=== PATIENT | male | born 1995 | race Caucasian/White ===

== ENCOUNTER 2016-09-12 13:52 | Emergency (ER) | payer OTHER ==
[2016-09-12 13:59] VITALS: RESP 18
--- NOTE | 2016-09-12 15:46 | ED ---
Chest Pain HPI - General Chief Complaint: Chest Pain Stated Complaint: chest and neck pain Time Seen by Provider: 09/12/16 15:15 Source: patient, RN notes reviewed Mode of arrival: ambulatory Limitations: no limitations - History of Present Illness Initial Comments: This patient is a 21-year-old man who presents to be evaluated for an episode of right chest pain that occurred earlier today. The patient states that he was riding the bus to school and experienced pain just to the right of his sternum that was sharp, constant, and moderate intensity. The patient states the pain is worse if he presses on it. He did not note any relieving factors. There were no associated factors. He states that the pain lasted number of minutes and has now completely resolved. MD Complaint: chest pain -: hour(s) Onset: during rest Pain Location: right chest Pain Radiation: none Severity: moderate Quality: sharp Consistency: now resolved Improves With: nothing Worsens With: palpation Treatments Prior to Arrival: none - Related Data Home Medications Medication Instructions Recorded Confirmed Albuterol Inhaler [Ventolin Hfa 2 puff INHALATION RT-Q6H PRN 11/01/15 09/12/16 Inhaler] Doxycycline [Vibramycin] 100 mg PO Q12HR 11/01/15 09/12/16 Fluticasone Nasal [place] [Flonase 1 spray NASAL DAILY 11/01/15 09/12/16 Nasal [place]] Levothyroxine Sodium [Synthroid] 25 mcg PO DAILY 11/01/15 09/12/16 Methylphenidate HCl [Ritalin] 20 mg PO BID 11/01/15 09/12/16 Mometasone Furoate [Asmanex] 1 puff INHALATION RT-DAILY 11/01/15 09/12/16 Sertraline [Zoloft] 100 mg PO DAILY 11/01/15 09/12/16 Cetirizine HCl [Zyrtec] 10 mg PO DAILY 09/12/16 09/12/16 OLANZapine [ZyPREXA] 2.5 mg PO HS 09/12/16 09/12/16 Allergies Allergy/AdvReac Type Severity Reaction Status Date / Time amoxicillin trihydrate Allergy Rash/Hives Verified 09/12/16 15:19 [From Augmentin] potassium clavulanate Allergy Rash/Hives Verified 09/12/16 15:19 [From Augmentin] risperidone [From Risperdal] Allergy Rash/Hives Verified 09/12/16 15:19 Review of Systems ROS Statement: Those systems with pertinent positive or pertinent negative responses have been documented in the HPI. ROS Other: All systems not noted in ROS Statement are negative. Constitutional: Denies: fever, chills Respiratory: Denies: cough, dyspnea Cardiovascular: Reports: as per HPI, chest pain. Denies: palpitations, orthopnea, edema, syncope Gastrointestinal: Denies: abdominal pain, nausea, vomiting Genitourinary: Denies: dysuria, hematuria Musculoskeletal: Denies: back pain Skin: Denies: rash Neurological: Denies: headache, weakness, numbness EKG Findings - EKG Results: EKG: interpreted by KOJO JOSEPHL, sinus rhythm, normal axis, normal QRS, normal ST/ T, no acute changes Past Medical History Past Medical History: Asthma, Thyroid Disorder Additional Past Medical History / Comment(s): shunt from hydrocephalus History of Any Multi-Drug Resistant Organisms: None Reported Additional Past Surgical History / Comment(s): shunt from hydrocephalus Past Anesthesia/Blood Transfusion Reactions: No Reported Reaction Past Psychological History: ADD/ADHD Additional Psychological History / Comment(s): asbsonny Smoking Status: Never smoker Past Alcohol Use History: None Reported Past Drug Use History: None Reported General Exam Limitations: no limitations General appearance: alert, in no apparent distress Head exam: Present: atraumatic, normocephalic Eye exam: Present: normal appearance ENT exam: Present: normal oropharynx Neck exam: Present: normal inspection, full ROM, thyromegaly (Patient's thyroid is at the upper limit of normal size.). Absent: tenderness, meningismus, lymphadenopathy Respiratory exam: Present: normal lung sounds bilaterally, chest wall tenderness (There is mild chest wall tenderness to the right of the patient's sternum. No palpable deformity). Absent: respiratory distress, wheezes, rales , rhonchi, stridor, accessory muscle use, decreased breath sounds, prolonged expiratory Cardiovascular Exam: Present: regular rate, normal rhythm, normal heart sounds. Absent: systolic murmur, diastolic murmur, rubs, gallop GI/Abdominal exam: Present: soft. Absent: distended, tenderness, guarding, rebound Extremities exam: Present: normal inspection, normal capillary refill. Absent: pedal edema, calf tenderness Back exam: Present: normal inspection. Absent: CVA tenderness (R), CVA tenderness (L) Neurological exam: Present: alert Skin exam: Present: warm, dry, intact, normal color. Absent: rash Course Vital Signs 09/12/16 09/12/16 13:53 18:15 Temperature 97.9 F 98.4 F Pulse Rate 88 95 Respiratory 18 18 Rate Blood Pressure 133/79 140/73 O2 Sat by Pulse 98 96 Oximetry Disposition Clinical Impression: Chest pain Disposition: HOME SELF-CARE Condition: Good Instructions: Chest Pain (ED) Referrals: Juan F Staley DO [Primary Care Provider] - 1-2 days
--- NOTE | 2016-09-12 16:22 | XR ---
EXAMINATION TYPE: XR chest 2V DATE OF EXAM: 09/12/2016 4:16 PM COMPARISON: 06/13/2004 HISTORY: Chest pain TECHNIQUE: Frontal and lateral views of the chest are obtained. FINDINGS: There is no focal air space opacity, pleural effusion, or pneumothorax seen. There is usha bronchial cuffing which may reflect bronchitis or asthma. The cardiac silhouette size is within norm al limits. The osseous structures are intact. IMPRESSION: There is peribronchial cuffing which may reflect bronchitis or asthma.
[2016-09-12 16:28] LABS: Basophils % (A) 1 %; CH 29.2; CHCM 34.5; Eosinophils # (A) 0.2 k/uL (0-0.7); Eosinophils % (A) 4 %; HDW 2.63; HGB 16.8 gm/dL (13.0-17.5); Luc % (Auto) 2; Lymphocytes # (A) 1.6 k/uL (1.0-4.8); Lymphocytes % (A) 26 %; MCH 28.5 pg (25.0-35.0); MCHC 33.5 g/dL (31.0-37.0); Mean Platelet Volume 7.8; Monocytes # (A) 0.3 k/uL (0-1.0); Monocytes % (A) 5 %; Neutrophils # (A) 3.9 k/uL (1.3-7.7); Neutrophils % (A) 64 %; RBC 5.89 m/uL (4.30-5.90); WBC 6.1 k/uL (4.0-11.0); WBC (Perox) 6.34
[2016-09-12 16:35] LABS: ALT 40 U/L (21-72); AST 20 U/L (17-59); Alkaline Phosphatase 118 U/L (38-126); Anion Gap 10 mmol/L; Blood Urea Nitrogen 14 mg/dL (9-20); Calcium 9.6 mg/dL (8.4-10.2); Carbon Dioxide 28 mmol/L (22-30); Chloride 104 mmol/L (98-107); Glucose 96 mg/dL (74-99); Non-African American GFR(MDRD) >60 (>60 ml/min/1.73 sqM); Sodium 142 mmol/L (137-145); Total Bilirubin 0.7 mg/dL (0.2-1.3)
[2016-09-12 18:16] VITALS: BP 140/73; PULSE 95; TEMP 98.4
== END 2016-09-12 18:16 | disposition home or self-care (01) ==
LOC: EC 13:52
DX: R07.9 Chest pain, unspecified (principal); J45.909 Unspecified asthma, uncomplicated; E07.9 Disorder of thyroid, unspecified; F90.9 Attention-deficit hyperactivity disorder, unspecified type; Z98.2 Presence of cerebrospinal fluid drainage device; Z88.8 Allergy status to other drugs, medicaments and biological substances; Z79.899 Other long term (current) drug therapy; Z79.51 Long term (current) use of inhaled steroids; Z88.0 Allergy status to penicillin
CPT/HCPCS: 36415; 71020; 80053; 84443; 85025; 85379; 93005; 99285

== ENCOUNTER 2017-03-10 15:09 | Inpatient (IN) | payer MEDICAID, OTHER ==
--- NOTE | 2017-03-10 15:57 | ED ---
General Adult HPI - General Chief complaint: Psychiatric Symptoms Stated complaint: Mental Health Time Seen by Provider: 03/10/17 15:47 Source: patient, RN notes reviewed Mode of arrival: ambulatory Limitations: no limitations - History of Present Illness Initial comments: 21-year-old male with history of depression presents with suicidal ideation. Patient was sent in from [facility] for evaluation and likely inpatient psychiatric care. Patient does report thoughts of suicide including overdose and cutting himself. He denies taking any medication above his normal doses today. Patient has remote history of hydrocephalus status post shunt and hypoglycemia. He has no physical complaints at this time. No homicidal ideation. No visual or auditory hallucinations. - Related Data Home Medications Medication Instructions Recorded Confirmed Albuterol Inhaler [Ventolin Hfa 2 puff INHALATION RT-Q6H PRN 11/01/15 03/10/17 Inhaler] Fluticasone Nasal [place] [Flonase 1 spray EA NOSTRIL DAILY PRN 11/01/15 03/10/17 Nasal [place]] Levothyroxine Sodium [Synthroid] 25 mcg PO DAILY 11/01/15 03/10/17 Methylphenidate HCl [Ritalin] 20 mg PO BID 11/01/15 03/10/17 Mometasone Furoate [Asmanex] 1 puff INHALATION RT-DAILY 11/01/15 03/10/17 Sertraline [Zoloft] 100 mg PO DAILY 11/01/15 03/10/17 Cetirizine HCl [Zyrtec] 10 mg PO DAILY PRN 09/12/16 03/10/17 Doxycycline Monohydrate [Monodox] 100 mg PO BID 03/10/17 03/10/17 Omeprazole [PriLOSEC] 20 mg PO DAILY PRN 03/10/17 03/10/17 Ziprasidone [Geodon] 20 mg PO BID-W/MEALS 03/10/17 03/10/17 buPROPion HCL [Wellbutrin XL] 150 mg PO DAILY 03/10/17 03/10/17 traZODone HCL 200 mg PO HS 03/10/17 03/10/17 Allergies Allergy/AdvReac Type Severity Reaction Status Date / Time amoxicillin trihydrate Allergy Rash/Hives Verified 03/10/17 15:38 [From Augmentin] potassium clavulanate Allergy Rash/Hives Verified 03/10/17 15:38 [From Augmentin] risperidone [From Risperdal] Allergy Rash/Hives Verified 03/10/17 15:38 Review of Systems ROS Statement: Those systems with pertinent positive or pertinent negative responses have been documented in the HPI. ROS Other: All systems not noted in ROS Statement are negative. Past Medical History Past Medical History: Asthma, Thyroid Disorder Additional Past Medical History / Comment(s): hydrocephalus, autism, social anxiety disorder History of Any Multi-Drug Resistant Organisms: None Reported Past Surgical History: Orthopedic Surgery Additional Past Surgical History / Comment(s): shunt for hydrocephalus Past Anesthesia/Blood Transfusion Reactions: No Reported Reaction Past Psychological History: ADD/ADHD Smoking Status: Never smoker Past Alcohol Use History: None Reported Past Drug Use History: None Reported General Exam Limitations: no limitations General appearance: alert, in no apparent distress Head exam: Present: atraumatic, normocephalic Eye exam: Present: normal appearance, PERRL. Absent: scleral icterus ENT exam: Present: normal exam, mucous membranes moist Neck exam: Present: normal inspection. Absent: meningismus, full ROM Respiratory exam: Present: normal lung sounds bilaterally. Absent: respiratory distress, wheezes Cardiovascular Exam: Present: regular rate, normal rhythm GI/Abdominal exam: Present: soft. Absent: distended, tenderness Extremities exam: Present: normal inspection, normal capillary refill. Absent: pedal edema Back exam: Present: normal inspection Neurological exam: Present: alert, oriented X3 Psychiatric exam: Present: normal affect, depressed. Absent: anxious Skin exam: Present: warm, dry Course Vital Signs 03/10/17 03/10/17 15:34 17:16 Temperature 98.4 F Pulse Rate 799 H Respiratory 18 18 Rate Blood Pressure 123/73 O2 Sat by Pulse 95 Oximetry Medical Decision Making - Medical Decision Making Patient was evaluated by psychiatry for possible inpatient psychiatric treatment. He doesn't meet for and need inpatient psychiatric treatment. Diagnosis: Depression, suicidal ideation - Lab Data Lab Results 03/10/17 Range/Units 17:20 Urine Opiates Screen Not Detected (NotDetected) Ur Oxycodone Screen Not Detected (NotDetected) Urine Methadone Screen Not Detected (NotDetected) Ur Propoxyphene Screen Not Detected (NotDetected) Ur Barbiturates Screen Not Detected (NotDetected) U Tricyclic Antidepress Not Detected (NotDetected) Ur Phencyclidine Scrn Not Detected (NotDetected) Ur Amphetamines Screen Not Detected (NotDetected) U Methamphetamines Scrn Not Detected (NotDetected) U Benzodiazepines Scrn Not Detected (NotDetected) Urine Cocaine Screen Not Detected (NotDetected) U Marijuana (THC) Screen Not Detected (NotDetected) Disposition Clinical Impression: Depression, Suicidal ideation Disposition: ADMITTED IP TO THIS [facility] Condition: Stable Decision to Admit Reason: Admit from EC Decision Date: 03/10/17 Decision Time: 18:00
[2017-03-10] MEDS ORDERED: ZIPRASIDONE 20 MG VIAL IM PRN (18:33)
[2017-03-10] MEDS ORDERED: ACETAMINOPHEN TAB 325 MG TAB PO PRN (18:33)
[2017-03-10] MEDS ORDERED: MAGNESIUM HYDROXIDE 2,400 MG/10 ML CUP PO PRN (18:33)
[2017-03-10] MEDS ORDERED: LORazepam 1 MG TAB PO PRN (18:33)
[2017-03-10] MEDS ORDERED: LORazepam 2 MG/ML SYRINGE IM PRN (18:42)
[2017-03-10] MEDS ORDERED: traZODone HCL 50 MG TAB PO PRN (18:45)
[2017-03-10] MEDS: LORATADINE 10 MG TAB PO SCH (20:05)
[2017-03-10] MEDS: OLANZapine ODT 5 MG TAB PO PRN (23:14)
[2017-03-10] MEDS ORDERED: diphenhydrAMINE 25 MG CAP PO STA (23:37)
[2017-03-11] MEDS: LEVOTHYROXINE 25 MCG TAB PO SCH (06:32)
[2017-03-11 09:03] LABS: Basophils # (A) 0.1 k/uL (0-0.2); Basophils % (A) 1 %; CH 28.8; CHCM 33.2; Eosinophils # (A) 0.3 k/uL (0-0.7); Eosinophils % (A) 6 %; HCT 50.5 % (39.0-53.0); HDW 2.48; HGB 16.8 gm/dL (13.0-17.5); Luc % (Auto) 4; Lymphocytes # (A) 2.1 k/uL (1.0-4.8); Lymphocytes % (A) 38 %; MCHC 33.2 g/dL (31.0-37.0); MCV 87.3 fL (80.0-100.0); Mean Platelet Volume 7.4; Monocytes # (A) 0.3 k/uL (0-1.0); Monocytes % (A) 6 %; Neutrophils # (A) 2.5 k/uL (1.3-7.7); Neutrophils % (A) 46 %; RBC 5.78 m/uL (4.30-5.90); RDW 12.7 % (11.5-15.5); WBC 5.5 k/uL (4.0-11.0); WBC (Perox) 5.69
[2017-03-11 09:09] LABS: ALT 40 U/L (21-72); AST 27 U/L (17-59); Alkaline Phosphatase 125 U/L (38-126); Anion Gap 12 mmol/L; Blood Urea Nitrogen 15 mg/dL (9-20); Calcium 9.5 mg/dL (8.4-10.2); Carbon Dioxide 27 mmol/L (22-30); Chloride 103 mmol/L (98-107); Glucose 84 mg/dL (74-99); Non-African American GFR(MDRD) >60 (>60 ml/min/1.73 sqM); Potassium 4.6 mmol/L (3.5-5.1); Sodium 142 mmol/L (137-145); Total Bilirubin 0.7 mg/dL (0.2-1.3); Total Protein 6.9 g/dL (6.3-8.2)
[2017-03-11] MEDS: BUDESONIDE 1 MG/2 ML NEBU INHALATION SCH (09:09)
[2017-03-11] MEDS: FLUTICASONE 50MCG/SPRAY NASAL 16GM EA NOSTRIL SCH (09:19)
--- NOTE | 2017-03-11 14:51 | P.HP ---
Psychiatric H&P - . History & Physical: Allergies Allergy/AdvReac Type Severity Reaction Status Date / Time amoxicillin trihydrate Allergy Rash/Hives Verified 03/10/17 15:38 [From Augmentin] potassium clavulanate Allergy Rash/Hives Verified 03/10/17 15:38 [From Augmentin] risperidone [From Risperdal] Allergy Rash/Hives Verified 03/10/17 15:38 Vital Signs Temp 97.5 F L 03/11/17 06:41 Pulse 64 03/11/17 06:41 Resp 16 03/11/17 06:41 BP 100/56 03/11/17 06:41 Pulse Ox 96 03/10/17 18:25 Intake & Output 03/10/17 03/11/17 03/11/17 18:59 06:59 18:59 Weight 99.79 kg Laboratory Last Values WBC 5.5 k/uL (4.0-11.0) 03/11/17 07:55 RBC 5.78 m/uL (4.30-5.90) 03/11/17 07:55 Hgb 16.8 gm/dL (13.0-17.5) 03/11/17 07:55 Hct 50.5 % (39.0-53.0) 03/11/17 07:55 MCV 87.3 fL (80.0-100.0) 03/11/17 07:55 MCH 29.0 pg (25.0-35.0) 03/11/17 07:55 MCHC 33.2 g/dL (31.0-37.0) 03/11/17 07:55 RDW 12.7 % (11.5-15.5) 03/11/17 07:55 Plt Count 192 k/uL (150-450) 03/11/17 07:55 Neutrophils % 46 % 03/11/17 07:55 Lymphocytes % 38 % 03/11/17 07:55 Monocytes % 6 % 03/11/17 07:55 Eosinophils % 6 % 03/11/17 07:55 Basophils % 1 % 03/11/17 07:55 Neutrophils # 2.5 k/uL (1.3-7.7) 03/11/17 07:55 Lymphocytes # 2.1 k/uL (1.0-4.8) 03/11/17 07:55 Monocytes # 0.3 k/uL (0-1.0) 03/11/17 07:55 Eosinophils # 0.3 k/uL (0-0.7) 03/11/17 07:55 Basophils # 0.1 k/uL (0-0.2) 03/11/17 07:55 Sodium 142 mmol/L (137-145) 03/11/17 07:55 Potassium 4.6 mmol/L (3.5-5.1) 03/11/17 07:55 Chloride 103 mmol/L (98-107) 03/11/17 07:55 Carbon Dioxide 27 mmol/L (22-30) 03/11/17 07:55 Anion Gap 12 mmol/L 03/11/17 07:55 BUN 15 mg/dL (9-20) 03/11/17 07:55 Creatinine 0.86 mg/dL (0.66-1.25) 03/11/17 07:55 Est GFR (MDRD) Af Amer >60 (>60 ml/min/1.73 sqM) 03/11/17 07:55 Est GFR (MDRD) Non-Af >60 (>60 ml/min/1.73 sqM) 03/11/17 07:55 Glucose 84 mg/dL (74-99) 03/11/17 07:55 Calcium 9.5 mg/dL (8.4-10.2) 03/11/17 07:55 Total Bilirubin 0.7 mg/dL (0.2-1.3) 03/11/17 07:55 AST 27 U/L (17-59) 03/11/17 07:55 ALT 40 U/L (21-72) 03/11/17 07:55 Alkaline Phosphatase 125 U/L (38-126) 03/11/17 07:55 Total Protein 6.9 g/dL (6.3-8.2) 03/11/17 07:55 Albumin 4.5 g/dL (3.5-5.0) 03/11/17 07:55 TSH 4.370 mIU/L (0.465-4.680) 03/11/17 07:55 Urine Opiates Screen Not Detected (NotDetected) 03/10/17 17:20 Ur Oxycodone Screen Not Detected (NotDetected) 03/10/17 17:20 Urine Methadone Screen Not Detected (NotDetected) 03/10/17 17:20 Ur Propoxyphene Screen Not Detected (NotDetected) 03/10/17 17:20 Ur Barbiturates Screen Not Detected (NotDetected) 03/10/17 17:20 U Tricyclic Antidepress Not Detected (NotDetected) 03/10/17 17:20 Ur Phencyclidine Scrn Not Detected (NotDetected) 03/10/17 17:20 Ur Amphetamines Screen Not Detected (NotDetected) 03/10/17 17:20 U Methamphetamines Scrn Not Detected (NotDetected) 03/10/17 17:20 U Benzodiazepines Scrn Not Detected (NotDetected) 03/10/17 17:20 Urine Cocaine Screen Not Detected (NotDetected) 03/10/17 17:20 U Marijuana (THC) Screen Not Detected (NotDetected) 03/10/17 17:20 Identifying Information: Mr. Delmar Casanova is 21-year-old unemployed never male, who lives with his mother, with past psychiatric history of autistic disorder, ADD, anxiety, and mood disorder. CC: "I need some help " History of Present Illness: The patient has been brought in to the emergency department by the community mental health worker who evaluated the patient before brought him and to the hospital. According to the [facility] evaluation patient admitted for suicidal ideation, homicidal ideation, and hallucinations. The patient reported to the ED team that he is been feeling depressed and has suicidal thoughts. The patient has been scratching himself and he admitted for self injurious behavior , reported he has been scrubbing his arms and legs with a fork 2 days ago. The patient presented today with depressed mood and admitted for suicidal ideation. He denies any current plan or intention to hurt self or others and he denies any current homicidal ideation. The patient reports continued to feel pressed mood, feeling hopeless, worthless, and helpless. Patient reports difficulty to go to sleep and admitted to have self-injurious thoughts. She reported that he is able to control his suicidal thoughts and to some extent able to control his self-injurious thoughts but he still has strong urge to heavily scratch his body. Patient reports feeling irritable, and has racing thoughts. He admitted for intermittent Panic attacks, Social anxiety, and avoidance social interactions. The patient reports severe mood swings with bouts of severe agitation and very irritable mood. He denies any current or prior episodes of manic symptoms, including episodes of: erratic uninhibited behavior, feeling grandiose or inflated self-esteem, elated mood, or absence need to sleep due to increased goal directed activities. Patient denies any current auditory/ visual / olfactory hallucinations. Patient admitted for feeling paranoid that people talking negatively about him. No bizarre disorganized thoughts or behavior noticed, and no delusions could be elicited. Past Psychiatric History: Hospitalizations: Reports prior psychiatric hospitalization at the same unit last year Medications Trials: He is currently followed by [facility]. Last time seen by psychiatrist was few days ago and he has some adjustment of his medications by tapering off Zyprexa and maintain patient on Geodon 20mg BID. Also patient is currently on Zoloft, Wellbutrin and Trazodone. Prior Psychotherapy: He has been followed by therapist and counseling at [facility] Prior Suicidal attempts/ Thoughts: Denies any prior attempts but admitted for prior thoughts Prior Self injurious behavior: Reports prior SIB by scrubbing his arms and legs by forks. Substance use history: He denies any history of substance use and denies any nicotine use. 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 Currently on SSI. Legal history: Denies Past history of trauma (physical/psychological/sexual): Patient reports prior psychological traumas but he refused to share any information or talking about his prior traumas. Past medical history: History of hydrocephalus. Acid reflux, Asthma, Hypothyroidism, allergic rhinitis, Acne Allergies: Risperidone (He would become very aggressive). Augmentin (allergic reaction with SOB). Mental status examination: Appearance: Appeared a bit age, adequately groomed, no specific features. Gait/posture: Normal gait, normal arm swinging, no abnormal movements Attitude and behavior: Engaged, behavior was cooperative, fair eye contact Motor activity: Normal psychomotor activity. Speech: Normal rate, rest, and articulation. Mood: Depressed and anxious. Affect: Constricted Thought form: goal-directed, linear, coherent. Thought content: Non-delusional, reports suicidal thoughts, denies homicidal thoughts, denies intentions or plans. Perception: Denies any auditory or visual hallucinations Attention: No impairment. Patient was able to repeat serial 7. Orientation: Patient patient was fully oriented to time place person and situation. Insight: Patient has limited insight about his psychiatric disorder. Judgment: Patient has limited judgment about his psychiatric treatment. History of Violence to self/others: Patient denies any history of violence or aggression toward self or others in the past 6 months. Patient strengths: Optimism to change Education Likable by others Insight about his mental illness Patient weaknesses: Anxiety symptoms. Poor coping skills especially with prior traumas. [id number] formulation: The patient probably have familiar and possibly genetic predisposition to his current presentation. Patient has a strong family history of mental illness and he has brain injury with hydrocephalus at a very young age. Predisposing psychological factors includes: Passive or dependent traits, trauma. Social predisposing factors include: Social anxiety and a prior history of being bullied. Current biological precipitating factors include disruption of brain neurotransmitters and lack of mood stabilizing effect probably due to recent change in his mood stabilizer switching from Zyprexa to Geodon. Precipitating psychological factors are depressive/ anxiety symptoms. Protective biological factors from future decompensation: To continue psychiatric medications (mood stabilizer/ antidepressant). Psychological protective factors: psychotherapy to address pathological traits And a prior trauma. Assessment: Autism spectrum disorder ADD Unspecified mood disorder Unspecified anxiety disorder Treatment/ plan: Patient has been admitted to inpatient psychiatric level of care Check: as per unit routine Diet: Regular Lab ordered on admission: CMP, CBC, TSH - ordered UDS on admission- ordered PSYCHIATRIC MEDICATIONS Continue with prior psychotropic medication as following Wellbutrin XL 150 mg by mouth daily for depression symptoms Zoloft 100 mg by mouth daily for depression and anxiety symptoms Geodon 20 mg by mouth twice a day with meals for mood symptoms and paranoid thoughts. Discontinue Zyprexa patient was in a taper off doses with the plan to switch from Zyprexa to Geodon. Continue trazodone at 100 mg by mouth at bedtime for depression and to help with insomnia Benadryl 25 mg by mouth at bedtime when necessary insomnia PRN medications as per orders Non-psychiatric medications: As per orders Pulmicort Flonase Levothyroxin Claritin Psycho-education about: Nature of psychiatric illnesses Adherence to treatment Participation in groups/ individual therapy, and other activities []Pt has been educated and counseled about tobacco use and will continue MET to encourage patient quitting Consent obtained to start new medication
[2017-03-11] MEDS: SERTRALINE 100 MG TAB PO SCH (15:30)
[2017-03-11] MEDS: buPROPion XL 150 MG TAB.ER.24H PO SCH (15:30)
[2017-03-11] MEDS: MAG HYDROX/AL HYDROX/SIMETH 30 ML CUP PO PRN (19:17)
[2017-03-11] MEDS: ZIPRASIDONE 20 MG CAP PO SCH (20:11)
[2017-03-11] MEDS: LORATADINE 10 MG TAB PO SCH (20:11)
[2017-03-11] MEDS: traZODone HCL 100 MG TAB PO SCH (20:11)
--- NOTE | 2017-03-11 20:44 | CONS ---
DATE OF CONSULTATION: 03/11/17 REASON FOR CONSULTATION: Medical management requested by Dr. Gil ). CONSULTATION: This is a 21 -year-old patient of Dr. Staley. The patients chronic stable medical conditions include: asthma, hypothyroid. The patient also had a hydrocephalus shunt placed as a child which is now non-functioning. The patient also has a diagnosis of autism spectrum disorder. The patient is followed by psychiatrist Dr. Gray at the outpatient setting. The patient for two or three days has been feeling more depressed. Has been scratching himself with a fork with a view to injure himself. He has been admitted for the same. The patient is otherwise tolerating a diet. Having bowel movements. No fever. No chills. Now admitted to the psychiatric unit for further workup. No hallucinations. REVIEW OF SYSTEMS: Constitutional: None. HEENT: None. Respiratory: None. Cardiovascular: None. Gastrointestinal: none. : None. Musculoskeletal: None. Dermatological: As above. Lymphatics: None. Psychiatry: As above. Neurological: None. Past history of hydrocephalus with a nonfunctioning shunt, autism spectrum disorder, asthma, hypothyroidism. Past surgical history: Shunt for hydrocephalus, orthopedic surgery. Social history: Does not smoke or drink alcohol. Lives with his mother. He is sophomore at [employer]. FAMILY HISTORY: Reviewed. Noncontributory to presentation. Home medications: 1. Geodon 20 mg po b.i.d. 2. Trazodone 200 mg q.h.s. 3. Wellbutrin XL 150 mg po daily. 4. Zoloft 100 mg po daily. 5. Prilosec 20 mg daily prn. 6. Asmanex one puff daily prn. 7. Ritalin 20 mg po b.i.d. 8. Synthroid 25 mcg a day. 9. Flonase one spray each nostril daily prn. 10. Doxycycline 100 mg b.i.d. 11. Cetirizine 10 mg daily prn. 12. Ventolin HFA two puffs q6h prn. ALLERGIES: AUGMENTIN, RISPERDAL. On examination, temperature 97.5, pulse 64, respiratory rate 16, blood pressure 100/56. Pulse ox 96% on room air. General appearance: Well built. BMI 30.7. Sitting up comfortable. EYES: Pupils equal. Conjunctivae normal. HEENT: Oral cavity normal. Neck: JVD not raised. Mass not palpable. Respiratory effort: Lungs fair entry. Cardiovascular: First and second sounds normal. No edema. Abdomen soft, nontender. Liver and spleen not palpable. Lymphatics: No lymph nodes palpable in the neck and axillae. Psychiatry: Alert and oriented times three. Mood and affect slightly anxious appearing. Neurological: Pupils equal. Cranial nerves grossly intact. Power and sensation grossly intact. Dermatological: Some superficial scratch beckett on the limbs. INVESTIGATIONS: White count 5.5, hemoglobin 16.8, potassium 4.6, BUN and creatinine normal. TSH is normal. ASSESSMENT: 1. Hydrocephalus with a nonfunctioning hydrocephalus shunt. 2. Mild intermittent asthma. 3. Hypothyroidism, chronic. 4. Autism spectrum disorder. 5. Obesity, BMI 30.7. 6. Unspecified mood and anxiety disorder, as per psychiatry. PLAN: The patients home medications is to continue. The patient is advised about his junk diet to see if he can get a better diet. He should lose weight. The patient does exercise. The patient should follow-up with his family doctor upon discharge. Anti-psychotic medication is being adjusted per the psychiatrist. Thank you for the consultation. Please call me for any further questions. STEPHEN
[2017-03-11] MEDS: diphenhydrAMINE 25 MG CAP PO PRN (23:40)
[2017-03-12] MEDS: OLANZapine ODT 5 MG TAB PO PRN (00:32)
[2017-03-12] MEDS: LEVOTHYROXINE 25 MCG TAB PO SCH (06:09)
[2017-03-12] MEDS: BUDESONIDE 1 MG/2 ML NEBU INHALATION SCH (08:53)
[2017-03-12] MEDS ORDERED: SERTRALINE 100 MG TAB PO SCH (09:00)
[2017-03-12] MEDS: SERTRALINE 100 MG TAB PO SCH (10:12)
[2017-03-12] MEDS: FLUTICASONE 50MCG/SPRAY NASAL 16GM EA NOSTRIL SCH (10:12)
[2017-03-12] MEDS: buPROPion XL 150 MG TAB.ER.24H PO SCH (10:12)
[2017-03-12] MEDS: ZIPRASIDONE 20 MG CAP PO SCH ×2 (10:12→21:41)
[2017-03-12] MEDS ORDERED: OLANZapine ODT 5 MG TAB PO PRN (11:32)
[2017-03-12] MEDS ORDERED: DOCUSATE 100 MG CAP PO PRN (11:39)
--- NOTE | 2017-03-12 11:42 | P.PN ---
Progress Note - Text Date of service: 03/12/2017 Chief complaint: "I feel so tired" Subjective: The patient has been seen today as follow-up, chart reviewed, case discussed with the treatment team. Patient slept about 8 hours last night. Patient has been not going to groups and other unit activities because he feels so tired and fatigued. Patient reports no appetite problems. Patient minimized depression and reports no suicidal thoughts. He reports his anxiety is much less and he feels less urge to scratch himself or hurt himself. The patient denies any manic symptoms including sustained period of time with elevated or irritable mood, impulsive or irrational behavior, inflated self-esteem, or absence need to sleep due to increases goal-directed activities. The patient denies any auditory or visual hallucinations. Also the patient denies any paranoid ideation. Patient reports constipation but milk of mag caused him diarrhea Review of other systems: Patient denies any physical symptoms besides what has been mentioned above. No breathing problems, no chest pain reported today. Objective: Vitals has been reviewed. Mental status examination: Appearance: Appeared a bit age, adequately groomed, no specific features. Gait/posture: Normal gait, normal arm swinging, no abnormal movements Attitude and behavior: Engaged, behavior was cooperative, fair eye contact Motor activity: Normal psychomotor activity. Speech: Normal rate, rest, and articulation. Mood: anxious. Affect: Constricted Thought form: goal-directed, linear, coherent. Thought content: Non-delusional, denies suicidal thoughts, denies homicidal thoughts, denies intentions or plans. Perception: Denies any auditory or visual hallucinations Attention: No impairment. Patient was able to repeat serial 7. Orientation: Patient patient was fully oriented to time place person and situation. Insight: Patient has limited insight about his psychiatric disorder. Judgment: Patient has limited judgment about his psychiatric treatment. Assessment: Autism spectrum disorder ADD Unspecified mood disorder Unspecified anxiety disorder Plan: Continue with inpatient psychiatric hospitalization for monitoring and continue treatment. Continue group therapy and other unit activities. Continue psychiatric medications: Wellbutrin, Zoloft, Geodon and Trazodone. Continue PRN medicaitons inlcuding Benadryl for insomnia, and Zydis only for severe psychotic behavior or self harming thoughts. Colace PRN for constipation. Continue follow up and monitoring
[2017-03-12] MEDS: LORATADINE 10 MG TAB PO SCH (21:41)
[2017-03-12] MEDS: traZODone HCL 100 MG TAB PO SCH (21:41)
[2017-03-12] MEDS: diphenhydrAMINE 25 MG CAP PO PRN (23:06)
[2017-03-13] MEDS: LEVOTHYROXINE 25 MCG TAB PO SCH (06:32)
[2017-03-13] MEDS: BUDESONIDE 1 MG/2 ML NEBU INHALATION SCH (09:04)
[2017-03-13] MEDS: FLUTICASONE 50MCG/SPRAY NASAL 16GM EA NOSTRIL SCH (09:07)
[2017-03-13] MEDS: buPROPion XL 150 MG TAB.ER.24H PO SCH (09:08)
[2017-03-13] MEDS: ZIPRASIDONE 20 MG CAP PO SCH ×2 (09:08→20:03)
[2017-03-13] MEDS: SERTRALINE 100 MG TAB PO SCH (09:08)
[2017-03-13 11:49] LABS: Appearance,Urine Clear (Clear); Bilirubin,Urine Negative (Negative); Glucose,Urine (UA) Negative (Negative); Ketones,Urine Negative (Negative); Leukocyte Esterase,Urine Negative (Negative); Nitrite,Urine Negative (Negative); Protein,Urine Negative (Negative); Specific Gravity,Urine 1.019 (1.001-1.035); UA Billing (MACRO vs. MICRO) CHEM; Urobilinogen,Urine <2.0 mg/dL (<2.0)
--- NOTE | 2017-03-13 12:10 | P.PN ---
Progress Note - Text Interval History: Patient is a 21-year-old male who is admitted with auditory hallucinations, suicidal ideation and homicidal ideation after recent change in his medications, titrating off of Zyprexa and beginning Geodon. Patient was seen today and he reported that he is feeling much better. He states that he slept about 5 hours last night and is no longer feeling depressed and is no longer having any auditory hallucinations. He states he is no longer thinking about suicide or hurting anyone else. Patient states that he was having trouble at home dealing with things which he described as trying to be more independent. He stated that he is trying to take care of chores, cleaning at home to show that he can be more independent. He also reported that an aunt was yelling and swearing at him prior to his admission. Patient states that he is tolerating the medication well and reported no complaints of side effects. Mental Status: Appearance/Attitude: Patient was neatly dressed, neatly groomed, he is cooperative during the interview making good eye contact. Behavior: Patient did not exhibit any psychomotor agitation or retardation. Speech/Language: Patient's speech was spontaneous, of normal volume and rhythm. Thought Process: Patient was goal-directed, he was not circumstantial or tangential and no evidence of loose associations or flight of ideas. Thought Content: Patient denied any auditory or visual hallucinations and denied any delusional or paranoid ideation. Patient states that he was trying to become more independent and do more things around the house prior to his admission. He states that his medications had been changed and that they were not working well for several days. He states that he is feeling calm, slept for about 5 hours last night, stating he was sleeping 9-10 hours a day at home and his appetite is good. Suicidal/Homicidal Ideation: Patient denied any current suicidal or homicidal ideation. Sensorium/Cognition: Patient was alert and oriented to person, place, date and his memory was grossly intact. Mood/Affect: Patient's mood was euthymic, he was upbeat and positive and his affect was appropriate. Insight/Judgement: Patient's insight and judgment are fair. Assessment: Patient states that he is feeling much better and feels the medications are working currently as he is no longer having any psychotic symptoms and is no longer reporting any suicidal or homicidal ideation or thoughts of self harm. Patient states that he was trying to be more independent at home and lives with his mother. He reported no complaints of side effects from the medication. Patient's laboratory tests revealed no significant abnormalities. Plan: Patient will continue on his current medication, Geodon 20mg twice a day to target his psychotic symptoms, mood; Wellbutrin 150 mg extended release in the morning, Zoloft 100 mg daily and trazodone 100 mg at bedtime. Patient states he is feeling more stable on the medications, no longer having any thoughts of self-harm and feels his mood is more stable and he is sleeping better. Patient and I discussed a discharge tomorrow and he was agreeable with this should he continue to do well today. Patient was taken off of finger food and return to a regular diet. Patient will return to live with his mother and continue his follow-up at [facility] upon discharge.
[2017-03-13] MEDS: LORATADINE 10 MG TAB PO SCH (20:03)
[2017-03-13] MEDS: traZODone HCL 100 MG TAB PO SCH (20:03)
[2017-03-13] MEDS: ALBUTEROL INHALER 60 PUFF/8 GM INHALER INHALATION PRN (20:20)
[2017-03-14] MEDS: MAG HYDROX/AL HYDROX/SIMETH 30 ML CUP PO PRN (05:24)
[2017-03-14 05:39] VITALS: BP 106/54; PULSE 71; RESP 16; TEMP 97.7
[2017-03-14] MEDS: ALBUTEROL INHALER 60 PUFF/8 GM INHALER INHALATION PRN (05:45)
[2017-03-14] MEDS: LEVOTHYROXINE 25 MCG TAB PO SCH (07:09)
[2017-03-14] MEDS: SERTRALINE 100 MG TAB PO SCH (09:15)
[2017-03-14] MEDS: ZIPRASIDONE 20 MG CAP PO SCH (09:15)
[2017-03-14] MEDS: buPROPion XL 150 MG TAB.ER.24H PO SCH (09:16)
[2017-03-14] MEDS: FLUTICASONE 50MCG/SPRAY NASAL 16GM EA NOSTRIL SCH (09:16)
--- NOTE | 2017-03-14 11:39 | P.DS ---
Providers Date of admission: 03/10/17 18:25 Expected date of discharge: 03/14/17 Attending physician: Tamara Dillon MD Consults: 03/10/17 18:33 Consult Physician Routine Consulting Provider: Chapito Govea Consult Reason/Comments: H & P and medical management Do you want consulting provider notified?: Yes Primary care physician: Juan F Staley [facility] Course: Discharge Diagnoses: Unspecified depressive disorder, unspecified anxiety disorder, autism spectrum disorder by history, attention deficit disorder by history Reason for Admission: Patient is a 21-year-old male was brought to the emergency room by [facility] due to his expressing suicidal ideation, homicidal ideation and reporting hallucinations. Patient had also been scratching himself with a fork on his arms and legs 2 days ago and continued to having self-injurious thoughts. Patient was reporting feeling depressed, hopeless, worthless and helpless as well as having difficulty sleeping and suicidal thoughts with no plan. Patient reported having thoughts to self-harm by scratching, is also reporting feeling irritable with racing thoughts. Patient had recently been titrated off of Zyprexa and begun on Geodon , he was also begun on trazodone and had continued on his prior medications of Wellbutrin, Zoloft, Ritalin. Patient had been followed at [facility] and had a prior psychiatric hospitalization here last year. Hospital Course: Patient was admitted on a voluntary basis, placed on routine precautions, laboratory studies were ordered as well as group and activity therapy. Patient was continued on his Wellbutrin 150 mg XL, Zoloft 100 mg daily , Geodon 20 mg twice a day, trazodone 100 mg at bedtime. Patient was attending groups and activities, reported his sleep had improved and was no longer having self-injurious thoughts. Patient continued to improve and was no longer having any suicidal ideation, no longer feeling depressed and had no irritability. Patient was able to report that he had not been tapering his medication as [facility] had instructed him, nor was he taking the trazodone as instructed. Patient responded well to the medications and had no reports of side effects or problems with the medications. He reported he was sleeping well at night and was somewhat anxious about leaving the hospital. Patient continued to do well on the unit showing no signs of irritability, he was not depressed, and no self- injurious behavior. Patient was ready for discharge and planned to return home to live with his mother and continue his follow-up at [facility]. Discharge Mental Status:Appearance/Attitude: Patient was dressed in a hospital gown this morning, he was slightly anxious about his discharge and he was cooperative during the interview making good eye contact. Behavior: Patient did not exhibit any psychomotor agitation or retardation, stating he had no thoughts of self-harm. Speech/Language: Patient's speech was spontaneous, of normal volume and rhythm and he was coherent. Thought Process: He was goal-directed, no evidence of circumstantial or tangential thought and no loose associations or racing thoughts were elicited. Thought Content: Patient denied any current auditory or visual hallucinations and no delusions or paranoid ideation were elicited. Patient stated that he was no longer thinking of harming himself, felt much less irritable, reported he was sleeping well at night and reported some anxiety about returning home. Suicidal/Homicidal Ideation: Denied any current suicidal ideation, thoughts of self-harm or homicidal ideation. Sensorium/Cognition: Patient was alert and oriented to person, place, and time and his memory was grossly intact. Mood/Affect: Patient's mood was slightly anxious, euthymic and his affect was appropriate. Insight/Judgement: Patient's insight and judgment are fair. Risk Assessment: Patient is at low risk due to his having no alcohol or drug use , compliance with medication and therapy, no prior suicide attempts. Laboratory Last Values WBC 5.5 k/uL (4.0-11.0) 03/11/17 07:55 RBC 5.78 m/uL (4.30-5.90) 03/11/17 07:55 Hgb 16.8 gm/dL (13.0-17.5) 03/11/17 07:55 Hct 50.5 % (39.0-53.0) 03/11/17 07:55 MCV 87.3 fL (80.0-100.0) 03/11/17 07:55 MCH 29.0 pg (25.0-35.0) 03/11/17 07:55 MCHC 33.2 g/dL (31.0-37.0) 03/11/17 07:55 RDW 12.7 % (11.5-15.5) 03/11/17 07:55 Plt Count 192 k/uL (150-450) 03/11/17 07:55 Neutrophils % 46 % 03/11/17 07:55 Lymphocytes % 38 % 03/11/17 07:55 Monocytes % 6 % 03/11/17 07:55 Eosinophils % 6 % 03/11/17 07:55 Basophils % 1 % 03/11/17 07:55 Neutrophils # 2.5 k/uL (1.3-7.7) 03/11/17 07:55 Lymphocytes # 2.1 k/uL (1.0-4.8) 03/11/17 07:55 Monocytes # 0.3 k/uL (0-1.0) 03/11/17 07:55 Eosinophils # 0.3 k/uL (0-0.7) 03/11/17 07:55 Basophils # 0.1 k/uL (0-0.2) 03/11/17 07:55 Sodium 142 mmol/L (137-145) 03/11/17 07:55 Potassium 4.6 mmol/L (3.5-5.1) 03/11/17 07:55 Chloride 103 mmol/L (98-107) 03/11/17 07:55 Carbon Dioxide 27 mmol/L (22-30) 03/11/17 07:55 Anion Gap 12 mmol/L 03/11/17 07:55 BUN 15 mg/dL (9-20) 03/11/17 07:55 Creatinine 0.86 mg/dL (0.66-1.25) 03/11/17 07:55 Est GFR (MDRD) Af Amer >60 (>60 ml/min/1.73 sqM) 03/11/17 07:55 Est GFR (MDRD) Non-Af >60 (>60 ml/min/1.73 sqM) 03/11/17 07:55 Glucose 84 mg/dL (74-99) 03/11/17 07:55 Calcium 9.5 mg/dL (8.4-10.2) 03/11/17 07:55 Total Bilirubin 0.7 mg/dL (0.2-1.3) 03/11/17 07:55 AST 27 U/L (17-59) 03/11/17 07:55 ALT 40 U/L (21-72) 03/11/17 07:55 Alkaline Phosphatase 125 U/L (38-126) 03/11/17 07:55 Total Protein 6.9 g/dL (6.3-8.2) 03/11/17 07:55 Albumin 4.5 g/dL (3.5-5.0) 03/11/17 07:55 TSH 4.370 mIU/L (0.465-4.680) 03/11/17 07:55 Urine Color Yellow 03/13/17 11:01 Urine Appearance Clear (Clear) 03/13/17 11:01 Urine pH 7.0 (5.0-8.0) 03/13/17 11:01 Ur Specific [place] 1.019 (1.001-1.035) 03/13/17 11:01 Urine Protein Negative (Negative) 03/13/17 11:01 Urine Glucose (UA) Negative (Negative) 03/13/17 11:01 Urine Ketones Negative (Negative) 03/13/17 11:01 Urine Blood Negative (Negative) 03/13/17 11:01 Urine Nitrite Negative (Negative) 03/13/17 11:01 Urine Bilirubin Negative (Negative) 03/13/17 11:01 Urine Urobilinogen <2.0 mg/dL (<2.0) 03/13/17 11:01 Ur Leukocyte Esterase Negative (Negative) 03/13/17 11:01 Urine Opiates Screen Not Detected (NotDetected) 03/10/17 17:20 Ur Oxycodone Screen Not Detected (NotDetected) 03/10/17 17:20 Urine Methadone Screen Not Detected (NotDetected) 03/10/17 17:20 Ur Propoxyphene Screen Not Detected (NotDetected) 03/10/17 17:20 Ur Barbiturates Screen Not Detected (NotDetected) 03/10/17 17:20 U Tricyclic Antidepress Not Detected (NotDetected) 03/10/17 17:20 Ur Phencyclidine Scrn Not Detected (NotDetected) 03/10/17 17:20 Ur Amphetamines Screen Not Detected (NotDetected) 03/10/17 17:20 U Methamphetamines Scrn Not Detected (NotDetected) 03/10/17 17:20 U Benzodiazepines Scrn Not Detected (NotDetected) 03/10/17 17:20 Urine Cocaine Screen Not Detected (NotDetected) 03/10/17 17:20 U Marijuana (THC) Screen Not Detected (NotDetected) 03/10/17 17:20 Discharge Plan: He will return home to live with his mother and will return for follow-up at [facility], his next appointment is March 16. Discharge medications: Wellbutrin 150 mg XL every morning, Zoloft 100 mg daily, Desyrel 100 mg at bedtime, Geodon 20 mg twice a day with food and patient will restart his Ritalin 20 mg twice a day. Patient will also continue on his prior nonpsychiatric medications of Prilosec, Asmanex, doxycycline, Ventolin, Synthroid, Flonase and Zyrtec. Patient was given prescriptions for Zoloft 100 mg daily, Prilosec, Asmanex and doxycycline; patient states he has sufficient other medication at home. Patient will be taking 100mg at bedtime of Desyrel not 200mg as was prescribed, he has sufficient medication and no script was given. Patient was encouraged to be compliant with medication and to take them as directed as well as continuing to follow up with [facility]. Allergies amoxicillin trihydrate [From Augmentin] Allergy (Verified 03/10/17 15:38) Rash/Hives potassium clavulanate [From Augmentin] Allergy (Verified 03/10/17 15:38) Rash/Hives risperidone [From Risperdal] Allergy (Verified 03/10/17 15:38) Rash/Hives Patient Condition at Discharge: Stable Plan - Discharge Summary New Discharge Prescriptions: New traZODone HCL [Desyrel] 100 mg PO HS tab Continue Albuterol Inhaler [Ventolin Hfa Inhaler] 2 puff INHALATION RT-Q6H PRN PRN Reason: Dyspnea Levothyroxine Sodium [Synthroid] 25 mcg PO DAILY Methylphenidate HCl [Ritalin] 20 mg PO BID Fluticasone Nasal Wallace [Flonase Nasal Wallace] 1 spray EA NOSTRIL DAILY PRN PRN Reason: Allergy Symptoms Cetirizine HCl [Zyrtec] 10 mg PO DAILY PRN PRN Reason: Allergy Symptoms buPROPion HCL [Wellbutrin XL] 150 mg PO DAILY Ziprasidone [Geodon] 20 mg PO BID-W/MEALS Doxycycline Monohydrate [Monodox] 100 mg PO BID #14 Mometasone Furoate [Asmanex] 1 puff INHALATION RT-DAILY 30 Days Omeprazole [PriLOSEC] 20 mg PO DAILY PRN #14 PRN Reason: Indigestion Sertraline [Zoloft] 100 mg PO DAILY #14 Discontinued traZODone HCL 200 mg PO HS Discharge Medication List Albuterol Inhaler [Ventolin Hfa Inhaler] 2 puff INHALATION RT-Q6H PRN 11/01/15 [ History] Fluticasone Nasal Wallace [Flonase Nasal Wallace] 1 spray EA NOSTRIL DAILY PRN 10/31 [History] Levothyroxine Sodium [Synthroid] 25 mcg PO DAILY 11/01/15 [History] Methylphenidate HCl [Ritalin] 20 mg PO BID 11/01/15 [History] Cetirizine HCl [Zyrtec] 10 mg PO DAILY PRN 09/12/16 [History] Ziprasidone [Geodon] 20 mg PO BID-W/MEALS 03/10/17 [History] buPROPion HCL [Wellbutrin XL] 150 mg PO DAILY 03/10/17 [History] Doxycycline Monohydrate [Monodox] 100 mg PO BID #14 03/14/17 [Rx] Mometasone Furoate [Asmanex] 1 puff INHALATION RT-DAILY 30 Days 03/14/17 [Rx] Omeprazole [PriLOSEC] 20 mg PO DAILY PRN #14 03/14/17 [Rx] Sertraline [Zoloft] 100 mg PO DAILY #14 03/14/17 [Rx] traZODone HCL [Desyrel] 100 mg PO HS tab 03/14/17 [Rx] Follow up Appointment(s)/Referral(s): [facility] [Outside] - 03/28/17 10:45 am (Dr. Gray 03-17-17 @ 11:50 Brit Burks 03-28-17 @ 10:45) Juan F Staley DO [Primary Care Provider] - 1-2 days
[2017-03-14] MEDS: BUDESONIDE 1 MG/2 ML NEBU INHALATION SCH (12:22)
== END 2017-03-14 14:45 | disposition home or self-care (01) | DRG 881 ==
LOC: EC 15:09 → 3MHU 18:25
PROVIDERS: ADMIT Psychiatry & Neurology Psychiatry; ATTEND Psychiatry & Neurology Psychiatry
DX: F32.9 Major depressive disorder, single episode, unspecified (principal); G91.9 Hydrocephalus, unspecified; R45.851 Suicidal ideations; R45.850 Homicidal ideations; F84.0 Autistic disorder; E03.9 Hypothyroidism, unspecified; E66.9 Obesity, unspecified; F40.10 Social phobia, unspecified; F41.0 Panic disorder [episodic paroxysmal anxiety]; Z88.0 Allergy status to penicillin; G47.00 Insomnia, unspecified; J45.20 Mild intermittent asthma, uncomplicated; K21.9 Gastro-esophageal reflux disease without esophagitis; Z79.899 Other long term (current) drug therapy; Z81.8 Family history of other mental and behavioral disorders; Z91.5 Personal history of self-harm; Z98.2 Presence of cerebrospinal fluid drainage device; F90.9 Attention-deficit hyperactivity disorder, unspecified type
CPT/HCPCS: 80053; 80306; 81003; 82075; 84443; 85025; 94640; 99285

== ENCOUNTER 2017-09-27 18:08 | Emergency (ER) | payer OTHER ==
[2017-09-27 18:15] VITALS: RESP 18
--- NOTE | 2017-09-27 18:59 | ED ---
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 He subsequently underwent a BP patient procedure. Patient reports his PET CAREGIVER shunt was revised 3 or 4 times during his life. He reports that his last revision was before his freshman year of high school. He reports that he has not followed with his neurosurgeon since that time. Patient was advised that his last neurosurgery follow-up that his PET CAREGIVER shunt was no longer functional but that he no longer needed it. Patient reports that he has been having intermittent headaches which she describes as a sudden feeling of pressure in his head that lasts seconds and resolves spontaneously. He reports that these episodes occur unprovoked. He has seen his primary care physician regarding these headaches and has been referred to an outpatient computed tomography scan which is scheduled to be completed on Monday. Patient reports that over the course the weekend he felt that he was having episodes of amnesia or that he could not focus. Patient is currently in college and feels it is very important to him that he be able to focus. Patient also reports that he was feeling as though he was having spasms in his abdomen that would travel to his legs. Patient reports that these occur intermittently without provocation and resolve spontaneously. Patient reports he feels nauseated but he has been able to eat. Upon initial evaluation the patient was eating chadian fries. Patient does report feeling as though some of the symptoms may be related to his anxiety. That he wanted to come to the ER to make sure. - Related Data Home Medications Medication Instructions Recorded Confirmed Albuterol Inhaler [Ventolin Hfa 2 puff INHALATION RT-Q6H PRN 11/01/15 09/27/17 Inhaler] Fluticasone Nasal [place] [Flonase 1 spray EA NOSTRIL DAILY 11/01/15 09/27/17 Nasal [place]] Levothyroxine Sodium [Synthroid] 25 mcg PO DAILY 11/01/15 09/27/17 Methylphenidate HCl [Ritalin] 20 mg PO BID 11/01/15 09/27/17 Cetirizine HCl [Zyrtec] 10 mg PO DAILY 09/12/16 09/27/17 Ziprasidone [Geodon] 20 mg PO BID 03/10/17 09/27/17 buPROPion HCL [Wellbutrin XL] 150 mg PO DAILY 03/10/17 09/27/17 Albuterol Nebulized [Ventolin 2.5 mg INHALATION RT-QID PRN 09/27/17 09/27/17 Nebulized] Dicyclomine [Bentyl] 10 mg PO TID PRN 09/27/17 09/27/17 Previous Rx's Medication Instructions Recorded Doxycycline Monohydrate [Monodox] 100 mg PO BID #14 03/14/17 Omeprazole [PriLOSEC] 20 mg PO DAILY PRN #14 03/14/17 Sertraline [Zoloft] 100 mg PO DAILY #14 03/14/17 Allergies Allergy/AdvReac Type Severity Reaction Status Date / Time amoxicillin trihydrate Allergy Anaphylaxis Verified 09/27/17 18:27 [From Augmentin] potassium clavulanate Allergy Anaphylaxis Verified 09/27/17 18:27 [From Augmentin] risperidone [From Risperdal] AdvReac AGGRESSIVE Verified 09/27/17 18:27 Review of Systems ROS Statement: Those systems with pertinent positive or pertinent negative responses have been documented in the HPI. ROS Other: All systems not noted in ROS Statement are negative. Constitutional: Denies: fever, chills, weakness Eyes: Denies: eye pain, vision change ENT: Denies: throat pain Respiratory: Denies: cough, dyspnea Cardiovascular: Denies: chest pain, palpitations Endocrine: Denies: fatigue Gastrointestinal: Reports: abdominal pain (spasms), nausea. Denies: vomiting Genitourinary: Denies: dysuria Musculoskeletal: Denies: back pain Skin: Denies: rash, lesions Neurological: Reports: headache. Denies: weakness, numbness Psychiatric: Reports: anxiety Hematological/Lymphatic: Denies: easy bleeding, easy bruising Past Medical History Past Medical History: Asthma, Thyroid Disorder Additional Past Medical History / Comment(s): hydrocephalus, autism, social anxiety disorder History of Any Multi-Drug Resistant Organisms: None Reported Past Surgical History: Orthopedic Surgery Additional Past Surgical History / Comment(s): shunt for hydrocephalus, ex-lap for NEC at age 3 days Past Anesthesia/Blood Transfusion Reactions: No Reported Reaction Past Psychological History: ADD/ADHD Smoking Status: Never smoker Past Alcohol Use History: None Reported Past Drug Use History: None Reported General Exam Limitations: no limitations General appearance: alert, in no apparent distress Head exam: Present: atraumatic, normocephalic Eye exam: Present: normal appearance, PERRL ENT exam: Present: normal exam, mucous membranes moist Neck exam: Present: normal inspection Respiratory exam: Present: normal lung sounds bilaterally. Absent: respiratory distress Cardiovascular Exam: Present: regular rate, normal rhythm GI/Abdominal exam: Present: soft, other (Well healed abdominal scars). Absent: distended Course Vital Signs 09/27/17 09/27/17 18:10 20:37 Temperature 97.4 F L 97.9 F Pulse Rate 81 91 Respiratory 18 18 Rate Blood Pressure 152/90 146/76 O2 Sat by Pulse 97 94 L Oximetry Medical Decision Making - Medical Decision Making The patient was seen and evaluated, history was obtained from the patient. Vital signs were reviewed. Patient sitting comfortably in his ER gurney eating chadian fries. Patient is in no acute distress, he reports a vague symptoms intermittently for 2 weeks duration but seems that his confusion and lack of concentration has been worse in the past weekend. 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 He states it college is causing him a lot of stress. Patient scheduled for an outpatient CT of the head to reevaluate hydrocephalus that was diagnosed as a child. Last head CT in our facility was in 1999 At this time I will order basic labs as well as a head CT In addition with the patient complaining of muscle pain I will order an influenza swab Upon reevaluation the patient is still sitting comfortably, he is finished his chadian fries. He has put away his books and is resting comfortably. Patient states that he feels much better and believes that most of his symptoms may be related to stress and anxiety. I advised the patient of his negative workup. Advised him that his head CT seems unchanged from previous. Advised him that he needs to discuss this with his regular doctor and inquire whether or not he needs the scheduled CT this Monday. All questions pertaining to care were answered best of my ability and the patient was discharged home with a plan to follow up with his primary care physician. Patient has not followed up with neurosurgery in a number of years, he states that because he is been stable his appointments are only once every 3 years but he has not been since he was a freshman in high school. I advised the patient that he needs to contact his neurosurgeon for follow-up visit. - Lab Data Result diagrams: 09/27/17 19:13 09/27/17 19:13 Lab Results 09/27/17 09/27/17 09/27/17 Range/Units 19:13 19:13 19:13 WBC 6.7 (3.8-10.6) k/uL RBC 5.80 (4.30-5.90) m/uL Hgb 16.9 (13.0-17.5) gm/dL Hct 49.7 (39.0-53.0) % MCV 85.6 (80.0-100.0) fL MCH 29.1 (25.0-35.0) pg MCHC 33.9 (31.0-37.0) g/dL RDW 12.4 (11.5-15.5) % Plt Count 206 (150-450) k/uL Neutrophils % 61 % Lymphocytes % 26 % Monocytes % 5 % Eosinophils % 6 % Basophils % 1 % Neutrophils # 4.1 (1.3-7.7) k/uL Lymphocytes # 1.8 (1.0-4.8) k/uL Monocytes # 0.3 (0-1.0) k/uL Eosinophils # 0.4 (0-0.7) k/uL Basophils # 0.0 (0-0.2) k/uL Sodium 142 (137-145) mmol/L Potassium 4.0 (3.5-5.1) mmol/L Chloride 102 (98-107) mmol/L Carbon Dioxide 29 (22-30) mmol/L Anion Gap 11 mmol/L BUN 16 (9-20) mg/dL Creatinine 0.80 (0.66-1.25) mg/dL Est GFR (MDRD) Af Amer >60 (>60 ml/min/1.73 sqM) Est GFR (MDRD) Non-Af >60 (>60 ml/min/1.73 sqM) Glucose 87 (74-99) mg/dL Calcium 9.8 (8.4-10.2) mg/dL Magnesium 1.9 (1.6-2.3) mg/dL Total Bilirubin 0.4 (0.2-1.3) mg/dL AST 22 (17-59) U/L ALT 31 (21-72) U/L Alkaline Phosphatase 133 H (38-126) U/L Creatine Kinase 65 (55-170) U/L Total Protein 6.8 (6.3-8.2) g/dL Albumin 4.4 (3.5-5.0) g/dL Lipase 128 (23-300) U/L Urine Color Urine Appearance (Clear) Urine pH (5.0-8.0) Ur Specific [place] (1.001-1.035) Urine Protein (Negative) Urine Glucose (UA) (Negative) Urine Ketones (Negative) Urine Blood (Negative) Urine Nitrite (Negative) Urine Bilirubin (Negative) Urine Urobilinogen (<2.0) mg/dL Ur Leukocyte Esterase (Negative) Influenza Type A RNA Not Detected (Not Detectd) Influenza Type B (PCR) Not Detected (Not Detectd) 09/27/17 Range/Units 19:45 WBC (3.8-10.6) k/uL RBC (4.30-5.90) m/uL Hgb (13.0-17.5) gm/dL Hct (39.0-53.0) % MCV (80.0-100.0) fL MCH (25.0-35.0) pg MCHC (31.0-37.0) g/dL RDW (11.5-15.5) % Plt Count (150-450) k/uL Neutrophils % % Lymphocytes % % Monocytes % % Eosinophils % % Basophils % % Neutrophils # (1.3-7.7) k/uL Lymphocytes # (1.0-4.8) k/uL Monocytes # (0-1.0) k/uL Eosinophils # (0-0.7) k/uL Basophils # (0-0.2) k/uL Sodium (137-145) mmol/L Potassium (3.5-5.1) mmol/L Chloride (98-107) mmol/L Carbon Dioxide (22-30) mmol/L Anion Gap mmol/L BUN (9-20) mg/dL Creatinine (0.66-1.25) mg/dL Est GFR (MDRD) Af Amer (>60 ml/min/1.73 sqM) Est GFR (MDRD) Non-Af (>60 ml/min/1.73 sqM) Glucose (74-99) mg/dL Calcium (8.4-10.2) mg/dL Magnesium (1.6-2.3) mg/dL Total Bilirubin (0.2-1.3) mg/dL AST (17-59) U/L ALT (21-72) U/L Alkaline Phosphatase (38-126) U/L Creatine Kinase (55-170) U/L Total Protein (6.3-8.2) g/dL Albumin (3.5-5.0) g/dL Lipase (23-300) U/L Urine Color Yellow Urine Appearance Clear (Clear) Urine pH 7.0 (5.0-8.0) Ur Specific [place] 1.018 (1.001-1.035) Urine Protein Negative (Negative) Urine Glucose (UA) Negative (Negative) Urine Ketones Negative (Negative) Urine Blood Negative (Negative) Urine Nitrite Negative (Negative) Urine Bilirubin Negative (Negative) Urine Urobilinogen <2.0 (<2.0) mg/dL Ur Leukocyte Esterase Negative (Negative) Influenza Type A RNA (Not Detectd) Influenza Type B (PCR) (Not Detectd) Disposition Clinical Impression: Confusion, Chronic headache Disposition: HOME SELF-CARE Condition: Good Instructions: Acute Headache (ED) Referrals: Juan F Staley DO [Primary Care Provider] - 1-2 days Time of Disposition: 20:19
[2017-09-27 19:36] LABS: Basophils % (A) 1 %; Eosinophils # (A) 0.4 k/uL (0-0.7); Eosinophils % (A) 6 %; HCT 49.7 % (39.0-53.0); HGB 16.9 gm/dL (13.0-17.5); Lymphocytes # (A) 1.8 k/uL (1.0-4.8); Lymphocytes % (A) 26 %; MCH 29.1 pg (25.0-35.0); MCHC 33.9 g/dL (31.0-37.0); MCV 85.6 fL (80.0-100.0); Mean Platelet Volume 7.1; Monocytes # (A) 0.3 k/uL (0-1.0); Monocytes % (A) 5 %; Neutrophils # (A) 4.1 k/uL (1.3-7.7); Neutrophils % (A) 61 %; Platelet Count 206 k/uL (150-450); RDW 12.4 % (11.5-15.5); WBC 6.7 k/uL (3.8-10.6)
--- NOTE | 2017-09-27 19:44 | CT ---
EXAMINATION TYPE: CT brain wo con DATE OF EXAM: 09/27/2017 COMPARISON: NONE HISTORY: Headache and mental status changes. CT DLP: 1225 mGycm. Automated Exposure Control for Dose Reduction was Utilized. TECHNIQUE: CT scan of the head is performed without contrast. FINDINGS: There is a shunt catheter with the tip in the frontal horn right lateral ventricle. Shunt enters the right posterior temporal bone. There is no mass effect nor midline shift. There is no sign of intracranial hemorrhage. There is mild prominence of the ventricles. The calvarium is intact. CONCLUSION: Mild hydrocephalus. No evidence of cerebral edema to suggest obstruction. Hydrocephalus is unchanged compared to old exam of 1:15 1999. No acute intracranial abnormality.
[2017-09-27 19:51] LABS: Appearance,Urine Clear (Clear); Bilirubin,Urine Negative (Negative); Blood,Urine Negative (Negative); Color,Urine Yellow; Glucose,Urine (UA) Negative (Negative); Ketones,Urine Negative (Negative); Leukocyte Esterase,Urine Negative (Negative); Nitrite,Urine Negative (Negative); Protein,Urine Negative (Negative); Specific Gravity,Urine 1.018 (1.001-1.035); Urobilinogen,Urine <2.0 mg/dL (<2.0)
[2017-09-27 20:00] LABS: ALT 31 U/L (21-72); AST 22 U/L (17-59); Albumin 4.4 g/dL (3.5-5.0); Alkaline Phosphatase 133 U/L (38-126); Anion Gap 11 mmol/L; Blood Urea Nitrogen 16 mg/dL (9-20); Calcium 9.8 mg/dL (8.4-10.2); Carbon Dioxide 29 mmol/L (22-30); Chloride 102 mmol/L (98-107); Creatine Kinase 65 U/L (55-170); Glucose 87 mg/dL (74-99); Lipase 128 U/L (23-300); Magnesium 1.9 mg/dL (1.6-2.3); Sodium 142 mmol/L (137-145); Total Bilirubin 0.4 mg/dL (0.2-1.3); Total Protein 6.8 g/dL (6.3-8.2)
[2017-09-27 20:38] VITALS: BP 146/76; PULSE 91; TEMP 97.9
== END 2017-09-27 20:38 | disposition home or self-care (01) ==
LOC: EC 18:08
DX: R41.0 Disorientation, unspecified (principal); R51 Headache; R53.1 Weakness; R11.0 Nausea; J45.909 Unspecified asthma, uncomplicated; E07.9 Disorder of thyroid, unspecified; F90.9 Attention-deficit hyperactivity disorder, unspecified type; F41.9 Anxiety disorder, unspecified; F84.0 Autistic disorder; Z86.69 Personal history of other diseases of the nervous system and sense organs; Z79.51 Long term (current) use of inhaled steroids; Z79.899 Other long term (current) drug therapy; Z88.8 Allergy status to other drugs, medicaments and biological substances; Z88.0 Allergy status to penicillin; Z98.2 Presence of cerebrospinal fluid drainage device
CPT/HCPCS: 36415; 70450; 80053; 81003; 82550; 83690; 83735; 85025; 87502; 99285

== ENCOUNTER → 2017-10-20 | Outpatient (CLI) | payer OTHER ==
--- NOTE | 2017-10-20 16:07 | XR ---
EXAMINATION TYPE: XR abdomen complete w decub DATE OF EXAM: 10/20/2017 COMPARISON: NONE HISTORY: Right upper quadrant pain, R 10.11 TECHNIQUE: Supine, upright, and left side down lateral decubitus views of the abdomen are obtained. FINDINGS: There is likely a ventriculoperitoneal shunt tubing present which is coiled within the abd omen and courses from the chest level There is no evidence for pneumoperitoneum. Air-fluid levels are present without bowel distention. No mass effects are seen. No unusual calcifications. IMPRESSION: Findings could represent ileus or enteritis, follow-up as indicated if bowel obstruction is suspected clinically
== END | disposition home or self-care (01) ==
LOC: RADXRMAIN 15:19
PROVIDERS: ATTEND Family Medicine
DX: R10.11 Right upper quadrant pain (principal)
CPT/HCPCS: 74021

== ENCOUNTER 2017-10-24 15:40 | Inpatient (IN) | payer MEDICAID, OTHER ==
--- NOTE | 2017-10-24 16:44 | ED ---
General Adult HPI - General Chief complaint: Psychiatric Symptoms Stated complaint: Mental Health Time Seen by Provider: 10/24/17 16:05 Source: patient, RN notes reviewed Mode of arrival: ambulatory Limitations: no limitations - History of Present Illness Initial comments: Chief complaint history of present illness a 22-year-old male here with complaint of being depressed and suicidal. He states his plan would be to overdose. In talking about it and thinking about it between 3 and 6 weeks. Patient denies any specific reason for his depression. He also states that he stopped taking his psychiatric medications about one week ago because didn't feel they were working. He does see a counselor at [facility]. - Related Data Home Medications Medication Instructions Recorded Confirmed Albuterol Inhaler [Ventolin Hfa 2 puff INHALATION RT-Q6H PRN 11/01/15 10/24/17 Inhaler] Fluticasone Nasal [place] [Flonase 1 spray EA NOSTRIL DAILY 11/01/15 10/24/17 Nasal [place]] Levothyroxine Sodium [Synthroid] 25 mcg PO DAILY 11/01/15 10/24/17 Methylphenidate HCl [Ritalin] 20 mg PO BID 11/01/15 10/24/17 Cetirizine HCl [Zyrtec] 10 mg PO DAILY 09/12/16 10/24/17 Ziprasidone [Geodon] 20 mg PO BID 03/10/17 10/24/17 buPROPion HCL [Wellbutrin XL] 150 mg PO DAILY 03/10/17 10/24/17 Albuterol Nebulized [Ventolin 2.5 mg INHALATION RT-QID PRN 09/27/17 10/24/17 Nebulized] Dicyclomine [Bentyl] 10 mg PO TID PRN 09/27/17 10/24/17 Previous Rx's Medication Instructions Recorded Doxycycline Monohydrate [Monodox] 100 mg PO BID #14 03/14/17 Omeprazole [PriLOSEC] 20 mg PO DAILY PRN #03/14/17 Sertraline [Zoloft] 100 mg PO DAILY #14 03/14/17 Allergies Allergy/AdvReac Type Severity Reaction Status Date / Time amoxicillin trihydrate Allergy Anaphylaxis Verified 10/24/17 16:06 [From Augmentin] potassium clavulanate Allergy Anaphylaxis Verified 10/24/17 16:06 [From Augmentin] risperidone [From Risperdal] AdvReac AGGRESSIVE Verified 10/24/17 16:06 Review of Systems ROS Statement: Those systems with pertinent positive or pertinent negative responses have been documented in the HPI. Review of systems. Patient denying headache no visual acuity changes denies chest pain shortness breath GI/ problems. No neuro deficits. Again psychological complaints being depressed for at least 3 weeks or longer. Suicidal thoughts of overdosing. All systems were reviewed. Past medical problems significant for depression, asthma, hypothyroidism and hydrocephalus. The patient had a shunt placed at still there but not currently working as is not necessary. Patient has ALLERGIES to risperidone and Augmentin. Nonsmoker. Nondrinker. ROS Other: All systems not noted in ROS Statement are negative. Past Medical History Past Medical History: Asthma, Thyroid Disorder Additional Past Medical History / Comment(s): hydrocephalus, autism, social anxiety disorder History of Any Multi-Drug Resistant Organisms: None Reported Past Surgical History: Orthopedic Surgery Additional Past Surgical History / Comment(s): shunt for hydrocephalus, ex-lap for NEC at age 3 days Past Anesthesia/Blood Transfusion Reactions: No Reported Reaction Past Psychological History: ADD/ADHD, Depression Smoking Status: Never smoker Past Alcohol Use History: None Reported Past Drug Use History: None Reported General Exam - General Exam Comments Initial Comments: General: The patient is awake and alert, Because of depression and suicidal thoughts for over 3 weeks. With a plan to overdose inferior to try anything. The patient's vital signs show temperature 99.1 pulse 77 respiratory rate 18 pulse ox 95% room air blood pressure 150/73 Eye: Pupils are equal, round and reactive to light, extra-ocular movements are intact ; there is normal conjunctiva bilaterally. No signs of icterus. Ears, nose, mouth and throat: There are moist mucous membranes and no oral lesions. Neck: The neck is supple, there is no tenderness, no anterior cervical lymphadenopathy. Cardiovascular: There is a regular rate and rhythm. No murmur, rub or gallop is appreciated. Respiratory: Lungs are clear to auscultation, respirations are non-labored, breath sounds are equal. No wheezes, stridor, rales, or rhonchi. Gastrointestinal: Soft, non-distended, non-tender abdomen without masses or organomegaly noted. There is no rebound or guarding present. No CVA tenderness. Bowel sounds are unremarkable. Back: No back pain no complaint of any rashes. Musculoskeletal: Normal ROM, no tenderness, There is no pedal edema. There is no calf tenderness or swelling. Sensation intact. Pulses equal bilaterally 2+. Neurological: CN II-XII intact, There are no obvious motor or sensory deficits. Coordination appears grossly intact. Speech is normal. No dizziness, no difficulty walking. No focal neurologic findings appreciated. Skin: Skin is warm and dry and no rashes or lesions are noted. Psychiatric: Cooperative, 3 weeks of depression and suicidal thoughts of overdosing. Limitations: no limitations Course Vital Signs 10/24/17 15:45 Temperature 99.1 F Pulse Rate 77 Respiratory 18 Rate Blood Pressure 150/73 O2 Sat by Pulse 95 Oximetry Medical Decision Making - Medical Decision Making Medical decision making; this is a 22-year-old male who is coming for psychiatric evaluation. While he was here his mother called and stated that he had complained of abdominal pain. He was seen by his family doctor x-ray was taken the hospital apparently called the family or the family doctor called her family physician come the hospital for evaluation of his abdomen. While in emergency room the patient had very few complaints concerning his abdomen on examination he was mildly tender. He has had major surgery across the lower abdomen. Labs show white count 6 hemoglobin 16 hematocrit of 47. Potassium 4.1 with BUN 16 creatinine 0.7 and GFR greater than 90. Glucose 89. The patient's aspirin and Tylenol on drug triage was negative. His amylase lipase within normal limits. On reexamination the patient had mild tenderness no guarding no rebound or referred pain. CT of the abdomen was done with IV and oral contrast. Radiologist report was reviewed in its entirety. His final impression is; negative scan of the abdomen and pelvis do not see a cause for left sided pain as read by Dr. Trimble. Psychiatric evaluation of the patient was performed and the patient has been admitted to [facility] for further evaluation. The patient signed in voluntarily. - Lab Data Result diagrams: 10/24/17 17:18 10/24/17 17:18 Lab Results 10/24/17 10/24/17 10/24/17 Range/Units 16:50 17:18 17:18 WBC (3.8-10.6) k/uL RBC (4.30-5.90) m/uL Hgb (13.0-17.5) gm/dL Hct (39.0-53.0) % MCV (80.0-100.0) fL MCH (25.0-35.0) pg MCHC (31.0-37.0) g/dL RDW (11.5-15.5) % Plt Count (150-450) k/uL Neutrophils % % Lymphocytes % % Monocytes % % Eosinophils % % Basophils % % Neutrophils # (1.3-7.7) k/uL Lymphocytes # (1.0-4.8) k/uL Monocytes # (0-1.0) k/uL Eosinophils # (0-0.7) k/uL Basophils # (0-0.2) k/uL Sodium 141 (137-145) mmol/L Potassium 4.1 (3.5-5.1) mmol/L Chloride 102 (98-107) mmol/L Carbon Dioxide 27 (22-30) mmol/L Anion Gap 12 mmol/L BUN 16 (9-20) mg/dL Creatinine 0.70 (0.66-1.25) mg/dL Est GFR (CKD-EPI)AfAm >90 (>60 ml/min/1.73 sqM) Est GFR (CKD-EPI)NonAf >90 (>60 ml/min/1.73 sqM) Glucose 88 (74-99) mg/dL Plasma Lactic Acid Tino (0.7-2.0) mmol/L Calcium 9.8 (8.4-10.2) mg/dL Total Bilirubin 0.5 (0.2-1.3) mg/dL AST 31 (17-59) U/L ALT 31 (21-72) U/L Alkaline Phosphatase 120 (38-126) U/L Total Protein 6.8 (6.3-8.2) g/dL Albumin 4.2 (3.5-5.0) g/dL Amylase 56 (30-110) U/L Lipase 110 (23-300) U/L Salicylates <1.0 mg/dL Urine Opiates Screen Not Detected (NotDetected) Ur Oxycodone Screen Not Detected (NotDetected) Urine Methadone Screen Not Detected (NotDetected) Ur Propoxyphene Screen Not Detected (NotDetected) Acetaminophen <10.0 ug/mL Ur Barbiturates Screen Not Detected (NotDetected) U Tricyclic Antidepress Not Detected (NotDetected) Ur Phencyclidine Scrn Not Detected (NotDetected) Ur Amphetamines Screen Not Detected (NotDetected) U Methamphetamines Scrn Not Detected (NotDetected) U Benzodiazepines Scrn Not Detected (NotDetected) Urine Cocaine Screen Not Detected (NotDetected) U Marijuana (THC) Screen Not Detected (NotDetected) 10/24/17 10/24/17 Range/Units 17:18 18:41 WBC 6.5 (3.8-10.6) k/uL RBC 5.68 (4.30-5.90) m/uL Hgb 16.1 (13.0-17.5) gm/dL Hct 47.9 (39.0-53.0) % MCV 84.3 (80.0-100.0) fL MCH 28.3 (25.0-35.0) pg MCHC 33.6 (31.0-37.0) g/dL RDW 13.0 (11.5-15.5) % Plt Count 220 (150-450) k/uL Neutrophils % 58 % Lymphocytes % 27 % Monocytes % 5 % Eosinophils % 7 % Basophils % 1 % Neutrophils # 3.8 (1.3-7.7) k/uL Lymphocytes # 1.8 (1.0-4.8) k/uL Monocytes # 0.3 (0-1.0) k/uL Eosinophils # 0.4 (0-0.7) k/uL Basophils # 0.0 (0-0.2) k/uL Sodium (137-145) mmol/L Potassium (3.5-5.1) mmol/L Chloride (98-107) mmol/L Carbon Dioxide (22-30) mmol/L Anion Gap mmol/L BUN (9-20) mg/dL Creatinine (0.66-1.25) mg/dL Est GFR (CKD-EPI)AfAm (>60 ml/min/1.73 sqM) Est GFR (CKD-EPI)NonAf (>60 ml/min/1.73 sqM) Glucose (74-99) mg/dL Plasma Lactic Acid Tino 0.7 (0.7-2.0) mmol/L Calcium (8.4-10.2) mg/dL Total Bilirubin (0.2-1.3) mg/dL AST (17-59) U/L ALT (21-72) U/L Alkaline Phosphatase (38-126) U/L Total Protein (6.3-8.2) g/dL Albumin (3.5-5.0) g/dL Amylase (30-110) U/L Lipase (23-300) U/L Salicylates mg/dL Urine Opiates Screen (NotDetected) Ur Oxycodone Screen (NotDetected) Urine Methadone Screen (NotDetected) Ur Propoxyphene Screen (NotDetected) Acetaminophen ug/mL Ur Barbiturates Screen (NotDetected) U Tricyclic Antidepress (NotDetected) Ur Phencyclidine Scrn (NotDetected) Ur Amphetamines Screen (NotDetected) U Methamphetamines Scrn (NotDetected) U Benzodiazepines Scrn (NotDetected) Urine Cocaine Screen (NotDetected) U Marijuana (THC) Screen (NotDetected) Disposition Clinical Impression: Depression, Suicidal ideations Disposition: TRANSFER TO PSYCH HOSP/UNIT Condition: Fair Referrals: Juan F Staley DO [Primary Care Provider] - 1-2 days
[2017-10-24 17:13] LABS: Amphetamine Screen,Urine Not Detected (NotDetected); Barbiturate Screen,Urine Not Detected (NotDetected); Benzodiazepines Screen,Urine Not Detected (NotDetected); Cocaine Screen,Urine Not Detected (NotDetected); Methadone Screen, Urine Not Detected (NotDetected); Opiate Screen,Urine Not Detected (NotDetected); Oxycodone Screen, Urine Not Detected (NotDetected); Phencyclidine Screen,Urine Not Detected (NotDetected); Tricyclic Antidepressant,Urine Not Detected (NotDetected); Urn Cannabinoid Scrn Not Detected (NotDetected)
[2017-10-24 17:39] LABS: Acetaminophen <10.0 ug/mL; Salicylate <1.0 mg/dL
[2017-10-24] MEDS ORDERED: SODIUM CHLORIDE 0.9% 500 ML IV STA (18:26)
[2017-10-24] MEDS ORDERED: RX INFO: IV CONTRAST WAS GIVEN 1 EACH MISC MISCELLANE PRN (18:28)
[2017-10-24] MEDS ORDERED: IOHEXOL 350 MG/ML 25 ML BOTTLE (ORAL USE) PO PRN (18:28)
[2017-10-24 18:38] LABS: Basophils % (A) 1 %; Eosinophils # (A) 0.4 k/uL (0-0.7); Eosinophils % (A) 7 %; HCT 47.9 % (39.0-53.0); HGB 16.1 gm/dL (13.0-17.5); Lymphocytes # (A) 1.8 k/uL (1.0-4.8); Lymphocytes % (A) 27 %; MCH 28.3 pg (25.0-35.0); MCHC 33.6 g/dL (31.0-37.0); MCV 84.3 fL (80.0-100.0); Mean Platelet Volume 7.9; Monocytes # (A) 0.3 k/uL (0-1.0); Monocytes % (A) 5 %; Neutrophils # (A) 3.8 k/uL (1.3-7.7); Neutrophils % (A) 58 %; Platelet Count 220 k/uL (150-450); RBC 5.68 m/uL (4.30-5.90); WBC 6.5 k/uL (3.8-10.6)
[2017-10-24 18:47] LABS: ALT 31 U/L (21-72); AST 31 U/L (17-59); Albumin 4.2 g/dL (3.5-5.0); Alkaline Phosphatase 120 U/L (38-126); Amylase 56 U/L (30-110); Anion Gap 12 mmol/L; Blood Urea Nitrogen 16 mg/dL (9-20); Calcium 9.8 mg/dL (8.4-10.2); Carbon Dioxide 27 mmol/L (22-30); Chloride 102 mmol/L (98-107); Glucose 88 mg/dL (74-99); Lipase 110 U/L (23-300); Potassium 4.1 mmol/L (3.5-5.1); Sodium 141 mmol/L (137-145); Total Bilirubin 0.5 mg/dL (0.2-1.3); Total Protein 6.8 g/dL (6.3-8.2)
--- NOTE | 2017-10-24 20:43 | CT ---
EXAMINATION TYPE: CT abdomen pelvis w con DATE OF EXAM: 10/24/2017 COMPARISON: NONE HISTORY: left side abdominal pain CT DLP: 1512 mGycm Automated exposure control for dose reduction was used. TECHNIQUE: Helical acquisition of images was performed from the lung bases through the pelvis. CONTRAST: Performed with Oral Contrast and with IV Contrast, patient injected with 100 mL of Omnipaque 300. FINDINGS: Lung bases are clear of consolidation. There is no pleural effusion. Heart size is normal. Liver spleen pancreas gallbladder appear normal. Bile ducts are not dilated. There is no adrenal mass . Kidneys show satisfactory contrast opacification. There is no hydronephrosis. There is no retroperi toneal adenopathy. There is no ascites. I see no intestinal wall thickening. There are no dilated loo ps. Appendix is not definitely seen. There is no sign of appendicitis. The bony structures are intact . There is no sign of free air. There is no ascites. Bladder distends smoothly. There is no sign of a pelvic mass. There is a shunt catheter noted in the anterior abdomen. IMPRESSION: NEGATIVE CT SCAN OF THE ABDOMEN AND PELVIS. I DO NOT SEE A CAUSE FOR LEFT-SIDED PAIN.
[2017-10-24] MEDS ORDERED: MAG HYDROX/AL HYDROX/SIMETH 30 ML CUP PO PRN (22:37)
[2017-10-24] MEDS ORDERED: MAGNESIUM HYDROXIDE 2,400 MG/10 ML CUP PO PRN (22:37)
[2017-10-24] MEDS ORDERED: ACETAMINOPHEN TAB 325 MG TAB PO PRN (22:37)
[2017-10-24] MEDS ORDERED: ALBUTEROL NEBULIZED 2.5 MG/3 ML INHALATION PRN (22:40)
[2017-10-24] MEDS ORDERED: DICYCLOMINE 10 MG CAP PO PRN (22:40)
[2017-10-24] MEDS: DOXYCYCLINE 50 MG CAP PO SCH (23:30)
[2017-10-25] MEDS: ALBUTEROL INHALER 60 PUFF/8 GM INHALER INHALATION PRN (00:19)
[2017-10-25] MEDS: LEVOTHYROXINE 25 MCG TAB PO SCH ×2 (06:28→10:29)
[2017-10-25] MEDS ORDERED: METHYLPHENIDATE HCL 10 MG TAB PO SCH (09:00)
[2017-10-25] MEDS ORDERED: ZIPRASIDONE 20 MG CAP PO SCH (09:00)
[2017-10-25] MEDS ORDERED: SERTRALINE 100 MG TAB PO SCH (09:00)
[2017-10-25] MEDS ORDERED: buPROPion XL 150 MG TAB.ER.24H PO SCH (09:00)
[2017-10-25] MEDS ORDERED: PANTOPRAZOLE 40 MG TABLET PO PRN (09:00)
[2017-10-25] MEDS ORDERED: ZIPRASIDONE 40 MG CAP PO SCH (10:15)
--- NOTE | 2017-10-25 10:24 | P.HP ---
Psychiatric H&P - . H&P Date: 10/25/17 History & Physical: Allergies Allergy/AdvReac Type Severity Reaction Status Date / Time amoxicillin trihydrate Allergy Anaphylaxis Verified 10/24/17 16:06 [From Augmentin] potassium clavulanate Allergy Anaphylaxis Verified 10/24/17 16:06 [From Augmentin] risperidone [From Risperdal] AdvReac AGGRESSIVE Verified 10/24/17 16:06 Vital Signs Temp 97.3 F L 10/25/17 06:59 Pulse 83 10/25/17 06:59 Resp 16 10/25/17 06:59 BP 133/80 10/25/17 06:59 Pulse Ox 96 10/24/17 22:00 Intake & Output 10/24/17 10/25/17 10/25/17 18:59 06:59 18:59 Intake Total 500 Balance 500 Weight 90.718 kg Intake: Amount of Fluid Infused ( 500 ml) Laboratory Last Values WBC 6.5 k/uL (3.8-10.6) 10/24/17 17:18 RBC 5.68 m/uL (4.30-5.90) 10/24/17 17:18 Hgb 16.1 gm/dL (13.0-17.5) 10/24/17 17:18 Hct 47.9 % (39.0-53.0) 10/24/17 17:18 MCV 84.3 fL (80.0-100.0) 10/24/17 17:18 MCH 28.3 pg (25.0-35.0) 10/24/17 17:18 MCHC 33.6 g/dL (31.0-37.0) 10/24/17 17:18 RDW 13.0 % (11.5-15.5) 10/24/17 17:18 Plt Count 220 k/uL (150-450) 10/24/17 17:18 Neutrophils % 58 % 10/24/17 17:18 Lymphocytes % 27 % 10/24/17 17:18 Monocytes % 5 % 10/24/17 17:18 Eosinophils % 7 % 10/24/17 17:18 Basophils % 1 % 10/24/17 17:18 Neutrophils # 3.8 k/uL (1.3-7.7) 10/24/17 17:18 Lymphocytes # 1.8 k/uL (1.0-4.8) 10/24/17 17:18 Monocytes # 0.3 k/uL (0-1.0) 10/24/17 17:18 Eosinophils # 0.4 k/uL (0-0.7) 10/24/17 17:18 Basophils # 0.0 k/uL (0-0.2) 10/24/17 17:18 Sodium 141 mmol/L (137-145) 10/24/17 17:18 Potassium 4.1 mmol/L (3.5-5.1) 10/24/17 17:18 Chloride 102 mmol/L (98-107) 10/24/17 17:18 Carbon Dioxide 27 mmol/L (22-30) 10/24/17 17:18 Anion Gap 12 mmol/L 10/24/17 17:18 BUN 16 mg/dL (9-20) 10/24/17 17:18 Creatinine 0.70 mg/dL (0.66-1.25) 10/24/17 17:18 Est GFR (CKD-EPI)AfAm >90 (>60 ml/min/1.73 sqM) 10/24/17 17:18 Est GFR (CKD-EPI)NonAf >90 (>60 ml/min/1.73 sqM) 10/24/17 17:18 Glucose 88 mg/dL (74-99) 10/24/17 17:18 Plasma Lactic Acid Tino 0.7 mmol/L (0.7-2.0) 10/24/17 18:41 Calcium 9.8 mg/dL (8.4-10.2) 10/24/17 17:18 Total Bilirubin 0.5 mg/dL (0.2-1.3) 10/24/17 17:18 AST 31 U/L (17-59) 10/24/17 17:18 ALT 31 U/L (21-72) 10/24/17 17:18 Alkaline Phosphatase 120 U/L (38-126) 10/24/17 17:18 Total Protein 6.8 g/dL (6.3-8.2) 10/24/17 17:18 Albumin 4.2 g/dL (3.5-5.0) 10/24/17 17:18 Triglycerides 145 mg/dL (<150) 10/24/17 17:18 Cholesterol 151 mg/dL (<200) 10/24/17 17:18 LDL Cholesterol, Calc 80 mg/dL (0-99) 10/24/17 17:18 HDL Cholesterol 42 mg/dL (40-60) 10/24/17 17:18 Amylase 56 U/L (30-110) 10/24/17 17:18 Lipase 110 U/L (23-300) 10/24/17 17:18 TSH 2.930 mIU/L (0.465-4.680) 10/24/17 17:18 Salicylates <1.0 mg/dL 10/24/17 17:18 Urine Opiates Screen Not Detected (NotDetected) 10/24/17 16:50 Ur Oxycodone Screen Not Detected (NotDetected) 10/24/17 16:50 Urine Methadone Screen Not Detected (NotDetected) 10/24/17 16:50 Ur Propoxyphene Screen Not Detected (NotDetected) 10/24/17 16:50 Acetaminophen <10.0 ug/mL 10/24/17 17:18 Ur Barbiturates Screen Not Detected (NotDetected) 10/24/17 16:50 U Tricyclic Antidepress Not Detected (NotDetected) 10/24/17 16:50 Ur Phencyclidine Scrn Not Detected (NotDetected) 10/24/17 16:50 Ur Amphetamines Screen Not Detected (NotDetected) 10/24/17 16:50 U Methamphetamines Scrn Not Detected (NotDetected) 10/24/17 16:50 U Benzodiazepines Scrn Not Detected (NotDetected) 10/24/17 16:50 Urine Cocaine Screen Not Detected (NotDetected) 10/24/17 16:50 U Marijuana (THC) Screen Not Detected (NotDetected) 10/24/17 16:50 10/25/17 10:06 Identification: Jimbo Casanova is a 22 years old single white male living in [facility]. He was admitted to [facility] on 2017 under a petition stating that he has depression and suicidal thoughts. History of present illness: Patient said he has been having suicidal thoughts for months now and it got worse about 2 weeks ago since he was having some problem in doing his Sudanese writing assignment for the school. He said he has depression for the last 6-7 years. It is continuous and gets worse lasting from 1:58 weeks. He also gets hyper from 2 days to 2 weeks. During these periods he feels happy talks a lot spends a lot but he does not overspend and does not gets into debts. He is a very sensitive person, very emotional person and his feelings get hurt easily. He usually does not handle rejection well and becomes depressed and engages in self abusive behavior he used to cut himself a lot in the past. When he gets angry he tends to throw things. He does not report of actual hallucinations even though he reports that he tends to engage himself in deep thoughts quite often. Previous psychiatric history/drug and alcohol abuse: He was in psychiatric hospitals twice in the past. These were basically for depression and suicidal thoughts. [facility] and is on multiple medication including Zoloft and Wellbutrin and Geodon Ritalin etc. he does not take his medications regularly he denies abusing drugs and alcohol. His drug screening is negative including for prescribed medications. Previous medical history he is ALLERGIC to amoxicillin and Augmentin. He said risperidone makes him violent. He has bronchial asthma hypothyroidism acne and ALLERGIC rhinitis. He had surgery to repair a fracture of right elbow. He had surgery for neuro fasciitis when he was 2 day old. Patient was put in for hydrocephalus at the age of 16 and it does not work and he does not have any problem related to that these days. Social history he is in his second year of college and has general subjects. His GPA is 2.5. When he was going to school he did not like to learn or the way things were taught in school he had repeated first grade. He was raised well by his mother. Apparently his father walked out of the house with the suitcase when he was 5 years old. He was not abused. He continues to live with his mother. He does not have any hinduism but he believes in God. He is homosexual and his boyfriend broke up sometimes ago over sexual matters. Currently he does not have a boyfriend. He was not in the service. He denies any pending legal issues. He has [facility] care. Family history he said his grandfather has diabetes grandmother has bipolar disorder mother has anxiety disorder and probably borderline personality disorder. Mental status examination: This is an overweight ambulatory white male with adequate hygiene. He does not show any psychomotor agitation or retardation. His speech is spontaneous relevant and goal-directed. His mood is cheerful and affect is appropriate to the thought content. He approached the nursing staff early in the morning and said he was having thoughts of hanging himself and he was placed on suicide supervision. He denies homicidal thoughts. He is well oriented. He is able to recall 3 out of 3 items after 5 minutes. He is able to name the last 4 presidents correctly. But he said all presidents are reptiliens or Alpha draconians. He is able to spell house both forwards and backwards correctly. He does not have any difficulty in saying 8+7 is 15 and 8 7 is 56. His insight is fair and judgment is impaired as evidenced by his dramatic mood changes suicidal thoughts etc. Diagnostic impression: Unspecified bipolar and related disorder F 31.9. Borderline personality disorder F 60.3. ALLERGY to amoxicillin Augmentin and risperidone Bronchial asthma Hypothyroidism Acne ALLERGIC rhinitis. Treatment plan: He will have physical examination and psychosocial evaluation. He will be continued on suicide precautions. He will receive milieu therapy group therapy individual therapy occupational therapy recreational therapy and medication education. His condition was discussed with him and it was agreed to increase Geodon to 30 mg twice a day, discontinue Wellbutrin, Zoloft and Ritalin. Adjust the dose of Geodon as necessary. Early discharge with outpatient follow-up. Estimated length of stay: 3-5 days.
[2017-10-25] MEDS: FLUTICASONE 50MCG/SPRAY NASAL 16GM EA NOSTRIL SCH (10:28)
[2017-10-25] MEDS: LORATADINE 10 MG TAB PO SCH (10:29)
[2017-10-25] MEDS: DOXYCYCLINE 50 MG CAP PO SCH ×2 (10:29→21:06)
[2017-10-25 14:27] LABS: Hemoglobin A1C 5.1 % (4.0-6.0)
[2017-10-25 18:22] VITALS: BMI 28.7
[2017-10-25] MEDS: ZIPRASIDONE 40 MG CAP PO SCH (21:07)
[2017-10-25] MEDS: BUDESONIDE 0.5 MG/2 ML NEBU INHALATION SCH (21:44)
--- NOTE | 2017-10-25 22:08 | CONS ---
CONSULTATION DATE OF CONSULTATION: 10/25/2017 REASON FOR CONSULTATION: Medical management requested by Dr. Harden. CONSULTATION: This is a 22-year-old patient with a petition stating he was depressed and having suicidal thoughts. This is a patient who is very sensitive, having depression for quite some time. He presented feeling worse with suicidal ideation. Other times the patient also gets manic and talks about other things. He is wearing a T-shirt that says "evolving" and he is very excited talking about neuroscience and people evolving. He is trying to do some meditation, and he really wants to do that, too. Patient's other chronic stable medical conditions include asthma and hypothyroid, and patient also had a hydrocephalus shunt placed as a child which is now non-functioning. He also has autism spectrum disorder. Patient was following with Dr. Gray as an outpatient. Appetite is good. Having bowel movement. Otherwise up and about. REVIEW OF SYSTEMS: CONSTITUTIONAL: None. HEENT: None. RESPIRATORY: None. CARDIOVASCULAR: None. GASTROINTESTINAL: None. GENITOURINARY: None. MUSCULOSKELETAL: None. DERMATOLOGICAL: None. HEMATOLOGICAL: None. LYMPHATICS: None. PSYCHIATRY: As above. NEUROLOGICAL: None. PAST MEDICAL HISTORY: 1. Hydrocephalus with a non-functioning shunt. 2. Autism spectrum disorder. 3. Asthma. 4. Hypothyroidism. 5. ADHD. 6. Depression. PAST SURGICAL HISTORY: As above. HOME MEDICATIONS: 1. Wellbutrin XL 150 mg a day. 2. Geodon 20 mg b.i.d. 3. Zoloft 100 mg p.o. daily. 4. Prilosec 20 mg daily p.r.n. 5. Ritalin 20 mg p.o. b.i.d. 6. Synthroid 25 mcg p.o. daily. 7. Flonase 1 spray each nostril daily. 8. Monodox 100 mg p.o. b.i.d. 9. Bentyl 10 mg p.o. t.i.d. p.r.n. 10.Zyrtec 10 mg p.o. daily. 11.Ventolin 2.5 nebulizer q.i.d. p.r.n. 12.Ventolin HFA 2 puffs q.6 p.r.n. ALLERGIES: 1. AUGMENTIN. 2. RISPERDAL. PHYSICAL EXAMINATION: Temperature 97.3, pulse 83, respiration 16, blood pressure 133/80, pulse ox 96% on room air. GENERAL APPEARANCE: Sitting up, smiling. EYES: Pupils equal. Conjunctivae normal. HEENT: External appearance of nose and ears normal. Oral cavity normal. NECK: JVD not raised. Mass not palpable. RESPIRATORY: Effort normal. Lungs are clear. CARDIOVASCULAR: First and second sounds normal. No edema. ABDOMEN: Soft, nontender. Liver and spleen not palpable. LYMPHATIC: No lymph node palpable in neck or axillae. PSYCHIATRY: Alert and oriented x3. Mood and affect a bit anxious-appearing. INVESTIGATIONS: White count 6.5, hemoglobin 16.1, potassium 4.1. BUN and creatinine are normal. ASSESSMENT: 1. Unspecified bipolar and related disorder per Psychiatry. 2. Intermittent asthma. 3. Hypothyroidism. PLAN: Home medications are resumed. Care was discussed with the patient. Anti-psychotic medications per Dr. Harden. Patient should follow up with family doctor upon discharge. MMODL / IJN: [id number] /
[2017-10-26] MEDS: BUDESONIDE 0.5 MG/2 ML NEBU INHALATION SCH ×2 (09:26→21:15)
[2017-10-26] MEDS: LORATADINE 10 MG TAB PO SCH (09:48)
[2017-10-26] MEDS: FLUTICASONE 50MCG/SPRAY NASAL 16GM EA NOSTRIL SCH (09:48)
[2017-10-26] MEDS: ZIPRASIDONE 40 MG CAP PO SCH ×2 (09:48→21:04)
[2017-10-26] MEDS: LEVOTHYROXINE 25 MCG TAB PO SCH (09:48)
[2017-10-26] MEDS: DOXYCYCLINE 50 MG CAP PO SCH ×2 (09:48→21:04)
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
[2017-10-26] MEDS: ALBUTEROL INHALER 60 PUFF/8 GM INHALER INHALATION PRN (23:44)
[2017-10-27 07:07] VITALS: BP 122/59; PULSE 64; RESP 18; TEMP 98.5
[2017-10-27] MEDS: LEVOTHYROXINE 25 MCG TAB PO SCH (08:43)
[2017-10-27] MEDS: ZIPRASIDONE 40 MG CAP PO SCH (08:44)
[2017-10-27] MEDS: DOXYCYCLINE 50 MG CAP PO SCH (08:44)
[2017-10-27] MEDS: LORATADINE 10 MG TAB PO SCH (08:44)
[2017-10-27] MEDS: FLUTICASONE 50MCG/SPRAY NASAL 16GM EA NOSTRIL SCH (08:45)
[2017-10-27] MEDS: BUDESONIDE 0.5 MG/2 ML NEBU INHALATION SCH (09:38)
--- NOTE | 2017-10-27 10:34 | P.DS ---
Providers Date of admission: 10/24/17 21:45 Expected date of discharge: 10/27/17 Attending physician: Millie Harden Consults: 10/24/17 22:37 Consult Physician Routine Consulting Provider: Chapito Govea Consult Reason/Comments: h&p and medical follow up Do you want consulting provider notified?: Yes, Notify in am Primary care physician: [facility] Course: Patient had his psychiatric examination, physical examination and psychosocial evaluation. After psychiatric examination it was agreed to change his Geodon to 30 mg twice a day from 20 mg twice a day and discontinue Wellbutrin and Zoloft [place] etc. since they were not recommended for his primary diagnosis. Since Geodon comes in a capsule form and 30 mg cannot be administered, it was changed to 40 mg twice a day. Since patient had told the nurse early breastfeeding care specialist of 10/25/2017 that he felt like hanging himself he was started on one-to-one supervision. Even though patient had told that he was suicidal, he did not and does not show any evidence of depression and after much discussion his supervision was discontinued yesterday. He continued to function well without any self abusive behavior. However he stayed in his bed majority of the time. Since his self abusive behaviors are very reflective of his [place] II diagnosis for which only short term hospitalization is recommended and he is not in any imminent danger, it was agreed to discharge him. Patient did not have any adverse effects in spite of discontinuing his polypharmacy. This is rather an obese ambulatory white male with good hygiene. He is friendly cheerful and cooperative. He does not show any psychomotor agitation or retardation. His speech is spontaneous relevant and goal-directed. His mood is cheerful and affect is appropriate to the thought content. He continues to deny suicidal, homicidal ideas hallucinations and delusional thinking. His insight and judgment have improved. He is well oriented with good memory concentration general fund of knowledge etc. Diagnosis on discharge: Possible unspecified bipolar and related disorder F 31.9 Borderline personality disorder F 60.3 ALLERGY to amoxicillin Augmentin and risperidone Bronchial asthma Hypothyroidism Acne ALLERGIC rhinitis GERD. Patient was advised to take his medications as prescribed, not to drink alcohol or use drugs, not to drive or operate machinery if he feels sleepy, seek DBT and learn better coping skills, to call his therapist if he develops suicidal or homicidal thoughts and if he cannot reach his therapist to go to the nearest ER. He agreed with all these recommendations. Plan - Discharge Summary Discharge Rx Participant: No New Discharge Prescriptions: New Budesonide [Pulmicort] 0.5 mg INHALATION RT-BID 30 Days #60 nebu Ziprasidone [Geodon] 40 mg PO BID 30 Days #60 cap Continue Albuterol Inhaler [Ventolin Hfa Inhaler] 2 puff INHALATION RT-Q6H PRN PRN Reason: Dyspnea Levothyroxine Sodium [Synthroid] 25 mcg PO DAILY Fluticasone Nasal [place] [Flonase Nasal [place]] 1 spray EA NOSTRIL DAILY Doxycycline Monohydrate [Monodox] 100 mg PO BID #14 Omeprazole [PriLOSEC] 20 mg PO DAILY PRN #14 PRN Reason: Indigestion Dicyclomine [Bentyl] 10 mg PO TID PRN PRN Reason: Gi Upset Albuterol Nebulized [Ventolin Nebulized] 2.5 mg INHALATION RT-QID PRN PRN Reason: Shortness Of Breath Cetirizine HCl [Zyrtec] 10 mg PO DAILY 30 Days #30 tablet Discontinued Methylphenidate HCl [Ritalin] 20 mg PO BID buPROPion HCL [Wellbutrin XL] 150 mg PO DAILY Ziprasidone [Geodon] 20 mg PO BID Sertraline [Zoloft] 100 mg PO DAILY #14 Discharge Medication List Albuterol Inhaler [Ventolin Hfa Inhaler] 2 puff INHALATION RT-Q6H PRN 11/01/15 [ History] Fluticasone Nasal [place] [Flonase Nasal [place]] 1 spray EA NOSTRIL DAILY 11/01/15 [History] Levothyroxine Sodium [Synthroid] 25 mcg PO DAILY 11/01/15 [History] Doxycycline Monohydrate [Monodox] 100 mg PO BID #14 03/14/17 [Rx] Omeprazole [PriLOSEC] 20 mg PO DAILY PRN #14 03/14/17 [Rx] Albuterol Nebulized [Ventolin Nebulized] 2.5 mg INHALATION RT-QID PRN 09/27/17 [ History] Dicyclomine [Bentyl] 10 mg PO TID PRN 09/27/17 [History] Budesonide [Pulmicort] 0.5 mg INHALATION RT-BID 30 Days #60 nebu 10/27/17 [Rx] Cetirizine HCl [Zyrtec] 10 mg PO DAILY 30 Days #30 tablet 10/27/17 [Rx] Ziprasidone [Geodon] 40 mg PO BID 30 Days #60 cap 10/27/17 [Rx] Follow up Appointment(s)/Referral(s): [facility] [Outside] - 10/31/17 9:00 am (10-31-17 @ 9:00 with Juanita Hill 11-06-17 @ 2:30 with Brit Burks ) Juan F Staley DO [Primary Care Provider] - 1-2 days Activity/Diet/Wound Care/Special Instructions: Keep your follow up appointments as scheduled. Continue your follow up appointments as scheduled. No alcohol or street drugs. No guns or weapons. Crisis line if needed .
== END 2017-10-27 14:14 | disposition home or self-care (01) | DRG 885 ==
LOC: EC 15:40 → 3MHU 21:45
PROVIDERS: ADMIT Psychiatry & Neurology Psychiatry; ATTEND Psychiatry & Neurology Psychiatry
DX: F31.9 Bipolar disorder, unspecified (principal); R45.851 Suicidal ideations; E03.9 Hypothyroidism, unspecified; F60.3 Borderline personality disorder; E66.9 Obesity, unspecified; F84.0 Autistic disorder; F90.9 Attention-deficit hyperactivity disorder, unspecified type; J45.20 Mild intermittent asthma, uncomplicated; K21.9 Gastro-esophageal reflux disease without esophagitis; Z79.899 Other long term (current) drug therapy; Z81.8 Family history of other mental and behavioral disorders; Z83.3 Family history of diabetes mellitus; Z88.0 Allergy status to penicillin; Z79.890 Hormone replacement therapy; Z79.51 Long term (current) use of inhaled steroids
CPT/HCPCS: 36415; 74177; 80053; 80061; 80306; 82075; 82150; 83036; 83520; 83605; 83690; 84443; 85025; 94640; 99285

== ENCOUNTER → 2018-01-31 | Outpatient (CLI) | payer OTHER ==
--- NOTE | 2018-01-31 16:47 | CT ---
EXAMINATION TYPE: CT brain wo con DATE OF EXAM: 01/31/2018 COMPARISON: 09/27/2017 HISTORY: 22-year-old male Congenital hydrocephalus, unspecified. TECHNIQUE: Examination was done in axial plane without intravenous contrast. Coronal and sagittal r econstructions performed. CT DLP: 1087.5 mGycm Automated exposure control for dose reduction was used. FINDINGS: There is no evidence of acute intracranial hemorrhage, acute ischemic changes, mass, mass-effect, or extra-axial fluid collection. There is no effacement of cerebral sulci or basal subarachnoid cister ns. There is no midline shift. Thrasher-white matter distinction is preserved. Similar mild prominence to the body and atria of the lateral ventricles as well as the fourth ventric le. Right parietal approach PRESS SECRETARY shunt catheter tip remains near the foramen of Yadav region. There is either discontinuity or a 1.4 cm long radiolucent segment of the extracranial portion of the cathete r along the right skull base, refer to axial image 23 and coronal image 60. Orbits and globes are intact. Trace mucosal thickening within the ethmoid air cells. Mastoid air cell s well pneumatized. IMPRESSION: 1. Stable mild ventriculomegaly involving the body and atria of the lateral ventricles and the fourth ventricle. 2. Stable positioning of the right parietal approach PRESS SECRETARY shunt catheter, tip at the foramen of Yadav region. 3. Similar discontinuity versus 1.4 cm long radiolucent segment of the extracranial portion of the PRESS SECRETARY shunt catheter located along the right skull base.
== END | disposition home or self-care (01) ==
LOC: RADCTMAIN 16:11
PROVIDERS: ATTEND Family Medicine
DX: Q03.9 Congenital hydrocephalus, unspecified (principal); G93.89 Other specified disorders of brain; Z98.2 Presence of cerebrospinal fluid drainage device
CPT/HCPCS: 70450

== ENCOUNTER 2018-05-01 14:24 | Inpatient (IN) | payer MEDICAID, OTHER ==
[2018-05-01 17:28] LABS: Amphetamine Screen,Urine Not Detected (NotDetected); Barbiturate Screen,Urine Not Detected (NotDetected); Benzodiazepines Screen,Urine Not Detected (NotDetected); Cocaine Screen,Urine Not Detected (NotDetected); Methadone Screen, Urine Not Detected (NotDetected); Opiate Screen,Urine Not Detected (NotDetected); Oxycodone Screen, Urine Not Detected (NotDetected); Phencyclidine Screen,Urine Not Detected (NotDetected); Tricyclic Antidepressant,Urine Not Detected (NotDetected); Urn Cannabinoid Scrn Not Detected (NotDetected)
--- NOTE | 2018-05-01 17:42 | ED ---
Psych HPI - General Chief Complaint: Psychiatric Symptoms Stated Complaint: SUICIDAL THOUGHTS Time Seen by Provider: 05/01/18 14:30 Source: patient, EMS Mode of arrival: EMS - History of Present Illness Initial Comments: 23-year-old male patient presents to the emergency department today for evaluation of suicidal ideation. Patient states that he does have an extensive psych history. States he takes lithium and Geodon, states he has been taking these as directed. States that for the last 2 weeks he has been having increasing suicidal thoughts. Patient states he is hearing voices and they just keep saying "kill yourself" over and over again. Patient states he keeps having thoughts that he wants to "slit my wrists". Patient states that he has self-harm. States that he cut his wrists with a pencil last week. States that he scratched himself over and over again today. Patient states that he doesn't want to be like this or have these thoughts. He thinks that starting a new semester in college has increased his anxiety and is made things worse for him. States that his coarse work stresses him out and he feels like he is not good enough. He states that last week he did have a thought that he was going to slit his mother start however he immediately shouted down and talked himself out of it. Patient denies any alcohol or drug use. He denies any current physical symptoms or concerns. States he has been healthy. - Related Data Home Medications Medication Instructions Recorded Confirmed Albuterol Inhaler [Ventolin Hfa 2 puff INHALATION RT-Q6H PRN 11/01/15 05/01/18 Inhaler] Fluticasone Nasal [place] [Flonase 1 spray EA NOSTRIL DAILY 11/01/15 05/01/18 Nasal [place]] Levothyroxine Sodium [Synthroid] 25 mcg PO DAILY 11/01/15 05/01/18 Albuterol Nebulized [Ventolin 2.5 mg INHALATION RT-QID PRN 09/27/17 05/01/18 Nebulized] Dicyclomine [Bentyl] 10 mg PO TID PRN 09/27/17 05/01/18 Previous Rx's Medication Instructions Recorded Doxycycline Monohydrate [Monodox] 100 mg PO BID #14 03/14/17 Omeprazole [PriLOSEC] 20 mg PO DAILY PRN #14 03/14/17 Budesonide [Pulmicort] 0.5 mg INHALATION RT-BID 30 Days 10/27/17 #60 nebu Cetirizine HCl [Zyrtec] 10 mg PO DAILY 30 Days #30 tablet 10/27/17 Ziprasidone [Geodon] 40 mg PO BID 30 Days #60 cap 10/27/17 Allergies Allergy/AdvReac Type Severity Reaction Status Date / Time amoxicillin trihydrate Allergy Anaphylaxis Verified 05/01/18 14:39 [From Augmentin] potassium clavulanate Allergy Anaphylaxis Verified 05/01/18 14:39 [From Augmentin] risperidone [From Risperdal] AdvReac AGGRESSIVE Verified 05/01/18 14:39 Review of Systems ROS Statement: Those systems with pertinent positive or pertinent negative responses have been documented in the HPI. ROS Other: All systems not noted in ROS Statement are negative. Past Medical History Past Medical History: Asthma, Thyroid Disorder Additional Past Medical History / Comment(s): hydrocephalus, autism, social anxiety disorder History of Any Multi-Drug Resistant Organisms: None Reported Past Surgical History: Orthopedic Surgery Additional Past Surgical History / Comment(s): shunt for hydrocephalus, ex-lap for NEC at age 2 days Past Anesthesia/Blood Transfusion Reactions: No Reported Reaction Past Psychological History: ADD/ADHD, Depression Smoking Status: Never smoker Past Alcohol Use History: None Reported Past Drug Use History: None Reported General Exam Limitations: physical limitation General appearance: alert, in no apparent distress, other (This is a well- developed, well-nourished adult male patient in no acute distress. Vital signs upon presentation are temperature 98.1F, pulse 99, respirations 20, blood pressure 148/80, pulse ox 100% on room air.) Eye exam: Present: normal appearance, PERRL, EOMI. Absent: scleral icterus, conjunctival injection, periorbital swelling ENT exam: Present: normal exam, normal oropharynx, mucous membranes moist Respiratory exam: Present: normal lung sounds bilaterally. Absent: respiratory distress, wheezes, rales, rhonchi, stridor Cardiovascular Exam: Present: regular rate, normal rhythm, normal heart sounds. Absent: systolic murmur, diastolic murmur, rubs, gallop, clicks GI/Abdominal exam: Present: soft, normal bowel sounds. Absent: distended, tenderness, guarding, rebound, rigid Neurological exam: Present: alert, oriented X3, CN II-XII intact Psychiatric exam: Present: normal affect, normal mood Skin exam: Present: warm, dry, intact, normal color. Absent: rash Course Vital Signs 05/01/18 14:33 Temperature 98.1 F Pulse Rate 99 Respiratory 20 Rate Blood Pressure 148/80 O2 Sat by Pulse 100 Oximetry Medical Decision Making - Medical Decision Making 23-year-old male patient presented to the emergency department today for evaluation of suicidal ideation and self-harm behavior. Physical examination was unremarkable. Patient was cleared medically and evaluated by emergency psychiatric services. It is felt the patient would benefit from inpatient admission at this time. He'll be admitted to [facility]. - Lab Data Lab Results 05/01/18 Range/Units 16:41 Urine Opiates Screen Not Detected (NotDetected) Ur Oxycodone Screen Not Detected (NotDetected) Urine Methadone Screen Not Detected (NotDetected) Ur Propoxyphene Screen Not Detected (NotDetected) Ur Barbiturates Screen Not Detected (NotDetected) U Tricyclic Antidepress Not Detected (NotDetected) Ur Phencyclidine Scrn Not Detected (NotDetected) Ur Amphetamines Screen Not Detected (NotDetected) U Methamphetamines Scrn Not Detected (NotDetected) U Benzodiazepines Scrn Not Detected (NotDetected) Urine Cocaine Screen Not Detected (NotDetected) U Marijuana (THC) Screen Not Detected (NotDetected) Disposition Clinical Impression: Suicidal ideation Disposition: TRANSFER TO PSYCH HOSP/UNIT Condition: Serious Referrals: Juan F Staley DO [Primary Care Provider] - 1-2 days Decision to Admit Reason: Admit from EC Decision Date: 05/01/18 Decision Time: 17:47
[2018-05-01] MEDS ORDERED: MAGNESIUM HYDROXIDE 2,400 MG/10 ML CUP PO PRN (18:30)
[2018-05-01] MEDS ORDERED: PANTOPRAZOLE 40 MG TABLET PO PRN (18:34)
[2018-05-01] MEDS ORDERED: ALBUTEROL NEBULIZED 2.5 MG/3 ML INHALATION PRN (18:34)
[2018-05-01 19:08] LABS: Appearance,Urine Clear (Clear); Bilirubin,Urine Negative (Negative); Blood,Urine Negative (Negative); Color,Urine Yellow; Glucose,Urine (UA) Negative (Negative); Ketones,Urine Negative (Negative); Leukocyte Esterase,Urine Negative (Negative); Nitrite,Urine Negative (Negative); PH, Urine 6.5 (5.0-8.0); Protein,Urine Negative (Negative); Specific Gravity,Urine 1.018 (1.001-1.035); Urobilinogen,Urine <2.0 mg/dL (<2.0)
[2018-05-01] MEDS ORDERED: BUDESONIDE 0.5 MG/2 ML NEBU INHALATION SCH (20:00)
[2018-05-01] MEDS: LITHIUM CARBONATE 300 MG CAP PO SCH (20:50)
[2018-05-01] MEDS: ZIPRASIDONE 80 MG CAP PO SCH (20:50)
[2018-05-01] MEDS: FLUTICASONE 110 MCG INHALER INHALATION SCH (21:29)
[2018-05-01] MEDS: LORazepam 1 MG TAB PO PRN (22:32)
[2018-05-02] MEDS: LEVOTHYROXINE 25 MCG TAB PO SCH (06:25)
[2018-05-02] MEDS: FLUTICASONE 110 MCG INHALER INHALATION SCH ×2 (09:27→19:18)
[2018-05-02] MEDS: ALBUTEROL INHALER 60 PUFF/8 GM INHALER INHALATION PRN ×2 (09:27→19:18)
[2018-05-02] MEDS: FLUTICASONE 50MCG/SPRAY NASAL 16GM EA NOSTRIL SCH (10:00)
[2018-05-02] MEDS: ZIPRASIDONE 80 MG CAP PO SCH ×2 (10:02→18:09)
[2018-05-02] MEDS: LITHIUM CARBONATE 300 MG CAP PO SCH (10:02)
[2018-05-02] MEDS: LORATADINE 10 MG TAB PO SCH (10:02)
[2018-05-02 10:36] LABS: Basophils % (A) 1 %; Eosinophils # (A) 0.2 k/uL (0-0.7); Eosinophils % (A) 4 %; HCT 50.2 % (39.0-53.0); HGB 16.4 gm/dL (13.0-17.5); Lymphocytes # (A) 1.2 k/uL (1.0-4.8); Lymphocytes % (A) 25 %; MCH 28.2 pg (25.0-35.0); MCHC 32.7 g/dL (31.0-37.0); MCV 86.3 fL (80.0-100.0); Monocytes # (A) 0.3 k/uL (0-1.0); Monocytes % (A) 5 %; Neutrophils # (A) 3.2 k/uL (1.3-7.7); Neutrophils % (A) 63 %; Platelet Count 227 k/uL (150-450); RBC 5.82 m/uL (4.30-5.90); RDW 12.5 % (11.5-15.5)
[2018-05-02 10:49] LABS: ALT 26 U/L (21-72); AST 22 U/L (17-59); Albumin 4.5 g/dL (3.5-5.0); Alkaline Phosphatase 92 U/L (38-126); Anion Gap 11 mmol/L; Blood Urea Nitrogen 13 mg/dL (9-20); Calcium 9.9 mg/dL (8.4-10.2); Carbon Dioxide 31 mmol/L (22-30); Chloride 101 mmol/L (98-107); Cholesterol 152 mg/dL (<200); Glucose 108 mg/dL (74-99); HDL Cholesterol 56 mg/dL (40-60); LDL Cholesterol,Calculated 86 mg/dL (0-99); Potassium 4.1 mmol/L (3.5-5.1); Sodium 143 mmol/L (137-145); Total Bilirubin 1.2 mg/dL (0.2-1.3); Triglycerides 49 mg/dL (<150)
--- NOTE | 2018-05-02 12:13 | P.HP ---
Psychiatric H&P - . H&P Date: 05/02/18 History & Physical: Allergies Allergy/AdvReac Type Severity Reaction Status Date / Time amoxicillin trihydrate Allergy Anaphylaxis Verified 05/01/18 14:39 [From Augmentin] potassium clavulanate Allergy Anaphylaxis Verified 05/01/18 14:39 [From Augmentin] risperidone [From Risperdal] AdvReac AGGRESSIVE Verified 05/01/18 14:39 Vital Signs Temp 97.7 F 05/02/18 06:33 Pulse 109 H 05/02/18 06:33 Resp 16 05/02/18 06:33 BP 123/76 05/02/18 06:33 Pulse Ox 96 05/01/18 18:17 Intake & Output 05/01/18 05/02/18 05/02/18 18:59 06:59 18:59 Weight 83.461 kg 83.716 kg Laboratory Last Values WBC 5.0 k/uL (3.8-10.6) 05/02/18 10:00 RBC 5.82 m/uL (4.30-5.90) 05/02/18 10:00 Hgb 16.4 gm/dL (13.0-17.5) 05/02/18 10:00 Hct 50.2 % (39.0-53.0) 05/02/18 10:00 MCV 86.3 fL (80.0-100.0) 05/02/18 10:00 MCH 28.2 pg (25.0-35.0) 05/02/18 10:00 MCHC 32.7 g/dL (31.0-37.0) 05/02/18 10:00 RDW 12.5 % (11.5-15.5) 05/02/18 10:00 Plt Count 227 k/uL (150-450) 05/02/18 10:00 Neutrophils % 63 % 05/02/18 10:00 Lymphocytes % 25 % 05/02/18 10:00 Monocytes % 5 % 05/02/18 10:00 Eosinophils % 4 % 05/02/18 10:00 Basophils % 1 % 05/02/18 10:00 Neutrophils # 3.2 k/uL (1.3-7.7) 05/02/18 10:00 Lymphocytes # 1.2 k/uL (1.0-4.8) 05/02/18 10:00 Monocytes # 0.3 k/uL (0-1.0) 05/02/18 10:00 Eosinophils # 0.2 k/uL (0-0.7) 05/02/18 10:00 Basophils # 0.0 k/uL (0-0.2) 05/02/18 10:00 Sodium 143 mmol/L (137-145) 05/02/18 10:00 Potassium 4.1 mmol/L (3.5-5.1) 05/02/18 10:00 Chloride 101 mmol/L (98-107) 05/02/18 10:00 Carbon Dioxide 31 mmol/L (22-30) H 05/02/18 10:00 Anion Gap 11 mmol/L 05/02/18 10:00 BUN 13 mg/dL (9-20) 05/02/18 10:00 Creatinine 0.94 mg/dL (0.66-1.25) 05/02/18 10:00 Est GFR (CKD-EPI)AfAm >90 (>60 ml/min/1.73 sqM) 05/02/18 10:00 Est GFR (CKD-EPI)NonAf >90 (>60 ml/min/1.73 sqM) 05/02/18 10:00 Glucose 108 mg/dL (74-99) H 05/02/18 10:00 Calcium 9.9 mg/dL (8.4-10.2) 05/02/18 10:00 Total Bilirubin 1.2 mg/dL (0.2-1.3) 05/02/18 10:00 AST 22 U/L (17-59) 05/02/18 10:00 ALT 26 U/L (21-72) 05/02/18 10:00 Alkaline Phosphatase 92 U/L (38-126) 05/02/18 10:00 Total Protein 7.0 g/dL (6.3-8.2) 05/02/18 10:00 Albumin 4.5 g/dL (3.5-5.0) 05/02/18 10:00 Triglycerides 49 mg/dL (<150) 05/02/18 10:00 Cholesterol 152 mg/dL (<200) 05/02/18 10:00 LDL Cholesterol, Calc 86 mg/dL (0-99) 05/02/18 10:00 HDL Cholesterol 56 mg/dL (40-60) 05/02/18 10:00 TSH 4.670 mIU/L (0.465-4.680) 05/02/18 10:00 Urine Color Yellow 05/01/18 16:41 Urine Appearance Clear (Clear) 05/01/18 16:41 Urine pH 6.5 (5.0-8.0) 05/01/18 16:41 Ur Specific [place] 1.018 (1.001-1.035) 05/01/18 16:41 Urine Protein Negative (Negative) 05/01/18 16:41 Urine Glucose (UA) Negative (Negative) 05/01/18 16:41 Urine Ketones Negative (Negative) 05/01/18 16:41 Urine Blood Negative (Negative) 05/01/18 16:41 Urine Nitrite Negative (Negative) 05/01/18 16:41 Urine Bilirubin Negative (Negative) 05/01/18 16:41 Urine Urobilinogen <2.0 mg/dL (<2.0) 05/01/18 16:41 Ur Leukocyte Esterase Negative (Negative) 05/01/18 16:41 Urine Opiates Screen Not Detected (NotDetected) 05/01/18 16:41 Ur Oxycodone Screen Not Detected (NotDetected) 05/01/18 16:41 Urine Methadone Screen Not Detected (NotDetected) 05/01/18 16:41 Ur Propoxyphene Screen Not Detected (NotDetected) 05/01/18 16:41 Ur Barbiturates Screen Not Detected (NotDetected) 05/01/18 16:41 U Tricyclic Antidepress Not Detected (NotDetected) 05/01/18 16:41 Ur Phencyclidine Scrn Not Detected (NotDetected) 05/01/18 16:41 Ur Amphetamines Screen Not Detected (NotDetected) 05/01/18 16:41 U Methamphetamines Scrn Not Detected (NotDetected) 05/01/18 16:41 U Benzodiazepines Scrn Not Detected (NotDetected) 05/01/18 16:41 [place] 0.2 mmol/L 05/01/18 18:45 Urine Cocaine Screen Not Detected (NotDetected) 05/01/18 16:41 U Marijuana (THC) Screen Not Detected (NotDetected) 05/01/18 16:41 Chief Complaint: [Initial Comments: 23-year-old male patient presents to the emergency department today for evaluation of suicidal ideation. Patient states that he does have an extensive psych history. States he takes lithium and Geodon, states he has been taking these as directed. States that for the last 2 weeks he has been having increasing suicidal thoughts. Patient states he is hearing voices and they just keep saying "kill yourself" over and over again. Patient states he keeps having thoughts that he wants to "slit my wrists". Patient states that he has self-harm. States that he cut his wrists with a pencil last week. States that he scratched himself over and over again today. Patient states that he doesn't want to be like this or have these thoughts. He thinks that starting a new semester in college has increased his anxiety and is made things worse for him. States that his coarse work stresses him out and he feels like he is not good enough. He states that last week he did have a thought that he was going to slit his mother start however he immediately shouted down and talked himself out of it. Patient denies any alcohol or drug use. He denies any current physical symptoms or concerns. States he has been healthy.] Past Psychiatric History: [Previous psychiatric history/drug and alcohol abuse: He was in psychiatric hospitals twice in the past. These were basically for depression and suicidal thoughts. He is getting his outpatient treatment at [facility] and is on multiple medication including Zoloft and Wellbutrin and Geodon Ritalin etc. he does not take his medications regularly he denies abusing drugs and alcohol. His drug screening is negative including for prescribed medications. Previous medical history he is ALLERGIC to amoxicillin and Augmentin. He said risperidone makes him violent. He has bronchial asthma hypothyroidism acne and ALLERGIC rhinitis. He had surgery to repair a fracture of right elbow. He had surgery for neuro fasciitis when he was 1 day old. Patient was put in for hydrocephalus at the age of 16 and it does not work and he does not have any problem related to that these days. Social history he is in his second year of college and has general subjects. His GPA is 2.5. When he was going to school he did not like to learn or the way things were taught in school he had repeated first grade. He was raised well by his mother. Apparently his father walked out of the house with the suitcase when he was 5 years old. He was not abused. He continues to live with his mother. He does not have any mandaen but he believes in God. He is homosexual and his boyfriend broke up sometimes ago over sexual matters. Currently he does not have a boyfriend. He was not in the service. He denies any pending legal issues. He has [facility]. Family history he said his grandfather has diabetes grandmother has bipolar disorder mother has anxiety disorder and probably borderline personality disorder. ] ROS Statement: Those systems with pertinent positive or pertinent negative responses have been documented in the HPI. ROS Other: All systems not noted in ROS Statement are negative. Past Medical History Past Medical History: Asthma, Thyroid Disorder Additional Past Medical History / Comment(s): hydrocephalus, autism, social anxiety disorder History of Any Multi-Drug Resistant Organisms: None Reported Past Surgical History: Orthopedic Surgery Additional Past Surgical History / Comment(s): shunt for hydrocephalus, ex-lap for NEC at age 2 days Past Anesthesia/Blood Transfusion Reactions: No Reported Reaction Past Psychological History: ADD/ADHD, Depression Smoking Status: Never smoker Past Alcohol Use History: None Reported Past Drug Use History: None Reported Current Medications: [lithium and geodon] Musculoskeletal Examination - Abnormal/Involuntary Movements: [rocking] Strength: [greater than antigravity (greater than/equal to 3/5) in all extremities:] Muscle Tone: [no impairment, Gait: [grossly normal Station: [grossly normal Mental Status Examination - General Appearance: [well groomed] Speech/Language: slow,mumbling, hesitant, halting, monotone,soft ] Attitude/Behavior: [cooperative, guarded, indifferent Mood: [ depressed, anxious, fearful, hopelessness Affect: flat, incongruent, labile, blunted constricted Orientation: oriented person place and time and situation] Thought Content: [obsessions Risk Factors: [suicidal (ideations, without plan) Perception: [wnl, Thought Processes: concrete, circumstantial, tangential, Concentration/Attention Span: [wnl, ] [Per observation and interview with the patient] Recent Memory: [wnl] 3 out of 3 in 3 minutes] Remote Memory: [wnl] [past events, as related history] Intelligence: [below average[based on history, based on vocabulary, syntax, grammar, and content] Judgement: [poor] [per patient's behavior/history of present illness] Insight: fair [understanding severity of illness/history of present illness] Admitting Diagnosis: [Unspecified bipolar and related disorder F 31.9. Borderline personality disorder F 60.3. ALLERGY to amoxicillin Augmentin and risperidone Bronchial asthma Hypothyroidism Acne ALLERGIC rhinitis.] Patient Strengths - Housing stability: [Lives with mother and home] Able to vocalize needs: [Able to express his needs and wants her mental stability] Motivation, determination, readiness for change: [He wants to be able to return home] Setting and pursuing goals, hopes, dreams, aspirations: [Is unsure what course he should take for either college or work] Resources - social Patient Limitations: [medication, pathological/unsupported environment, no interests, intellectual impairment Initial Plan of Care: [Treatment plan: He will have physical examination and psychosocial evaluation. He will be continued on suicide precautions. He will receive milieu therapy group therapy individual therapy occupational therapy recreational therapy and medication education. His condition was discussed with him and it was agreed to increase Geodon to 30 mg twice a day, discontinue Wellbutrin, Zoloft and Ritalin. Adjust the dose of Geodon as necessary. Early discharge with outpatient follow-up. ] Estimated Length of Stay: [3-4 days] Initial Discharge Plan: [home] Prognosis: [good] Justification for Inpatient Hospitalization - depression resulting in significant loss of functioning.] [Dangerous to self with need for controlled environment.] [Emotional or behavioral conditions and complications requiring 24 hour medical and nursing care.] [Need for special drug therapy, or other therapeutic program requiring continuous hospitalization.] [Failure of social [Inability to meet basic life and health needs.] [Biomedical conditions and complications requiring 24 hour medical and nursing care.] [Recovery environment includes detrimental family structure, logical impediments to out-patient treatment.] [Failure of treatment at a lower level of care.] 05/02/18 11:42 05/02/18 11:44 05/02/18 11:54
--- NOTE | 2018-05-02 14:24 | P.CONS ---
History of Present Illness - Reason for Consult Asthma - History of Present Illness 81-year-old gentleman was admitted to psychiatric floor for psychiatric issues patient does have history of asthma does smoke counseling regarding that was provided and patient any fevers or shortness of breath cough runny nose patient was on doxycycline which he doesn't need to continue any more which will be discontinued patient does have gastroesophageal reflux disease although long- term proton pump inhibitors are not.good. And patient was started on proton pump and better as needed which I believe is appropriate. Review of Systems REVIEW OF SYSTEMS: CONSTITUTIONAL: No fever, no malaise, no fatigue. HEENT: No recent visual problems or hearing problems. Denied any sore throat. CARDIOVASCULAR: No chest pain, orthopnea, PND, no palpitations, no syncope. PULMONARY: No shortness of breath, no cough, no hemoptysis. GASTROINTESTINAL: No diarrhea, no nausea, no vomiting, no abdominal pain. Normoactive bowel sounds. NEUROLOGICAL: No headaches, no weakness, no numbness. HEMATOLOGICAL: Denies any bleeding or petechiae. GENITOURINARY: Denies any burning micturition, frequency, or urgency. MUSCULOSKELETAL/RHEUMATOLOGICAL: Denies any joint pain, swelling, or any muscle pain. ENDOCRINE: Denies any polyuria or polydipsia. The rest of the 14-point review of systems is negative. Past Medical History Past Medical History: Asthma, Thyroid Disorder Additional Past Medical History / Comment(s): hydrocephalus, autism(aspergers), social anxiety disorder, bipolar depression, boarderline personality disorder, past rt humerus broken(sx) History of Any Multi-Drug Resistant Organisms: None Reported Past Surgical History: Hernia Repair, Orthopedic Surgery, Tonsillectomy Additional Past Surgical History / Comment(s): shunt for hydrocephalus and 3 revisions,previously charted pt had ex-lap for NEC at age 2 days old.pt not sure what was done., rt humerus sx- rio /screws, harrison inguinal hernia repair as infant Past Anesthesia/Blood Transfusion Reactions: No Reported Reaction Smoking Status: Never smoker - Past Family History Father History Unknown: Yes Mother History Unknown: Yes Medications and Allergies Home Medications Medication Instructions Recorded Confirmed Type Albuterol Inhaler [Ventolin Hfa 2 puff INHALATION RT-Q6H PRN 10/31/05/01/18 History Inhaler] Fluticasone Nasal [place] [Flonase 1 spray EA NOSTRIL DAILY 11/01/15 05/01/18 History Nasal [place]] Levothyroxine Sodium [Synthroid] 25 mcg PO DAILY 11/01/15 05/01/18 History Doxycycline Monohydrate [Monodox] 100 mg PO BID #14 03/14/17 05/01/18 Rx Omeprazole [PriLOSEC] 20 mg PO DAILY PRN #14 03/14/17 05/01/18 Rx Albuterol Nebulized [Ventolin 2.5 mg INHALATION RT-QID PRN 09/27/17 05/01/18 History Nebulized] Dicyclomine [Bentyl] 10 mg PO TID PRN 09/27/17 05/01/18 History Budesonide [Pulmicort] 0.5 mg INHALATION RT-BID 30 Days 10/27/17 05/01/18 Rx #60 nebu Cetirizine HCl [Zyrtec] 10 mg PO DAILY 30 Days #30 tablet 10/27/17 05/01/18 Rx Ziprasidone [Geodon] 40 mg PO BID 30 Days #60 cap 10/27/17 05/01/18 Rx Allergies Allergy/AdvReac Type Severity Reaction Status Date / Time amoxicillin trihydrate Allergy Anaphylaxis Verified 05/01/18 14:39 [From Augmentin] potassium clavulanate Allergy Anaphylaxis Verified 05/01/18 14:39 [From Augmentin] risperidone [From Risperdal] AdvReac AGGRESSIVE Verified 05/01/18 14:39 Physical Exam Vitals: Vital Signs Temp Pulse Pulse Resp BP BP Pulse Ox 05/02/18 06:33 97.7 F 109 H 16 123/76 05/01/18 22:34 87 16 149/87 05/01/18 18:58 98.7 F 73 16 134/83 05/01/18 18:17 100 F H 66 18 138/85 96 05/01/18 14:33 98.1 F 99 20 148/80 100 Intake and Output 05/01/18 05/02/18 05/02/18 22:59 06:59 14:59 Other: Weight 83.716 kg PHYSICAL EXAMINATION: GENERAL: The patient is alert and oriented x3, not in any acute distress. Well developed, well nourished. HEENT: Pupils are round and equally reacting to light. EOMI. No scleral icterus. No conjunctival pallor. Normocephalic, atraumatic. No pharyngeal erythema. No thyromegaly. CARDIOVASCULAR: S1 and S2 present. No murmurs, rubs, or gallops. PULMONARY: Chest is clear to auscultation, no wheezing or crackles. ABDOMEN: Soft, nontender, nondistended, normoactive bowel sounds. No palpable organomegaly. MUSCULOSKELETAL: No joint swelling or deformity. EXTREMITIES: No cyanosis, clubbing, or pedal edema. NEUROLOGICAL: Gross neurological examination did not reveal any focal deficits. SKIN: No rashes. Results CBC & Chem 7: 05/02/18 10:00 05/02/18 10:00 Labs: Abnormal Lab Results - Last 24 Hours (Table) 05/02/18 Range/Units 10:00 Carbon Dioxide 31 H (22-30) mmol/L Glucose 108 H (74-99) mg/dL Assessment and Plan Plan: -Asthma without any acute exacerbation, nicotine cessation counseling was provided -Hypothyroidism will continue the Lovenox - GERD -Bipolar disorder management as per primary service
[2018-05-02] MEDS: LORazepam 1 MG TAB PO PRN (16:47)
[2018-05-02] MEDS: ZIPRASIDONE 20 MG CAP PO SCH (18:09)
[2018-05-02] MEDS: LITHIUM CARBONATE ER 450 MG TABLET.ER PO SCH (21:21)
[2018-05-03] MEDS: LEVOTHYROXINE 25 MCG TAB PO SCH (06:50)
[2018-05-03] MEDS: LORATADINE 10 MG TAB PO SCH (08:23)
[2018-05-03] MEDS: FLUTICASONE 50MCG/SPRAY NASAL 16GM EA NOSTRIL SCH (08:23)
[2018-05-03] MEDS: LITHIUM CARBONATE ER 450 MG TABLET.ER PO SCH ×2 (08:23→20:50)
[2018-05-03] MEDS: ZIPRASIDONE 80 MG CAP PO SCH (08:23)
[2018-05-03] MEDS: ZIPRASIDONE 20 MG CAP PO SCH (08:23)
[2018-05-03] MEDS: ALBUTEROL INHALER 60 PUFF/8 GM INHALER INHALATION PRN (09:07)
[2018-05-03] MEDS: FLUTICASONE 110 MCG INHALER INHALATION SCH ×2 (09:07→21:50)
--- NOTE | 2018-05-03 12:22 | P.PN ---
Subjective Progress Note Date: 05/03/18 Principal diagnosis: Bipolar depressed with suicidal thoughts and no plan Interval history: This is a 23-year-old well known patient to the unit who is now complaining of fatigue even though he slept last night. He states has been able to sleep less. 3 or 4 hours and wants go back to sleep because a shunning and tired. He complains of suicidal ideation without a plan. He appears to be his baseline. Mental Status Examination - General Appearance: [well groomed] Speech/Language: slow,mumbling, hesitant, halting, monotone,soft ] Attitude/Behavior: [cooperative, guarded, indifferent Mood: [ depressed, anxious, fearful, hopelessness Affect: flat, incongruent, labile, blunted constricted Orientation: oriented person place and time and situation] Thought Content: [obsessions Risk Factors: [suicidal (ideations, without plan) Perception: [wnl, Thought Processes: concrete, circumstantial, tangential, Concentration/Attention Span: [wnl, ] [Per observation and interview with the patient] Recent Memory: [wnl] 3 out of 3 in 3 minutes] Remote Memory: [wnl] [past events, as related history] Intelligence: [below average[based on history, based on vocabulary, syntax, grammar, and content] Judgement: [poor] [per patient's behavior/history of present illness] Insight: fair [understanding severity of illness/history of present illness] Clinical impression that this is a bipolar affective disorder individual with recurrent suicidal thoughts with poor coping and the life skills.[Unspecified bipolar and related disorder F 31.9. Borderline personality disorder F 60.3. ALLERGY to amoxicillin Augmentin and risperidone Bronchial asthma Hypothyroidism Acne ALLERGIC rhinitis.] Plan: I'm stopping the Geodon entirely, stopping the Ativan which will make him tired and fatigued, and Vistaril 25 mg by mouth when necessary 6 hours and further evaluated tomorrow. Justification for Inpatient Hospitalization - depression resulting in significant loss of functioning.] [Dangerous to self with need for controlled environment.] [Emotional or behavioral conditions and complications requiring 24 hour medical and nursing care.] [Need for special drug therapy, or other therapeutic program requiring continuous hospitalization.] [Failure of social [Inability to meet basic life and health needs.] [Biomedical conditions and complications requiring 24 hour medical and nursing care.] [Recovery environment includes detrimental family structure, logical impediments to out-patient treatment.] [Failure of treatment at a lower level of care.] Objective - Vital Signs Vital signs: Vital Signs Temp 97.9 F 05/03/18 06:57 Pulse 88 05/03/18 06:57 Resp 14 05/03/18 06:57 BP 122/69 05/03/18 06:57 Pulse Ox 96 05/01/18 18:17 - Labs CBC & Chem 7: 05/02/18 10:00 05/02/18 10:00
[2018-05-03] MEDS: hydrOXYzine PAMOATE 25 MG CAP PO PRN ×2 (18:14→23:59)
[2018-05-04] MEDS: LEVOTHYROXINE 25 MCG TAB PO SCH (06:02)
[2018-05-04] MEDS: FLUTICASONE 50MCG/SPRAY NASAL 16GM EA NOSTRIL SCH (08:06)
[2018-05-04] MEDS: LORATADINE 10 MG TAB PO SCH (08:07)
[2018-05-04] MEDS: LITHIUM CARBONATE ER 450 MG TABLET.ER PO SCH ×2 (08:07→20:47)
[2018-05-04] MEDS: hydrOXYzine PAMOATE 25 MG CAP PO PRN (09:21)
[2018-05-04] MEDS: FLUTICASONE 110 MCG INHALER INHALATION SCH ×2 (09:30→20:50)
[2018-05-04] MEDS: hydrOXYzine PAMOATE 25 MG CAP PO SCH ×3 (12:38→20:47)
--- NOTE | 2018-05-04 12:38 | P.PN ---
Subjective Progress Note Date: 05/04/18 Principal diagnosis: Bipolar depressed with suicidal thoughts and no plan Interval history: This is a 23-year-old well known patient to the unit who is now complaining of fatigue even though he slept last night. He states has been able to sleep less. 3 or 4 hours and wants go back to sleep because a shunning and tired. He complains of suicidal ideation without a plan. He appears to be his baseline. He has increase anxiety after stopping geodon. Mental Status Examination - General Appearance: [well groomed] Speech/Language: slow,mumbling, hesitant, halting, monotone,soft ] Attitude/Behavior: [cooperative, guarded, indifferent Mood: [ depressed, anxious, fearful, hopelessness Affect: flat, incongruent, labile, blunted constricted Orientation: oriented person place and time and situation] Thought Content: [obsessions Risk Factors: [suicidal (ideations, without plan) Perception: [wnl, Thought Processes: concrete, circumstantial, tangential, Concentration/Attention Span: [wnl, ] [Per observation and interview with the patient] Recent Memory: [wnl] 3 out of 3 in 3 minutes] Remote Memory: [wnl] [past events, as related history] Intelligence: [below average[based on history, based on vocabulary, syntax, grammar, and content] Judgement: [poor] [per patient's behavior/history of present illness] Insight: fair [understanding severity of illness/history of present illness] Clinical impression that this is a bipolar affective disorder individual with recurrent suicidal thoughts with poor coping and the life skills.[Unspecified bipolar and related disorder F 31.9. Borderline personality disorder F 60.3. ALLERGY to amoxicillin Augmentin and risperidone Bronchial asthma Hypothyroidism Acne ALLERGIC rhinitis.] Plan: I'm stopping the Geodon entirely, stopping the Ativan which will make him tired and fatigued, and Vistaril 25 mg by mouth when necessary 6 hours and further evaluated tomorrow. Justification for Inpatient Hospitalization - depression resulting in significant loss of functioning.] [Dangerous to self with need for controlled environment.] [Emotional or behavioral conditions and complications requiring 24 hour medical and nursing care.] [Need for special drug therapy, or other therapeutic program requiring continuous hospitalization.] [Failure of social [Inability to meet basic life and health needs.] [Biomedical conditions and complications requiring 24 hour medical and nursing care.] [Recovery environment includes detrimental family structure, logical impediments to out-patient treatment.] [Failure of treatment at a lower level of care.] Will increase Vistaril 50 mg pi qid; add ropinole 0.75 mg po qhs Objective - Vital Signs Vital signs: Vital Signs Temp 97.9 F 05/04/18 05:08 Pulse 77 05/04/18 05:08 Resp 16 05/04/18 05:08 BP 141/84 05/04/18 05:08 Pulse Ox 96 05/01/18 18:17 - Labs CBC & Chem 7: 05/02/18 10:00 05/02/18 10:00
[2018-05-04] MEDS: ACETAMINOPHEN TAB 325 MG TAB PO PRN (23:53)
[2018-05-05] MEDS: DICYCLOMINE 10 MG CAP PO PRN ×2 (01:14→19:19)
[2018-05-05] MEDS ORDERED: LORazepam 1 MG TAB PO STA (01:24)
[2018-05-05] MEDS: LEVOTHYROXINE 25 MCG TAB PO SCH (06:13)
[2018-05-05] MEDS: FLUTICASONE 50MCG/SPRAY NASAL 16GM EA NOSTRIL SCH (07:53)
[2018-05-05] MEDS: LORATADINE 10 MG TAB PO SCH (07:53)
[2018-05-05] MEDS: LITHIUM CARBONATE ER 450 MG TABLET.ER PO SCH ×2 (07:53→20:39)
[2018-05-05] MEDS: hydrOXYzine PAMOATE 25 MG CAP PO SCH (07:54)
[2018-05-05] MEDS: FLUTICASONE 110 MCG INHALER INHALATION SCH ×2 (09:04→19:12)
[2018-05-05] MEDS: ALBUTEROL INHALER 60 PUFF/8 GM INHALER INHALATION PRN (09:04)
--- NOTE | 2018-05-05 11:42 | P.PN ---
Progress Note - Text Interval history: The patient is found in the hallway he follows me to an interview room. The patient's reports that his mood is very anxious. He states that the Vistaril is making him feel more anxious and he also feels overly tired with it during the day. He feels that it's also interfering with his ability to sleep. He has been attending groups. He is somatically preoccupied noting several other concerns. His psychotropic medications were reviewed. Mental status exam: The patient is a male appearing his stated age he is seated in his chair he does fidget throughout the session. Eye contact is intermittent. Hygiene grooming adequate. He endorses an anxious mood. Affect is constricted. He reports feeling safe in the hospital he endorses no thoughts of harming others. He is endorsing no hallucinations at this time. He demonstrates no verbal or physical aggressiveness or any abnormal involuntary movements. He can be circumstantial at times. There is no evidence of psychosis hypomania or briana at this time. Plan: The patient's concerned about his inability to sleep at night. He feels the Vistaril is causing intolerable side effects. We will discontinue the Vistaril. I will prescribe Restoril 15 mg at bedtime to restart his sleep cycle. He was informed that it's likely he would not leave with a prescription of this medication as it could be habit forming and he may need to be changed to something else. We will continue to monitor him for safety and encourage his participation in the milieu.
[2018-05-05] MEDS ORDERED: TEMAZEPAM 15 MG CAP PO SCH (21:00)
[2018-05-06] MEDS ORDERED: diphenhydrAMINE 50 MG CAP PO STA (02:52)
[2018-05-06] MEDS: LEVOTHYROXINE 25 MCG TAB PO SCH (06:01)
[2018-05-06] MEDS: FLUTICASONE 50MCG/SPRAY NASAL 16GM EA NOSTRIL SCH (08:03)
[2018-05-06] MEDS: LORATADINE 10 MG TAB PO SCH (08:04)
[2018-05-06] MEDS: LITHIUM CARBONATE ER 450 MG TABLET.ER PO SCH ×2 (08:04→21:55)
[2018-05-06] MEDS: FLUTICASONE 110 MCG INHALER INHALATION SCH ×2 (09:08→21:06)
[2018-05-06] MEDS: ALBUTEROL INHALER 60 PUFF/8 GM INHALER INHALATION PRN ×2 (09:08→21:06)
--- NOTE | 2018-05-06 11:18 | P.PN ---
Progress Note - Text Interval history: The patient is found in the hallway he follows me to an interview room. He reports he is not doing well. He states he is experiencing extreme anxiety. He reports that he did not sleep well last night and staff reported that he did sleep poorly. The Restoril was ineffective. He feels that he needs something during the day to help his anxiety. He had previously been on Zoloft and he felt that that helps his anxiety but he is unclear as to why it was stopped. He has been on lithium for mood stabilization. His last level was 0.5. We discussed that it may be possible to add an antidepressant to the lithium once it is in the therapeutic range. He will discuss this further with Dr. Leung. Mental status exam: The patient is an overweight male he seated calmly. Eye contact is appropriate. Hygiene is adequate he's mildly disheveled. He reports a very anxious mood that is precipitating feelings of depression and hopelessness. He states that the anxiety is difficult to manage and he is having suicidal thoughts because of it. He does feel safe in the hospital and denies having any intent or plan of acting on any suicidal thoughts. He is reporting no homicidal ideation intent or plan. He reports no auditory or visual hallucinations or specific delusions. There is no observed evidence of psychosis. He demonstrates no tangential thinking loose associations or flight of ideas. He maintains a constricted affect throughout the session. He does shake his legs throughout the session. He demonstrates no verbal or physical aggressiveness. Insight and judgment limited. He remains very somatic. He will discuss a variety of medications and provides conflicting information, regarding their efficacy, over the past 2 days. Plan: The patient will continue on his current psychotropic medication. We will discontinue the Restoril however. I will restart Ativan 1 mg up to twice daily. He is reminded that this is most likely a temporary measure. He may benefit from addition of an antidepressant once the lithium is considered efficacious. We will monitor him for safety. He is encouraged to participate in the milieu.
[2018-05-06] MEDS: LORazepam 1 MG TAB PO PRN (14:42)
[2018-05-07] MEDS: LORazepam 1 MG TAB PO PRN (00:53)
[2018-05-07] MEDS: LITHIUM CARBONATE ER 450 MG TABLET.ER PO SCH ×2 (08:27→20:35)
[2018-05-07] MEDS: LEVOTHYROXINE 25 MCG TAB PO SCH (08:27)
[2018-05-07] MEDS: FLUTICASONE 50MCG/SPRAY NASAL 16GM EA NOSTRIL SCH (08:27)
[2018-05-07] MEDS: LORATADINE 10 MG TAB PO SCH (08:27)
[2018-05-07] MEDS: ALBUTEROL INHALER 60 PUFF/8 GM INHALER INHALATION PRN (09:17)
[2018-05-07] MEDS: FLUTICASONE 110 MCG INHALER INHALATION SCH ×2 (09:17→19:45)
--- NOTE | 2018-05-07 14:37 | P.PN ---
Subjective Progress Note Date: 05/07/18 Principal diagnosis: Bipolar depressed with suicidal thoughts and no plan Interval history: This is a 23-year-old well known patient to the unit who is now complaining of fatigue even though he slept last night. He states has been able to sleep less. He complains of suicidal ideation without a plan. He appears better than his baseline. Mental Status Examination - General Appearance: [well groomed] Speech/Language: hesitant, halting, monotone,soft ] Attitude/Behavior: [cooperative, guarded, indifferent Mood: [ depressed 310, anxious 57/10, fearful, hopelessness Affect: labile, blunted constricted Orientation: oriented person place and time and situation] Thought Content: [obsessions Risk Factors: [suicidal (ideations, without plan has resolved Perception: [wnl, Thought Processes: concrete, circumstantial, tangential, Concentration/Attention Span: [wnl, ] [Per observation and interview with the patient] Recent Memory: [wnl] 3 out of 3 in 3 minutes] Remote Memory: [wnl] [past events, as related history] Intelligence: [below average[based on history, based on vocabulary, syntax, grammar, and content] Judgement: fair [per patient's behavior/history of present illness] Insight: poor [understanding severity of illness/history of present illness] Clinical impression that this is a bipolar affective disorder individual with recurrent suicidal thoughts with poor coping and the life skills.[Unspecified bipolar and related disorder F 31.9. Borderline personality disorder F 60.3. ALLERGY to amoxicillin Augmentin and risperidone Bronchial asthma Hypothyroidism Acne ALLERGIC rhinitis.] Plan: I'm stopping the Geodon entirely, stopping the Ativan which will make him tired and fatigued, and Vistaril 25 mg by mouth when necessary 6 hours and further evaluated tomorrow. Justification for Inpatient Hospitalization - depression resulting in significant loss of functioning.] [Dangerous to self with need for controlled environment.] [Emotional or behavioral conditions and complications requiring 24 hour medical and nursing care.] [Need for special drug therapy, or other therapeutic program requiring continuous hospitalization.] [Failure of social [Inability to meet basic life and health needs.] [Biomedical conditions and complications requiring 24 hour medical and nursing care.] [Recovery environment includes detrimental family structure, logical impediments to out-patient treatment.] [Failure of treatment at a lower level of care.] Will increase Vistaril 50 mg pi qid; Mirapex 1.5 mg po qhs; increase 900 mg po bid and lithium level daily Objective - Vital Signs Vital signs: Vital Signs Temp 97.8 F 05/06/18 06:28 Pulse 77 05/06/18 06:28 Resp 16 05/06/18 06:28 BP 133/70 05/06/18 06:28 Pulse Ox 96 05/01/18 18:17 Intake & Output 05/06/18 05/07/18 05/07/18 18:59 06:59 18:59 Weight 83.4 kg - Labs CBC & Chem 7: 05/02/18 10:00 05/02/18 10:00
[2018-05-07] MEDS ORDERED: PRAMIPEXOLE 0.5 MG TAB PO SCH (21:00)
[2018-05-08] MEDS: MAG HYDROX/AL HYDROX/SIMETH 30 ML CUP PO PRN ×2 (04:44→17:16)
[2018-05-08] MEDS: LORATADINE 10 MG TAB PO SCH (09:01)
[2018-05-08] MEDS: LEVOTHYROXINE 25 MCG TAB PO SCH (09:01)
[2018-05-08] MEDS: FLUTICASONE 50MCG/SPRAY NASAL 16GM EA NOSTRIL SCH (09:01)
[2018-05-08] MEDS: LITHIUM CARBONATE ER 450 MG TABLET.ER PO SCH ×2 (09:01→21:01)
[2018-05-08] MEDS: LORazepam 1 MG TAB PO PRN (09:03)
[2018-05-08] MEDS: ALBUTEROL INHALER 60 PUFF/8 GM INHALER INHALATION PRN ×2 (09:14→21:37)
[2018-05-08] MEDS: FLUTICASONE 110 MCG INHALER INHALATION SCH ×2 (09:16→21:37)
--- NOTE | 2018-05-08 11:20 | P.PN ---
Subjective Progress Note Date: 05/08/18 Principal diagnosis: Bipolar depressed with suicidal thoughts and no plan Interval history: This is a 23-year-old well known patient to the unit who is now complaining of fatigue even though he did not slept last night. He states has been able to sleep less. He complains of suicidal ideation without a plan. He appears better than his baseline. Mental Status Examination - General Appearance: [well groomed] Speech/Language: hesitant, halting, monotone,soft ] Attitude/Behavior: [cooperative, guarded, indifferent Mood: [ depressed 08/23, anxious /, fearful, hopelessness Affect: labile, wide affect constricted Orientation: oriented person place and time and situation] Thought Content: [obsessions Risk Factors: [suicidal (ideations, without plan has resolved Perception: [wnl Thought Processes: concrete, circumstantial, tangential, Concentration/Attention Span: [wnl-limited] [Per observation and interview with the patient] Recent Memory: [wnl] 3 out of 3 in 3 minutes] Remote Memory: [wnl] [past events, as related history] Intelligence: [below average[based on history, based on vocabulary, syntax, grammar, and content] Judgement: fair [per patient's behavior/history of present illness] Insight: poor [understanding severity of illness/history of present illness] Clinical impression that this is a bipolar affective disorder individual with recurrent suicidal thoughts with poor coping and the life skills.[Unspecified bipolar and related disorder F 31.9 ALLERGY to amoxicillin Augmentin and risperidone Bronchial asthma Hypothyroidism Acne ALLERGIC rhinitis.] Plan: Increase of Mirapex 3 times a day, awaiting lithium level, adding Catapres 0.2 mg 3 times a day to decrease anxiety and rumination Justification for Inpatient Hospitalization - depression resulting in significant loss of functioning.] [Emotional or behavioral conditions and complications requiring 24 hour medical and nursing care.] [Need for special drug therapy, or other therapeutic program requiring continuous hospitalization.] [Failure of social [Inability to meet basic life and health needs.] [Biomedical conditions and complications requiring 24 hour medical and nursing care.] [Recovery environment includes detrimental family structure] [Failure of treatment at a lower level of care.] Estimated discharge date would be , 05/11/2018 Objective - Vital Signs Vital signs: Vital Signs Temp 98.5 F 05/08/18 05:18 Pulse 101 H 05/08/18 05:18 Resp 18 05/08/18 05:18 BP 140/87 05/08/18 05:18 Pulse Ox 96 05/01/18 18:17 - Labs CBC & Chem 7: 05/02/18 10:00 05/02/18 10:00
[2018-05-08] MEDS: cloNIDine HCL 0.1 MG TAB PO SCH ×2 (15:35→21:01)
[2018-05-08] MEDS: PRAMIPEXOLE 0.5 MG TAB PO SCH ×2 (15:35→21:02)
[2018-05-09] MEDS: LEVOTHYROXINE 25 MCG TAB PO SCH (05:36)
[2018-05-09] MEDS: LORATADINE 10 MG TAB PO SCH (07:55)
[2018-05-09] MEDS: LITHIUM CARBONATE ER 450 MG TABLET.ER PO SCH ×2 (07:55→21:11)
[2018-05-09] MEDS: FLUTICASONE 50MCG/SPRAY NASAL 16GM EA NOSTRIL SCH (07:55)
[2018-05-09] MEDS: cloNIDine HCL 0.1 MG TAB PO SCH (07:55)
[2018-05-09] MEDS: PRAMIPEXOLE 0.5 MG TAB PO SCH (07:56)
[2018-05-09] MEDS: ALBUTEROL INHALER 60 PUFF/8 GM INHALER INHALATION PRN (09:52)
[2018-05-09] MEDS: FLUTICASONE 110 MCG INHALER INHALATION SCH ×2 (09:53→20:52)
--- NOTE | 2018-05-09 12:16 | P.PN ---
Subjective Progress Note Date: 05/09/18 Principal diagnosis: Bipolar depressed with suicidal thoughts and no plan Interval history: This is a 23-year-old well known patient to the unit who is now complaining of fatigue even though he did not slept last night. He states has been able to sleep less. He complains of suicidal ideation without a plan. He appears better than his baseline. However, he still complains of only 4.5 hours of sleep and wants eight hours. Mental Status Examination - General Appearance: [well groomed] Speech/Language: hesitant, halting, monotone,soft ] Attitude/Behavior: [cooperative, less guarded, indifferent Mood: [ depressed 08/23, anxious /, fearful, hopelessness Affect: labile, wide affect constricted Orientation: oriented person place and time and situation] Thought Content: [obsessions Risk Factors: [suicidal (ideations, without plan has resolved Perception: [wnl Thought Processes: concrete, circumstantial, tangential, Concentration/Attention Span: [wnl-limited] [Per observation and interview with the patient] Recent Memory: [wnl] 3 out of 3 in 3 minutes] Remote Memory: [wnl] [past events, as related history] Intelligence: [below average[based on history, based on vocabulary, syntax, grammar, and content] Judgement: fair [per patient's behavior/history of present illness] Insight: poor [understanding severity of illness/history of present illness] Clinical impression that this is a bipolar affective disorder individual with recurrent suicidal thoughts with poor coping and the life skills.[Unspecified bipolar and related disorder F 31.9 ALLERGY to amoxicillin Augmentin and risperidone Bronchial asthma Hypothyroidism Acne ALLERGIC rhinitis.] Plan: Increase of 2 mg Mirapex 3 times a day, awaiting lithium level, adding Catapres 0.2 mg 3 times a day to decrease anxiety and rumination; add Remeron 7.5 mg po qhs for anxiety and depression and to maintain this dose. Justification for Inpatient Hospitalization - depression resulting in significant loss of functioning.] [Emotional or behavioral conditions and complications requiring 24 hour medical and nursing care.] [Need for special drug therapy, or other therapeutic program requiring continuous hospitalization.] [Failure of social [Inability to meet basic life and health needs.] [Biomedical conditions and complications requiring 24 hour medical and nursing care.] [Recovery environment includes detrimental family structure] [Failure of treatment at a lower level of care.] Estimated discharge date would be 05/11/2018 Objective - Vital Signs Vital signs: Vital Signs Temp 98.2 F 05/09/18 06:04 Pulse 91 05/09/18 07:59 Resp 20 05/09/18 07:59 BP 119/76 05/09/18 07:59 Pulse Ox 96 05/01/18 18:17 - Labs CBC & Chem 7: 05/02/18 10:00 05/02/18 10:00
[2018-05-09] MEDS: cloNIDine HCL 0.2 MG TAB PO SCH ×2 (15:44→21:11)
[2018-05-09] MEDS: PRAMIPEXOLE 1 MG TAB PO SCH ×2 (15:44→21:11)
[2018-05-09] MEDS: DICYCLOMINE 10 MG CAP PO PRN (19:18)
[2018-05-09] MEDS: PANTOPRAZOLE 40 MG TABLET PO SCH (21:11)
[2018-05-09] MEDS: MIRTAZAPINE 15 MG TAB PO SCH (21:11)
[2018-05-10] MEDS: PRAMIPEXOLE 1 MG TAB PO SCH ×3 (07:34→21:08)
[2018-05-10] MEDS: FLUTICASONE 50MCG/SPRAY NASAL 16GM EA NOSTRIL SCH (07:34)
[2018-05-10] MEDS: LITHIUM CARBONATE ER 450 MG TABLET.ER PO SCH ×2 (07:34→21:09)
[2018-05-10] MEDS: LORATADINE 10 MG TAB PO SCH (07:35)
[2018-05-10] MEDS: LEVOTHYROXINE 25 MCG TAB PO SCH (07:35)
[2018-05-10] MEDS: cloNIDine HCL 0.2 MG TAB PO SCH (07:35)
[2018-05-10] MEDS: PANTOPRAZOLE 40 MG TABLET PO SCH (07:35)
[2018-05-10] MEDS: FLUTICASONE 110 MCG INHALER INHALATION SCH ×2 (11:12→21:25)
--- NOTE | 2018-05-10 12:20 | P.PN ---
Subjective Progress Note Date: 05/10/18 Principal diagnosis: Bipolar depressed with suicidal thoughts and no plan Interval history: This is a 23-year-old well known patient to the unit who is now complaining of fatigue even though he did not slept last night. He states has been able to sleep less. He complains of suicidal ideation without a plan. He appears better than his baseline. However, he still complains of only 4.5 hours of sleep and wants eight hours.Anxiety and sleep remain the issue of treatment. Mental Status Examination - General Appearance: [well groomed] Speech/Language: hesitant, halting, monotone,soft ] Attitude/Behavior: [cooperative, less guarded, indifferent Mood: [ depressed 08/23, anxious /, fearful, hopelessness Affect: labile, wide affect constricted Orientation: oriented person place and time and situation] Thought Content: [obsessions Risk Factors: [suicidal (ideations, without plan has resolved Perception: [wnl Thought Processes: concrete, circumstantial, tangential, Concentration/Attention Span: [wnl-limited] [Per observation and interview with the patient] Recent Memory: [wnl] 3 out of 3 in 3 minutes] Remote Memory: [wnl] [past events, as related history] Intelligence: [below average[based on history, based on vocabulary, syntax, grammar, and content] Judgement: fair [per patient's behavior/history of present illness] Insight: poor [understanding severity of illness/history of present illness] Clinical impression that this is a bipolar affective disorder individual with recurrent suicidal thoughts with poor coping and the life skills.[Unspecified bipolar and related disorder F 31.9 ALLERGY to amoxicillin Augmentin and risperidone Bronchial asthma Hypothyroidism Acne ALLERGIC rhinitis.] Plan: Increase of 2 mg Mirapex 3 times a day, awaiting lithium level, adding Catapres 0.3 mg 3 times a day to decrease anxiety and rumination; add Remeron 7.5 mg po qhs for anxiety and depression and to maintain this dose. Justification for Inpatient Hospitalization - depression resulting in significant loss of functioning.] [Emotional or behavioral conditions and complications requiring 24 hour medical and nursing care.] [Need for special drug therapy, or other therapeutic program requiring continuous hospitalization.] [Failure of social [Inability to meet basic life and health needs.] [Biomedical conditions and complications requiring 24 hour medical and nursing care.] [Recovery environment includes detrimental family structure] [Failure of treatment at a lower level of care.] Estimated discharge date would be , 05/11/2018 Objective - Vital Signs Vital signs: Vital Signs Temp 97.8 F 05/10/18 06:05 Pulse 61 05/10/18 06:05 Resp 18 05/10/18 06:05 BP 121/71 05/10/18 06:05 Pulse Ox 96 05/01/18 18:17 - Labs CBC & Chem 7: 05/02/18 10:00 05/02/18 10:00
[2018-05-10] MEDS: DICYCLOMINE 10 MG CAP PO PRN (14:33)
[2018-05-10] MEDS: cloNIDine HCL 0.1 MG TAB PO SCH ×2 (15:45→21:11)
[2018-05-10] MEDS: MIRTAZAPINE 15 MG TAB PO SCH (21:08)
[2018-05-11] MEDS: LEVOTHYROXINE 25 MCG TAB PO SCH (05:54)
--- NOTE | 2018-05-11 09:13 | P.PN ---
Subjective Progress Note Date: 05/11/18 Principal diagnosis: Bipolar depressed with suicidal thoughts and no plan Interval history: This is a 23-year-old well known patient to the unit who is now complaining of fatigue even though he did poorly slept last night. He states has been able to sleep less. He complains of suicidal ideation without a plan. He appears better than his baseline. However, he still complains of only 3 hours of sleep and wants eight hours.Anxiety and sleep remain the issue of treatment. Mental Status Examination - General Appearance: [well groomed] Speech/Language: hesitant, halting, monotone,soft ] Attitude/Behavior: [cooperative, less guarded, indifferent Mood: [ depressed 11/21, anxious /, fearful, hopelessness Affect: labile, wide affect constricted Orientation: oriented person place and time and situation] Thought Content: [obsessions Risk Factors: [suicidal (ideations, without plan has resolved Perception: [wnl Thought Processes: concrete, circumstantial, tangential, Concentration/Attention Span: [wnl-limited] [Per observation and interview with the patient] Recent Memory: [wnl] 3 out of 3 in 3 minutes] Remote Memory: [wnl] [past events, as related history] Intelligence: [below average[based on history, based on vocabulary, syntax, grammar, and content] Judgement: fair [per patient's behavior/history of present illness] Insight: poor [understanding severity of illness/history of present illness] Clinical impression that this is a bipolar affective disorder individual with recurrent suicidal thoughts with poor coping and the life skills.[Unspecified bipolar and related disorder F 31.9 ALLERGY to amoxicillin Augmentin and risperidone Bronchial asthma Hypothyroidism Acne ALLERGIC rhinitis.] Plan: Increase of 2 mg Mirapex 3 times a day, awaiting lithium level, adding Catapres 0.3 mg 4 times a day to decrease anxiety and rumination; add Remeron 7.5 mg po qhs for anxiety and depression and to maintain this dose.Current lithiul dose is 900 mg bid ER Justification for Inpatient Hospitalization - depression resulting in significant loss of functioning.] [Emotional or behavioral conditions and complications requiring 24 hour medical and nursing care.] [Need for special drug therapy, or other therapeutic program requiring continuous hospitalization.] [Failure of social [Inability to meet basic life and health needs.] [Biomedical conditions and complications requiring 24 hour medical and nursing care.] [Recovery environment includes detrimental family structure] [Failure of treatment at a lower level of care.] Estimated discharge date would be Mondday due to lack of sleep, visions, ghosts and disrupted sleep and thoughts Objective - Vital Signs Vital signs: Vital Signs Temp 97.5 F L 05/11/18 03:39 Pulse 105 H 05/11/18 03:39 Resp 18 05/11/18 03:39 BP 114/58 05/11/18 03:39 Pulse Ox 100 05/11/18 03:39 - Labs CBC & Chem 7: 05/02/18 10:00 05/02/18 10:00
[2018-05-11] MEDS: ALBUTEROL INHALER 60 PUFF/8 GM INHALER INHALATION PRN ×2 (09:17→20:05)
[2018-05-11] MEDS: FLUTICASONE 110 MCG INHALER INHALATION SCH ×2 (09:18→20:05)
[2018-05-11] MEDS: LITHIUM CARBONATE ER 450 MG TABLET.ER PO SCH ×2 (09:24→20:56)
[2018-05-11] MEDS: PRAMIPEXOLE 1 MG TAB PO SCH ×3 (09:24→20:54)
[2018-05-11] MEDS: PANTOPRAZOLE 40 MG TABLET PO SCH (09:24)
[2018-05-11] MEDS: FLUTICASONE 50MCG/SPRAY NASAL 16GM EA NOSTRIL SCH (09:25)
[2018-05-11] MEDS: LORATADINE 10 MG TAB PO SCH (09:25)
[2018-05-11] MEDS: cloNIDine HCL 0.1 MG TAB PO SCH ×4 (09:36→20:55)
[2018-05-11] MEDS: DICYCLOMINE 10 MG CAP PO PRN (11:47)
[2018-05-11] MEDS: MIRTAZAPINE 15 MG TAB PO SCH (20:56)
[2018-05-12] MEDS: LEVOTHYROXINE 25 MCG TAB PO SCH (05:28)
[2018-05-12] MEDS: PANTOPRAZOLE 40 MG TABLET PO SCH (07:58)
[2018-05-12] MEDS: LITHIUM CARBONATE ER 450 MG TABLET.ER PO SCH ×2 (08:43→20:33)
[2018-05-12] MEDS: FLUTICASONE 110 MCG INHALER INHALATION SCH ×2 (09:11→21:53)
[2018-05-12] MEDS: PRAMIPEXOLE 1 MG TAB PO SCH ×3 (09:12→20:32)
[2018-05-12] MEDS: FLUTICASONE 50MCG/SPRAY NASAL 16GM EA NOSTRIL SCH (09:12)
[2018-05-12] MEDS: LORATADINE 10 MG TAB PO SCH (09:13)
[2018-05-12] MEDS: cloNIDine HCL 0.1 MG TAB PO SCH ×4 (09:15→20:33)
[2018-05-12 11:51] LABS: ALT 37 U/L (21-72); AST 20 U/L (17-59); Albumin 4.2 g/dL (3.5-5.0); Alkaline Phosphatase 93 U/L (38-126); Anion Gap 8 mmol/L; Blood Urea Nitrogen 13 mg/dL (9-20); Carbon Dioxide 29 mmol/L (22-30); Chloride 100 mmol/L (98-107); Glucose 93 mg/dL (74-99); Potassium 4.6 mmol/L (3.5-5.1); Sodium 137 mmol/L (137-145); Total Bilirubin 0.9 mg/dL (0.2-1.3); Total Protein 6.7 g/dL (6.3-8.2)
--- NOTE | 2018-05-12 17:35 | P.PN ---
Progress Note - Text Progress Note Date: 05/12/18 IDENTIFICATION DATA: 23-year-old male patient with history of schizoaffective disorder admitted due to worsening suicidal ideations, command auditory hallucinations, anxiety and feeling overwhelmed with college. INTERVAL HISTORY: Behavioral problems He claims he could not sleep well from day 2 through day six of his admission and attributes it to be taken off of his geodon completely. He also reports that his speech was fine until he was taken off of geodon. He currently complains of dry mouth and states drinking excessive water is also not helping him. He reports worsening of his tremors. His lithium level done today was documented as 1.4. His electrolytes BUN and creatinine levels were documented as with in normal limits. Mood disorder: He reports feeling worried about missing two weeks of college and how he is going to catch up with all that work. He want s to know when he could be discharged. He denies current suicidal or homicidal ideations. He reports his anxiety has reduced as compared to his day of admission. He denies feeling depressed currently. He reports good appetite and sleep. Psychosis He states he only hears positive voices currently which tell him dont worry. He denies current visual hallucinations. Denies paranoia. He reports being diagnosed with autism and claims to have received speech therapy before . He states his speech is getting worse lately and wonders if he could receive speech therapy again. MENTAL STATUS EXAMINATION: 23 - year-old male. He appeared his stated age in fair grooming and hygiene. He is dressed casually. No abnormal movements noted. The patient is alert and oriented 4 and in no apparent distress. His speech soft and at times difficult to understand as he has difficulty getting his words out and sometimes it appears as though he is swallowing his words. His thought process is limited and he looks at his notes to remind himself about the topics he needs to talk. Mood is reported as good and affect is constricted. Denies suicidal or homicidal ideation. Reports ongoing auditory hallucinations but reduced in intensity. Denies visual hallucaintions. Not delusional. insight and judgment are limited.. ASSESSMENT AND PLAN: Reduce the dose of lithium from 900mg po bid to to 900mg po qday. His lithium levels from today were documented as 1.4. he complains of dry mouth, worsening tremors and speech problems. Increase the dose of seroquel to 100mg po qhs. Continue current medications Continue all precuations Monitor for symptoms
[2018-05-12] MEDS: MIRTAZAPINE 15 MG TAB PO SCH (20:32)
[2018-05-13] MEDS: LEVOTHYROXINE 25 MCG TAB PO SCH (05:55)
[2018-05-13] MEDS: PANTOPRAZOLE 40 MG TABLET PO SCH (07:59)
[2018-05-13] MEDS: ALBUTEROL INHALER 60 PUFF/8 GM INHALER INHALATION PRN ×2 (09:28→21:06)
[2018-05-13] MEDS: FLUTICASONE 110 MCG INHALER INHALATION SCH ×2 (09:28→21:07)
[2018-05-13] MEDS: LORATADINE 10 MG TAB PO SCH (10:33)
[2018-05-13] MEDS: FLUTICASONE 50MCG/SPRAY NASAL 16GM EA NOSTRIL SCH (10:33)
[2018-05-13] MEDS: PRAMIPEXOLE 1 MG TAB PO SCH (10:34)
[2018-05-13] MEDS: LORazepam 1 MG TAB PO PRN ×2 (10:35→23:21)
[2018-05-13] MEDS: cloNIDine HCL 0.1 MG TAB PO SCH ×4 (10:37→20:31)
[2018-05-13] MEDS: LITHIUM CARBONATE ER 450 MG TABLET.ER PO SCH (10:38)
--- NOTE | 2018-05-13 14:18 | P.PN ---
Progress Note - Text Progress Note Date: 05/13/18 IDENTIFICATION DATA 23-year-old male patient with history of schizoaffective disorder admitted due to worsening suicidal ideations, command auditory hallucinations, anxiety and feeling overwhelmed with college. INTERVAL HISTORY: He states being in the hospital he is less anxious. He claims it is very hard for him not to be anxious when goes back to college. He states the thought of leaving the hospital makes him feel sad. He reports to have become friends with other patients on the unit. He states talking to them makes him happy. He reports waking up at 2am with difficulty returning back to sleep. He claims his roommate laughs and talks in his sleep and believes is waking him up. He also states he will be hearing some weird noises at night in his room which he says are hard to describe. He knows these are true because he has seen them happening. He also states he believes in paranormal stuff. He states he likes his mother and has lived with her in his family house for 15 years. He claims he has a lot memories living in that house and wants to get rid of those memories, so he can move on in his life and be happy. MENTAL STATUS EXAMINATION: The patient is alert and oriented 4 and in no apparent distress. he appears in fair grooming and hygiene. He is fidgety and has difficulty sitting still. Mood is "anxious" and affect is constricted. Reports auditory and visual hallucinations. thought processes is tangential. thought content is negative for suicidal or homicidal ideation. insight and judgment are improving. ASSESSMENT AND PLAN: His lithium level repeated today is documented as 0.7. Patient is unable to tolerated higher doses of lithium. Will start him on haldol 2mg po qhs to help him with auditory, visual hallucinations. Anxiety and fidgetiness. Dose to be titrated according to tolerability and response. Will discontinue mirapex which is a dopamine agonist. Continue current medications Continue precuations Monitor for symptoms
[2018-05-13] MEDS ORDERED: LITHIUM CARBONATE ER 450 MG TABLET.ER PO STA (14:27)
[2018-05-13] MEDS: MIRTAZAPINE 15 MG TAB PO SCH (20:30)
[2018-05-13] MEDS ORDERED: HALOPERIDOL 1 MG TAB PO SCH (21:00)
[2018-05-14] MEDS: LEVOTHYROXINE 25 MCG TAB PO SCH (08:10)
[2018-05-14] MEDS: LORATADINE 10 MG TAB PO SCH (08:28)
[2018-05-14] MEDS: FLUTICASONE 50MCG/SPRAY NASAL 16GM EA NOSTRIL SCH (08:28)
[2018-05-14] MEDS: PANTOPRAZOLE 40 MG TABLET PO SCH (08:28)
[2018-05-14] MEDS: cloNIDine HCL 0.1 MG TAB PO SCH ×3 (08:28→21:09)
[2018-05-14] MEDS ORDERED: LITHIUM CARBONATE ER 450 MG TABLET.ER PO SCH ×2 (09:00→21:00)
[2018-05-14] MEDS: FLUTICASONE 110 MCG INHALER INHALATION SCH ×2 (09:08→20:53)
[2018-05-14 09:20] VITALS: BMI 25.7
--- NOTE | 2018-05-14 12:29 | P.PN ---
Subjective Progress Note Date: 05/14/18 Principal diagnosis: Bipolar depressed with suicidal thoughts and no plan Interval history: This is a 23-year-old well known patient to the unit who is now complaining of fatigue even though he did poorly slept last night. He states has been able to sleep less. He complains of suicidal ideation without a plan. He appears better than his baseline. However, he still complains of only 6 hours of sleep and wants eight hours.Anxiety and sleep remain the issue of treatment.After getting Haldol and ativan he slept all night and until 1 pm. Mental Status Examination - General Appearance: [well groomed] Speech/Language: hesitant, halting, monotone,soft ] Attitude/Behavior: [cooperative, less guarded, indifferent Mood: [ depressed 08/23, anxious 12/21, fearful, hopelessness Affect: labile, wide affect constricted Orientation: oriented person place and time and situation] Thought Content: [obsessions Risk Factors: [suicidal (ideations, without plan has resolved Perception: [wnl Thought Processes: concrete, circumstantial, tangential, Concentration/Attention Span: [wnl-limited] [Per observation and interview with the patient] Recent Memory: [wnl] 3 out of 3 in 3 minutes] Remote Memory: [wnl] [past events, as related history] Intelligence: [below average[based on history, based on vocabulary, syntax, grammar, and content] Judgement: fair [per patient's behavior/history of present illness] Insight: poor [understanding severity of illness/history of present illness] Clinical impression that this is a bipolar affective disorder individual with recurrent suicidal thoughts with poor coping and the life skills.[Unspecified bipolar and related disorder F 31.9 ALLERGY to amoxicillin Augmentin and risperidone Bronchial asthma Hypothyroidism Acne ALLERGIC rhinitis.] Plan: Increase of 2 mg Mirapex 3 times a day, awaiting lithium level, adding Catapres 0.3 mg 4 times a day to decrease anxiety and rumination; add Remeron 7.5 mg po qhs for anxiety and depression and to maintain this dose.Current lithiul dose is 450 mg bid ER Stop Haldol Justification for Inpatient Hospitalization - depression resulting in significant loss of functioning.] [Emotional or behavioral conditions and complications requiring 24 hour medical and nursing care.] [Need for special drug therapy, or other therapeutic program requiring continuous hospitalization.] [Failure of social [Inability to meet basic life and health needs.] [Biomedical conditions and complications requiring 24 hour medical and nursing care.] [Recovery environment includes detrimental family structure] [Failure of treatment at a lower level of care.] Estimated discharge date would be possible discharge Monday if he gets better due to lack of sleep, visions, ghosts and disrupted sleep and thoughts Objective - Vital Signs Vital signs: Vital Signs Temp 98.0 F 05/14/18 06:56 Pulse 96 05/14/18 08:55 Resp 16 05/14/18 06:56 BP 116/74 05/14/18 08:55 Pulse Ox 100 05/11/18 03:39 Intake & Output 05/13/18 05/14/18 05/14/18 18:59 06:59 18:59 Weight 83.8 kg 83.8 kg - Labs CBC & Chem 7: 05/02/18 10:00 05/12/18 07:53
[2018-05-14] MEDS: MIRTAZAPINE 15 MG TAB PO SCH (21:08)
[2018-05-15] MEDS: LORazepam 1 MG TAB PO PRN (00:06)
[2018-05-15] MEDS: LEVOTHYROXINE 25 MCG TAB PO SCH (06:37)
[2018-05-15] MEDS: FLUTICASONE 110 MCG INHALER INHALATION SCH ×2 (09:39→20:41)
[2018-05-15] MEDS: ALBUTEROL INHALER 60 PUFF/8 GM INHALER INHALATION PRN ×2 (09:39→20:41)
[2018-05-15] MEDS: PANTOPRAZOLE 40 MG TABLET PO SCH (09:46)
[2018-05-15] MEDS: cloNIDine HCL 0.1 MG TAB PO SCH ×3 (09:46→21:03)
[2018-05-15] MEDS: LORATADINE 10 MG TAB PO SCH (09:46)
[2018-05-15] MEDS: LITHIUM CARBONATE ER 450 MG TABLET.ER PO SCH ×2 (09:46→21:03)
[2018-05-15] MEDS: FLUTICASONE 50MCG/SPRAY NASAL 16GM EA NOSTRIL SCH (09:47)
--- NOTE | 2018-05-15 11:19 | P.PN ---
Subjective Progress Note Date: 05/15/18 Principal diagnosis: Bipolar depressed with suicidal thoughts and no plan Interval history: This is a 23-year-old well known patient to the unit who is now complaining of less fatiguenow and decrease anxiety and less depression and not SI/HI. He appears better than his baseline. However, he still complains of only 6 hours of sleep and wants eight hours.Anxiety and sleep remain the issue of treatment. Mental Status Examination - General Appearance: [well groomed] Speech/Language: hesitant, halting, monotone,soft ] Attitude/Behavior: [cooperative, less guarded, indifferent Mood: [ depressed 08/23, anxious 12/21, fearful, hopelessness Affect: labile, wide affect constricted Orientation: oriented person place and time and situation] Thought Content: [obsessions Risk Factors: [no suicidal (ideations, without plan has resolved Perception: [wnl Thought Processes: less concrete, circumstantial, tangential, Concentration/Attention Span: [wnl-limited] [Per observation and interview with the patient] Recent Memory: [wnl] 3 out of 3 in 3 minutes] Remote Memory: [wnl] [past events, as related history] Intelligence: [below average[based on history, based on vocabulary, syntax, grammar, and content] Judgement: fair [per patient's behavior/history of present illness] Insight: fair [understanding severity of illness/history of present illness] Clinical impression that this is a bipolar affective disorder individual with recurrent suicidal thoughts with poor coping and the life skills.[Unspecified bipolar and related disorder F 31.9 This is now stable and slowly resolving. ALLERGY to amoxicillin Augmentin and risperidone Bronchial asthma Hypothyroidism Acne ALLERGIC rhinitis.] Plan: Increase of 2 mg Mirapex 3 times a day, awaiting lithium level (0.5 ), adding Catapres 0.1 mg 4 times a day to decrease anxiety and rumination; add Remeron 7.5 mg po qhs for anxiety and depression and to maintain this dose.Current lithium dose is 450 mg bid ER Stop Haldol Justification for Inpatient Hospitalization - depression resulting in significant loss of functioning.] [Emotional or behavioral conditions and complications requiring 24 hour medical and nursing care.] [Need for special drug therapy, or other therapeutic program requiring continuous hospitalization.] [Failure of social [Inability to meet basic life and health needs.] [Biomedical conditions and complications requiring 24 hour medical and nursing care.] [Recovery environment includes detrimental family structure] [Failure of treatment at a lower level of care.] Estimated discharge date would be possible discharge Monday if he gets better due to lack of sleep, visions, ghosts and disrupted sleep and thoughts. Tomorrow discharge if stable until tomorrow. Objective - Vital Signs Vital signs: Vital Signs Temp 98.6 F 05/15/18 00:06 Pulse 85 05/15/18 10:01 Resp 18 05/15/18 10:01 BP 121/64 05/15/18 10:01 Pulse Ox 100 05/11/18 03:39 Intake & Output 05/14/18 05/15/18 05/15/18 18:59 06:59 18:59 Weight 83.8 kg - Labs CBC & Chem 7: 05/02/18 10:00 05/12/18 07:53
[2018-05-15] MEDS: MIRTAZAPINE 15 MG TAB PO SCH (21:03)
[2018-05-15] MEDS: ACETAMINOPHEN TAB 325 MG TAB PO PRN (23:40)
[2018-05-16 04:10] VITALS: TEMP 97.9
[2018-05-16] MEDS: LEVOTHYROXINE 25 MCG TAB PO SCH (06:30)
[2018-05-16] MEDS: FLUTICASONE 50MCG/SPRAY NASAL 16GM EA NOSTRIL SCH (07:55)
[2018-05-16] MEDS: LITHIUM CARBONATE ER 450 MG TABLET.ER PO SCH (07:55)
[2018-05-16] MEDS: PANTOPRAZOLE 40 MG TABLET PO SCH (07:55)
[2018-05-16] MEDS: cloNIDine HCL 0.1 MG TAB PO SCH (07:56)
[2018-05-16] MEDS: LORATADINE 10 MG TAB PO SCH (07:56)
[2018-05-16 07:57] VITALS: BP 116/72; PULSE 97; RESP 18
--- NOTE | 2018-05-16 09:47 | P.DS ---
Providers Date of admission: 05/01/18 18:07 Expected date of discharge: 05/16/18 Attending physician: Kameron Leung DO Consults: 05/01/18 18:30 Consult Physician Routine Consulting Provider: Chapito Govea Consult Reason/Comments: H&P for mental health admission Do you want consulting provider notified?: Yes Primary care physician: [facility] Course: Chief Complaint: [Initial Comments: 23-year-old male patient presents to the emergency department today for evaluation of suicidal ideation. Patient states that he does have an extensive psych history. States he takes lithium and Geodon, states he has been taking these as directed. States that for the last 2 weeks he has been having increasing suicidal thoughts. Patient states he is hearing voices and they just keep saying "kill yourself" over and over again. Patient states he keeps having thoughts that he wants to "slit my wrists". Patient states that he has self-harm. States that he cut his wrists with a pencil last week. States that he scratched himself over and over again today. Patient states that he doesn't want to be like this or have these thoughts. He thinks that starting a new semester in college has increased his anxiety and is made things worse for him. States that his coarse work stresses him out and he feels like he is not good enough. He states that last week he did have a thought that he was going to slit his mother start however he immediately shouted down and talked himself out of it. Patient denies any alcohol or drug use. He denies any current physical symptoms or concerns. States he has been healthy. Social history he is in his second year of college and has general subjects. His GPA is 2.5. When he was going to school he did not like to learn or the way things were taught in school he had repeated first grade. He was raised well by his mother. Apparently his father walked out of the house with the suitcase when he was 5 years old. He was not abused. He continues to live with his mother. He does not have any protestant but he believes in God. He is homosexual and his boyfriend broke up sometimes ago over sexual matters. Currently he does not have a boyfriend. He was not in the service. He denies any pending legal issues. He has [facility]. ]Past Medical History Past Medical History: Asthma, Thyroid Disorder Additional Past Medical History / Comment(s): hydrocephalus, autism, social anxiety disorder History of Any Multi-Drug Resistant Organisms: None Reported Past Surgical History: Orthopedic Surgery Additional Past Surgical History / Comment(s): shunt for hydrocephalus, ex-lap for NEC at age 3 days Past Anesthesia/Blood Transfusion Reactions: No Reported Reaction Past Psychological History: ADD/ADHD, Depression Smoking Status: Never smoker Past Alcohol Use History: None Reported Past Drug Use History: None Reported Current Medications: [lithium ] The patient presents alert, pleasant, and cooperative. There calmly seated without any agitated behavior. [He] reports that [his] mood is good. Affect is congruent and euthymic. [He] deny having any suicidal or homicidal ideation intent or plan. [He] denies any auditory or visual hallucinations. There is no evidence of any delusional thought content. [His] thought process is linear and goal-directed. [His] speech is fluent and nonpressured. [His] memory and concentration is grossly intact for the purposes of this session. [place] level is 0.5 mmol/L. Interval history: This is a 23-year-old well known patient to the unit who is now complaining of less fatiguenow and decrease anxiety and less depression and not SI/HI. He appears better than his baseline. However, he still complains of only 6 hours of sleep and wants eight hours.Anxiety and sleep remain the issue of treatment. He was on Geodon and I increased his dose to a maximum for 3 days without any resolution of symptoms. There is clinical evidence from [place] and [place] and PTSD and anxiety disorders that clonidine tends to work better for anxiety disorders and thus laced him on 0.1 mg 3 times a day with a resolution of anxiety. He also has difficulty with sleep rumination and poor self-esteem. In addition to his lithium 450 mg extended release by mouth twice a day I also added mirtazapine 7.5 mg which tends to be the PKU value more sedating than higher doses and more likely to mimic 200 mg at bedtime Benadryl. He is sleeping 6 hours a night eating and interacting with his roommate appropriately. He does ruminate too great deal which is part of the autistic spectrum disorder on whether he should go to college or not. He needs to continue therapy on an outpatient basis for cognitive restructuring and direction. 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 At the time of discharge she is not suicidal homicidal but has ruminating thoughts which are his baseline. Patient Condition at Discharge: Stable Plan - Discharge Summary Discharge Rx Participant: No New Discharge Prescriptions: New cloNIDine HCL [Catapres] 0.1 mg PO TID 30 Days #90 tab [place] Carbonate ER [Lithobid] 450 mg PO BID 30 Days #60 tablet.er Mirtazapine [Remeron] 7.5 mg PO HS 30 Days #30 tab Discontinued Doxycycline Monohydrate [Monodox] 100 mg PO BID #14 Ziprasidone [Geodon] 40 mg PO BID 30 Days #60 cap No Action Albuterol Inhaler [Ventolin Hfa Inhaler] 2 puff INHALATION RT-Q6H PRN PRN Reason: Dyspnea Levothyroxine Sodium [Synthroid] 25 mcg PO DAILY Fluticasone Nasal [place] [Flonase Nasal [place]] 1 spray EA NOSTRIL DAILY Omeprazole [PriLOSEC] 20 mg PO DAILY PRN #14 PRN Reason: Indigestion Dicyclomine [Bentyl] 10 mg PO TID PRN PRN Reason: Gi Upset Albuterol Nebulized [Ventolin Nebulized] 2.5 mg INHALATION RT-QID PRN PRN Reason: Shortness Of Breath Budesonide [Pulmicort] 0.5 mg INHALATION RT-BID 30 Days #60 nebu Cetirizine HCl [Zyrtec] 10 mg PO DAILY 30 Days #30 tablet Discharge Medication List Albuterol Inhaler [Ventolin Hfa Inhaler] 2 puff INHALATION RT-Q6H PRN 11/01/15 [ History] Fluticasone Nasal [place] [Flonase Nasal [place]] 1 spray EA NOSTRIL DAILY 11/01/15 [History] Levothyroxine Sodium [Synthroid] 25 mcg PO DAILY 11/01/15 [History] Omeprazole [PriLOSEC] 20 mg PO DAILY PRN #14 03/14/17 [Rx] Albuterol Nebulized [Ventolin Nebulized] 2.5 mg INHALATION RT-QID PRN 09/27/17 [ History] Dicyclomine [Bentyl] 10 mg PO TID PRN 09/27/17 [History] Budesonide [Pulmicort] 0.5 mg INHALATION RT-BID 30 Days #60 nebu 10/27/17 [Rx] Cetirizine HCl [Zyrtec] 10 mg PO DAILY 30 Days #30 tablet 10/27/17 [Rx] [place] Carbonate ER [Lithobid] 450 mg PO BID 30 Days #60 tablet.er 05/16/18 [Rx ] Mirtazapine [Remeron] 7.5 mg PO HS 30 Days #30 tab 05/16/18 [Rx] cloNIDine HCL [Catapres] 0.1 mg PO TID 30 Days #90 tab 05/16/18 [Rx] Follow up Appointment(s)/Referral(s): [facility] [Outside] - 05/18/18 11:30 am ( @ 12:00 with Silvano Chung 05-18-18 @ 11:30 with Stefanie Chacon ) Juan F Staley DO [Primary Care Provider] - 1-2 days Discharge Disposition: HOME SELF-CARE
[2018-05-16] MEDS: FLUTICASONE 110 MCG INHALER INHALATION SCH (10:10)
== END 2018-05-16 14:19 | disposition home or self-care (01) | DRG 885 ==
LOC: EC 14:24 → 3MHU 18:07
PROVIDERS: ADMIT Psychiatry & Neurology Psychiatry; ATTEND Psychiatry & Neurology Psychiatry
DX: F31.9 Bipolar disorder, unspecified (principal); F43.10 Post-traumatic stress disorder, unspecified; F60.3 Borderline personality disorder; E03.9 Hypothyroidism, unspecified; F25.9 Schizoaffective disorder, unspecified; F84.5 Asperger's syndrome; F90.9 Attention-deficit hyperactivity disorder, unspecified type; J45.909 Unspecified asthma, uncomplicated; K21.9 Gastro-esophageal reflux disease without esophagitis; Z81.8 Family history of other mental and behavioral disorders; Z83.3 Family history of diabetes mellitus; Z87.891 Personal history of nicotine dependence; Z88.0 Allergy status to penicillin; Z91.5 Personal history of self-harm
CPT/HCPCS: 80053; 80061; 80178; 80306; 81003; 82075; 83036; 84146; 84443; 85025; 94640; 99285

== ENCOUNTER 2019-03-25 17:06 | Emergency (ER) | payer OTHER ==
[2019-03-25 17:39] VITALS: TEMP 98.2
--- NOTE | 2019-03-25 18:57 | ED ---
General Adult HPI - General Source: patient, RN notes reviewed, old records reviewed Mode of arrival: EMS Limitations: no limitations <Mathew Ledbetter - Last Filed: 03/25/19 22:19> <Abdias Moon - Last Filed: 03/25/19 22:57> - General Chief complaint: Psychiatric Symptoms Stated complaint: EPS eval Time Seen by Provider: 03/25/19 18:04 - History of Present Illness Initial comments: 23-year-old male patient past medical history of bipolar depression, and personality disorder, social anxiety disorder presents to ED with approximately 8 months of depression, suicidal ideations. Patient reports that he has a plan in the back of his mind he will overdose on his Remeron and his Catapres. Patient denies taking any actions today to hurt himself or hurt any other people. Denies any other complaints at this time. Systemic: Pt denies fatigue, fever/chills, rash. Pt denies weakness, night sweats, weight loss. Neuro: Pt denies headache, visual disturbances, syncope or pre-syncope. HEENT: Pt denies ocular discharge or irritation, otalgia, rhinorrhea, pharyngitis or notable lymphadenopathy. Cardiopulmonary: Pt denies chest pain, SOB, heart palpitations, dyspnea on exertion. Abdominal/GI: Pt denies abdominal pain, n/v/d. : Pt denies dysuria, burning w/ urination, frequency/urgency. Denies new onset urinary or bowel incontinence. MSK: Pt denies myalgia, loss of strength or function in extremities. Neuro: Pt denies new onset weakness, paresthesias. (Mathew Ledbetter) - Related Data Home Medications Medication Instructions Recorded Confirmed Albuterol Inhaler [Ventolin Hfa 2 puff INHALATION RT-Q6H PRN 11/01/15 03/25/19 Inhaler] Fluticasone Nasal [place] [Flonase 1 spray EA NOSTRIL DAILY 11/01/15 03/25/19 Nasal [place]] Albuterol Nebulized [Ventolin 2.5 mg INHALATION RT-QID PRN 09/27/17 03/25/19 Nebulized] ARIPiprazole [Abilify Maintena] 400 mg IM Q28D 03/25/19 03/25/19 Dicyclomine [Bentyl] 10 mg PO TID PRN 03/25/19 03/25/19 Doxycycline Hyclate [Vibramycin] 100 mg PO BID 03/25/19 03/25/19 Levothyroxine Sodium [Synthroid] 75 mcg PO DAILY 03/25/19 03/25/19 [place] Carbonate 600 mg PO BID 03/25/19 03/25/19 Mirtazapine [Remeron] 15 mg PO HS 03/25/19 03/25/19 Polyethylene Glycol 3350 [Miralax] 17 gm PO DAILY 03/25/19 03/25/19 cloNIDine HCL [Catapres] 0.1 mg PO TID@0930,1230,1630 03/25/19 03/25/19 Previous Rx's Medication Instructions Recorded Omeprazole [PriLOSEC] 20 mg PO DAILY PRN #14 03/14/17 Cetirizine HCl [Zyrtec] 10 mg PO DAILY 30 Days #30 tablet 10/27/17 Allergies Allergy/AdvReac Type Severity Reaction Status Date / Time amoxicillin trihydrate Allergy Anaphylaxis Verified 03/25/19 17:17 [From Augmentin] potassium clavulanate Allergy Anaphylaxis Verified 03/25/19 17:17 [From Augmentin] risperidone [From Risperdal] AdvReac AGGRESSIVE Verified 03/25/19 17:17 Review of Systems ROS Other: All systems not noted in ROS Statement are negative. <Mathew Ledbetter - Last Filed: 03/25/19 22:19> ROS Other: All systems not noted in ROS Statement are negative. <Abdias Moon - Last Filed: 03/25/19 22:57> ROS Statement: Those systems with pertinent positive or pertinent negative responses have been documented in the HPI. Past Medical History Past Medical History: Asthma, Thyroid Disorder Additional Past Medical History / Comment(s): hydrocephalus, autism(aspergers), social anxiety disorder, bipolar depression, boarderline personality disorder, past rt humerus broken(sx) History of Any Multi-Drug Resistant Organisms: None Reported Past Surgical History: Hernia Repair, Orthopedic Surgery, Tonsillectomy Additional Past Surgical History / Comment(s): shunt for hydrocephalus and 3 revisions,previously charted pt had ex-lap for NEC at age 3 days old.pt not sure what was done., rt humerus sx- rio /screws, harrison inguinal hernia repair as Past Anesthesia/Blood Transfusion Reactions: No Reported Reaction Past Psychological History: ADD/ADHD, Bipolar, Depression Smoking Status: Never smoker Past Alcohol Use History: None Reported Past Drug Use History: None Reported - Past Family History Father History Unknown: Yes Mother History Unknown: Yes <Mathew Ledbetter - Last Filed: 03/25/19 22:19> General Exam Limitations: no limitations <Mathew Ledbetter - Last Filed: 03/25/19 22:19> - General Exam Comments Initial Comments: Constitutional: NAD, AOX3, Pt has pleasant affect. HEENT: NC/AT, trachea midline, neck supple, no lymphadenopathy. Posterior pharynx non erythematous, without exudates. External ears appear normal, without discharge. Mucous membranes moist. Eyes PERRLA, EOM intact. There is no scleral icterus. No pallor noted. Cardiopulmonary: RRR, no murmurs, rubs or gallops, no JVD noted. Lungs CTAB in anterior and posterior [place]. No peripheral edema. Abdominal exam: Abdomen soft and non-distended. Abdomen non-tender to palpation in all 4 quadrants. Bowel sounds active in LLQ. No hepatosplenomegaly. No ecchymosis Neuro: CN II-XII grossly intact. No nuchal rigidity. No raccon eyes, no tesfaye sign, no hemotympanum. No cervical spinal tenderness. MSK: No posterior calf tenderness bilaterally, homans sign negative bilaterally. Posterior tibialis and radial pulse +2 bilaterally. Sensation intact in upper and lower extremities. Full active ROM in upper and lower extremities, 5/5 stregnth. (Mathew Ledbetter) Course Vital Signs 03/25/19 17:35 Temperature 98.2 F Pulse Rate 68 Respiratory 18 Rate Blood Pressure 124/80 O2 Sat by Pulse 98 Oximetry Medical Decision Making <Mathew Ledbetter - Last Filed: 03/25/19 22:19> - Lab Data Result diagrams: 03/25/19 21:48 03/25/19 21:48 <Abdias Moon - Last Filed: 03/25/19 22:57> - Medical Decision Making 23-year-old male patient with the chief complaint of depression, suicidal ideation with plan. Denies any action to hurt himself or any others today. Patient vital signs stable, patient afebrile. EPS evaluated patient and recommended admission. Basic labs ordered. Cert performed by Dr. Blackmon. (Mathew Ledbetter) I did see and evaluate the patient for purposes of following the clinical certification. I saw this patient in conjunction with the physician tv production assistant. I performed independent history and physical exam. Agree with case management. (Abdias Moon) - Lab Data Lab Results 03/25/19 03/25/19 03/25/19 Range/Units 21:48 21:48 21:48 WBC 6.9 (3.8-10.6) k/uL RBC 5.14 (4.30-5.90) m/uL Hgb 15.4 (13.0-17.5) gm/dL Hct 45.9 (39.0-53.0) % MCV 89.3 (80.0-100.0) fL MCH 30.0 (25.0-35.0) pg MCHC 33.6 (31.0-37.0) g/dL RDW 13.1 (11.5-15.5) % Plt Count 213 (150-450) k/uL Neutrophils % 54 % Lymphocytes % 30 % Monocytes % 6 % Eosinophils % 7 % Basophils % 1 % Neutrophils # 3.7 (1.3-7.7) k/uL Lymphocytes # 2.1 (1.0-4.8) k/uL Monocytes # 0.4 (0-1.0) k/uL Eosinophils # 0.5 (0-0.7) k/uL Basophils # 0.1 (0-0.2) k/uL Sodium 140 (137-145) mmol/L Potassium 3.8 (3.5-5.1) mmol/L Chloride 104 (98-107) mmol/L Carbon Dioxide 26 (22-30) mmol/L Anion Gap 10 mmol/L BUN 15 (9-20) mg/dL Creatinine 0.88 (0.66-1.25) mg/dL Est GFR (CKD-EPI)AfAm >90 (>60 ml/min/1.73 sqM) Est GFR (CKD-EPI)NonAf >90 (>60 ml/min/1.73 sqM) Glucose 115 H (74-99) mg/dL Calcium 9.8 (8.4-10.2) mg/dL Total Bilirubin 0.5 (0.2-1.3) mg/dL AST 22 (17-59) U/L ALT 28 (21-72) U/L Alkaline Phosphatase 87 (38-126) U/L Total Protein 6.2 L (6.3-8.2) g/dL Albumin 4.1 (3.5-5.0) g/dL Urine Color Light Yellow Urine Appearance Clear (Clear) Urine pH 7.0 (5.0-8.0) Ur Specific [place] 1.006 (1.001-1.035) Urine Protein Negative (Negative) Urine Glucose (UA) Negative (Negative) Urine Ketones Negative (Negative) Urine Blood Negative (Negative) Urine Nitrite Negative (Negative) Urine Bilirubin Negative (Negative) Urine Urobilinogen <2.0 (<2.0) mg/dL Ur Leukocyte Esterase Negative (Negative) Urine Opiates Screen (NotDetected) Ur Oxycodone Screen (NotDetected) Urine Methadone Screen (NotDetected) Ur Propoxyphene Screen (NotDetected) Ur Barbiturates Screen (NotDetected) U Tricyclic Antidepress (NotDetected) Ur Phencyclidine Scrn (NotDetected) Ur Amphetamines Screen (NotDetected) U Methamphetamines Scrn (NotDetected) U Benzodiazepines Scrn (NotDetected) [place] 0.6 mmol/L Urine Cocaine Screen (NotDetected) U Marijuana (THC) Screen (NotDetected) 03/25/19 Range/Units 21:48 WBC (3.8-10.6) k/uL RBC (4.30-5.90) m/uL Hgb (13.0-17.5) gm/dL Hct (39.0-53.0) % MCV (80.0-100.0) fL MCH (25.0-35.0) pg MCHC (31.0-37.0) g/dL RDW (11.5-15.5) % Plt Count (150-450) k/uL Neutrophils % % Lymphocytes % % Monocytes % % Eosinophils % % Basophils % % Neutrophils # (1.3-7.7) k/uL Lymphocytes # (1.0-4.8) k/uL Monocytes # (0-1.0) k/uL Eosinophils # (0-0.7) k/uL Basophils # (0-0.2) k/uL Sodium (137-145) mmol/L Potassium (3.5-5.1) mmol/L Chloride (98-107) mmol/L Carbon Dioxide (22-30) mmol/L Anion Gap mmol/L BUN (9-20) mg/dL Creatinine (0.66-1.25) mg/dL Est GFR (CKD-EPI)AfAm (>60 ml/min/1.73 sqM) Est GFR (CKD-EPI)NonAf (>60 ml/min/1.73 sqM) Glucose (74-99) mg/dL Calcium (8.4-10.2) mg/dL Total Bilirubin (0.2-1.3) mg/dL AST (17-59) U/L ALT (21-72) U/L Alkaline Phosphatase (38-126) U/L Total Protein (6.3-8.2) g/dL Albumin (3.5-5.0) g/dL Urine Color Urine Appearance (Clear) Urine pH (5.0-8.0) Ur Specific [place] (1.001-1.035) Urine Protein (Negative) Urine Glucose (UA) (Negative) Urine Ketones (Negative) Urine Blood (Negative) Urine Nitrite (Negative) Urine Bilirubin (Negative) Urine Urobilinogen (<2.0) mg/dL Ur Leukocyte Esterase (Negative) Urine Opiates Screen Not Detected (NotDetected) Ur Oxycodone Screen Not Detected (NotDetected) Urine Methadone Screen Not Detected (NotDetected) Ur Propoxyphene Screen Not Detected (NotDetected) Ur Barbiturates Screen Not Detected (NotDetected) U Tricyclic Antidepress Not Detected (NotDetected) Ur Phencyclidine Scrn Not Detected (NotDetected) Ur Amphetamines Screen Not Detected (NotDetected) U Methamphetamines Scrn Not Detected (NotDetected) U Benzodiazepines Scrn Not Detected (NotDetected) [place] mmol/L Urine Cocaine Screen Not Detected (NotDetected) U Marijuana (THC) Screen Not Detected (NotDetected) Disposition Is patient prescribed a controlled substance at d/c from ED?: No <Mathew Ledbetter - Last Filed: 03/25/19 22:19> <Abdias Moon - Last Filed: 03/25/19 22:57> Clinical Impression: Psychiatric disturbance, Suicidal ideation Disposition: ADMITTED IP TO THIS [facility] Condition: Serious Referrals: Juan F Staley DO [Primary Care Provider] - 1-2 days
[2019-03-25] MEDS ORDERED: LITHIUM CARBONATE 300 MG CAP PO SCH (22:15)
[2019-03-25] MEDS ORDERED: MIRTAZAPINE 15 MG TAB PO SCH (22:15)
[2019-03-25 22:29] LABS: Appearance,Urine Clear (Clear); Bilirubin,Urine Negative (Negative); Blood,Urine Negative (Negative); Color,Urine Light Yellow; Glucose,Urine (UA) Negative (Negative); Ketones,Urine Negative (Negative); Leukocyte Esterase,Urine Negative (Negative); Nitrite,Urine Negative (Negative); Protein,Urine Negative (Negative); Specific Gravity,Urine 1.006 (1.001-1.035); Urobilinogen,Urine <2.0 mg/dL (<2.0)
[2019-03-25 22:31] LABS: Basophils # (A) 0.1 k/uL (0-0.2); Basophils % (A) 1 %; Eosinophils # (A) 0.5 k/uL (0-0.7); Eosinophils % (A) 7 %; HCT 45.9 % (39.0-53.0); HGB 15.4 gm/dL (13.0-17.5); Lymphocytes # (A) 2.1 k/uL (1.0-4.8); Lymphocytes % (A) 30 %; MCHC 33.6 g/dL (31.0-37.0); MCV 89.3 fL (80.0-100.0); Mean Platelet Volume 6.9; Monocytes # (A) 0.4 k/uL (0-1.0); Monocytes % (A) 6 %; Neutrophils # (A) 3.7 k/uL (1.3-7.7); Neutrophils % (A) 54 %; Platelet Count 213 k/uL (150-450); RBC 5.14 m/uL (4.30-5.90); RDW 13.1 % (11.5-15.5); WBC 6.9 k/uL (3.8-10.6)
[2019-03-25 22:33] LABS: ALT 28 U/L (21-72); AST 22 U/L (17-59); African American GFR (CKD) >90 (>60 ml/min/1.73 sqM); Albumin 4.1 g/dL (3.5-5.0); Alkaline Phosphatase 87 U/L (38-126); Anion Gap 10 mmol/L; Blood Urea Nitrogen 15 mg/dL (9-20); Calcium 9.8 mg/dL (8.4-10.2); Carbon Dioxide 26 mmol/L (22-30); Chloride 104 mmol/L (98-107); Glucose 115 mg/dL (74-99); Lithium 0.6 mmol/L; Potassium 3.8 mmol/L (3.5-5.1); Sodium 140 mmol/L (137-145); Total Bilirubin 0.5 mg/dL (0.2-1.3); Total Protein 6.2 g/dL (6.3-8.2)
[2019-03-25 22:38] LABS: Amphetamine Screen,Urine Not Detected (NotDetected); Barbiturate Screen,Urine Not Detected (NotDetected); Benzodiazepines Screen,Urine Not Detected (NotDetected); Cocaine Screen,Urine Not Detected (NotDetected); Methadone Screen, Urine Not Detected (NotDetected); Opiate Screen,Urine Not Detected (NotDetected); Oxycodone Screen, Urine Not Detected (NotDetected); Phencyclidine Screen,Urine Not Detected (NotDetected); Tricyclic Antidepressant,Urine Not Detected (NotDetected); Urn Cannabinoid Scrn Not Detected (NotDetected)
[2019-03-26 05:58] VITALS: BP 138/92; PULSE 80; RESP 17
== END 2019-03-26 06:51 | disposition other institution (70) ==
LOC: EC 17:06
DX: R45.851 Suicidal ideations (principal); F99 Mental disorder, not otherwise specified; F32.9 Major depressive disorder, single episode, unspecified; J45.909 Unspecified asthma, uncomplicated; E07.9 Disorder of thyroid, unspecified; Z79.890 Hormone replacement therapy; Z79.899 Other long term (current) drug therapy; Z88.0 Allergy status to penicillin; Z88.8 Allergy status to other drugs, medicaments and biological substances
CPT/HCPCS: 36415; 80053; 80178; 80306; 81003; 82075; 85025; 99285

== ENCOUNTER 2019-09-26 21:48 | Observation (INO) | payer OTHER ==
[2019-09-26] MEDS ORDERED: SODIUM CHLORIDE 0.9% 500 ML 500 ML IV STA (21:49)
[2019-09-26 22:28] LABS: Basophils # (A) 0.1 k/uL (0-0.2); Basophils % (A) 1 %; Eosinophils # (A) 0.4 k/uL (0-0.7); Eosinophils % (A) 6 %; HCT 48.2 % (39.0-53.0); HGB 15.7 gm/dL (13.0-17.5); Lymphocytes # (A) 1.9 k/uL (1.0-4.8); Lymphocytes % (A) 26 %; MCH 28.7 pg (25.0-35.0); MCHC 32.7 g/dL (31.0-37.0); MCV 87.8 fL (80.0-100.0); Mean Platelet Volume 7.6; Monocytes # (A) 0.4 k/uL (0-1.0); Monocytes % (A) 5 %; Neutrophils # (A) 4.4 k/uL (1.3-7.7); Neutrophils % (A) 61 %; Platelet Count 214 k/uL (150-450); RBC 5.49 m/uL (4.30-5.90); RDW 12.2 % (11.5-15.5); WBC 7.3 k/uL (3.8-10.6)
[2019-09-26] MEDS ORDERED: ACTIVATED CHARCOAL-SORBITOL 50 GM/240 ML BOTTLE PO STA (22:31)
[2019-09-26 22:40] LABS: ALT 38 U/L (4-49); AST 31 U/L (17-59); Acetaminophen <10.0 ug/mL; African American GFR (CKD) >90 (>60 ml/min/1.73 sqM); Albumin 4.1 g/dL (3.5-5.0); Alcohol <10 mg/dL; Alkaline Phosphatase 128 U/L (38-126); Anion Gap 7 mmol/L; Blood Urea Nitrogen 14 mg/dL (9-20); Calcium 9.4 mg/dL (8.4-10.2); Carbon Dioxide 26 mmol/L (22-30); Chloride 106 mmol/L (98-107); Glucose 158 mg/dL (74-99); Magnesium 2.1 mg/dL (1.6-2.3); Non-African American GFR(CKD) >90 (>60 ml/min/1.73 sqM); Phosphorus 3.7 mg/dL (2.5-4.5); Potassium 3.8 mmol/L (3.5-5.1); Salicylate <1.0 mg/dL; Sodium 139 mmol/L (137-145); Total Bilirubin 0.5 mg/dL (0.2-1.3); Total Protein 6.4 g/dL (6.3-8.2)
[2019-09-26 22:44] LABS: INR 0.9 (<1.2); Prothrombin Time 9.8 sec (9.0-12.0)
[2019-09-26] MEDS ORDERED: NALOXONE 0.4 MG/ML 1 ML VIAL IV PRN (23:25)
[2019-09-26] MEDS ORDERED: SODIUM CHLORIDE 0.9% 1,000 ML IV SCH (23:30)
--- NOTE | 2019-09-26 23:30 | ED ---
General Adult HPI - General Chief complaint: Overdose Stated complaint: OD Time Seen by Provider: 09/26/19 21:49 Source: patient, EMS, RN notes reviewed, old records reviewed Mode of arrival: EMS Limitations: no limitations - History of Present Illness Initial comments: 24 male with history of hypertension presents for evaluation of suicide attempt. Patient admits to taking 0.8 mg of clonidine approximately 30 minutes prior to arrival. This was a suicide attempt. He denies any other ingestion. He has history of hypertension and is prescribed clonidine. He takes 0.1 mg 3 times daily. He has history of depression and suicide attempt in the past. Denies any other form of self-harm. Denies symptoms of lightheadedness, dizziness, chest pain, no abdominal pain nausea vomiting. Patient transported by EMS with stable heart rate and blood pressure. - Related Data Home Medications Medication Instructions Recorded Confirmed Albuterol Inhaler [Ventolin Hfa 2 puff INHALATION RT-Q6H PRN 11/01/15 03/25/19 Inhaler] Fluticasone Nasal [place] [Flonase 1 spray EA NOSTRIL DAILY 11/01/15 03/25/19 Nasal [place]] Albuterol Nebulized [Ventolin 2.5 mg INHALATION RT-QID PRN 09/27/17 03/25/19 Nebulized] ARIPiprazole [Abilify Maintena] 400 mg IM Q28D 03/25/19 03/25/19 Dicyclomine [Bentyl] 10 mg PO TID PRN 03/25/19 03/25/19 Doxycycline Hyclate [Vibramycin] 100 mg PO BID 03/25/19 03/25/19 Levothyroxine Sodium [Synthroid] 75 mcg PO DAILY 03/25/19 03/25/19 [place] Carbonate 600 mg PO BID 03/25/19 03/25/19 Mirtazapine [Remeron] 15 mg PO HS 03/25/19 03/25/19 Polyethylene Glycol 3350 [Miralax] 17 gm PO DAILY 03/25/19 03/25/19 cloNIDine HCL [Catapres] 0.1 mg PO TID@0930,1230,1630 03/25/19 03/25/19 Previous Rx's Medication Instructions Recorded Omeprazole [PriLOSEC] 20 mg PO DAILY PRN #14 03/14/17 Cetirizine HCl [Zyrtec] 10 mg PO DAILY 30 Days #30 tablet 10/27/17 Allergies Allergy/AdvReac Type Severity Reaction Status Date / Time amoxicillin trihydrate Allergy Anaphylaxis Verified 09/26/19 22:02 [From Augmentin] potassium clavulanate Allergy Anaphylaxis Verified 09/26/19 22:02 [From Augmentin] risperidone [From Risperdal] AdvReac AGGRESSIVE Verified 09/26/19 22:02 Review of Systems ROS Statement: Those systems with pertinent positive or pertinent negative responses have been documented in the HPI. ROS Other: All systems not noted in ROS Statement are negative. Past Medical History Past Medical History: Asthma, Thyroid Disorder Additional Past Medical History / Comment(s): hydrocephalus, autism(aspergers), social anxiety disorder, bipolar depression, boarderline personality disorder, past rt humerus broken(sx) History of Any Multi-Drug Resistant Organisms: None Reported Past Surgical History: Hernia Repair, Orthopedic Surgery, Tonsillectomy Additional Past Surgical History / Comment(s): shunt for hydrocephalus and 3 revisions,previously charted pt had ex-lap for NEC at age 3 days old.pt not sure what was done., rt humerus sx- rio /screws, harrison inguinal hernia repair as Past Anesthesia/Blood Transfusion Reactions: No Reported Reaction Past Psychological History: ADD/ADHD, Bipolar, Depression Smoking Status: Never smoker Past Alcohol Use History: None Reported Past Drug Use History: None Reported - Past Family History Father History Unknown: Yes Mother History Unknown: Yes General Exam Limitations: no limitations General appearance: alert, in no apparent distress Head exam: Present: atraumatic, normocephalic Eye exam: Present: normal appearance, PERRL ENT exam: Present: normal exam Neck exam: Present: normal inspection. Absent: tenderness, meningismus Respiratory exam: Present: normal lung sounds bilaterally. Absent: respiratory distress, wheezes Cardiovascular Exam: Present: regular rate, normal rhythm GI/Abdominal exam: Present: soft. Absent: distended, tenderness, guarding Extremities exam: Present: normal inspection, normal capillary refill. Absent: pedal edema Back exam: Present: normal inspection Neurological exam: Present: alert Psychiatric exam: Present: flat affect, suicidal ideation Skin exam: Present: warm, dry, intact. Absent: cyanosis, diaphoretic Course Vital Signs 09/26/19 09/26/19 09/26/19 22:00 22:30 23:00 Temperature 98.9 F Pulse Rate 98 80 86 Respiratory 18 18 18 Rate Blood Pressure 132/93 116/69 116/73 O2 Sat by Pulse 93 L 96 96 Oximetry - Reevaluation(s) Reevaluation #1: 09/26/19 23:29 Patient reevaluated on multiple occasions, close monitoring of both heart rate and blood pressure performed in the emergency department. EKG Findings - EKG Comments: EKG Findings:: EKG: Sinus tachycardia, no ST segment elevation, rate of 106, ID interval 134, QRS duration 92, QTC 446 Medical Decision Making - Medical Decision Making 24-year-old male presenting for suicidal ideation and suicide attempt with clonidine. Patient is stable at the time my initial evaluation, poison control was contacted they do recommend charcoal which is administered in the emergency department. CBC, CMP and completed several electrolytes are within normal limits. His Tylenol, aspirin, and alcohol levels are nondetectable. Poison control recommends observation for close monitoring of both heart rate and blood pressure. Patient will be admitted with suicide precautions, psychiatry is placed on consult for evaluation once the patient has been medically cleared. - Lab Data Result diagrams: 09/26/19 22:16 09/26/19 22:16 Lab Results 09/26/19 09/26/19 09/26/19 Range/Units 22:16 22:16 22:16 WBC 7.3 (3.8-10.6) k/uL RBC 5.49 (4.30-5.90) m/uL Hgb 15.7 (13.0-17.5) gm/dL Hct 48.2 (39.0-53.0) % MCV 87.8 (80.0-100.0) fL MCH 28.7 (25.0-35.0) pg MCHC 32.7 (31.0-37.0) g/dL RDW 12.2 (11.5-15.5) % Plt Count 214 (150-450) k/uL Neutrophils % 61 % Lymphocytes % 26 % Monocytes % 5 % Eosinophils % 6 % Basophils % 1 % Neutrophils # 4.4 (1.3-7.7) k/uL Lymphocytes # 1.9 (1.0-4.8) k/uL Monocytes # 0.4 (0-1.0) k/uL Eosinophils # 0.4 (0-0.7) k/uL Basophils # 0.1 (0-0.2) k/uL PT (9.0-12.0) sec INR (<1.2) Sodium 139 (137-145) mmol/L Potassium 3.8 (3.5-5.1) mmol/L Chloride 106 (98-107) mmol/L Carbon Dioxide 26 (22-30) mmol/L Anion Gap 7 mmol/L BUN 14 (9-20) mg/dL Creatinine 0.78 (0.66-1.25) mg/dL Est GFR (CKD-EPI)AfAm >90 (>60 ml/min/1.73 sqM) Est GFR (CKD-EPI)NonAf >90 (>60 ml/min/1.73 sqM) Glucose 158 H (74-99) mg/dL Plasma Lactic Acid Tino 1.3 (0.7-2.0) mmol/L Calcium 9.4 (8.4-10.2) mg/dL Phosphorus 3.7 (2.5-4.5) mg/dL Magnesium 2.1 (1.6-2.3) mg/dL Total Bilirubin 0.5 (0.2-1.3) mg/dL AST 31 (17-59) U/L ALT 38 (4-49) U/L Alkaline Phosphatase 128 H (38-126) U/L Total Protein 6.4 (6.3-8.2) g/dL Albumin 4.1 (3.5-5.0) g/dL Salicylates <1.0 mg/dL Acetaminophen <10.0 ug/mL Serum Alcohol <10 mg/dL 09/26/19 Range/Units 22:16 WBC (3.8-10.6) k/uL RBC (4.30-5.90) m/uL Hgb (13.0-17.5) gm/dL Hct (39.0-53.0) % MCV (80.0-100.0) fL MCH (25.0-35.0) pg MCHC (31.0-37.0) g/dL RDW (11.5-15.5) % Plt Count (150-450) k/uL Neutrophils % % Lymphocytes % % Monocytes % % Eosinophils % % Basophils % % Neutrophils # (1.3-7.7) k/uL Lymphocytes # (1.0-4.8) k/uL Monocytes # (0-1.0) k/uL Eosinophils # (0-0.7) k/uL Basophils # (0-0.2) k/uL PT 9.8 (9.0-12.0) sec INR 0.9 (<1.2) Sodium (137-145) mmol/L Potassium (3.5-5.1) mmol/L Chloride (98-107) mmol/L Carbon Dioxide (22-30) mmol/L Anion Gap mmol/L BUN (9-20) mg/dL Creatinine (0.66-1.25) mg/dL Est GFR (CKD-EPI)AfAm (>60 ml/min/1.73 sqM) Est GFR (CKD-EPI)NonAf (>60 ml/min/1.73 sqM) Glucose (74-99) mg/dL Plasma Lactic Acid Tino (0.7-2.0) mmol/L Calcium (8.4-10.2) mg/dL Phosphorus (2.5-4.5) mg/dL Magnesium (1.6-2.3) mg/dL Total Bilirubin (0.2-1.3) mg/dL AST (17-59) U/L ALT (4-49) U/L Alkaline Phosphatase (38-126) U/L Total Protein (6.3-8.2) g/dL Albumin (3.5-5.0) g/dL Salicylates mg/dL Acetaminophen ug/mL Serum Alcohol mg/dL Critical Care Time Critical Care Time: Yes Total Critical Care Time: 35 Disposition Clinical Impression: Suicidal ideation, Depression, Drug overdose, Suicide attempt, Clonidine overdose Disposition: ADMITTED IP TO THIS [facility] Condition: Stable Is patient prescribed a controlled substance at d/c from ED?: No Referrals: Juan F Staley DO [Primary Care Provider] - 1-2 days Decision to Admit Reason: Admit from EC Decision Date: 09/26/19 Decision Time: 23:30
[2019-09-27 00:36] LABS: Appearance,Urine Clear (Clear); Bilirubin,Urine Negative (Negative); Blood,Urine Negative (Negative); Color,Urine Light Yellow; Glucose,Urine (UA) Negative (Negative); Ketones,Urine Negative (Negative); Leukocyte Esterase,Urine Negative (Negative); Nitrite,Urine Negative (Negative); PH, Urine 6.5 (5.0-8.0); Protein,Urine Negative (Negative); Urobilinogen,Urine <2.0 mg/dL (<2.0)
[2019-09-27 00:48] LABS: Amphetamine Screen,Urine Not Detected (NotDetected); Barbiturate Screen,Urine Not Detected (NotDetected); Benzodiazepines Screen,Urine Not Detected (NotDetected); Cocaine Screen,Urine Not Detected (NotDetected); Methadone Screen, Urine Not Detected (NotDetected); Opiate Screen,Urine Not Detected (NotDetected); Oxycodone Screen, Urine Not Detected (NotDetected); Phencyclidine Screen,Urine Not Detected (NotDetected); Tricyclic Antidepressant,Urine Not Detected (NotDetected); Urn Cannabinoid Scrn Not Detected (NotDetected)
--- NOTE | 2019-09-27 10:42 | P.CN ---
Psychiatric Consult - . Consult date: 09/27/19 Consult:: IDENTIFYING DATA: He is a 23-year-old single male who has a history of a developmental disability, autism spectrum disorder and a depressive disorder. The EMS brought him to the ER after he attempted suicide by overdose of clonidine. HISTORY OF PRESENT ILLNESS: I reviewed the medical record and interviewed the patient. He has a psychiatric history beginning childhood and multiple psychiatric hospitalizations. He described increasing loneliness, depression and anxiety over the week prior to his admission. He has been living alone for the last two weeks because his mother was visiting with friends and family and [place]. He believes that he was "doing well alone" until this week. The proximal stress was a rejection by girlfriend day prior to admission. He stated that during a chat she told him that she could not "be his friend now" because she could not cope with his depression and anxiety. He talked about the use of "skills" he has learned at [facility] to manage depression, anxiety and suicidal thoughts. Although he finds himself better able to manage negative feelings, he became overwhelmed after his rejection and impulsively took extra doses of clonidine. He immediately regretted his action and called the mobile crisis line who in turn arranged for emergency transportation to the emergency room. He feels disappointed that he was unable to manage being alone while his mother was on holiday. He described continued feelings of depression and thoughts of suicide. He feels safe in the hospital and denied intent or plan. He describes some symptoms of a depressive disorder including feelings of helplessness and worthlessness but denied persistent changes such as insomnia, anergy, anhedonia, or gallop. He denied experiencing such psychotic symptoms as hallucinations, delusions or thought disturbances. He denied use of alcohol or drugs. PAST PSYCHIATRIC HISTORY: He believes that he first met with a mental health professional when he was 4 years old. He was unaware of the reason but talked about his congenital health problems. He receives services currently through [facility]. He meets with his therapist weekly and is enrolled in their DBT program. He has had 4 admissions to our psychiatric unit; the last was in April 2018. His discharge diagnoses included unspecified bipolar disorder, and borderline personality disorder. Discharge psychotropic medications were clonidine 0.1 mg 3 times a day, lithium carbonate 450 mg twice a day, Remeron 7.5 mg at bedtime. 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 According to record he has history of asthma, thyroid disease and autism. ALLERGIES: Amoxicillin, potassium, risperidone. SUBSTANCE USE HISTORY: According to the record's mother has a history of depression and anxiety, his maternal grandmother was diagnosed depression FAMILY PSYCHIATRIC/SUBSTANCE USE HISTORY: He is unaware of family history of psychiatric or substance abuse problems.. SOCIAL HISTORY: He is single and lives with his mother. He is unemployed and receiving Social Security income. He is currently not attending [employer]. He spends his day with appointments at [facility], found to during a local soup kitchen or attending the clubhouse. MENTAL STATUS EXAM: He presented as a moderately obese 24-year-old ma le who is resting comfortably in bed. He made eye contact and attended to interview. He had no distinguishing features or prominent physical maladies. He had a blunted facial expression. He is alert and oriented to person, place and time. He showed psychomotor retardation but no abnormal movements. Her speech was spontaneous, slightly dysarthric and had decreased volume and rhythm. His affect was depressed, anxious and not reactive. He describes suicidal ideation without intent or plan. He denied homicidal ideation. He expressed depressive cognitions such as hopelessness, helplessness and worthlessness. He did not express ideas reference, paranoid ideation or delusions. His thinking was concrete but his associations were coherent and logical. He denied hallucinations and did not appear to responding to internal stimuli.. IMPRESSIONS: Suicide gesture, suicidal ideation, unspecified depressive disorder, developmental disability, autistic spectrum disorder PLAN: Discontinue one-to-one sitter. Transfer to psychiatric unit when medically stable. Thank you for this consult.. 09/27/19 10:20
[2019-09-27] MEDS ORDERED: ALBUTEROL NEBULIZED 2.5 MG/3 ML INHALATION PRN (10:49)
[2019-09-27] MEDS ORDERED: PANTOPRAZOLE 40 MG TABLET PO PRN (10:49)
[2019-09-27] MEDS ORDERED: POLYETHYLENE GLYCOL 3350 17 GM POWD.PACK PO SCH (11:00)
[2019-09-27] MEDS ORDERED: FLUTICASONE 50MCG/SPRAY NASAL 16GM EA NOSTRIL SCH (11:00)
[2019-09-27] MEDS ORDERED: LEVOTHYROXINE 100 MCG TAB PO SCH (11:00)
[2019-09-27 11:40] VITALS: BP 111/71; PULSE 69; RESP 17; TEMP 98.2
--- NOTE | 2019-09-27 12:25 | HP ---
HISTORY AND PHYSICAL COMBINED HISTORY AND PHYSICAL AND DISCHARGE SUMMARY: DATE OF SERVICE: 09/27/2019 CHIEF COMPLAINTS: Clonidine overdose and suicidal ideations and depression. HISTORY OF PRESENT ILLNESS: This is a 24-year-old gentleman with a past medical history of multiple medical problems including history of developmental disorder, autistic spectrum disorder, asthma, hypothyroidism, history of hernia repair, history of shunt as well as history of ADD, ADHD, bipolar depression, being Asperger syndrome, being followed by Dr. Carpenter in the outpatient setting was admitted to [facility] after his apparent suicidal attempt. Patient has depression. Patient apparently took 8 clonidine tablets and there is no history of fever, chills or rigors. No history of headache, loss of consciousness, seizures. Patient apparently takes 0.1 three times a day previously. The blood pressure is well maintained. EKG did not show acute abnormality. Initial labs are within normal limits. There is no history of fever, rigors or chills. No history of headache, loss conscious, seizures at this time. PAST MEDICAL HISTORY: History of asthma, hypothyroidism, hydrocephalus, hernia repair, ADD, ADHD, bipolar depression. MEDICATIONS: Home medications are: 1. Effexor XR 150 mg p.o. daily. 2. MiraLAX 17 g daily. 3. Prilosec 20 mg daily p.r.n. 5. Synthroid 100 mcg p.o. daily. 6. Flonase 1 spray daily. 7. Bentyl 10 mg p.o. t.i.d. p.r.n. 8. Zetia 10 mg. 9. Ventolin 2.5 q.i.d. p.r.n. 10.Abilify 400 mg IV q.28 days. ALLERGIES: AMOXICILLIN, POTASSIUM, RISPERDAL. FAMILY HISTORY: History of fibromyalgia in the family. SOCIAL HISTORY: History of smoking. No history of alcohol intake. REVIEW OF SYSTEMS: ENT: No diminished vision or diminished hearing. CARDIOVASCULAR SYSTEM: No angina. RESPIRATION: No cough. GI: As mentioned earlier. : No dysuria. NERVOUS SYSTEM: As mentioned earlier. ALLERGY/IMMUNOLOGY: No history of asthma. MUSCULOSKELETAL: As mentioned earlier. DERMATOLOGY: Negative. ENDOCRINE: No history of diabetes or hypothyroidism. CONSTITUTIONAL: As mentioned earlier. RHEUMATOLOGY: Negative. PSYCHIATRY: As mentioned earlier. PHYSICAL EXAMINATION: Alert and oriented x3, pulse 89, blood pressure 110/81, respirations 16, temperature 98.4, pulse ox 98% on room air. HEENT: Conjunctivae normal. Oral mucosa moist. NECK: No jugular venous distention. No lymph node enlargement. CARDIOVASCULAR SYSTEM: S1, S2, muffled. RESPIRATION: Breath sounds diminished at the bases, no rhonchi, no crackles. ABDOMEN: Soft, nontender. No mass palpable. LEGS: No edema, no swelling. NERVOUS SYSTEM: Higher functions as mentioned earlier. Moves all 4 limbs. No focal motor or sensory deficits. LYMPHATICS: No lymph node enlargement in the neck and axillae. SKIN: No ulcers, rash, bleeding. JOINTS: No active deforming arthropathy. LABS: CBC within normal limits. Glucose 158, alkaline phosphatase 128. ASSESSMENT: 1. Status post clonidine overdosage. 2. Depression with suicidal ideations. 3. History of asthma. 4. History of hypothyroidism. 5. History of hydrocephalus. 6. Hernia repair. 7. History of degenerative joint disease. 8. 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 9. History of exploratory laparotomy for necrotizing fasciitis in the abdomen. 10.ADD, ADHD. 11.History of bipolar. 12.History of depression. 13.History of Asperger syndrome and autistic spectrum disorder. 14.Social anxiety disorder. RECOMMENDATION: In this is a 24-year-old gentleman who presented with multiple medical issues, at this time I recommend the patient to be transferred to inpatient psych. Continue the current medications. Hold clonidine. If the patient is put on clonidine in the future, supervised treatment may be an option. Otherwise, will monitor the blood pressure closely and if the blood pressure is being elevated, will probably offer alternative medications. Otherwise, will follow the patient closely. The patient also may be asked to follow with Dr. Juan F Staley closely after discharge as outpatient to evaluate in followup of the above-mentioned medical problems and further recommendations to follow. Will follow the patient closely with psych. We will discharge the patient to inpatient psych unit at this time. MMODL / IJN: [id number] / STEPHEN
[2019-09-28] MEDS ORDERED: LORATADINE 10 MG TAB PO SCH (09:00)
== END 2019-09-27 14:41 ==
LOC: EC 21:48 → 6NMEDSUR 23:25
PROVIDERS: ADMIT Hospitalist; ATTEND Hospitalist
DX: T46.5X2A Poisoning by other antihypertensive drugs, intentional self-harm, initial encounter (principal); I10 Essential (primary) hypertension; F31.9 Bipolar disorder, unspecified; J45.909 Unspecified asthma, uncomplicated; E03.9 Hypothyroidism, unspecified; Q03.9 Congenital hydrocephalus, unspecified; F84.5 Asperger's syndrome; F60.3 Borderline personality disorder; F41.9 Anxiety disorder, unspecified; M19.90 Unspecified osteoarthritis, unspecified site; Z98.2 Presence of cerebrospinal fluid drainage device; Z90.89 Acquired absence of other organs; Z79.890 Hormone replacement therapy; Z79.899 Other long term (current) drug therapy; Z88.0 Allergy status to penicillin; Z88.8 Allergy status to other drugs, medicaments and biological substances; Z88.1 Allergy status to other antibiotic agents
CPT/HCPCS: 96360; 99291; 36415; 93005 ×2; 80053; 83605; 83735; 84100; 85025; 85610; 81003; 80306; 83520; G0378 ×2; G0480 ×2; 80320; 80329

== ENCOUNTER 2019-09-27 14:20 | Inpatient (IN) | payer MEDICAID ==
[2019-09-27] MEDS ORDERED: LORazepam 1 MG TAB PO PRN (14:22)
[2019-09-27] MEDS ORDERED: ACETAMINOPHEN TAB 325 MG TAB PO PRN (14:22)
[2019-09-27] MEDS ORDERED: ZIPRASIDONE 20 MG VIAL IM PRN (14:22)
[2019-09-27] MEDS ORDERED: MAG HYDROX/AL HYDROX/SIMETH 30 ML CUP PO PRN (14:22)
[2019-09-27] MEDS ORDERED: MAGNESIUM HYDROXIDE 2,400 MG/10 ML CUP PO PRN (14:22)
[2019-09-27] MEDS ORDERED: DICYCLOMINE 10 MG CAP PO PRN (14:25)
[2019-09-27] MEDS ORDERED: PANTOPRAZOLE 40 MG TABLET PO PRN (14:25)
[2019-09-27] MEDS ORDERED: ALBUTEROL INHALER 60 PUFF/8 GM INHALER INHALATION PRN (14:25)
[2019-09-27] MEDS ORDERED: ALBUTEROL NEBULIZED 2.5 MG/3 ML INHALATION PRN (14:25)
[2019-09-27 19:17] LABS: Hemoglobin A1C 5.1 % (4.0-6.0)
[2019-09-28 03:24] LABS: Cholesterol 197 mg/dL (<200); HDL Cholesterol 55 mg/dL (40-60); LDL Cholesterol,Calculated 122 mg/dL (0-99); Triglycerides 100 mg/dL (<150)
[2019-09-28] MEDS ORDERED: LITHIUM CARBONATE 300 MG CAP PO SCH (09:00)
[2019-09-28] MEDS: LEVOTHYROXINE 100 MCG TAB PO SCH (09:37)
[2019-09-28] MEDS: LORATADINE 10 MG TAB PO SCH (09:37)
[2019-09-28] MEDS: VENLAFAXINE HCL ER 150 MG CAP PO SCH (09:37)
[2019-09-28] MEDS: FLUTICASONE 50MCG/SPRAY NASAL 16GM EA NOSTRIL SCH (10:06)
[2019-09-28] MEDS: POLYETHYLENE GLYCOL 3350 17 GM POWD.PACK PO SCH (10:07)
[2019-09-28] MEDS ORDERED: hydrOXYzine PAMOATE 25 MG CAP PO PRN (11:24)
--- NOTE | 2019-09-28 11:42 | P.HP ---
Psychiatric H&P - . H&P Date: 09/28/19 History & Physical: Allergies Allergy/AdvReac Type Severity Reaction Status Date / Time amoxicillin trihydrate Allergy Anaphylaxis Verified 09/27/19 15:08 From Augmentin potassium clavulanate Allergy Anaphylaxis Verified 09/27/19 15:08 From Augmentin risperidone From Risperdal AdvReac AGGRESSIVE Verified 09/27/19 15:08 Vital Signs Temp 97.6 F 09/28/19 06:37 Pulse 72 09/28/19 06:37 Resp 14 09/28/19 06:37 BP 144/73 09/28/19 06:37 Pulse Ox Intake & Output 09/27/19 09/28/19 09/28/19 18:59 06:59 18:59 Weight 93.89 kg Laboratory Last Values Estimated Ave Glu mg/dL 100 09/27/19 14:22 Hemoglobin A1c 5.1 % (4.0-6.0) 09/27/19 14:22 Triglycerides 100 mg/dL (<150) 09/27/19 14:22 Cholesterol 197 mg/dL (<200) 09/27/19 14:22 LDL Cholesterol, Calc 122 mg/dL (0-99) H 09/27/19 14:22 HDL Cholesterol 55 mg/dL (40-60) 09/27/19 14:22 [place] <0.2 mmol/L 09/27/19 14:22 09/28/19 11:25 IDENTIFYING DATA: Patient is a 23-year-old single male who has a history of a developmental disability, autism spectrum disorder and a depressive disorder. HISTORY OF PRESENT ILLNESS: Patient has a psychiatric history beginning childhood and multiple psychiatric hospitalizations. Patient was brought in by EMS to the ER after he attempted suicide by overdose of clonidine at home. He w as seen by Dr. Godinez on the medical floors and at that time, patient described increasing loneliness, depression and anxiety over the week prior to his admission. He has been living alone for the last two weeks because his mother was visiting with friends and family and [place]. He believes that he was "doing well alone" until this week. The proximal stress was a rejection by girlfriend day prior to admission. He stated that during a chat she told him that she could not "be his friend now" because she could not cope with his depression and anxiety. Patient stated to medical underwriter that he "made a bad choice" and states that he was feeling angry at that time. He states that the overdose was "impulsive" and no intent to end his life. He states that he took 8 Catapres tablets at one time and immediately called crisis hotline. At this time he claims that his sleep is "on and off" and states that his mood is "anxious" and admits to guilt and problems with concentration. He denies any t houghts of suicide or homicide ideations at this time. He denies any auditory or visual hallucinations. He does not endorse any delusions or thought disturbances. He denied use of alcohol or drugs. PAST PSYCHIATRIC HISTORY: He believes that he first met with a mental health professional when he was 4 years old. He was unaware of the reason but talked about his congenital health problems. He receives services currently through [facility]. He meets with his therapist weekly and is enrolled in their DBT program. He has had 4 admissions to our psychiatric unit; the last was in April 2018. His discharge diagnoses included unspecified bipolar disorder, and borderline personality disorder. Discharge psychotropic medications were clonidine 0.1 mg 3 times a day, lithium carbonate 450 mg twice a day, Remeron 7.5 mg at bedtime. Patient states that he is had 1 overdose in May 2019. 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 According to record he has history of asthma, thyroid disease and autism. ALLERGIES: Amoxicillin, potassium, risperidone. SUBSTANCE USE HISTORY: According to the record's mother has a history of depression and anxiety, his maternal grandmother was diagnosed depression FAMILY PSYCHIATRIC/SUBSTANCE USE HISTORY: He is unaware of family history of psychiatric or substance abuse problems.. SOCIAL HISTORY: He is single and lives with his mother. He is unemployed and receiving Social Security income. He is currently not attending [employer]. He spends his day with appointments at [facility], found to during a local soup kitchen or attending the clubhouse. MENTAL STATUS EXAM: General Appearance: Patient appears to be stated age is alert, directable, and attempts to cooperate. Patient appears to have poor hygiene and grooming. Behavior: Patient is seated without any agitated behavior. Superficially cooperative. Speech: Patient's speech is fluent and nonpressured. On a tone. Mood/Affect: Patient reports their mood is depressed, affect is congruent and constricted. Suicidality/Homicidality: Patient denies having any homicidal ideation intent or plan. Denies any suicidal ideations intent or plan Perceptions: Patient denies any visual hallucinations and denies any auditory hallucinations Though content/process: There is no evidence of any delusional thought content and thought process is linear and goal-directed. Memory and concentration: AOX3, grossly intact for the purposes of this session. Can spell "WORLD" backwards Judgment and insight: poor/impulsive STRENGTHS/WEAKNESSES: strength is that patient is resilient. Weakness is that patient has poor judgment and is impulsive INTELLECT: Below average IMPRESSIONS: Depressive disorder unspecified rule out adjustment disorder with depressed mood Borderline personality disorder Autism spectrum disorder PLAN: -Patient is admitted under voluntary status to MHU for stabilization of psychiatric symptoms and safety. Patient signed adult voluntary form and medication consent and is placed in patient's chart. -Medications : Will start patient on Effexor 150 mg daily for mood/anxiety. Will increase patient's lithium to 300 mg twice a day for mood stabilization/suicidality. Melatonin 5 mg daily at bedtime. Patient received Abilify Maintenna on 09/10/2019 and will be due monthly for this injection. -Geodon PRN for agitation/aggression -Vistaril when necessary for anxiety. -Patient was informed of the risks, benefits and side effects of the medication and patient verbally consented to taking the medications. Patient signed med consent form and was placed in chart. -Internal Medicine consult to perform medical evaluation and physical. Patient claims that he has been having coughing at this time and wanted to be evaluated by internal medicine. -NRT -need is patient does not smoke. - on board for discharge planning. Encourage patient to participate in groups to work on coping skills. Patient follows up with [facility] and also is enrolled in DBT program which she is encouraged to continue working through. Likely discharge in 2-3 days. 09/28/19 11:34 09/28/19 11:42
[2019-09-28] MEDS ORDERED: diphenhydrAMINE 25 MG CAP PO PRN (12:32)
[2019-09-28] MEDS: MELATONIN 5 MG TABLET PO SCH (21:18)
[2019-09-28] MEDS: LITHIUM CARBONATE 300 MG CAP PO SCH (21:19)
--- NOTE | 2019-09-29 02:16 | CONS ---
CONSULTATION REASON FOR CONSULTATION: Regarding clonidine overdose and multiple medical issues, requested by Psychiatry. HISTORY OF PRESENT ILLNESS: This 24-year-old gentleman with a past medical history of multiple medical problems including depression, history of hypothyroidism, history of DJD, history of ELEMENTARY READING SPECIALIST shunt, being followed by Dr. Juan F Staley in the outpatient setting, took clonidine overdose and depression, suicidal ideation. Patient treated symptomatically, improved significantly. Poison Control was contacted and subsequent patient got better. Patient was transferred to the psych floor at this time. There is no history of chest pain. No palpitations. Patient also complains of some itching and receiving Benadryl p.r.n. Patient also has abdominal pain apparently about a few weeks ago, evaluated by Dr. Staley in the outpatient setting. Currently patient requesting a plain x-ray abdomen. No chest pain. No palpitations. No fever. Currently patient does not have any abdominal pain. PAST MEDICAL HISTORY: History of asthma, hypothyroidism, hydrocephalus, ELEMENTARY READING SPECIALIST shunt, hernia repair. HOME MEDICATIONS: 1. Effexor XR 150 mg p.o. daily. 2. MiraLAX 17 g daily. 3. Prozac 20 mg daily p.r.n. 4. [place] carbonate 1200 mg p.o. daily. 5. Synthroid 100 mcg p.o. daily. 6. Flonase 1 spray daily. 7. Bentyl 10 mg p.o. t.i.d. p.r.n. 8. Xarelto 10 mg p.o. daily. 9. Ventolin 2.5 q.i.d. p.r.n. 10.Abilify 400 mg IV q.28 days. ALLERGIES: AMOXICILLIN, POTASSIUM, RISPERDAL. FAMILY HISTORY: History of fibromyalgia in the family. SOCIAL HISTORY: No history of smoking. No history of alcohol intake. REVIEW OF SYSTEMS: ENT No history of diminished hearing or vision. CARDIOVASCULAR No angina or palpitations. RESPIRATORY No cough, no hemoptysis. GI No nausea, vomiting, or diarrhea. No dysuria. NERVOUS No numbness or weakness. ALLERGY/IMMUNOLOGY No asthma or hayfever. MUSCULOSKELETAL As mentioned earlier. HEMATOLOGY/ONCOLOGY Negative. ENDOCRINE Hypothyroidism. No history of diabetes. SKIN Negative. CONSTITUTIONAL As mentioned earlier. PSYCHIATRY As mentioned earlier. PHYSICAL EXAMINATION: Alert and oriented x3. Pulse 72, blood pressure 144/70, respiration 14, temperature 97.6, pulse ox 98% on room air. HEENT: Conjunctivae normal. Oral mucosa moist. NECK: No jugular venous distention. No lymph node enlargement. CARDIOVASCULAR: S1, S2. RESPIRATORY: Diminished breath sounds at the bases. A few scattered rhonchi, no crackles. ABDOMEN: Soft, nontender. LEGS: No edema, no swelling. NERVOUS SYSTEM: Higher functions mentioned earlier. Moves all four limbs. No focal deficits. LYMPHATICS: No lymph node in neck or axilla. SKIN: No rash. JOINTS: No active deforming arthropathy. LABS: Hemoglobin is 5.1, platelets 122, lithium is normal. ASSESSMENT: 1. Status post clonidine overdosage. 2. Depression, suicidal ideation. 3. History of asthma. 4. Hypothyroidism. 5. Hydrocephalus status post ELEMENTARY READING SPECIALIST shunt. 6. History of hernia repair. 7. History of degenerative joint disease. 8. History of exploratory laparotomy with necrotizing fasciitis in the abdomen. 9. History ADD/ADHD. 10.History of bipolar. 11.History of depression. 12.History of Asperger's syndrome and autistic spectrum disorder. 13.Social anxiety disorder. RECOMMENDATIONS AND DISCUSSION: In this 24-year-old gentleman who presented for psychiatric evaluation, at this time I would recommend to resume the home medications and the patient also had abdominal pain as mentioned earlier. If the abdominal pain is recurring, I would recommend to follow up in the outpatient setting with Dr. Juan F Staley. Otherwise, continue with symptomatic treatment. Benadryl p.r.n. may be utilized in case the patient has more allergic symptoms. Otherwise, we will follow the patient closely with you. The patient may be asked to follow with Dr. Acuña for close followup and thank you Dr. Carlson for letting us participate in the care of this patient. MMODL / IJN: [id number] /
[2019-09-29] MEDS: LEVOTHYROXINE 100 MCG TAB PO SCH (06:32)
[2019-09-29 06:54] VITALS: RESP 16
[2019-09-29] MEDS: VENLAFAXINE HCL ER 150 MG CAP PO SCH (08:39)
[2019-09-29] MEDS: FLUTICASONE 50MCG/SPRAY NASAL 16GM EA NOSTRIL SCH (08:39)
[2019-09-29] MEDS: LORATADINE 10 MG TAB PO SCH (08:40)
[2019-09-29] MEDS: POLYETHYLENE GLYCOL 3350 17 GM POWD.PACK PO SCH (08:40)
[2019-09-29] MEDS: LITHIUM CARBONATE 300 MG CAP PO SCH ×2 (08:40→21:21)
--- NOTE | 2019-09-29 11:35 | P.PN ---
Progress Note - Text Progress Note Date: 09/29/19 Interval History: Patient was seen laying down in his bed and was directable and agreeable to be tried in the office. Patient appeared to be lethargic this morning over states that he is been more tired lately. He states that he has a try to go to some groups and we'll try to go to more today. He claims these been eating well on the unit. He states that his mood has mildly improved since being admitted. He states that he has racing thoughts mainly about "the pipes bursting in his house" however did tell his mother about this. He claims that he has been getting along well with others on the unit. At this time patient denies any suicidal or homical ideations, intent or plan. Patient denies any auditory, visual hallucinations and denies any paranoia or delusions. Patient denies any side effects from the medications and has been compliant with meds. Mental Status Exam: General Appearance: Patient appears to be stated age is alert, directable, and attempts to cooperate. Patient appears to have poor hygiene and grooming. Behavior: Patient is seated without any agitated behavior. cooperative. Speech: Patient's speech is fluent and nonpressured. Soft tone Mood/Affect: Patient reports their mood is depressed, mildly improving, affect is congruent and constricted. Suicidality/Homicidality: Patient denies having any homicidal ideation intent or plan. Denies any suicidal ideations intent or plan Perceptions: Patient denies any visual hallucinations and denies any auditory hallucinations Though content/process: There is no evidence of any delusional thought content and thought process is linear and goal-directed. Memory and concentration: AOX3, grossly intact for the purposes of this session. Judgment and insight: poor, mildly improving Assessment Depressive disorder unspecified rule out adjustment disorder with depressed mood Borderline personality disorder Autism spectrum disorder Plan: -Patient continues to meet criteria for inpatient psychiatric admission for symptom stabilization and safety. Patient has signed adult voluntary form and medication consent and was placed in patient's chart. -Medications: We'll continue with Effexor 150 mg daily for mood/anxiety. We'll continue with lithium 300 mg twice a day for mood stabilization/suicidality. Continue with melatonin 5 mg daily at bedtime for sleep. Patient received Abiliezio Maintenna on 09/10/2019 and will be due monthly for this injection. Benadryl when necessary for anxiety. -When necessary Geodon for agitation/aggression. -NRT -none as patient does not smoke. -SW on board for discharge planning. Encourage patient to participate in groups to work on coping skills. Patient follows up with [facility] and also is enrolled in DBT program which she is encouraged to continue working through. Likely discharge in 2-3 days.
[2019-09-29] MEDS: MELATONIN 5 MG TABLET PO SCH (21:20)
[2019-09-30] MEDS: LEVOTHYROXINE 100 MCG TAB PO SCH (06:38)
[2019-09-30] MEDS: FLUTICASONE 50MCG/SPRAY NASAL 16GM EA NOSTRIL SCH (08:56)
[2019-09-30] MEDS: LITHIUM CARBONATE 300 MG CAP PO SCH ×2 (08:57→21:12)
[2019-09-30] MEDS: POLYETHYLENE GLYCOL 3350 17 GM POWD.PACK PO SCH (08:57)
[2019-09-30] MEDS: VENLAFAXINE HCL ER 150 MG CAP PO SCH (08:57)
[2019-09-30] MEDS: LORATADINE 10 MG TAB PO SCH (08:57)
--- NOTE | 2019-09-30 12:23 | P.PN ---
Progress Note - Text Progress Note Date: 09/30/19 Interval History: Patient was seen laying down in his bed speaking to his roommate and was directable and agreeable to be interviewed in the office. Patient appeared to be more awake this morning and states that he feels "bored" today. Patient was focused on discharge however was directable and agreeable to engage in treatment and states that he's been engaging with the [place] [facility]. He states that he has a try to go to some groups and we'll try to go to more today. He claims these been eating well on the unit and states that he has slept well last night talks mainly 8-9 hours. He states that his mood has mildly improving on the current medications however continues to endorse racing thoughts, mainly worries and anxiety about being on the unit. Patient was agreeable to start BuSpar at this time for anxiety. He claims that he has been getting along well with others on the unit. At this time patient denies any suicidal or homical ideations, intent or plan. Patient denies any auditory, visual hallucinations and denies any paranoia or delusions. Patient denies any side effects from the medications and has been compliant with meds. Mental Status Exam: General Appearance: Patient appears to be stated age is alert, directable, and attempts to cooperate. Patient mildly improving hygiene and grooming. Wearing street clothes. Behavior: Patient is seated without any agitated behavior. Attempts to cooperate. Speech: Patient's speech is fluent and nonpressured. Mood/Affect: Patient reports their mood is mildly improving, affect is congruent and constricted. Suicidality/Homicidality: Patient denies having any homicidal ideation intent or plan. Denies any suicidal ideations intent or plan Perceptions: Patient denies any visual hallucinations and denies any auditory hallucinations Though content/process: There is no evidence of any delusional thought content and thought process is linear and goal-directed. Memory and concentration: AOX3, grossly intact for the purposes of this session. Judgment and insight: poor, mildly improving Assessment Depressive disorder unspecified rule out adjustment disorder with depressed mood Borderline personality disorder Autism spectrum disorder Plan: -Patient continues to meet criteria for inpatient psychiatric admission for symptom stabilization and safety. Patient has signed adult voluntary form and medication consent and was placed in patient's chart. -Medications: We'll continue with Effexor 150 mg daily for mood/anxiety. We'll continue with lithium 300 mg twice a day for mood stabilization/suicidality. Ordered lithium level for tomorrow morning. Continue with melatonin 5 mg daily at bedtime for sleep. Patient received Abilify Maintenna on 09/10/2019 and will be due monthly for this injection. Benadryl when necessary for anxiety. Added BuSpar 10 mg twice a day for anxiety. -When necessary Geodon for agitation/aggression. -NRT -none as patient does not smoke. -SW on board for discharge planning. Encourage patient to participate in groups to work on coping skills. Patient follows up with [facility] and also is enrolled in DBT program which she is encouraged to continue working through. Likely discharge in 2 days back home.
[2019-09-30] MEDS: busPIRone HCl 10 MG TAB PO SCH ×2 (13:31→21:12)
[2019-09-30] MEDS: MELATONIN 5 MG TABLET PO SCH (21:12)
[2019-10-01] MEDS: LEVOTHYROXINE 100 MCG TAB PO SCH (06:18)
[2019-10-01] MEDS: busPIRone HCl 10 MG TAB PO SCH (08:44)
[2019-10-01] MEDS: LITHIUM CARBONATE 300 MG CAP PO SCH ×2 (08:44→21:06)
[2019-10-01] MEDS: LORATADINE 10 MG TAB PO SCH (08:44)
[2019-10-01] MEDS: POLYETHYLENE GLYCOL 3350 17 GM POWD.PACK PO SCH (08:45)
[2019-10-01] MEDS: FLUTICASONE 50MCG/SPRAY NASAL 16GM EA NOSTRIL SCH (08:45)
[2019-10-01] MEDS: VENLAFAXINE HCL ER 150 MG CAP PO SCH (08:59)
--- NOTE | 2019-10-01 10:20 | P.PN ---
Progress Note - Text Progress Note Date: 10/01/19 Interval History: Patient was seen participating in group and was directable and agreeable to be interviewed in the office by food writer. Patient appeared to be more awake this morning and appeared to have a brighter affect. Patient was sharing content about the group and states that he is trying to participate more and more each day. He states that he realizes the importance of his DBT group and learning coping skills and ways to deal with the stressors. He admitted regretting ove rdosing and states that he feels guilty about it and has to "repair the relationships that were broken". He claims that his mood has been gradually improving along with his anxiety as well. He claims these been eating well on the unit and states that he has slept well last night talks mainly 8 hours. Patient was requesting to have his BuSpar increased at this time for his anxiety. He claims that he has been getting along well with others on the unit. At this time patient denies any suicidal or homical ideations, intent or plan. Patient denies any auditory, visual hallucinations and denies any paranoia or delusions. Patient denies any side effects from the medications and has been compliant with meds. Mental Status Exam: General Appearance: Patient appears to be stated age is alert, directable, and attempts to cooperate. Patient mildly improving hygiene and grooming. Wearing street clothes. Behavior: Patient is seated without any agitated behavior. Attempts to cooperate. Speech: Patient's speech is fluent and nonpressured. Mood/Affect: Patient reports their mood is mildly improving, affect is congruent and constricted. Suicidality/Homicidality: Patient denies having any homicidal ideation intent or plan. Denies any suicidal ideations intent or plan Perceptions: Patient denies any visual hallucinations and denies any auditory hallucinations Though content/process: There is no evidence of any delusional thought content and thought process is linear and goal-directed. Memory and concentration: AOX3, grossly intact for the purposes of this session. Judgment and insight: mildly improving Assessment Depressive disorder unspecified rule out adjustment disorder with depressed mood Borderline personality disorder Autism spectrum disorder Plan: -Patient continues to meet criteria for inpatient psychiatric admission for symptom stabilization and safety. Patient has signed adult voluntary form and medication consent and was placed in patient's chart. -Medications: We'll continue with Effexor 150 mg daily for mood/anxiety. We'll continue with lithium 300 mg twice a day for mood stabilization/suicidality. Continue with melatonin 5 mg daily at bedtime for sleep. Patient received Abilify Maintenna on 09/10/2019 and will be due monthly for this injection. Benadryl when necessary for anxiety. Increased BuSpar 15 mg twice a day for anxiety. -[place] level drawn on 10/01/2019 was 0.2 -When necessary Geodon for agitation/aggression. -NRT -none as patient does not smoke. -SW on board for discharge planning. Encourage patient to participate in groups to work on coping skills. Patient follows up with [facility] and also is enrolled in DBT program which she is encouraged to continue working through. Likely discharge tomorrow back home.
[2019-10-01] MEDS: MELATONIN 5 MG TABLET PO SCH (21:06)
[2019-10-01] MEDS: busPIRone HCl 5 MG TAB PO SCH (21:06)
[2019-10-02] MEDS: LEVOTHYROXINE 100 MCG TAB PO SCH (06:28)
[2019-10-02 06:51] VITALS: BP 136/66; PULSE 72; TEMP 97.6
[2019-10-02] MEDS: LITHIUM CARBONATE 300 MG CAP PO SCH (08:20)
[2019-10-02] MEDS: busPIRone HCl 5 MG TAB PO SCH (08:20)
[2019-10-02] MEDS: VENLAFAXINE HCL ER 150 MG CAP PO SCH (08:20)
[2019-10-02] MEDS: LORATADINE 10 MG TAB PO SCH (08:21)
[2019-10-02] MEDS: FLUTICASONE 50MCG/SPRAY NASAL 16GM EA NOSTRIL SCH (08:21)
[2019-10-02] MEDS: POLYETHYLENE GLYCOL 3350 17 GM POWD.PACK PO SCH (08:21)
--- NOTE | 2019-10-02 10:04 | P.DS ---
Providers Date of admission: 09/27/19 14:44 Expected date of discharge: 10/02/19 Attending physician: Ibrahima Carlson MD Consults: 09/27/19 14:22 Consult Physician Routine Consulting Provider: Chapito Govea Consult Reason/Comments: medical management Do you want consulting provider notified?: Yes Primary care physician: Juan F Staley - Discharge Diagnosis(es) (1) Major depressive disorder, recurrent, unspecified Current Visit: Yes Status: Acute Priority: High (2) Borderline personality disorder Current Visit: Yes Status: Acute Priority: Medium (3) Autism spectrum disorder Current Visit: Yes Status: Acute Priority: Low Hospital Course: Admission HPI: Patient is a 23-year-old single male who has a history of a developmental disability, autism spectrum disorder and a depressive disorder. Patient has a psychiatric history beginning childhood and multiple psychiatric hospitalizations. Patient was brought in by EMS to the ER after he attempted suicide by overdose of clonidine at home. He was seen by Dr. Godinez on the medical floors and at that time, patient described increasing loneliness, depression and anxiety over the week prior to his admission. He has been living alone for the last two weeks because his mother was visiting with friends and family and [place]. He believes that he was "doing well alone" until this week. The proximal stress was a rejection by girlfriend day prior to admission. He stated that during a chat she told him that she could not "be his friend now" because she could not cope with his depression and anxiety. Patient stated to feature writer that he "made a bad choice" and states that he was feeling angry at that time. He states that the overdose was "impulsive" and no intent to end his life. He states that he took 8 Catapres tablets at one time and immediately called crisis hotline. At this time he claims that his sleep is "on and off" and states that his mood is "anxious" and admits to guilt and problems with concentration. He denies any thoughts of suicide or homicide ideations at this time. He denies any auditory or visual hallucinations. He does not endorse any delusions or thought disturbances. He denied use of alcohol or drugs. Hospital course: Upon admission to the unit patient was initially depressed was however directable and agreeable to commence treatment. Patient got along well with other patients on the unit and followed unit protocol. Patient was compliant with the medications and denied any side effects throughout hospital course. Patient was started on his home dose of Effexor 150 mg daily for mood/anxiety, his lithium dose was increased to 600 mg total daily for mood stabil ization/suicidality. [place] level was 0.2 and was checked on 10/01/2019. Melatonin was increased to a dose of 5 mg nightly for sleep. Patient was also started on the BuSpar and was titrated up to a dose of 15 mg twice a day for anxiety. Patient is currently on Abilify Maintenna 400 mg IM monthly and was last given his dose on 09/10/2019 and will be due for his next injection on 10/08/2019 at [facility]. Patient spoke of his stressors and engaged in therapy both group and individual. Patient worked on his coping skills, impulsivity and distress tolerance during group and individual therapy. Patient was also seen by medical team for history and physical exam. Throughout the course of the hospitalization patient gradually improved with regards to mood, anxiety, sleep and became future oriented with improved insight and judgment. On the day of discharge patient denied any suicidal or homicidal ideations intent or plan denied any auditory or visual hallucinations. Patient endorsed wanting to live for his health and his future. The patient denied any access to guns or weapons. Patient denied any paranoia and did not endorse any delusions. Patient does not have a significant history of substance abuse however was counseled on abstaining from all substances including alcohol and marijuana.] Patient was also counseled on the medications and need for regular compliance and was encouraged to follow-up with their outpatient appointment for mental health and also for primary care. Prior to discharge a family meeting will be arranged by child protective services social worker to answer any questions and ensure safety upon discharge. Mental status exam: General Appearance: Patient appears to be overweight, stated age is alert, pleasant, and cooperative. Patient is in no acute distress and has fair hygiene and grooming Behavior: Patient is calmly seated without any agitated behavior. Speech: Patient's speech is fluent and nonpressured. Mood/Affect: Patient reports their mood is "much better", affect is congruent and euthymic. Suicidality/Homicidality: Patient denies having any suicidal or homicidal ideation intent or plan. Perceptions: Patient denies any auditory or visual hallucinations. Though content/process: There is no evidence of any delusional thought content and thought process is linear and goal-directed. Memory and concentration: AOX3, grossly intact for the purposes of this session. Can spell "WORLD" backwards correctly. Judgment and insight: improved, guarded prognosis due to patient's impulsivity. Impression: Depressive disorder unspecified, rule out adjustment disorder with depressed mood Borderline personality disorder Autism spectrum disorder Plan: -Continue with discharge today as patient has improved and stabilized psychiatrically and is not currently an imminent threat to himself and/or others. Patient will always chronically have an elevated risk of self-harm or harm to others due to his chronic impulsivity. -Continue medications: BuSpar 15 mg twice a day for anxiety, Effexor 150 mg daily for mood/anxiety, lithium 600 mg nightly for suicidality/mood stabilization, melatonin 5 mg daily at bedtime for sleep. Patient is currently on Abilify Maintenna 400 mg IM monthly and was last given his dose on 09/10/2019 and will be due for his next injection on 10/08/2019 -Patient was counseled on the need for medication compliance and appropriate follow-up at mental health and also primary care for medical issues. Patient verbalized understanding and agreed. -Social work to arrange for and conduct family meeting to ensure safety upon discharge and answer any questions/concerns. Mother is currently not at home however will be back tomorrow from a vacation, child protective services social worker to ensure that mother is okay with patient going home today on his own. Social work also to arrange for patients follow up appointments with [facility] for psychiatric care along with follow up with primary care provider. Patient is currently enrolled in a DBT program at [facility] with weekly sessions and is going to continue with this program. -Patient counseled on abstaining from recreational drugs and marijuana and alcohol. Was informed/educated on the adverse effects on their physical and mental health. Patient verbally agreed and understood. -Patient was instructed to return to the hospital or seek immediate medical care if their psychiatric or medical symptoms do worsen or reoccur. Allergies Allergy/AdvReac Type Severity Reaction Status Date / Time amoxicillin trihydrate Allergy Anaphylaxis Verified 09/27/19 15:08 [From Augmentin] potassium clavulanate Allergy Anaphylaxis Verified 09/27/19 15:08 [From Augmentin] risperidone [From Risperdal] AdvReac AGGRESSIVE Verified 09/27/19 15:[address] Glu mg/dL 100 09/27/19 14:22 Hemoglobin A1c 5.1 % (4.0-6.0) 09/27/19 14:22 Triglycerides 100 mg/dL (<150) 09/27/19 14:22 Cholesterol 197 mg/dL (<200) 09/27/19 14:22 LDL Cholesterol, Calc 122 mg/dL (0-99) H 09/27/19 14:22 HDL Cholesterol 55 mg/dL (40-60) 09/27/19 14:22 [place] 0.2 mmol/L 10/01/19 07:38 Vital Signs Temp 97.6 F 10/02/19 06:28 Pulse 72 10/02/19 06:28 Resp 16 10/02/19 06:28 BP 136/66 10/02/19 06:28 Pulse Ox Patient Condition at Discharge: Stable Plan - Discharge Summary Discharge Rx Participant: No New Discharge Prescriptions: New busPIRone HCl [Buspar] 15 mg PO BID 28 Days tab Melatonin 5 mg PO HS 28 Days tablet Continue Albuterol Inhaler [Ventolin Hfa Inhaler] 2 puff INHALATION RT-Q6H PRN PRN Reason: Dyspnea Omeprazole [PriLOSEC] 20 mg PO DAILY PRN #14 PRN Reason: Indigestion ARIPiprazole [Abilify Maintena] 400 mg IM Q28D Levothyroxine Sodium [Synthroid] 100 mcg PO DAILY Venlafaxine HCl [Effexor XR] 150 mg PO DAILY Fluticasone Nasal [place] [Flonase Nasal [place]] 1 spray EA NOSTRIL DAILY 28 Days spray Cetirizine HCl [Zyrtec] 10 mg PO DAILY 30 Days #30 tablet Changed [place] Carbonate 600 mg PO HS 28 Days cap Discontinued Albuterol Nebulized [Ventolin Nebulized] 2.5 mg INHALATION RT-QID PRN PRN Reason: Shortness Of Breath Polyethylene Glycol 3350 [Miralax] 17 gm PO DAILY Dicyclomine [Bentyl] 10 mg PO TID PRN PRN Reason: Gi Upset Discharge Medication List Albuterol Inhaler [Ventolin Hfa Inhaler] 2 puff INHALATION RT-Q6H PRN 11/01/15 [History] Omeprazole [PriLOSEC] 20 mg PO DAILY PRN #14 08/01/17 [Rx] ARIPiprazole [Abilify Maintena] 400 mg IM Q28D 03/25/19 [History] Levothyroxine Sodium [Synthroid] 100 mcg PO DAILY 09/27/19 [History] Venlafaxine HCl [Effexor XR] 150 mg PO DAILY 09/27/19 [History] Cetirizine HCl [Zyrtec] 10 mg PO DAILY 30 Days #30 tablet 10/02/19 [Rx] Fluticasone Nasal [place] [Flonase Nasal [place]] 1 spray EA NOSTRIL DAILY 28 Days spray 10/02/19 [Rx] [place] Carbonate 600 mg PO HS 28 Days cap 10/02/19 [Rx] Melatonin 5 mg PO HS 28 Days tablet 10/02/19 [Rx] busPIRone HCl [Buspar] 15 mg PO BID 28 Days tab 10/02/19 [Rx] Activity/Diet/Wound Care/Special Instructions: Activity and diet as tolerated. Avoid the use of street drugs and alcohol. Take all medications as prescribed. When you are in need of refills on your medications please contact your medical provider and/or outpatient psychiatrist to have this done. Please go to scheduled outpatient appointment for aftercare treatment. If symptoms return or become worse, call the crisis line at and/or go to the nearest emergency room for evaluation. Discharge Disposition: HOME SELF-CARE
[2019-10-08] MEDS ORDERED: ARIPiprazole IM SYRINGE 400 MG (NO CHARGE) IM SCH (12:00)
== END 2019-10-02 13:27 | disposition home or self-care (01) | DRG 885 ==
LOC: 3MHU 14:44
PROVIDERS: ADMIT Psychiatry & Neurology Psychiatry; ATTEND Psychiatry & Neurology Psychiatry
DX: F33.9 Major depressive disorder, recurrent, unspecified (principal); G91.9 Hydrocephalus, unspecified; E03.9 Hypothyroidism, unspecified; F40.10 Social phobia, unspecified; F60.3 Borderline personality disorder; J45.909 Unspecified asthma, uncomplicated; F84.5 Asperger's syndrome; Z79.01 Long term (current) use of anticoagulants; Z79.899 Other long term (current) drug therapy; Z81.8 Family history of other mental and behavioral disorders; Z98.2 Presence of cerebrospinal fluid drainage device
CPT/HCPCS: 80061; 80178; 83036

== ENCOUNTER → 2019-10-17 | Outpatient (CLI) | payer OTHER ==
--- NOTE | 2019-10-17 09:57 | XR ---
EXAMINATION TYPE: XR abdomen complete w decub DATE OF EXAM: 10/17/2019 COMPARISON: NONE HISTORY: Pain TECHNIQUE: Supine, upright, and left side down lateral decubitus views of the abdomen are obtained. FINDINGS: There is no evidence for pneumoperitoneum. The bowel gas pattern is unremarkable as there is air throughout nondilated small and large bowel. No sizeable air fluid levels. There is a catheter overlying the abdomen. Correlate for shunt catheter . No mass effects are seen. No unusual calcifications. IMPRESSION: Nonspecific abdomen with no evidence of obstruction. Correlate for either a shunt catheter overlying the abdomen.
== END | disposition home or self-care (01) ==
LOC: RADXRMAIN 09:15
PROVIDERS: ATTEND Family Medicine
DX: R10.31 Right lower quadrant pain (principal)
CPT/HCPCS: 74021

== ENCOUNTER 2020-04-10 15:53 | Emergency (ER) | payer OTHER ==
[2020-04-10 16:04] VITALS: RESP 18
[2020-04-10] MEDS ORDERED: SODIUM CHLORIDE 0.9% 1,000 ML IV STA (16:20)
[2020-04-10] MEDS ORDERED: MORPHINE SULFATE 4 MG/ML SYRINGE IV STA (16:20)
[2020-04-10] MEDS ORDERED: ONDANSETRON 4 MG/2 ML VIAL IVP STA (16:20)
--- NOTE | 2020-04-10 16:24 | ED ---
General Adult HPI - General Chief complaint: Nausea/Vomiting/Diarrhea Stated complaint: Nausea, vomiting, Abd pain Time Seen by Provider: 04/10/20 16:13 Source: EMS Mode of arrival: EMS Limitations: no limitations - History of Present Illness Initial comments: Dictation was produced using Gro[employer] dictation software. please excuse any grammatical, word or spelling errors. This patient was cared for during a federal and state declared state of sudarshan rgency secondary to Covid 19 Chief Complaint: 24-year-old male past medical history of hydrocephalus, autism presents with headache and abdominal pain. History of Present Illness: 4-year-old male is past medical history of hydrocephalus. At approximately 2 year of age patient had a shunt placed. States that in the beginning his shunt was placed from his brain to his heart. He needed several revisions after that. Most recently 2008 he had a ventriculoperitoneal shunt. Hasn't had needed any revisions since then. Patient states that over the last 3-4 days has been having worsening headache, nausea, vomiting and abdominal pain. States that the pain is all over his abdomen. States that he's been having nonbilious nonbloody emesis. He is here today because is concerned about his [employer] shunt The ROS documented in this emergency department record has been reviewed and confirmed by me. Those systems with pertinent positive or negative responses have been documented in the HPI. All other systems are other negative and/or noncontributory. PHYSICAL EXAM: General Impression: Alert and oriented x3, not in acute distress HEENT: Normocephalic atraumatic, extra-ocular movements intact, pupils equal and reactive to light bilaterally, mucous membranes moist. Cardiovascular: Heart regular rate and rhythm Chest: Able to complete full sentences, no retractions, no tachypnea Abdomen: abdomen soft, diffuse abdominal tenderness, non-distended, no organomegaly Musculoskeletal: Pulses present and equal in all extremities, no peripheral edema Motor: no focal deficits noted Neurological: CN II-XII grossly intact, no focal motor or sensory deficits noted, not ataxic Skin: Intact with no visualized rashes Psych: Normal affect and mood ED course: 24 yOld male presents with headache and abdominal pain. As upon arrival shows heart rate of 116, oxygen saturation 94%. Rest of vital signs within acceptable limits. Patient's well-appearing at bedside. He has history of hydrocephalus and ventriculoperitoneal shunt. Shuntogram appears unremarkable. Abdominal x-rays negative. Chest x-rays negative. Brain CT is stable when compared to CT from 01/31/2018. CBC is unremarkable. Coag panel is unremarkable. Metabolic panel is negative. Urinalysis is negative. [place] level is 0.3. Attempt was made to contact patient's neurosurgeon however he did not call back. Patient reevaluated at bedside. His tolerating orals. Patient's well- appearing. He does have a primary care physician that he can follow-up with. Patient will be discharged. He is told to follow-up with his PCP. Return parameters discussed. Told to return to emergency department with worsening hea daches, abdominal pain fever chills night sweats. Patient is agreeable with plan. He was given Buggl starter pack. - Related Data Home Medications Medication Instructions Recorded Confirmed ARIPiprazole [Abilify Maintena] 400 mg IM Q28D 03/25/19 04/10/20 Venlafaxine HCl [Effexor XR] 150 mg PO DAILY 09/27/19 04/10/20 Albuterol Inhaler [Ventolin Hfa 2 puff INHALATION RT-Q6H PRN 04/10/20 04/10/20 Inhaler] Albuterol Nebulized [Ventolin 2.5 mg INHALATION RT-QID PRN 04/10/20 04/10/20 Nebulized] Fluticasone Nasal [place] [Flonase 1 spray EA NOSTRIL BID 04/10/20 04/10/20 Nasal [place]] Levothyroxine Sodium 112 mcg PO DAILY 04/10/20 04/10/20 [place] Carbonate 600 mg PO DAILY 04/10/20 04/10/20 Omeprazole 40 mg PO BID 04/10/20 04/10/20 busPIRone HCL 15 mg PO BID 04/10/20 04/10/20 polyethylene glycoL 3350 [Miralax] 17 gm PO DAILY 04/10/20 04/10/20 Previous Rx's Medication Instructions Recorded Cetirizine HCl [Zyrtec] 10 mg PO DAILY 30 Days #30 tablet 10/02/19 Melatonin 5 mg PO HS 28 Days tablet 10/02/19 Allergies Allergy/AdvReac Type Severity Reaction Status Date / Time amoxicillin trihydrate Allergy Anaphylaxis Verified 04/10/20 17:04 [From Augmentin] potassium clavulanate Allergy Anaphylaxis Verified 04/10/20 17:04 [From Augmentin] risperidone [From Risperdal] AdvReac AGGRESSIVE Verified 04/10/20 17:04 Review of Systems ROS Statement: Those systems with pertinent positive or pertinent negative responses have been documented in the HPI. ROS Other: All systems not noted in ROS Statement are negative. Past Medical History Past Medical History: Asthma, Thyroid Disorder Additional Past Medical History / Comment(s): hydrocephalus, past rt humerus broken(sx), History of Any Multi-Drug Resistant Organisms: None Reported Past Surgical History: Hernia Repair, Orthopedic Surgery, Tonsillectomy Additional Past Surgical History / Comment(s): shunt for hydrocephalus and 3 revisions,previously charted pt had exploratory-lap for necrotizing fasciitis in abdomen at age 2 days old.pt not sure what was done., rt humerus sx- rio /screws, harrison inguinal hernia repair as infant Past Anesthesia/Blood Transfusion Reactions: No Reported Reaction Past Psychological History: ADD/ADHD, Bipolar, Depression Smoking Status: Former smoker Past Alcohol Use History: None Reported Past Drug Use History: None Reported - Past Family History Father History Unknown: Yes Mother History Unknown: Yes Family Medical History: Fibromyalgia General Exam Limitations: no limitations Course Vital Signs 04/10/20 04/10/20 15:56 18:25 Temperature 98.1 F Pulse Rate 116 H 106 H Respiratory 18 18 Rate Blood Pressure 118/91 128/76 O2 Sat by Pulse 94 L 96 Oximetry Medical Decision Making - Lab Data Result diagrams: 04/10/20 16:32 04/10/20 16:32 Lab Results 04/10/20 04/10/20 04/10/20 Range/Units 16:32 16:32 16:32 WBC 7.8 (3.8-10.6) k/uL RBC 5.88 (4.30-5.90) m/uL Hgb 16.4 (13.0-17.5) gm/dL Hct 51.2 (39.0-53.0) % MCV 87.1 (80.0-100.0) fL MCH 27.8 (25.0-35.0) pg MCHC 32.0 (31.0-37.0) g/dL RDW 13.0 (11.5-15.5) % Plt Count 214 (150-450) k/uL Neutrophils % 84 % Lymphocytes % 7 % Monocytes % 4 % Eosinophils % 4 % Basophils % 0 % Neutrophils # 6.5 (1.3-7.7) k/uL Lymphocytes # 0.5 L (1.0-4.8) k/uL Monocytes # 0.3 (0-1.0) k/uL Eosinophils # 0.3 (0-0.7) k/uL Basophils # 0.0 (0-0.2) k/uL PT 10.0 (9.0-12.0) sec INR 1.0 (<1.2) APTT 26.2 (22.0-30.0) sec Sodium 139 (137-145) mmol/L Potassium 4.0 (3.5-5.1) mmol/L Chloride 111 H (98-107) mmol/L Carbon Dioxide 21 L (22-30) mmol/L Anion Gap 7 mmol/L BUN 14 (9-20) mg/dL Creatinine 0.66 (0.66-1.25) mg/dL Est GFR (CKD-EPI)AfAm >90 (>60 ml/min/1.73 sqM) Est GFR (CKD-EPI)NonAf >90 (>60 ml/min/1.73 sqM) Glucose 95 (74-99) mg/dL Plasma Lactic Acid Tino (0.7-2.0) mmol/L Calcium 8.9 (8.4-10.2) mg/dL Magnesium 1.8 (1.6-2.3) mg/dL Total Bilirubin 0.8 (0.2-1.3) mg/dL Conjugated Bilirubin 0.0 (0.0-0.3) mg/dL Unconjugated Bilirubin 0.5 (0.0-1.1) mg/dL Delta Bilirubin 0.3 H (0.0-0.2) mg/dL AST 30 (17-59) U/L ALT 33 (4-49) U/L Alkaline Phosphatase 126 (38-126) U/L Total Protein 6.4 (6.3-8.2) g/dL Albumin 4.1 (3.5-5.0) g/dL Lipase 90 (23-300) U/L Urine Color Urine Appearance (Clear) Urine pH (5.0-8.0) Ur Specific [place] (1.001-1.035) Urine Protein (Negative) Urine Glucose (UA) (Negative) Urine Ketones (Negative) Urine Blood (Negative) Urine Nitrite (Negative) Urine Bilirubin (Negative) Urine Urobilinogen (<2.0) mg/dL Ur Leukocyte Esterase (Negative) [place] mmol/L 04/10/20 04/10/20 04/10/20 Range/Units 16:32 17:20 17:20 WBC (3.8-10.6) k/uL RBC (4.30-5.90) m/uL Hgb (13.0-17.5) gm/dL Hct (39.0-53.0) % MCV (80.0-100.0) fL MCH (25.0-35.0) pg MCHC (31.0-37.0) g/dL RDW (11.5-15.5) % Plt Count (150-450) k/uL Neutrophils % % Lymphocytes % % Monocytes % % Eosinophils % % Basophils % % Neutrophils # (1.3-7.7) k/uL Lymphocytes # (1.0-4.8) k/uL Monocytes # (0-1.0) k/uL Eosinophils # (0-0.7) k/uL Basophils # (0-0.2) k/uL PT (9.0-12.0) sec INR (<1.2) APTT (22.0-30.0) sec Sodium (137-145) mmol/L Potassium (3.5-5.1) mmol/L Chloride (98-107) mmol/L Carbon Dioxide (22-30) mmol/L Anion Gap mmol/L BUN (9-20) mg/dL Creatinine (0.66-1.25) mg/dL Est GFR (CKD-EPI)AfAm (>60 ml/min/1.73 sqM) Est GFR (CKD-EPI)NonAf (>60 ml/min/1.73 sqM) Glucose (74-99) mg/dL Plasma Lactic Acid Tino 0.8 (0.7-2.0) mmol/L Calcium (8.4-10.2) mg/dL Magnesium (1.6-2.3) mg/dL Total Bilirubin (0.2-1.3) mg/dL Conjugated Bilirubin (0.0-0.3) mg/dL Unconjugated Bilirubin (0.0-1.1) mg/dL Delta Bilirubin (0.0-0.2) mg/dL AST (17-59) U/L ALT (4-49) U/L Alkaline Phosphatase (38-126) U/L Total Protein (6.3-8.2) g/dL Albumin (3.5-5.0) g/dL Lipase (23-300) U/L Urine Color Yellow Urine Appearance Clear (Clear) Urine pH 5.5 (5.0-8.0) Ur Specific [place] 1.018 (1.001-1.035) Urine Protein Negative (Negative) Urine Glucose (UA) Negative (Negative) Urine Ketones Negative (Negative) Urine Blood Negative (Negative) Urine Nitrite Negative (Negative) Urine Bilirubin Negative (Negative) Urine Urobilinogen <2.0 (<2.0) mg/dL Ur Leukocyte Esterase Negative (Negative) [place] 0.3 mmol/L Disposition Clinical Impression: Abdominal pain Disposition: HOME SELF-CARE Condition: Good Instructions (If sedation given, give patient instructions): Abdominal Pain (ED) Is patient prescribed a controlled substance at d/c from ED?: No Referrals: Juan F Staley DO [Primary Care Provider] - 1-2 days Time of Disposition: 19:13
[2020-04-10 16:52] LABS: Basophils % (A) 0 %; Eosinophils # (A) 0.3 k/uL (0-0.7); Eosinophils % (A) 4 %; HCT 51.2 % (39.0-53.0); HGB 16.4 gm/dL (13.0-17.5); Lymphocytes # (A) 0.5 k/uL (1.0-4.8); Lymphocytes % (A) 7 %; MCH 27.8 pg (25.0-35.0); MCV 87.1 fL (80.0-100.0); Monocytes # (A) 0.3 k/uL (0-1.0); Monocytes % (A) 4 %; Neutrophils # (A) 6.5 k/uL (1.3-7.7); Neutrophils % (A) 84 %; Platelet Count 214 k/uL (150-450); RBC 5.88 m/uL (4.30-5.90); WBC 7.8 k/uL (3.8-10.6)
[2020-04-10 17:04] LABS: Partial Thromboplastin Time 26.2 sec (22.0-30.0)
[2020-04-10 17:06] LABS: ALT 33 U/L (4-49); AST 30 U/L (17-59); African American GFR (CKD) >90 (>60 ml/min/1.73 sqM); Albumin 4.1 g/dL (3.5-5.0); Alkaline Phosphatase 126 U/L (38-126); Anion Gap 7 mmol/L; Bilirubin, Delta 0.3 mg/dL (0.0-0.2); Bilirubin,Unconjugated 0.5 mg/dL (0.0-1.1); Blood Urea Nitrogen 14 mg/dL (9-20); Calcium 8.9 mg/dL (8.4-10.2); Carbon Dioxide 21 mmol/L (22-30); Chloride 111 mmol/L (98-107); Glucose 95 mg/dL (74-99); Magnesium 1.8 mg/dL (1.6-2.3); Non-African American GFR(CKD) >90 (>60 ml/min/1.73 sqM); Sodium 139 mmol/L (137-145); Total Bilirubin 0.8 mg/dL (0.2-1.3); Total Protein 6.4 g/dL (6.3-8.2)
--- NOTE | 2020-04-10 17:15 | CT ---
EXAMINATION TYPE: CT brain wo con DATE OF EXAM: 04/10/2020 COMPARISON: 01/31/2018 INDICATION: Headache with history of multiple shunt placement. DLP: 1100.4 mGycm, Automated exposure control for dose reduction was used. CONTRAST: None CT of the brain is performed utilizing 3 mm thick sections through the posterior fossa and 3 mm thick sections through the remaining calvarium. Study is performed within 24 hours of arrival to the hosp [facility]. No abnormal hyperdensity is present to suggest an acute intracranial hemorrhage. No mass lesion is evident. No acute infarcts are evident. There is a shunt catheter entering on the right into the right lateral ventricle. Ventricles are stab le from comparison study. No temporal horn dilatation is evident. Ventricles and sulci are appropriate for the patient age. Paranasal sinuses and mastoid air cells within the [id number] are clear. IMPRESSIONS: 1. Normal appearance of the ventricles with the right ventricular shunt is present. Exam is stable from 01/31/2018.
[2020-04-10 17:28] LABS: Appearance,Urine Clear (Clear); Bilirubin,Urine Negative (Negative); Blood,Urine Negative (Negative); Color,Urine Yellow; Glucose,Urine (UA) Negative (Negative); Ketones,Urine Negative (Negative); Leukocyte Esterase,Urine Negative (Negative); Nitrite,Urine Negative (Negative); PH, Urine 5.5 (5.0-8.0); Protein,Urine Negative (Negative); Specific Gravity,Urine 1.018 (1.001-1.035); Urobilinogen,Urine <2.0 mg/dL (<2.0)
--- NOTE | 2020-04-10 17:33 | XR ---
EXAMINATION TYPE: XR skull limited DATE OF EXAM: 04/10/2020 COMPARISON: None HISTORY: Shunt, skull nausea headache TECHNIQUE: 2 view skull FINDINGS: Shunt catheter is present. Catheter extends to the chest. No suspicious changes are identif ied. IMPRESSION: 1. No shunt abnormality by x-ray. 2. Skull appears unremarkable.
--- NOTE | 2020-04-10 17:34 | XR ---
EXAMINATION TYPE: XR chest 1V DATE OF EXAM: 04/10/2020 COMPARISON: 09/12/2016 INDICATION: Shuntogram, nausea and headache TECHNIQUE: Single frontal view of the chest is obtained. FINDINGS: The heart size is normal. The pulmonary vasculature is normal. The lungs are clear. Shunt transverses the thorax over the right chest. Distal tip is not identified. No significant castellanos es evident. IMPRESSION: 1. No acute pulmonary process. 2. Shunt appears unremarkable as visualized.
--- NOTE | 2020-04-10 17:59 | XR ---
EXAMINATION TYPE: XR abdomen 2V DATE OF EXAM: 04/10/2020 COMPARISON: 10/17/2019 HISTORY: Shunt series nausea and headache TECHNIQUE: 2 view abdomen supine and upright position FINDINGS: Shunt catheter enters on the right and is curled within the midabdomen. No mass effect is e vident Scattered amounts of clonic bowel gas are present. The stomach is distended with an air-fluid level. Psoas margins are normal. Organomegaly is not evident. Osseous structures are unremarkable. IMPRESSION: 1. Nonspecific abdomen.
[2020-04-10] MEDS ORDERED: METOCLOPRAMIDE 5 MG/ML 2 ML VIAL IVP STA (18:14)
[2020-04-10] MEDS ORDERED: ONDANSETRON 4 MG ODT STARTER PACK 2 TAB BTL PO STA (19:13)
[2020-04-10 19:46] VITALS: BP 119/80; PULSE 103; TEMP 97.7
== END 2020-04-10 19:54 | disposition home or self-care (01) ==
LOC: EC 15:53
DX: R10.9 Unspecified abdominal pain (principal); R11.2 Nausea with vomiting, unspecified; F41.9 Anxiety disorder, unspecified; F31.9 Bipolar disorder, unspecified; E07.9 Disorder of thyroid, unspecified; J45.909 Unspecified asthma, uncomplicated; Z79.51 Long term (current) use of inhaled steroids; Z79.890 Hormone replacement therapy; Z79.899 Other long term (current) drug therapy; Z88.0 Allergy status to penicillin; Z88.8 Allergy status to other drugs, medicaments and biological substances; Z88.1 Allergy status to other antibiotic agents; Z87.891 Personal history of nicotine dependence; Z86.69 Personal history of other diseases of the nervous system and sense organs; Z98.2 Presence of cerebrospinal fluid drainage device
CPT/HCPCS: 36415; 80053; 82248; 83605; 83690; 80178; 83735; 85025; 85610; 85730; 81003; 87040; 70250; 71045; 74019; 70450; 99285; 96374; 96375 ×2; 96361; J2270; J2765; J2405; S0119

== ENCOUNTER 2020-04-13 20:16 | Emergency (ER) | payer OTHER ==
[2020-04-13] MEDS ORDERED: DICYCLOMINE 10 MG/ML 2 ML AMP IM STA (20:28)
[2020-04-13] MEDS ORDERED: FAMOTIDINE 20 MG/2 ML VIAL IV STA (20:28)
[2020-04-13] MEDS ORDERED: ONDANSETRON 4 MG/2 ML VIAL IVP STA (20:28)
[2020-04-13] MEDS ORDERED: SODIUM CHLORIDE 0.9% 1,000 ML IV STA (20:28)
--- NOTE | 2020-04-13 20:33 | ED ---
General Adult HPI - General Chief complaint: Abdominal Pain Stated complaint: abd pain Time Seen by Provider: 04/13/20 20:19 Source: patient, EMS, RN notes reviewed Mode of arrival: EMS Limitations: no limitations - History of Present Illness Initial comments: Patient is a pleasant 24-year-old male presenting to the emergency Department with abdominal discomfort. Symptoms have progressed over the past several weeks. Patient does have history of GERD and previous ulcer. Patient states he does have decreased appetite. Patient is tolerating oral intake. Patient has occasional liquid stools. Patient states discomfort of his abdomen is not severe and is more alert discomfort than a pain. - Related Data Home Medications Medication Instructions Recorded Confirmed ARIPiprazole [Abilify Maintena] 400 mg IM Q28D 03/25/19 04/10/20 Venlafaxine HCl [Effexor XR] 150 mg PO DAILY 09/27/19 04/10/20 Albuterol Inhaler [Ventolin Hfa 2 puff INHALATION RT-Q6H PRN 04/10/20 04/10/20 Inhaler] Albuterol Nebulized [Ventolin 2.5 mg INHALATION RT-QID PRN 04/10/20 04/10/20 Nebulized] Fluticasone Nasal Wright [Flonase 1 spray EA NOSTRIL BID 04/10/20 04/10/20 Nasal Wright] Levothyroxine Sodium 112 mcg PO DAILY 04/10/20 04/10/20 [place] Carbonate 600 mg PO DAILY 04/10/20 04/10/20 Omeprazole 40 mg PO BID 04/10/20 04/10/20 busPIRone HCL 15 mg PO BID 04/10/20 04/10/20 polyethylene glycoL 3350 [Miralax] 17 gm PO DAILY 04/10/20 04/10/20 Previous Rx's Medication Instructions Recorded Cetirizine HCl [Zyrtec] 10 mg PO DAILY 30 Days #30 tablet 10/02/19 Melatonin 5 mg PO HS 28 Days tablet 10/02/19 Allergies Allergy/AdvReac Type Severity Reaction Status Date / Time amoxicillin trihydrate Allergy Anaphylaxis Verified 04/13/20 20:23 [From Augmentin] potassium clavulanate Allergy Anaphylaxis Verified 04/13/20 20:23 [From Augmentin] risperidone [From Risperdal] AdvReac AGGRESSIVE Verified 04/13/20 20:23 Review of Systems ROS Statement: Those systems with pertinent positive or pertinent negative responses have been documented in the HPI. ROS Other: All systems not noted in ROS Statement are negative. Constitutional: Denies: fever Eyes: Denies: eye pain ENT: Denies: ear pain Respiratory: Denies: cough Cardiovascular: Denies: chest pain Endocrine: Denies: fatigue Gastrointestinal: Reports: as per HPI Genitourinary: Denies: dysuria Musculoskeletal: Denies: back pain Skin: Denies: rash Neurological: Denies: weakness Past Medical History Past Medical History: Asthma, Thyroid Disorder Additional Past Medical History / Comment(s): hydrocephalus, past rt humerus broken(sx), History of Any Multi-Drug Resistant Organisms: None Reported Past Surgical History: Hernia Repair, Orthopedic Surgery, Tonsillectomy Additional Past Surgical History / Comment(s): shunt for hydrocephalus and 3 revisions,previously charted pt had exploratory-lap for necrotizing fasciitis in abdomen at age 2 days old.pt not sure what was done., rt humerus sx- rio /screws, harrison inguinal hernia repair as Past Anesthesia/Blood Transfusion Reactions: No Reported Reaction Past Psychological History: ADD/ADHD, Bipolar, Depression Smoking Status: Former smoker Past Alcohol Use History: None Reported Past Drug Use History: None Reported - Past Family History Father History Unknown: Yes Mother History Unknown: Yes Family Medical History: Fibromyalgia General Exam Limitations: no limitations General appearance: alert, in no apparent distress Head exam: Present: normocephalic Eye exam: Present: normal appearance Neck exam: Present: normal inspection Respiratory exam: Present: normal lung sounds bilaterally Cardiovascular Exam: Present: tachycardia Expanded Peripheral pulses: 2+: Dorsalis Pedis (R), Dorsalis Pedis (L) GI/Abdominal exam: Present: soft, normal bowel sounds. Absent: distended, tenderness, guarding, rebound, rigid, pulsatile mass Extremities exam: Present: normal inspection. Absent: pedal edema, calf tenderness Neurological exam: Present: alert Psychiatric exam: Present: normal affect, normal mood Skin exam: Present: normal color Course Vital Signs 04/13/20 04/13/20 20:18 21:45 Temperature 97.5 F L 98.6 F Pulse Rate 121 H 113 H Respiratory 18 18 Rate Blood Pressure 128/87 125/83 O2 Sat by Pulse 94 L 100 Oximetry - Reevaluation(s) Reevaluation #1: 08/31/20 22:18 Patient reevaluated and resting comfortably in bed. Patient still complaining of discomfort. Abdomen remains soft and relatively nontender. Secondary to increased heart rate and still complaining of discomfort, computed tomography scan will be ordered. EKG Findings - EKG Comments: EKG Findings:: Sinus tachycardia 117. DC 132. QRS 92. QT 300. QTc 418. Normal axis. Normal QRS. No acute ST change. Medical Decision Making - Medical Decision Making Patient reevaluated and resting comfortably in bed. Patient updated on results and need for follow-up. - Lab Data Result diagrams: 04/13/20 20:32 04/13/20 20:32 Lab Results 04/13/20 04/13/20 04/13/20 Range/Units 20:32 20:32 20:32 WBC 8.7 (3.8-10.6) k/uL RBC 5.31 (4.30-5.90) m/uL Hgb 14.9 (13.0-17.5) gm/dL Hct 45.4 (39.0-53.0) % MCV 85.5 (80.0-100.0) fL MCH 28.1 (25.0-35.0) pg MCHC 32.8 (31.0-37.0) g/dL RDW 12.8 (11.5-15.5) % Plt Count 201 (150-450) k/uL Neutrophils % 67 % Lymphocytes % 14 % Monocytes % 11 % Eosinophils % 6 % Basophils % 0 % Neutrophils # 5.8 (1.3-7.7) k/uL Lymphocytes # 1.3 (1.0-4.8) k/uL Monocytes # 1.0 (0-1.0) k/uL Eosinophils # 0.5 (0-0.7) k/uL Basophils # 0.0 (0-0.2) k/uL PT 10.8 (9.0-12.0) sec INR 1.0 (<1.2) APTT 27.6 (22.0-30.0) sec Sodium (137-145) mmol/L Potassium (3.5-5.1) mmol/L Chloride (98-107) mmol/L Carbon Dioxide (22-30) mmol/L Anion Gap mmol/L BUN (9-20) mg/dL Creatinine (0.66-1.25) mg/dL Est GFR (CKD-EPI)AfAm (>60 ml/min/1.73 sqM) Est GFR (CKD-EPI)NonAf (>60 ml/min/1.73 sqM) Glucose (74-99) mg/dL Calcium (8.4-10.2) mg/dL Total Bilirubin (0.2-1.3) mg/dL AST (17-59) U/L ALT (4-49) U/L Alkaline Phosphatase (38-126) U/L Total Protein (6.3-8.2) g/dL Albumin (3.5-5.0) g/dL Amylase (30-110) U/L Lipase (23-300) U/L Urine Color Yellow Urine Appearance Clear (Clear) Urine pH 6.5 (5.0-8.0) Ur Specific [place] 1.011 (1.001-1.035) Urine Protein Trace H (Negative) Urine Glucose (UA) Negative (Negative) Urine Ketones Negative (Negative) Urine Blood Negative (Negative) Urine Nitrite Negative (Negative) Urine Bilirubin Negative (Negative) Urine Urobilinogen <2.0 (<2.0) mg/dL Ur Leukocyte Esterase Negative (Negative) 04/13/20 Range/Units 20:32 WBC (3.8-10.6) k/uL RBC (4.30-5.90) m/uL Hgb (13.0-17.5) gm/dL Hct (39.0-53.0) % MCV (80.0-100.0) fL MCH (25.0-35.0) pg MCHC (31.0-37.0) g/dL RDW (11.5-15.5) % Plt Count (150-450) k/uL Neutrophils % % Lymphocytes % % Monocytes % % Eosinophils % % Basophils % % Neutrophils # (1.3-7.7) k/uL Lymphocytes # (1.0-4.8) k/uL Monocytes # (0-1.0) k/uL Eosinophils # (0-0.7) k/uL Basophils # (0-0.2) k/uL PT (9.0-12.0) sec INR (<1.2) APTT (22.0-30.0) sec Sodium 134 L (137-145) mmol/L Potassium 3.9 (3.5-5.1) mmol/L Chloride 101 (98-107) mmol/L Carbon Dioxide 26 (22-30) mmol/L Anion Gap 7 mmol/L BUN 6 L (9-20) mg/dL Creatinine 0.78 (0.66-1.25) mg/dL Est GFR (CKD-EPI)AfAm >90 (>60 ml/min/1.73 sqM) Est GFR (CKD-EPI)NonAf >90 (>60 ml/min/1.73 sqM) Glucose 111 H (74-99) mg/dL Calcium 8.8 (8.4-10.2) mg/dL Total Bilirubin 1.5 H (0.2-1.3) mg/dL AST 27 (17-59) U/L ALT 17 (4-49) U/L Alkaline Phosphatase 100 (38-126) U/L Total Protein 6.4 (6.3-8.2) g/dL Albumin 4.0 (3.5-5.0) g/dL Amylase 32 (30-110) U/L Lipase 24 (23-300) U/L Urine Color Urine Appearance (Clear) Urine pH (5.0-8.0) Ur Specific [place] (1.001-1.035) Urine Protein (Negative) Urine Glucose (UA) (Negative) Urine Ketones (Negative) Urine Blood (Negative) Urine Nitrite (Negative) Urine Bilirubin (Negative) Urine Urobilinogen (<2.0) mg/dL Ur Leukocyte Esterase (Negative) - Radiology Data Radiology results: report reviewed (Computed tomography scan of the abdomen pelvis shows no acute process), image reviewed (Abdominal x-ray shows possible ileus) Disposition Clinical Impression: Abdominal pain Disposition: HOME SELF-CARE Condition: Stable Instructions (If sedation given, give patient instructions): Abdominal Pain (ED) Additional Instructions: Please follow-up with primary care physician in the next couple days for recheck. If symptoms continue consider gastroenterology evaluation or scope. Return for increased pain, fevers, worsening or changing symptoms or other concerns. Continue Prilosec. Continue Bentyl as needed. Is patient prescribed a controlled substance at d/c from ED?: No Referrals: Juan F Staley DO [Primary Care Provider] - 1-2 days Time of Disposition: 23:08
[2020-04-13 20:44] LABS: Basophils % (A) 0 %; Eosinophils # (A) 0.5 k/uL (0-0.7); Eosinophils % (A) 6 %; HCT 45.4 % (39.0-53.0); HGB 14.9 gm/dL (13.0-17.5); Lymphocytes # (A) 1.3 k/uL (1.0-4.8); Lymphocytes % (A) 14 %; MCH 28.1 pg (25.0-35.0); MCHC 32.8 g/dL (31.0-37.0); MCV 85.5 fL (80.0-100.0); Mean Platelet Volume 7.7; Monocytes % (A) 11 %; Neutrophils # (A) 5.8 k/uL (1.3-7.7); Neutrophils % (A) 67 %; Platelet Count 201 k/uL (150-450); RBC 5.31 m/uL (4.30-5.90); RDW 12.8 % (11.5-15.5); WBC 8.7 k/uL (3.8-10.6)
[2020-04-13 20:51] VITALS: RESP 18
[2020-04-13 20:51] LABS: ALT 17 U/L (4-49); AST 27 U/L (17-59); African American GFR (CKD) >90 (>60 ml/min/1.73 sqM); Alkaline Phosphatase 100 U/L (38-126); Amylase 32 U/L (30-110); Anion Gap 7 mmol/L; Blood Urea Nitrogen 6 mg/dL (9-20); Calcium 8.8 mg/dL (8.4-10.2); Carbon Dioxide 26 mmol/L (22-30); Chloride 101 mmol/L (98-107); Glucose 111 mg/dL (74-99); Non-African American GFR(CKD) >90 (>60 ml/min/1.73 sqM); Potassium 3.9 mmol/L (3.5-5.1); Sodium 134 mmol/L (137-145); Total Bilirubin 1.5 mg/dL (0.2-1.3); Total Protein 6.4 g/dL (6.3-8.2)
[2020-04-13 20:52] LABS: Partial Thromboplastin Time 27.6 sec (22.0-30.0); Prothrombin Time 10.8 sec (9.0-12.0)
--- NOTE | 2020-04-13 21:18 | XR ---
EXAMINATION TYPE: XR KUB DATE OF EXAM: 04/13/2020 COMPARISON: 04/10/2020 HISTORY: Abdominal pain TECHNIQUE: 2 views upright FINDINGS: There are some distended gas and fluid-filled loops of large and small bowel. There is no e vidence of free air. Lung bases are clear. There are no pathologic calcifications over the kidneys. T here is some increased density over the abdomen. IMPRESSION: There is probably some intestinal ileus. No free air.
[2020-04-13 21:42] LABS: Appearance,Urine Clear (Clear); Bilirubin,Urine Negative (Negative); Blood,Urine Negative (Negative); Color,Urine Yellow; Glucose,Urine (UA) Negative (Negative); Ketones,Urine Negative (Negative); Leukocyte Esterase,Urine Negative (Negative); Nitrite,Urine Negative (Negative); PH, Urine 6.5 (5.0-8.0); Protein,Urine Trace (Negative); Specific Gravity,Urine 1.011 (1.001-1.035); Urobilinogen,Urine <2.0 mg/dL (<2.0)
[2020-04-13] MEDS ORDERED: HYDROmorphone 1 MG/ML 1 ML SYRINGE IVP STA (22:19)
--- NOTE | 2020-04-13 23:04 | CT ---
EXAMINATION TYPE: CT abdomen pelvis w con DATE OF EXAM: 04/13/2020 COMPARISON: 10/24/2017 HISTORY: Abdominal pain and diarrhea. CT DLP: 1726.4 mGycm Automated exposure control for dose reduction was used. CONTRAST: Performed with IV Contrast, patient injected with 100ml mL of Isovue 300. Lung bases are clear. There is no pleural effusion. Heart size is normal. There is no pericardial eff usion. Liver spleen stomach pancreas gallbladder appear normal. Bile ducts are not dilated. There is no adrenal mass. There is 1 cm cortical cyst upper pole left kidney. Kidneys show satisfacto ry contrast opacification. There is no hydronephrosis. There is normal excretion on the delayed image s. There is no retroperitoneal adenopathy. Ureters are not dilated. Bladder distends smoothly. There is no inguinal hernia. There is no free fluid in the pelvis. There is no mesenteric edema. There is no ascites or free air. There is no bowel obstruction. The cec um is in the right upper quadrant. Appendix is not seen. There is no sign of thickened appendix. The lumbar vertebra have normal alignment. Posterior elements are intact. Bony pelvis is intact. Hip joints appear normal. I see no bony destructive process. IMPRESSION: Negative CT scan abdomen and pelvis. No change compared to old exam. Appendix not seen. No sign of ap pendicitis.
[2020-04-13 23:16] VITALS: BP 120/72; PULSE 98; TEMP 98.4
== END 2020-04-13 23:23 | disposition home or self-care (01) ==
LOC: EC 20:16
DX: R10.9 Unspecified abdominal pain (principal); R63.0 Anorexia; K21.9 Gastro-esophageal reflux disease without esophagitis; J45.909 Unspecified asthma, uncomplicated; E07.9 Disorder of thyroid, unspecified; F41.9 Anxiety disorder, unspecified; F90.9 Attention-deficit hyperactivity disorder, unspecified type; Z79.899 Other long term (current) drug therapy; Z88.1 Allergy status to other antibiotic agents; Z88.8 Allergy status to other drugs, medicaments and biological substances; Z98.890 Other specified postprocedural states; Z79.51 Long term (current) use of inhaled steroids; Z79.890 Hormone replacement therapy; Z87.19 Personal history of other diseases of the digestive system
CPT/HCPCS: 36415; 93005; 80053; 82150; 83690; 85025; 85610; 85730; 81003; 74018; 74177; 99285; 96374; 96375 ×2; 96372; 96361 ×3; J0500; J2405; J1170; Q9967

== ENCOUNTER → 2020-05-20 | Outpatient (CLI) | payer OTHER | END | disposition home or self-care (01) | LOC: LABWHC1 14:38 | PROVIDERS: ATTEND Family Medicine | DX: Z20.828 Contact with and (suspected) exposure to other viral communicable diseases (principal) | CPT/HCPCS: U0003; C9803 ==

== ENCOUNTER → 2020-12-16 | Outpatient (CLI) | payer OTHER ==
--- NOTE | 2020-12-16 16:37 | CONS ---
CONSULTATION DATE OF SERVICE: 12/16/2020 This 25-year-old gentleman has been evaluated in the sleep center for possible obstructive sleep apnea-hypopnea syndrome. HISTORY OF PRESENT ILLNESS/SLEEP-WAKE EVALUATION: The patient had a sleep study in 2011 which was negative, but since that time the patient's weight has increased by about 50 pounds and he developed significant sleep problems. His usual sleep schedule is from 8 p.m. until 7 or 8 a.m. Sometimes he has problems with falling asleep, although he has a TV set in the bedroom. He usually sleeps in different positions. According to his family, he has loud snoring and he wakes up from sleep now multiple times, around 6 times with episodes of headaches, dry mouth. Sometimes the patient starts to see dreams right after falling asleep, possibly hypnagogical hallucinations. No history of sleep paralysis. The patient may take a nap at 1 p.m. Novi Sleepiness Scale is 6. PAST MEDICAL HISTORY: Positive for asthma, MINE BOSS shunt, one episode of pneumonia, acid reflux, peptic ulcer disease, hypothyroidism, irritable bowel syndrome, arm fracture. SOCIAL HISTORY: Negative for smoking or using alcohol. MEDICATIONS: 1. Melatonin 10 mg at night. 2. Effexor XR. 3. Buspirone. 4. Synthroid 112 mcg once a day. 5. Bentyl 10 mg once a day. 6. Omeprazole. 7. Zyrtec 10 mg once a day. FAMILY HISTORY: Positive for sleep apnea. REVIEW OF SYSTEMS: No fevers. No double vision. No recent chest pain. No shortness of breath. No abdominal pain. No bleeding episodes. No blood in the urine. No seizure episodes. Multiple awakenings from sleep with episodes of gasping for air. PHYSICAL EXAMINATION: GENERAL: A pleasant gentleman without distress. VITAL SIGNS: BP 174/97, HR 95, RR 12, height 5 feet 7-1/2 inches, weight 252.6 pounds, temperature 98.0, oxygen saturation at room air 96%. HEENT: PERRLA, EOMI. Evaluation of oropharynx showed tongue protrudes midline. Extremely low position of soft palate. Mallampati IV. NECK: Supple. No JVD. Thyroid is not palpable. Wide neck; 19 inches in circumference. LUNGS: Clear to percussion and to auscultation. Good air exchange. No wheezing or rhonchi. HEART: S1, S2 regular. No murmurs, gallops or rubs. ABDOMEN: Obese. EXTREMITIES: No clubbing or cyanosis. [employer]: Awake, alert, and oriented X3. Cranial nerves 2 to 7 intact. There is no fasciculation or atrophy. noted. No focal deficits observed. IMPRESSION: 1. Loud snoring, awakenings from sleep with gasping for air and headaches, extremely low position of soft palate, wide neck, 19 inches in circumference; obstructive sleep apnea-hypopnea syndrome. 2. Obesity; body mass index 38.8. 3. Status post MINE BOSS shunt insertion. 4. Asthma. 5. Headaches. 6. History of pneumonia. 7. Acid reflux. 8. History of peptic ulcer disease. 9. Hypothyroidism. 10.Irritable bowel syndrome. 11.Status post arm fracture in 2010. PLAN: 1. Polysomnography for evaluation of patient's breathing during sleep. 2. CPAP/BiPAP titration if sleep study confirms obstructive sleep apnea-hypopnea syndrome. 3. Preferable position during sleep on the side. 4. No driving if patient feels any sleepiness. 5. I will see patient for follow up visit to explain results of testing and following plan. Thank you very much for referring this patient for consultation. Sincerely, Masood Jerez MD, PhD, FAASM Diplomat of [employer] [facility] [place] MMODL / VIRALN: [id number] /
== END ==
LOC: SLEEP 14:59
PROVIDERS: ATTEND Internal Medicine
DX: G47.33 Obstructive sleep apnea (adult) (pediatric) (principal); E66.9 Obesity, unspecified; Z68.38 Body mass index [BMI] 38.0-38.9, adult; E03.9 Hypothyroidism, unspecified; J45.909 Unspecified asthma, uncomplicated; K21.9 Gastro-esophageal reflux disease without esophagitis; K58.9 Irritable bowel syndrome, unspecified; R51.9 Headache, unspecified; Z87.11 Personal history of peptic ulcer disease
CPT/HCPCS: 99211

== ENCOUNTER 2020-12-30 07:59 | Day surgery (SDC) | payer OTHER ==
[2020-12-25 11:25] VITALS: BMI 39.1
[~2020-12-30 07:59] MED LIST: LACTATED RINGERS 1,000 ML IV SCH
[2020-12-30] MEDS ORDERED: LIDOCAINE 1% (10MG/ML) FOR IV START INTRADERMA ONE (08:52)
[2020-12-30 08:55] VITALS: TEMP 98.2
[2020-12-30] MEDS ORDERED: PROPOFOL 10 MG/ML 20 ML VIAL IV ONE (09:14)
--- NOTE | 2020-12-30 09:20 | P.GSHP ---
History of Present Illness H&P Date: 12/30/20 CHIEF COMPLAINT: Abdominal pain with change in bowel habits HISTORY OF PRESENT ILLNESS: The patient is a 25-year-old male who presents with abdominal pain including diarrhea and change in bowel habits. Lower endoscopy was offered for further evaluation and management. PAST MEDICAL HISTORY: Please see list. PAST SURGICAL HISTORY: Please see list. MEDICATIONS: Please see list. ALLERGIES: Please see list. SOCIAL HISTORY: No illicit drug use FAMILY HISTORY: No reports of Crohn disease or ulcerative colitis. REVIEW OF ORGAN SYSTEMS: CONSTITUTIONAL: No reports of fevers or chills. No reports of weight loss despite prior attempts. GI: Has diarrhea including change in bowel habits. PHYSICAL EXAM: VITAL SIGNS: Stable GENERAL: Well-developed pleasant male in no acute distress. HEENT: No scleral icterus. Extraocular movements grossly intact. Moist buccal mucosa. NECK: Supple without lymphadenopathy. CHEST: Unlabored respirations. Equal bilateral excursions. CARDIOVASCULAR: Regular rate and rhythm. Distal 2+ pulses. ABDOMEN: Soft, nontender, nondistended. MUSCULOSKELETAL: No clubbing, cyanosis, or edema. ASSESSMENT: 1. Right upper quadrant abdominal pain 2. Change in bowel habits. 3. Diarrhea PLAN: 1. Will proceed with a lower endoscopy Past Medical History Past Medical History: Asthma, GERD/Reflux, Pneumonia, Skin Disorder, Thyroid Disorder Additional Past Medical History / Comment(s): hydrocephalus, IBS, nausea, eczema, psoriasis, History of Any Multi-Drug Resistant Organisms: None Reported Past Surgical History: Hernia Repair, Orthopedic Surgery, Tonsillectomy Additional Past Surgical History / Comment(s): shunt for hydrocephalus and 3 revisions,previously charted pt had exploratory-lap for necrotizing fasciitis in abdomen at age 2 days old.pt not sure what was done., rt humerus sx- rio /screws, harrison inguinal hernia repair as infant Past Anesthesia/Blood Transfusion Reactions: No Reported Reaction Smoking Status: Never smoker - Past Family History Father History Unknown: Yes Mother History Unknown: Yes Family Medical History: No Reported History Medications and Allergies Home Medications Medication Instructions Recorded Confirmed Type ARIPiprazole [Abilify Maintena] 400 mg IM Q28D 03/25/19 12/30/20 History Venlafaxine HCl [Effexor XR] 150 mg PO DAILY 09/27/19 12/30/20 History Albuterol Inhaler [Ventolin Hfa 2 puff INHALATION RT-Q6H PRN 04/10/20 12/30/20 History Inhaler] Albuterol Nebulized [Ventolin 2.5 mg INHALATION RT-QID PRN 04/10/20 12/30/20 History Nebulized] Fluticasone Nasal Laura [Flonase 1 spray EA NOSTRIL BID PRN 04/10/20 12/30/20 History Nasal Laura] Levothyroxine Sodium 112 mcg PO DAILY 04/10/20 12/30/20 History Omeprazole 40 mg PO HS 04/10/20 12/30/20 History busPIRone HCL 15 mg PO BID 04/10/20 12/30/20 History polyethylene glycoL 3350 [Miralax] 17 gm PO DAILY PRN 04/10/20 12/30/20 History Cetirizine HCl [Zyrtec] 10 mg PO DAILY PRN 12/25/20 12/30/20 History Dicyclomine [Bentyl] 10 mg PO TID 12/25/20 12/30/20 History Fluticasone/Salmeterol [Advair 1 inhalation PO QAM 12/25/20 12/30/20 History 250-50 Diskus] Melatonin 10 mg PO HS 12/25/20 12/30/20 History Ondansetron HCl [Zofran] 4 mg PO Q8H PRN 12/25/20 12/30/20 History Allergies Allergy/AdvReac Type Severity Reaction Status Date / Time amoxicillin trihydrate Allergy Anaphylaxis Verified 12/30/20 08:49 [From Augmentin] potassium clavulanate Allergy Anaphylaxis Verified 12/30/20 08:49 [From Augmentin] risperidone [From Risperdal] AdvReac AGGRESSIVE Verified 12/30/20 08:49 Surgical - Exam Vital Signs Temp Pulse Resp BP Pulse Ox 98.2 F 89 18 154/89 96 12/30/20 08:54 12/30/20 08:54 12/30/20 08:54 12/30/20 08:54 12/30/20 08:54
--- NOTE | 2020-12-30 09:38 | P.PCN ---
Date of Procedure: 12/30/20 Description of Procedure: PREOPERATIVE DIAGNOSIS: Change in bowel habits with diarrhea Abdominal pain, generalized POSTOPERATIVE DIAGNOSIS: Change in bowel habits with diarrhea Abdominal pain, generalized Microscopic colitis OPERATION: Colonoscopy to the cecum, ileocecal valve and appendiceal orifice. Colonoscopy with random cold forceps biopsies SURGEON: Fabiana Tam MD. ANESTHESIA: MAC. INDICATIONS: The patient is a 25-year-old female who presents with change in bowel habits and abdominal pain. Benefits and risks were described and informed consent was obtained. DESCRIPTION OF PROCEDURE: The patient had undergone Sutab prep. The patient had been brought into the operating room and laid in the left lateral decubitus position. After adequate intravenous sedation, the rectum was examined with 2% lidocaine jelly. No external hemorrhoids were encountered. The rectal tone was within normal limits. No lesions were palpated in the rectal vault. An Olympus colonoscope was advanced until the cecum, ileocecal valve and appendiceal orifice were clearly viewed. The prep was excellent. No scattered diverticulosis was encountered. No colonic polyps were found. Random biopsies were obtained for microscopic colitis using cold forceps. Retroflexion of the scope demonstrated grade 1 i nternal hemorrhoids without active bleeding or inflammation. The colon was desufflated. The patient had tolerated the procedure well. Withdrawal time was over 6 minutes. FINDINGS: Aronchick preparation quality scale 1 (1-5) Internal hemorrhoids, grade 1 No external prolapsed hemorrhoids. No arteriovenous malformations. No adenomatous polyps. Random biopsies obtained for microscopic colitis. RECOMMENDATIONS: Lower endoscopy as needed. Plan - Discharge Summary New Discharge Prescriptions: Continue ARIPiprazole [Abilify Maintena] 400 mg IM Q28D Venlafaxine HCl [Effexor XR] 150 mg PO DAILY polyethylene glycoL 3350 [Miralax] 17 gm PO DAILY PRN PRN Reason: Constipation Albuterol Nebulized [Ventolin Nebulized] 2.5 mg INHALATION RT-QID PRN PRN Reason: Shortness Of Breath Albuterol Inhaler [Ventolin Hfa Inhaler] 2 puff INHALATION RT-Q6H PRN PRN Reason: Shortness Of Breath Omeprazole 40 mg PO HS Levothyroxine Sodium 112 mcg PO DAILY Fluticasone Nasal [place] [Flonase Nasal [place]] 1 spray EA NOSTRIL BID PRN PRN Reason: allergies busPIRone HCL 15 mg PO BID Dicyclomine [Bentyl] 10 mg PO TID Melatonin 10 mg PO HS Ondansetron HCl [Zofran] 4 mg PO Q8H PRN PRN Reason: Nausea And Vomiting Cetirizine HCl [Zyrtec] 10 mg PO DAILY PRN PRN Reason: allergies Fluticasone/Salmeterol [Advair 250-50 Diskus] 1 inhalation PO QAM Discharge Medication List ARIPiprazole [Abilify Maintena] 400 mg IM Q28D 03/25/19 [History] Venlafaxine HCl [Effexor XR] 150 mg PO DAILY 09/27/19 [History] Albuterol Inhaler [Ventolin Hfa Inhaler] 2 puff INHALATION RT-Q6H PRN 04/10/20 [History] Albuterol Nebulized [Ventolin Nebulized] 2.5 mg INHALATION RT-QID PRN 04/10/20 [History] Fluticasone Nasal [place] [Flonase Nasal [place]] 1 spray EA NOSTRIL BID PRN 04/10/20 [History] Levothyroxine Sodium 112 mcg PO DAILY 04/10/20 [History] Omeprazole 40 mg PO HS 04/10/20 [History] busPIRone HCL 15 mg PO BID 04/10/20 [History] polyethylene glycoL 3350 [Miralax] 17 gm PO DAILY PRN 04/10/20 [History] Cetirizine HCl [Zyrtec] 10 mg PO DAILY PRN 12/25/20 [History] Dicyclomine [Bentyl] 10 mg PO TID 12/25/20 [History] Fluticasone/Salmeterol [Advair 250-50 Diskus] 1 inhalation PO QAM 12/25/20 [History] Melatonin 10 mg PO HS 12/25/20 [History] Ondansetron HCl [Zofran] 4 mg PO Q8H PRN 12/25/20 [History] Follow up Appointment(s)/Referral(s): Fabiana Tam MD [STAFF PHYSICIAN] - 01/07/21 Patient Instructions/Handouts: *[facility] - (Anesthesia) Endoscopy Discharge Instructions, Colonoscopy (DC) Activity/Diet/Wound Care/Special Instructions: Lower endoscopy as needed Discharge Disposition: HOME SELF-CARE
[2020-12-30 09:40] VITALS: RESP 16
[2020-12-30 09:54] VITALS: BP 128/89; PULSE 101
== END 2020-12-30 10:28 | disposition home or self-care (01) ==
LOC: ORWHC2ENDO 07:59
PROVIDERS: ATTEND Surgery Plastic and Reconstructive Surgery
DX: K52.9 Noninfective gastroenteritis and colitis, unspecified (principal); R19.4 Change in bowel habit; Z79.899 Other long term (current) drug therapy
CPT/HCPCS: 88305; 45380; J2704

== ENCOUNTER 2021-02-03 14:42 | Emergency (ER) | payer OTHER ==
[2021-02-03 15:36] VITALS: BP 136/89; PULSE 110; RESP 20; TEMP 98.1
--- NOTE | 2021-02-03 16:26 | XR ---
Left ankle and left foot HISTORY: Trauma and pain 3 views of the left ankle and 3 views of the left foot are submitted Bone mineralization, joint spaces, alignment are maintained. There is soft tissue swelling present. IMPRESSION: No radiographically apparent fracture or dislocation, follow-up as indicated
--- NOTE | 2021-02-03 16:47 | ED ---
Lower Extremity Injury HPI - General Chief Complaint: Extremity Injury, Lower Stated Complaint: Lft ankle injury Time Seen by Provider: 02/03/21 15:39 Source: patient, EMS Mode of arrival: wheelchair Limitations: physical limitation - History of Present Illness Initial Comments: Patient is a 25-year-old male presenting to emergency Department with left foot and ankle pain after he tripped in a hole. Patient states she is walking the grass and did not realize it was a hole there. He has pain on the top of his left foot as well as his left ankle. No previous injuries or surgeries to the left foot or ankle. He denies any other injuries from this fall. - Related Data Home Medications Medication Instructions Recorded Confirmed ARIPiprazole [Abilify Maintena] 400 mg IM Q28D 03/25/19 12/30/20 Venlafaxine HCl [Effexor XR] 150 mg PO DAILY 09/27/19 12/30/20 Albuterol Inhaler [Ventolin Hfa 2 puff INHALATION RT-Q6H PRN 04/10/20 12/30/20 Inhaler] Albuterol Nebulized [Ventolin 2.5 mg INHALATION RT-QID PRN 04/10/20 12/30/20 Nebulized] Fluticasone Nasal [place] [Flonase 1 spray EA NOSTRIL BID PRN 04/10/20 12/30/20 Nasal [place]] Levothyroxine Sodium 112 mcg PO DAILY 04/10/20 12/30/20 Omeprazole 40 mg PO HS 04/10/20 12/30/20 busPIRone HCL 15 mg PO BID 04/10/20 12/30/20 polyethylene glycoL 3350 [Miralax] 17 gm PO DAILY PRN 04/10/20 12/30/20 Cetirizine HCl [Zyrtec] 10 mg PO DAILY PRN 12/25/20 12/30/20 Dicyclomine [Bentyl] 10 mg PO TID 12/25/20 12/30/20 Fluticasone/Salmeterol [Advair 1 inhalation PO QAM 12/25/20 12/30/20 250-50 Diskus] Melatonin 10 mg PO HS 12/25/20 12/30/20 Ondansetron HCl [Zofran] 4 mg PO Q8H PRN 12/25/20 12/30/20 Allergies Allergy/AdvReac Type Severity Reaction Status Date / Time amoxicillin trihydrate Allergy Anaphylaxis Verified 02/03/21 15:36 [From Augmentin] potassium clavulanate Allergy Anaphylaxis Verified 02/03/21 15:36 [From Augmentin] risperidone [From Risperdal] AdvReac AGGRESSIVE Verified 02/03/21 15:36 Review of Systems ROS Statement: Those systems with pertinent positive or pertinent negative responses have been documented in the HPI. ROS Other: All systems not noted in ROS Statement are negative. Past Medical History Past Medical History: Asthma, Thyroid Disorder Additional Past Medical History / Comment(s): hydrocephalus, past rt humerus broken(sx), History of Any Multi-Drug Resistant Organisms: None Reported Past Surgical History: Hernia Repair, Orthopedic Surgery, Tonsillectomy Additional Past Surgical History / Comment(s): shunt for hydrocephalus and 3 revisions,previously charted pt had exploratory-lap for necrotizing fasciitis in abdomen at age 2 days old.pt not sure what was done., rt humerus sx- rio /screws, harrison inguinal hernia repair as infant Past Anesthesia/Blood Transfusion Reactions: No Reported Reaction Past Psychological History: ADD/ADHD, Bipolar, Depression Smoking Status: Former smoker Past Alcohol Use History: None Reported Past Drug Use History: None Reported - Past Family History Father History Unknown: Yes Mother History Unknown: Yes Family Medical History: No Reported History General Exam - General Exam Comments Initial Comments: GENERAL: Patient is well-developed and well-nourished. Patient is nontoxic and in no acute distress. HEAD: Atraumatic, normocephalic. EYES: Pupils equal round and reactive to light, extraocular movements intact, sclera anicteric, conjunctiva are normal. Eyelids were unremarkable. ENT: Nares patent, oropharynx clear without exudates. Moist mucous membranes. NECK: Normal range of motion, supple without lymphadenopathy or JVD. LUNGS: Unlabored respirations. Breath sounds clear to auscultation bilaterally and equal. No wheezes rales or rhonchi. HEART: Regular rate and rhythm without murmurs, rubs or gallops. ABDOMEN: Soft, nontender, normoactive bowel sounds. No guarding, no rebound. No masses appreciated. : Deferred MUSCULOSKELETAL: Patient has mild tenderness over the anterior aspect of the left foot, also around the left lateral malleolus, there is no apparent deformity, mild swelling present. He has full active range of motion, neurovascular intact. No clubbing or cyanosis. NEUROLOGICAL: Patient is alert and oriented x 3. Motor and sensory are also intact. Cranial nerves II through XII grossly intact. Symmetrical smile. Normal speech, normal gait. PSYCH: Normal mood, normal affect. SKIN: Warm, Dry, normal turgor, no rashes or lesions noted. Limitations: physical limitation Course Vital Signs 02/03/21 15:33 Temperature 98.1 F Pulse Rate 110 H Respiratory 20 Rate Blood Pressure 136/89 O2 Sat by Pulse 99 Oximetry Medical Decision Making - Medical Decision Making Patient is a 25-year-old male here with left foot and ankle pain after he tripped in a hole on hour prior to arrival. X-rays feel no acute fractures dislocations of the left foot or left ankle. Discussed with patient is most likely a sprain. Recommended ice the area, ibuprofen for any discomfort. He is able to ambulate. Patient is in agreement this plan of care. As symptoms persist to follow up with orthopedics. Disposition Clinical Impression: Left ankle sprain, Sprain of left foot Disposition: HOME SELF-CARE Condition: Stable Instructions (If sedation given, give patient instructions): Foot Sprain (ED) Additional Instructions: Please return to the Emergency Department if symptoms worsen or any other concerns. Recommend ice the area, ibuprofen for any discomfort. Please follow up with your PCP if symptoms persist. Is patient prescribed a controlled substance at d/c from ED?: No Referrals: Juan F Staley DO [Primary Care Provider] - 1-2 days Time of Disposition: 16:47
== END 2021-02-03 17:00 | disposition home or self-care (01) ==
LOC: EC 14:42
DX: S93.402A Sprain of unspecified ligament of left ankle, initial encounter (principal); S93.602A Unspecified sprain of left foot, initial encounter; J45.909 Unspecified asthma, uncomplicated; F31.9 Bipolar disorder, unspecified; F90.9 Attention-deficit hyperactivity disorder, unspecified type; Z87.891 Personal history of nicotine dependence; Z79.51 Long term (current) use of inhaled steroids; Z98.2 Presence of cerebrospinal fluid drainage device; W01.0XXA Fall on same level from slipping, tripping and stumbling without subsequent striking against object, initial encounter
CPT/HCPCS: 99284

== ENCOUNTER → 2021-03-09 | Outpatient (CLI) | payer OTHER ==
--- NOTE | 2021-03-09 15:39 | NM ---
Nuclear medicine hepatobiliary scan. HISTORY: Pain. DOSAGE: The patient received 8 ounces of ensure plus and 4.1 mCi of Technetium 99m Choletec. FINDINGS: There is normal hepatic extraction. The gallbladder is seen by : minutes. There is biliar y to bowel clearance by 20 minutes. Ejection fraction is 52%. IMPRESSION: 1. Normal hepatobiliary exam
== END | disposition home or self-care (01) ==
LOC: RADNMMAIN 13:01
PROVIDERS: ATTEND Surgery Plastic and Reconstructive Surgery
DX: R10.9 Unspecified abdominal pain (principal)
CPT/HCPCS: 78226; A9537

== ENCOUNTER 2021-04-14 07:48 | Day surgery (SDC) | payer OTHER ==
[2021-04-09 10:29] VITALS: BMI 39.1
--- NOTE | 2021-04-14 05:55 | P.GSHP ---
History of Present Illness H&P Date: 04/14/21 CHIEF COMPLAINT: GERD HISTORY OF PRESENT ILLNESS: The patient is a 25-year-old male who presents reports gastroesophageal reflux disease. Upper endoscopy was offered for further evaluation and management. PAST MEDICAL HISTORY: Please see list. PAST SURGICAL HISTORY: Please see list. MEDICATIONS: Please see list. ALLERGIES: Please see list. SOCIAL HISTORY: No illicit drug use FAMILY HISTORY: No reports of Crohn disease or ulcerative colitis. REVIEW OF ORGAN SYSTEMS: CONSTITUTIONAL: No reports of fevers or chills. GI: Denies any blood in stools or constipation. PHYSICAL EXAM: VITAL SIGNS: Stable GENERAL: Well-developed and pleasant in no acute distress. HEENT: No scleral icterus. Extraocular movements grossly intact. Moist buccal mucosa. NECK: Supple without lymphadenopathy. CHEST: Unlabored respirations. Equal bilateral excursions. CARDIOVASCULAR: Regular rate and rhythm. Distal 2+ pulses. ABDOMEN: Soft, nondistended. MUSCULOSKELETAL: No clubbing, cyanosis, or edema. ASSESSMENT: 1. Gastroesophageal reflux disease PLAN: 1. Recommend proceeding with an upper endoscopy Past Medical History Past Medical History: Asthma, Thyroid Disorder Additional Past Medical History / Comment(s): hydrocephalus, past rt humerus broken(sx), History of Any Multi-Drug Resistant Organisms: None Reported Past Surgical History: Hernia Repair, Orthopedic Surgery, Tonsillectomy Additional Past Surgical History / Comment(s): shunt for hydrocephalus and 3 revisions,previously charted pt had exploratory-lap for necrotizing fasciitis in abdomen at age 2 days old.pt not sure what was done., rt humerus sx- rio /screws, harrison inguinal hernia repair as Past Anesthesia/Blood Transfusion Reactions: No Reported Reaction Smoking Status: Never smoker - Past Family History Father History Unknown: Yes Mother History Unknown: Yes Family Medical History: No Reported History Medications and Allergies Home Medications Medication Instructions Recorded Confirmed Type ARIPiprazole [Abilify Maintena] 400 mg IM Q28D 03/25/19 04/09/21 History Venlafaxine HCl [Effexor XR] 150 mg PO DAILY 09/27/19 04/09/21 History Albuterol Inhaler [Ventolin Hfa 2 puff INHALATION RT-Q6H PRN 04/10/20 04/09/21 History Inhaler] Albuterol Nebulized [Ventolin 2.5 mg INHALATION RT-QID PRN 04/10/20 04/09/21 History Nebulized] Fluticasone Nasal [place] [Flonase 1 spray EA NOSTRIL BID PRN 04/10/20 04/09/21 History Nasal [place]] Levothyroxine Sodium 112 mcg PO DAILY 04/10/20 04/09/21 History Omeprazole 40 mg PO HS 04/10/20 04/09/21 History busPIRone HCL 15 mg PO BID 04/10/20 04/09/21 History polyethylene glycoL 3350 [Miralax] 17 gm PO DAILY PRN 04/10/20 04/09/21 History Cetirizine HCl [Zyrtec] 10 mg PO DAILY PRN 12/25/20 04/09/21 History Dicyclomine [Bentyl] 10 mg PO TID 12/25/20 04/09/21 History Fluticasone/Salmeterol [Advair 1 inhalation PO QAM 12/25/20 04/09/21 History 250-50 Diskus] Melatonin [Melatonin Disolving 10 mg PO HS 12/25/20 04/09/21 History Tablet] Ondansetron HCl [Zofran] 4 mg PO Q8H PRN 12/25/20 04/09/21 History Allergies Allergy/AdvReac Type Severity Reaction Status Date / Time amoxicillin trihydrate Allergy Anaphylaxis Verified 04/09/21 09:56 [From Augmentin] potassium clavulanate Allergy Anaphylaxis Verified 04/09/21 09:56 [From Augmentin] risperidone [From Risperdal] AdvReac AGGRESSIVE Verified 04/09/21 09:56
[2021-04-14 08:38] VITALS: TEMP 97.7
[2021-04-14] MEDS ORDERED: LIDOCAINE 1% INJ 10MG/ML (20 ML MDV) ONE (08:52)
[2021-04-14] MEDS ORDERED: PROPOFOL 10 MG/ML 20 ML VIAL IV ONE (08:52)
--- NOTE | 2021-04-14 09:08 | P.PCN ---
Date of Procedure: 04/14/21 Description of Procedure: PREOPERATIVE DIAGNOSIS: Gastroesophageal reflux disease. Morbid obesity. POSTOPERATIVE DIAGNOSIS: Morbid obesity. Gastritis. Gastroesophageal reflux disease. Diaphragmatic hiatal hernia OPERATION: Esophagogastroduodenoscopy with biopsies along antrum. SURGEON: Fabiana Tam MD ANESTHESIA: MAC. INDICATIONS: The patient is a 25-year-old male who presents with a history of reflux disease. Benefits and risks of the procedure were described. Informed consent was obtained. DESCRIPTION: The patient was brought into the endoscopy suite and laid in the left lateral decubitus position. An Olympus gastroscope was passed along the posterior oropharynx down to the distal esophagus where the squamocolumnar junction was encountered at 35 cm from the incisors. The stomach was entered and no bile reflux was found. Additional findings are listed below. Biopsies with cold for ceps were obtained of the antrum. The first through third portion of the duodenum was examined and unremarkable. Retroflexion of the scope confirmed Hill grade 2 lower esophageal valve. The squamocolumnar junction demonstrated LA grade B erosive esophagitis. The stomach was desufflated. The patient tolerated the procedure well. FINDINGS: Squamocolumnar junction 35 cm from the incisors. Diaphragmatic hiatus at 37 cm. Hiatal hernia, 2 cm Hill grade 2 lower esophageal valve. LA grade B erosive esophagitis. No active duodenitis. Chronic gastritis RECOMMENDATIONS: Upper endoscopy as needed. Plan - Discharge Summary Discharge Rx Participant: Yes New Discharge Prescriptions: Continue ARIPiprazole [Abilify Maintena] 400 mg IM Q28D Venlafaxine HCl [Effexor XR] 150 mg PO DAILY polyethylene glycoL 3350 [Miralax] 17 gm PO DAILY PRN PRN Reason: Constipation Albuterol Nebulized [Ventolin Nebulized] 2.5 mg INHALATION RT-QID PRN PRN Reason: Shortness Of Breath Albuterol Inhaler [Ventolin Hfa Inhaler] 2 puff INHALATION RT-Q6H PRN PRN Reason: Shortness Of Breath Omeprazole 40 mg PO HS Levothyroxine Sodium 112 mcg PO DAILY Fluticasone Nasal [place] [Flonase Nasal [place]] 1 spray EA NOSTRIL BID PRN PRN Reason: allergies busPIRone HCL 15 mg PO BID Dicyclomine [Bentyl] 10 mg PO TID Melatonin [Melatonin Disolving Tablet] 10 mg PO HS Ondansetron HCl [Zofran] 4 mg PO Q8H PRN PRN Reason: Nausea And Vomiting Cetirizine HCl [Zyrtec] 10 mg PO DAILY PRN PRN Reason: allergies Fluticasone/Salmeterol [Advair 250-50 Diskus] 1 inhalation PO QAM Discharge Medication List ARIPiprazole [Abilify Maintena] 400 mg IM Q28D 03/25/19 [History] Venlafaxine HCl [Effexor XR] 150 mg PO DAILY 09/27/19 [History] Albuterol Inhaler [Ventolin Hfa Inhaler] 2 puff INHALATION RT-Q6H PRN 04/10/20 [History] Albuterol Nebulized [Ventolin Nebulized] 2.5 mg INHALATION RT-QID PRN 04/10/20 [History] Fluticasone Nasal [place] [Flonase Nasal [place]] 1 spray EA NOSTRIL BID PRN 04/10/20 [History] Levothyroxine Sodium 112 mcg PO DAILY 04/10/20 [History] Omeprazole 40 mg PO HS 04/10/20 [History] busPIRone HCL 15 mg PO BID 04/10/20 [History] polyethylene glycoL 3350 [Miralax] 17 gm PO DAILY PRN 04/10/20 [History] Cetirizine HCl [Zyrtec] 10 mg PO DAILY PRN 12/25/20 [History] Dicyclomine [Bentyl] 10 mg PO TID 12/25/20 [History] Fluticasone/Salmeterol [Advair 250-50 Diskus] 1 inhalation PO QAM 12/25/20 [History] Melatonin [Melatonin Disolving Tablet] 10 mg PO HS 12/25/20 [History] Ondansetron HCl [Zofran] 4 mg PO Q8H PRN 12/25/20 [History] Follow up Appointment(s)/Referral(s): Fabiana Tam MD [STAFF PHYSICIAN] - 04/27/21 Patient Instructions/Handouts: Hiatal Hernia (DC) Discharge Disposition: HOME SELF-CARE
[2021-04-14 09:29] VITALS: BP 118/81; PULSE 82; RESP 16
== END 2021-04-14 10:02 | disposition home or self-care (01) ==
LOC: ORWHC2ENDO 07:48
PROVIDERS: ATTEND Surgery Plastic and Reconstructive Surgery
DX: K29.50 Unspecified chronic gastritis without bleeding (principal); K44.9 Diaphragmatic hernia without obstruction or gangrene; K21.9 Gastro-esophageal reflux disease without esophagitis; E66.01 Morbid (severe) obesity due to excess calories; J45.909 Unspecified asthma, uncomplicated; E07.9 Disorder of thyroid, unspecified; G47.33 Obstructive sleep apnea (adult) (pediatric); F32.9 Major depressive disorder, single episode, unspecified; F60.9 Personality disorder, unspecified; Z79.890 Hormone replacement therapy
CPT/HCPCS: 43239; 88305; J2001; J2704

== ENCOUNTER → 2021-09-23 | Outpatient (CLI) | payer OTHER ==
--- NOTE | 2021-09-23 11:24 | SFUN ---
SLEEP CENTER FOLLOW UP NOTE DATE OF SERVICE: 09/23/2021 This 26-year-old gentleman has been followed in Sleep Center for treatment of obstructive sleep apnea-hypopnea syndrome. Recently the patient had a polysomnogram and then CPAP titration and was started on treatment with CPAP. Today is his first visit after he received his new CPAP unit. I discussed results of his sleep studies with the patient in detail. He has severe sleep apnea. Titration was done up to the pressure 10 cm of water, and at that pressure respiration normalized. I checked the patient's CPAP unit. Pressure is 10 cm of water. Usage is 97% of nights and 87% of nights for more than 4 hours, average 7 hours 47 minutes, which is great compliance. Leak 5.1 L/minute, which is in normal range. Apnea-hypopnea index is 1.8, which is normal. MEDICATIONS: 1. Effexor XR. 2. Buspirone. 3. Synthroid 112 mcg once a day. 4. Bentyl. 5. Omeprazole. 6. Zyrtec. 7. Melatonin. PHYSICAL EXAMINATION: GENERAL: Pleasant patient in no distress. VITAL SIGNS: BP 141/93, HR 79, RR 18, weight 255.6 pounds, temperature 97.3, height 5 feet 7-1/2 inches. HEENT: PERRLA, EOMI, evaluation of oropharynx showed tongue protrudes midline. Extremely low position of soft palate; Mallampati IV. NECK: Supple, no JVD. Thyroid is not palpable. LUNGS: Clear to percussion and to auscultation. Good air exchange. No wheezing or rhonchi. HEART: S1, S2 regular. No murmurs, gallops, or rubs. ABDOMEN: Obese. EXTREMITIES: No clubbing or cyanosis. SODIUM METHYLATE OPERATOR: Awake, alert, and oriented X3. Cranial nerves 2 to 7 intact. There is no fasciculation or atrophy. noted. No focal deficits observed. IMPRESSION: 1. Severe obstructive sleep apnea-hypopnea syndrome; apnea-hypopnea index 53 with oxygen desaturation to 76.7%. Patient demonstrated great compliance with treatment. Normal respiration on CPAP. 2. Obesity. 3. Status post [employer] ENGINE[employer] shunt insertion. 4. Asthma. 5. History of headaches. 6. History of pneumonia. 7. Acid reflux. 8. History of peptic ulcer disease. 9. Hypothyroidism. 10.History of irritable bowel syndrome. 11.Status post arm fracture many years ago. PLAN: 1. Patient will continue to use PAP equipment every night for the whole night. 2. Sleep hygiene with regular time in bed for at least 7-1/2 to 8 hours. 3. Precautions related to driving. No driving if feeling sleepiness. 4. I will maintain all necessary prescription for PAP supplies including mask, tube, filters. 5. Watching weight. 6. Follow-up visit in one year or earlier if patient has any problems. Thank you very much for allowing me to participate in the management of your patient. Sincerely, Masood Jerez MD, PhD, FAASM Diplomat of [place] [employer] Sleep Medicine Board of [place] [employer] Certified Residential Medication Aide of [facility] [place] [id number] / THA: [id number] /
== END ==
LOC: SLEEP 10:08
PROVIDERS: ATTEND Internal Medicine
DX: G47.33 Obstructive sleep apnea (adult) (pediatric) (principal); G47.36 Sleep related hypoventilation in conditions classified elsewhere; E66.9 Obesity, unspecified; J45.909 Unspecified asthma, uncomplicated; K21.9 Gastro-esophageal reflux disease without esophagitis; E03.9 Hypothyroidism, unspecified; Z87.19 Personal history of other diseases of the digestive system; Z86.69 Personal history of other diseases of the nervous system and sense organs; Z87.11 Personal history of peptic ulcer disease; Z87.81 Personal history of (healed) traumatic fracture; Z98.2 Presence of cerebrospinal fluid drainage device; Z87.01 Personal history of pneumonia (recurrent); Z99.89 Dependence on other enabling machines and devices; Z79.890 Hormone replacement therapy; Z79.899 Other long term (current) drug therapy; Z88.1 Allergy status to other antibiotic agents; Z88.8 Allergy status to other drugs, medicaments and biological substances

== ENCOUNTER 2022-08-22 12:30 | Emergency (ER) | payer OTHER ==
[2022-08-22 12:52] VITALS: BP 178/95; PULSE 110; RESP 22; TEMP 97
--- NOTE | 2022-08-22 13:05 | XR ---
EXAMINATION TYPE: XR foot complete LT DATE OF EXAM: 08/22/2022 COMPARISON: 02/03/2021 HISTORY: Pain TECHNIQUE: Three views are submitted. FINDINGS: The osseous structures are intact. There is no acute fracture or dislocation. Joint spaces are p reserved. IMPRESSION: 1. No acute fracture or dislocation. If symptoms persist, follow-up exam in 7 to 10 days could be ob tained.
[2022-08-22] MEDS ORDERED: ACET/COD 300 MG/30 MG STARTER PACK 6 TAB BTL PO STA (13:21)
--- NOTE | 2022-08-22 13:22 | ED ---
Lower Extremity Injury HPI - General Chief Complaint: Extremity Injury, Lower Stated Complaint: foot injury Time Seen by Provider: 08/22/22 13:21 Source: patient, RN notes reviewed Mode of arrival: ambulatory Limitations: no limitations - History of Present Illness Initial Comments: 27 -year-old male presents to [facility] emergency Department chief complaint left foot injury. Patient states his walking up some stepswhen he stubbed his toe, tripped on his toe.. Patient complains of left foot first digit pain. Patient denies any injury no loss conscious to paresthesias patient offers no other complaints. - Related Data Home Medications Medication Instructions Recorded Confirmed ARIPiprazole [Abilify Maintena] 400 mg IM Q28D 03/25/19 04/09/21 Venlafaxine HCl [Effexor XR] 150 mg PO DAILY 09/27/19 04/09/21 Albuterol Inhaler [Ventolin Hfa 2 puff INHALATION RT-Q6H PRN 04/10/20 04/09/21 Inhaler] Albuterol Nebulized [Ventolin 2.5 mg INHALATION RT-QID PRN 04/10/20 04/09/21 Nebulized] Fluticasone Nasal [place] [Flonase 1 spray EA NOSTRIL BID PRN 04/10/20 04/09/21 Nasal [place]] Levothyroxine Sodium 112 mcg PO DAILY 04/10/20 04/09/21 Omeprazole 40 mg PO HS 04/10/20 04/09/21 busPIRone HCL 15 mg PO BID 04/10/20 04/09/21 polyethylene glycoL 3350 [Miralax] 17 gm PO DAILY PRN 04/10/20 04/09/21 Cetirizine HCl [Zyrtec] 10 mg PO DAILY PRN 12/25/20 04/09/21 Dicyclomine [Bentyl] 10 mg PO TID 12/25/20 04/09/21 Fluticasone Propion/Salmeterol 1 inhalation PO QAM 12/25/20 04/09/21 [Advair 250-50 Diskus] Melatonin [Melatonin Dissolving 10 mg PO HS 12/25/20 04/09/21 Tablet] ondansetron HCL [Zofran] 4 mg PO Q8H PRN 12/25/20 04/09/21 Allergies Allergy/AdvReac Type Severity Reaction Status Date / Time amoxicillin trihydrate Allergy Anaphylaxis Verified 04/14/21 08:24 [From Augmentin] potassium clavulanate Allergy Anaphylaxis Verified 04/14/21 08:24 [From Augmentin] risperidone [From Risperdal] AdvReac AGGRESSIVE Verified 04/14/21 08:24 Review of Systems ROS Statement: Those systems with pertinent positive or pertinent negative responses have been documented in the HPI. ROS Other: All systems not noted in ROS Statement are negative. Past Medical History Past Medical History: Asthma, Thyroid Disorder Additional Past Medical History / Comment(s): hydrocephalus, past rt humerus broken(sx), History of Any Multi-Drug Resistant Organisms: None Reported Past Surgical History: Hernia Repair, Orthopedic Surgery, Tonsillectomy Additional Past Surgical History / Comment(s): shunt for hydrocephalus and 3 revisions,previously charted pt had exploratory-lap for necrotizing fasciitis in abdomen at age 2 days old.pt not sure what was done., rt humerus sx- rio /screws, harrison inguinal hernia repair as Past Anesthesia/Blood Transfusion Reactions: No Reported Reaction Past Psychological History: ADD/ADHD, Bipolar, Depression Smoking Status: Former smoker - Past Family History Father History Unknown: Yes Mother History Unknown: Yes Family Medical History: No Reported History General Exam Limitations: no limitations General appearance: alert, in no apparent distress Head exam: Present: atraumatic, normocephalic, normal inspection Respiratory exam: Present: normal lung sounds bilaterally. Absent: respiratory distress, wheezes, rales, rhonchi, stridor Cardiovascular Exam: Present: regular rate, normal rhythm, normal heart sounds. Absent: systolic murmur, diastolic murmur, rubs, gallop, clicks Extremities exam: Present: other (left foot first digit tenderness with palpation, mild ecchymosis) Course Vital Signs 08/22/22 12:46 Temperature 97 F L Pulse Rate 110 H Respiratory 22 Rate Blood Pressure 178/95 O2 Sat by Pulse 96 Oximetry Medical Decision Making - Medical Decision Making Was pt. sent in by a medical professional or institution (, JOVITA, CARD ROOM MANAGER, urgent care, hospital, or [place] health [facility] facility...) When possible be specific @ -[No] Did you speak to anyone other than the patient for history (EMS, parent, family, police, friend...)? What history was obtained from this source @ -[No] Did you review nursing and triage notes (agree or disagree)? Why? @ -[I reviewed and agree with nursing and triage notes] Were old charts reviewed (outside hosp., previous admission, EMS record, old EKG, old radiological studies, urgent care reports/EKG's, [place] health [facility] facility records)? Report findings @ -[No old charts were reviewed] Differential Diagnosis (chest pain, altered mental status, abdominal pain women, abdominal pain men, vaginal bleeding, weakness, fever, dyspnea, syncope, headache, dizziness, GI bleed, back pain, seizure, CVA, palpatations, mental health)? @ -toe fracture, foot fracture, foot sprain, toe sprain, nail avulsion, dlist is not all-inclusive EKG interpreted by me (3pts min.). @ -[none X-rays interpreted by me (1pt min.). @ -x-ray interpreted by me shows evidence of left first digit fracture CT interpreted by me (1pt min.). @ -[None done] U/S interpreted by me (1pt. min.). @ -[None done] What testing was considered but not performed or refused? (CT, X-rays, U/S, labs)? Why? @ -[None] What meds were considered but not given or refused? Why? @ -[None] Did you discuss the management of the patient with other professionals (professionals i.e. , PA, CARD ROOM MANAGER, lab, RT, psych nurse, social science professor, chief librarian circulation department, teacher, motor equipment commanding officer, shoe caser)? Give summary @ -[No] Was smoking cessation discussed for >3mins.? @ -[No] Was critical care preformed (if so, how long)? @ -[No] Were there social determinants of health that impacted care today? How? (Homelessness, low income, unemployed, alcoholism, drug addiction, transportation, low edu. Level, literacy, decrease access to med. care, [facility]ci, rehab)? @ -[No] Was there de-escalation of care discussed even if they declined (Discuss DNR or withdrawal of care, Hospice)? DNR status @ -[No] What co-morbidities impacted this encounter? (DM, HTN, Smoking, COPD, CAD, Cancer, CVA, ARF, Chemo, Hep., AIDS, mental health diagnosis, sleep apnea, morbid obesity)? @ -[None] Was patient admitted / discharged? Hospital course, mention meds given and route, prescriptions, significant lab abnormalities, going to OR and other pertinent info. @ -discharge toe fracture Undiagnosed new problem with uncertain prognosis? @ -[No] Drug Therapy requiring intensive monitoring for toxicity (Heparin, Nitro, Insulin, Cardizem)? @ -[No] Were any procedures done? @ -[No] Diagnosis/symptom? @ -left foot first digit fracture Acute, or Chronic, or Acute on Chronic? @ -acute Uncomplicated (without systemic symptoms) or Complicated (systemic symptoms)? @ -uncomplicated Side effects of treatment? @ -[No] Exacerbation, Progression, or Severe Exacerbation? @ -[No] Poses a threat to life or bodily function? How? (Chest pain, [place], [place], pneumonia, PE, COPD, DKA, ARF, appy, cholecystitis, CVA, Diverticulitis, Homicidal, Suicidal, threat to staff... and all critical care pts) @ -[No] Disposition Clinical Impression: Toe fracture, left Disposition: HOME SELF-CARE Condition: Stable Instructions (If sedation given, give patient instructions): Toe Fracture (ED) Additional Instructions: Please return to the Emergency Department if symptoms worsen or any other concerns. Is patient prescribed a controlled substance at d/c from ED?: No Referrals: Juan F Staley DO [Primary Care Provider] - 1-2 days Jasbir Blount DPM [Doctor of Osteopathic Medicine] - 1-2 days Time of Disposition: 13:22
== END 2022-08-22 13:47 | disposition home or self-care (01) ==
LOC: EC 12:30
DX: S92.912A Unspecified fracture of left toe(s), initial encounter for closed fracture (principal); J45.909 Unspecified asthma, uncomplicated; E07.9 Disorder of thyroid, unspecified; F90.9 Attention-deficit hyperactivity disorder, unspecified type; F31.9 Bipolar disorder, unspecified; Z87.891 Personal history of nicotine dependence; Z79.890 Hormone replacement therapy; Z79.899 Other long term (current) drug therapy; Z88.0 Allergy status to penicillin; Z88.1 Allergy status to other antibiotic agents; Z88.8 Allergy status to other drugs, medicaments and biological substances; W18.40XA Slipping, tripping and stumbling without falling, unspecified, initial encounter
CPT/HCPCS: 99283

== ENCOUNTER 2022-12-13 16:13 | Emergency (ER) | payer OTHER ==
[2022-12-13] MEDS ORDERED: KETOROLAC 15 MG/ML 1 ML VIAL IM STA (18:01)
--- NOTE | 2022-12-13 18:44 | XR ---
EXAMINATION TYPE: XR facial bones complete DATE OF EXAM: 12/13/2022 COMPARISON: NONE HISTORY: Dental pain TECHNIQUE: 3 views submitted FINDINGS: There is mild mucosal thickening involving bilateral maxillary sinuses. No evidence of air- fluid levels. VALIDATION SPECIALIST shunt catheter noted in position. No destructive changes. There is a nasal septal de viation. IMPRESSION: 1. Findings suggest chronic bilateral maxillary sinusitis
[2022-12-13 18:45] VITALS: RESP 18
--- NOTE | 2022-12-13 19:17 | ED ---
General Adult HPI - General Chief complaint: Dental/Oral Stated complaint: TOOTH ABSCESS Time Seen by Provider: 12/13/22 16:52 Source: patient, RN notes reviewed Mode of arrival: ambulatory Limitations: no limitations - History of Present Illness Initial comments: 27-year-old male with no significant past medical history presents the emergency department with a chief complaint of dental pain. Patient reports that his wisdom teeth that are causing him pain. He reports worsening pain the last 4 days. He been taking Tylenol Motrin with mild symptomatic relief. He was seen by his dentist today who recommended he be evaluated in the ED to be put on prophylactic antibiotics. With that his attempted. An oral surgeon appointment however is not until 01/22/2023. He denies any fevers, swelling, sore throat, dyspnea, shortness of breath. Patient is nonsmoker. - Related Data Home Medications Medication Instructions Recorded Confirmed ARIPiprazole [Abilify Maintena] 400 mg IM Q28D 03/25/19 04/09/21 Venlafaxine HCl [Effexor XR] 150 mg PO DAILY 09/27/19 04/09/21 Albuterol Inhaler [Ventolin Hfa 2 puff INHALATION RT-Q6H PRN 04/10/20 04/09/21 Inhaler] Albuterol Nebulized [Ventolin 2.5 mg INHALATION RT-QID PRN 04/10/20 04/09/21 Nebulized] Fluticasone Nasal [place] [Flonase 1 spray EA NOSTRIL BID PRN 04/10/20 04/09/21 Nasal [place]] Levothyroxine Sodium 112 mcg PO DAILY 04/10/20 04/09/21 Omeprazole 40 mg PO HS 04/10/20 04/09/21 busPIRone HCL 15 mg PO BID 04/10/20 04/09/21 polyethylene glycoL 3350 [Miralax] 17 gm PO DAILY PRN 04/10/20 04/09/21 Cetirizine HCl [Zyrtec] 10 mg PO DAILY PRN 12/25/20 04/09/21 Dicyclomine [Bentyl] 10 mg PO TID 12/25/20 04/09/21 Fluticasone Propion/Salmeterol 1 inhalation PO QAM 12/25/20 04/09/21 [Advair 250-50 Diskus] Melatonin [Melatonin Dissolving 10 mg PO HS 12/25/20 04/09/21 Tablet] ondansetron HCL [Zofran] 4 mg PO Q8H PRN 12/25/20 04/09/21 Previous Rx's Medication Instructions Recorded Clindamycin [Cleocin] 150 mg PO Q6H #40 capsule 12/13/22 Allergies Allergy/AdvReac Type Severity Reaction Status Date / Time amoxicillin trihydrate Allergy Anaphylaxis Verified 12/13/22 16:50 [From Augmentin] potassium clavulanate Allergy Anaphylaxis Verified 12/13/22 16:50 [From Augmentin] risperidone [From Risperdal] AdvReac AGGRESSIVE Verified 12/13/22 16:50 Review of Systems ROS Statement: Those systems with pertinent positive or pertinent negative responses have been documented in the HPI. ROS Other: All systems not noted in ROS Statement are negative. Past Medical History Past Medical History: Asthma, Thyroid Disorder Additional Past Medical History / Comment(s): hydrocephalus, past rt humerus broken(sx), History of Any Multi-Drug Resistant Organisms: Other MDRO Date of last positivie culture/infection: 2010 MDRO Source:: arm Past Surgical History: Hernia Repair, Orthopedic Surgery, Tonsillectomy Additional Past Surgical History / Comment(s): shunt for hydrocephalus and 3 revisions,previously charted pt had exploratory-lap for necrotizing fasciitis in abdomen at age 2 days old.pt not sure what was done., rt humerus sx- rio /screws, harrison inguinal hernia repair as Past Anesthesia/Blood Transfusion Reactions: No Reported Reaction Past Psychological History: ADD/ADHD, Bipolar, Depression Smoking Status: Never smoker Past Alcohol Use History: None Reported Past Drug Use History: None Reported - Past Family History Father History Unknown: Yes Mother History Unknown: Yes Family Medical History: No Reported History General Exam - General Exam Comments Initial Comments: General: Alert, in no acute distress Head: atraumatic normocephalic. Eyes PERRL, EOMI intact, mucous membranes moist, exam is unremarkable without any evidence of dental abscess Respiratory: Lungs clear to auscultation bilaterally Cardiovascular: Heart rate regular rate and rhythm Abdominal: Soft without guarding or rebound Extremities: Normal inspection with full range of motion and normal capillary refill Neuroogic: alert and oriented 3, CN II-XII intact, able to ambulate with steady gait Skin: warm dry and intact with normal color Limitations: no limitations Course Vital Signs 12/13/22 12/13/22 12/13/22 16:47 18:43 19:34 Temperature 98.9 F 98.2 F 98.1 F Pulse Rate 100 96 92 Respiratory 20 18 18 Rate Blood Pressure 153/98 180/89 159/74 O2 Sat by Pulse 99 100 98 Oximetry Medical Decision Making - Medical Decision Making Was pt. sent in by a medical professional or institution (, JOVITA, PHARMACY INTAKE TECHNICIAN, urgent care, hospital, or residential...) When possible be specific @ -[No] Did you speak to anyone other than the patient for history (EMS, parent, family, police, friend...)? What history was obtained from this source @ -[No] Did you review nursing and triage notes (agree or disagree)? Why? @ -[I reviewed and agree with nursing and triage notes] Were old charts reviewed (outside hosp., previous admission, EMS record, old EKG, old radiological studies, urgent care reports/EKG's, residential records)? Report findings @ -[No old charts were reviewed] Differential Diagnosis (chest pain, altered mental status, abdominal pain women, abdominal pain men, vaginal bleeding, weakness, fever, dyspnea, syncope, headache, dizziness, GI bleed, back pain, seizure, CVA, palpatations, mental health, musculoskeletal)? @ -[not applicable] EKG interpreted by me (3pts min.). @ -[As above] X-rays interpreted by me (1pt min.). @ -[None done] CT interpreted by me (1pt min.). @ -[None done] U/S interpreted by me (1pt. min.). @ -[None done] What testing was considered but not performed or refused? (CT, X-rays, U/S, labs)? Why? @ -[None] What meds were considered but not given or refused? Why? @ -[None] Did you discuss the management of the patient with other professionals (professionals i.e. JOVITA Alcala, PHARMACY INTAKE TECHNICIAN, lab, RT, psych nurse, social services manager, airconditioning plant operator, teacher, casino surveillance officer, transplant case manager)? Give summary @ -[No] Was smoking cessation discussed for >3mins.? @ -[No] Was critical care preformed (if so, how long)? @ -[No] Were there social determinants of health that impacted care today? How? (Homelessness, low income, unemployed, alcoholism, drug addiction, transportation, low edu. Level, literacy, decrease access to med. care, shelter, rehab)? @ -[No] Was there de-escalation of care discussed even if they declined (Discuss DNR or withdrawal of care, Hospice)? DNR status @ -[No] What co-morbidities impacted this encounter? (DM, HTN, Smoking, COPD, CAD, Cancer, CVA, ARF, Chemo, Hep., AIDS, mental health diagnosis, sleep apnea, morbid obesity)? @ -[None] Was patient admitted / discharged? Hospital course, mention meds given and ro kletsel dehe [place], prescriptions, significant lab abnormalities, going to OR and other pertinent info. @ -Discharged. This is a 27-year-old male who presents the emergency department with dental. Patient had a thorough history and physical exam performed. Physical exam is essentially unremarkable heart rate regular rate and rhythm, lungs clear to auscultation bilaterally abdomen is soft and nontender. Patient lab work and imaging performed which is essentially unremarkable. Patient was given Toradol, Solu-Medrol with symptomatic relief. Patient was given a prescription for clindamycin. I discussed the results in detail with the patient verbalized understanding and all questions were addressed. Return precautions for his discussed at length. Patient discharged in stable condition. Case discussed with JAXON Yepez who agrees with plan of care Undiagnosed new problem with uncertain prognosis? @ -[No] Drug Therapy requiring intensive monitoring for toxicity (Heparin, Nitro, Insulin, Cardizem)? @ -[No] Were any procedures done? @ -[No] Diagnosis/symptom? @ -dental pain Acute, or Chronic, or Acute on Chronic? @ -acute Uncomplicated (without systemic symptoms) or Complicated (systemic symptoms)? @ -uncomplicated Side effects of treatment? @ -[No] Exacerbation, Progression, or Severe Exacerbation? @ -[No] Poses a threat to life or bodily function? How? (Chest pain, [place], [place], pneumonia, PE, COPD, DKA, ARF, appy, cholecystitis, CVA, Diverticulitis, Homicidal, Suicidal, threat to staff... and all critical care pts) @ -low likleihood Disposition Clinical Impression: Pain, dental Disposition: HOME SELF-CARE Condition: Stable Instructions (If sedation given, give patient instructions): Dental Abscess (ED), Toothache (ED) Prescriptions: Clindamycin [Cleocin] 150 mg PO Q6H #40 capsule Is patient prescribed a controlled substance at d/c from ED?: No Referrals: Juan F Staley DO [Primary Care Provider] - 1-2 days Time of Disposition: 19:17
[2022-12-13] MEDS ORDERED: IBUPROFEN 800 MG TAB PO STA (19:28)
[2022-12-13 19:35] VITALS: BP 159/74; PULSE 92; TEMP 98.1
== END 2022-12-13 19:35 | disposition home or self-care (01) ==
LOC: EC 16:13
DX: K08.89 Other specified disorders of teeth and supporting structures (principal); J45.909 Unspecified asthma, uncomplicated; E07.9 Disorder of thyroid, unspecified; F31.9 Bipolar disorder, unspecified; Z79.890 Hormone replacement therapy; Z79.899 Other long term (current) drug therapy; Z88.0 Allergy status to penicillin; Z88.8 Allergy status to other drugs, medicaments and biological substances; Z79.51 Long term (current) use of inhaled steroids
CPT/HCPCS: 96372 ×2; 99283 ×2; 70150; J1885

== ENCOUNTER → 2023-02-01 | Outpatient (CLI) | payer OTHER ==
--- NOTE | 2023-02-01 14:04 | P.PN ---
Subjective DATE: 02/01/2023 FOLLOW UP VISIT. Patient with obstructive sleep apnea hypopnea syndrome return to sleep center for follow-up visit. Information from previous visit have been reviewed. Patient has some problems related to pressure and mask. The patient does not have significant problems with the mask, PAP unit and humidification. [place] sleepiness scale is 16. I checked information from PAP unit. PAP unit pressure 10 cm H2O. Usage is []% for more then 4 hours, average [] hours per night. Leak is []l/m, which is in acceptable range. Apnea Hypopnea Index is 3.7, which is normal. MEDICATIONS:1. Synthroid 2. Effexor 3. Abilify 4. Prilosec 5. Zestril 6. Buspirone During physical exam: GENERAL: A pleasant patient without any distress. VITAL SIGNS: BP 145 4 101, HR 110, RR 16, weight 271.8, temperature 98.1, oxygen saturation at room air 96 % . HEENT: PERRLA, EOMI.low position of soft palate, Mallapati 4 . NECK: Supple. No JVD. LUNGS: Clear to percussion and to auscultation. Good air exchange. No wheezing or rhonchi. HEART: S1, S2 regular. ABDOMEN: Soft and nontender. Obese EXTREMITIES: No clubbing or cyanosis. PATIENT RESOURCE COORDINATOR: Awake, alert, and oriented x3. No focal deficit. I adjusted CPAP unit regimen to AutoPap with the range of the pressure 4-9 cm of water. Impressions: 1. Obstructive sleep apnea-hypopnea syndrome. Recently patient had some probl em to use CPAP equipment related to the pressure and mask fitting.. Normal apnea-hypopnea index. 2. Obesity, BMI 42.4. 3. Asthma. 4. Status post MONOTYPE MECHANIC shunt insertion. 5. History of headaches. 6. Hypothyroidism. 7. History of peptic ulcer disease. 8. History of irritable bowel syndrome. Plan: 1. Continue using PAP equipment every night for the whole night. 2. To change air filter at least 1-2 times per month. 3. PAP unit should stay lower then position of the head. 4. Advised patient to remove all remaining water from humidifier canister daily and make it dry after each usage. Refill canister with fresh distilled water before each usage. 5. Sleep hygiene with regular time in bed for at least 8 hours. 6. Precautions related to driving. No driving if feel any sleepiness. 7. I will maintain prescription for PAP supplies including mask, tube, filters. 8. Watching and losing weight. 9. Follow up visit in 6 months or earlier if patient has any problems. Thank you very much for allowing me to participate in the management of your patient. Masood Jerez MD, PhD, FAASM. Diplomat of [place] [employer], Sleep Medicine Board by [place] [employer] [facility] [place]
== END ==
LOC: 3 N SLEEP 13:19
PROVIDERS: ATTEND Internal Medicine
DX: G47.33 Obstructive sleep apnea (adult) (pediatric) (principal); E66.9 Obesity, unspecified; J45.909 Unspecified asthma, uncomplicated; R51.9 Headache, unspecified; E03.9 Hypothyroidism, unspecified; K58.9 Irritable bowel syndrome, unspecified; Z87.11 Personal history of peptic ulcer disease; Z98.2 Presence of cerebrospinal fluid drainage device; Z68.41 Body mass index [BMI] 40.0-44.9, adult; Z99.89 Dependence on other enabling machines and devices; Z88.0 Allergy status to penicillin; Z88.8 Allergy status to other drugs, medicaments and biological substances; Z88.5 Allergy status to narcotic agent; Z79.890 Hormone replacement therapy; Z79.51 Long term (current) use of inhaled steroids
CPT/HCPCS: 99212

== ENCOUNTER 2023-06-26 14:00 | Emergency (ER) | payer OTHER ==
[2023-06-26 14:23] VITALS: PULSE 117
--- NOTE | 2023-06-26 15:51 | ED ---
Abdominal Pain HPI - General Chief Complaint: Abdominal Pain Stated Complaint: Abdominal Pressure Time Seen by Provider: 06/26/23 14:49 Source: EMS Mode of arrival: EMS Limitations: no limitations - History of Present Illness Initial Comments: 28-year-old male presents to the ED with chief complaint of abdominal pain. Patient reports 30 minutes prior to arrival ate food. States shortly after that started to experience lower abdominal pain which was reportedly severe in nature. Due to this, called EMS for further evaluation. No changes in bowel or bladder habits. No nausea or vomiting. At this time, patient reports pain is completely resolved. Reports that he was seen here yesterday for the same and was discharged home with referral to see Dr. Matthew HERRON. Denies chest pain shortness of breath. No other complaints. - Related Data Home Medications Medication Instructions Recorded Confirmed ARIPiprazole [Abilify Maintena] 400 mg IM Q28D 03/25/19 04/09/21 Venlafaxine HCl [Effexor XR] 150 mg PO DAILY 09/27/19 04/09/21 Albuterol Inhaler [Ventolin Hfa 2 puff INHALATION RT-Q6H PRN 04/10/20 04/09/21 Inhaler] Albuterol Nebulized [Ventolin 2.5 mg INHALATION RT-QID PRN 04/10/20 04/09/21 Nebulized] Fluticasone Nasal [place] [Flonase 1 spray EA NOSTRIL BID PRN 04/10/20 04/09/21 Nasal [place]] Levothyroxine Sodium 112 mcg PO DAILY 04/10/20 04/09/21 Omeprazole 40 mg PO HS 04/10/20 04/09/21 busPIRone HCL 15 mg PO BID 04/10/20 04/09/21 polyethylene glycoL 3350 [Miralax] 17 gm PO DAILY PRN 04/10/20 04/09/21 Cetirizine HCl [Zyrtec] 10 mg PO DAILY PRN 12/25/20 04/09/21 Dicyclomine [Bentyl] 10 mg PO TID 12/25/20 04/09/21 Fluticasone Propion/Salmeterol 1 inhalation PO QAM 12/25/20 04/09/21 [Advair 250-50 Diskus] Melatonin [Melatonin Dissolving 10 mg PO 12/25/20 04/09/21 Tablet] ondansetron HCL [Zofran] 4 mg PO Q8H PRN 12/25/20 04/09/21 Previous Rx's Medication Instructions Recorded Clindamycin [Cleocin] 150 mg PO Q6H #40 capsule 12/13/22 Allergies Allergy/AdvReac Type Severity Reaction Status Date / Time amoxicillin trihydrate Allergy Anaphylaxis Verified 06/26/23 14:07 [From Augmentin] potassium clavulanate Allergy Anaphylaxis Verified 06/26/23 14:07 [From Augmentin] risperidone [From Risperdal] AdvReac AGGRESSIVE Verified 06/26/23 14:07 Review of Systems ROS Statement: Those systems with pertinent positive or pertinent negative responses have been documented in the HPI. ROS Other: All systems not noted in ROS Statement are negative. Past Medical History Past Medical History: Asthma, Thyroid Disorder Additional Past Medical History / Comment(s): hydrocephalus, past rt humerus broken(sx), History of Any Multi-Drug Resistant Organisms: None Reported Date of last positivie culture/infection: 2010 MDRO Source:: arm Past Surgical History: Hernia Repair, Orthopedic Surgery, Tonsillectomy Additional Past Surgical History / Comment(s): shunt for hydrocephalus and 3 revisions,previously charted pt had exploratory-lap for necrotizing fasciitis in abdomen at age 2 days old.pt not sure what was done., rt humerus sx- rio /screws, harrison inguinal hernia repair as Past Anesthesia/Blood Transfusion Reactions: No Reported Reaction Past Psychological History: ADD/ADHD, Bipolar, Depression Smoking Status: Former smoker - Past Family History Father History Unknown: Yes Mother History Unknown: Yes Family Medical History: No Reported History General Exam Limitations: no limitations General appearance: alert, in no apparent distress Neck exam: Present: normal inspection Respiratory exam: Present: normal lung sounds bilaterally Cardiovascular Exam: Present: regular rate, normal rhythm GI/Abdominal exam: Present: soft (No Tenderness to palpation. No rebound guarding or rigidity.), normal bowel sounds Neurological exam: Present: alert, oriented X3 Skin exam: Present: warm, dry Course Vital Signs 06/26/23 14:03 Pulse Rate 117 H Respiratory 20 Rate Blood Pressure 149/92 O2 Sat by Pulse 97 Oximetry Medical Decision Making - Medical Decision Making Was pt. sent in by a medical professional or institution (, PA, QUALITY CLOTH TESTER, urgent care, hospital, or skilled nursing...) When possible be specific @ -No Did you speak to anyone other than the patient for history (EMS, parent, family, police, friend...)? What history was obtained from this source @ -No Did you review nursing and triage notes (agree or disagree)? Why? @ -I reviewed and agree with nursing and triage notes Were old charts reviewed (outside hosp., previous admission, EMS record, old EKG, old radiological studies, urgent care reports/EKG's, skilled nursing records)? Report findings @ -No old charts were reviewed Differential Diagnosis (chest pain, altered mental status, abdominal pain women, abdominal pain men, vaginal bleeding, weakness, fever, dyspnea, syncope, headache, dizziness, GI bleed, back pain, seizure, CVA, palpatations, mental health, musculoskeletal)? @ -Differential Abdominal Pain Men: Appendicitis, cholecystitis, diverticulosis, ischemic bowel, pancreatitis, hepatitis, UTI, gastroenteritis, AAA, incarcerated hernia, bowel obstruction, constipation, inflammatory bowel, hepatitis, peptic ulcer disease, splenic infarction, perforated viscus, testicular torsion, this is not meant to be an all-inclusive list EKG interpreted by me (3pts min.). @ -As above X-rays interpreted by me (1pt min.). @ -None done CT interpreted by me (1pt min.). @ -None done U/S interpreted by me (1pt. min.). @ -None done What testing was considered but not performed or refused? (CT, X-rays, U/S, labs)? Why? @ -Imaging and blood work were considered however patient reports recent evaluation for this yesterday. Attempted to review records however was unable to locate records from yesterday's visit. At this time, patient reports that all symptoms are resolved and he would like to go home What meds were considered but not given or refused? Why? @ -None Did you discuss the management of the patient with other professionals (professionals i.e. , PA, QUAL[employer] CLOTH TESTER, lab, RT, psych nurse, manager social responsibility, rehab rn, teacher, facility security officer, special education case manager)? Give summary @ -No Was smoking cessation discussed for >3mins.? @ -No Was critical care preformed (if so, how long)? @ -No Were there social determinants of health that impacted care today? How? (Homelessness, low income, unemployed, alcoholism, drug addiction, transportation, low edu. Level, literacy, decrease access to med. care, nursing home, rehab)? @ -No Was there de-escalation of care discussed even if they declined (Discuss DNR or withdrawal of care, Hospice)? DNR status @ -No What co-morbidities impacted this encounter? (DM, HTN, Smoking, COPD, CAD, Cancer, CVA, ARF, Chemo, Hep., AIDS, mental health diagnosis, sleep apnea, morbid obesity)? @ -None Was patient admitted / discharged? Hospital course, mention meds given and route, prescriptions, significant lab abnormalities, going to OR and other pertinent info. @ -Discharge A 28-year-old male presents to ED with a chief complaint of abdominal pain. At this time, patient reports pain is completely resolved. Reports recent evaluation for this yesterday which was unremarkable and patient notes she has follow-up with Dr. Castro. Due to pain being resolved patient reports that he would not like to have any testing at this time and reports that he would like to go home. Exam at this time showed a nontender abdomen. Additionally, vital signs at this time stable afebrile. Patient discharged home in stable condition. Discussed return precautions with patient who verbalizes agreement. Undiagnosed new problem with uncertain prognosis? @ -No Drug Therapy requiring intensive monitoring for toxicity (Heparin, Nitro, Insulin, Cardizem)? @ -No Were any procedures done? @ -No Diagnosis/symptom? @ -Abdominal pain, resolved Acute, or Chronic, or Acute on Chronic? @ -Acute Uncomplicated (without systemic symptoms) or Complicated (systemic symptoms)? @ -Uncomplicated Side effects of treatment? @ -No Exacerbation, Progression, or Severe Exacerbation? @ -No Poses a threat to life or bodily function? How? (Chest pain, [place], [place], pneumonia, PE, COPD, DKA, ARF, appy, cholecystitis, CVA, Diverticulitis, Homicidal, Suicidal, threat to staff... and all critical care pts) @ -No Disposition Clinical Impression: Abdominal pain Disposition: HOME SELF-CARE Condition: Good Additional Instructions: Please return to the Emergency Department if symptoms worsen or any other concerns. Follow up with GI. Is patient prescribed a controlled substance at d/c from ED?: No Referrals: Juan F Staley DO [Primary Care Provider] - 1-2 days Time of Disposition: 15:55
[2023-06-26 16:26] VITALS: BP 144/93; RESP 19; TEMP 98.7
== END 2023-06-26 16:20 | disposition home or self-care (01) ==
LOC: EC 14:00
DX: R10.30 Lower abdominal pain, unspecified (principal); J45.909 Unspecified asthma, uncomplicated; E07.9 Disorder of thyroid, unspecified; F31.9 Bipolar disorder, unspecified; Z79.890 Hormone replacement therapy; Z79.899 Other long term (current) drug therapy; Z88.0 Allergy status to penicillin; Z88.1 Allergy status to other antibiotic agents; Z88.8 Allergy status to other drugs, medicaments and biological substances; Z87.891 Personal history of nicotine dependence
CPT/HCPCS: 99284

== ENCOUNTER 2023-06-28 12:59 | Emergency (ER) | payer OTHER ==
[2023-06-28 13:48] VITALS: TEMP 98.7
--- NOTE | 2023-06-28 13:52 | ED ---
Psych HPI - General Chief Complaint: Psychiatric Symptoms Stated Complaint: Visual Hallucinations Time Seen by Provider: 06/28/23 13:03 Source: patient, EMS Mode of arrival: EMS - History of Present Illness Initial Comments: This 28-year-old male presents with a complaint of feeling like someone is pulling organs out of his body. He states that it also felt like he had somebod y pulling his bone marrow and blood out of his body. He relates that he has had this sensation for the last 4 days. He states that he felt very tremulous at times almost like he was going to have a seizure. He does not have a history of seizures. He does have a history of psychiatric problems relating that he is on the autism spectrum and also has been diagnosed with bipolar disorder. He donny es any recent medication changes. He was taken off Abilify approximately one year ago. He states that his symptoms initially started after doing at a blow marijuana about 3 months ago. He was seen at [facility] emergency department 3 days ago and had full workup including laboratory, urine, and computed tomography scan of the brain which did not show any acute abnormalities. His symptoms have persisted. He denies any fevers or chills. There is no chest pain, shortness breath, or abdominal pain. He denies any other drugs or alcohol. No other complaints or modifying factors. - Related Data Home Medications Medication Instructions Recorded Confirmed Venlafaxine HCl [Effexor XR] 150 mg PO DAILY 09/27/19 06/28/23 Albuterol Inhaler [Ventolin Hfa 2 puff INHALATION RT-Q6H PRN 04/10/20 06/28/23 Inhaler] Fluticasone Nasal [place] [Flonase 1 spray EA NOSTRIL DAILY 04/10/20 06/28/23 Nasal [place]] Levothyroxine Sodium 112 mcg PO DAILY 04/10/20 06/28/23 Omeprazole 40 mg PO HS 04/10/20 06/28/23 busPIRone HCL 15 mg PO BID 04/10/20 06/28/23 Cetirizine HCl [Zyrtec] 10 mg PO DAILY PRN 12/25/20 06/28/23 Dicyclomine [Bentyl] 10 mg PO TID PRN 12/25/20 06/28/23 Fluticasone Propion/Salmeterol 1 puff INHALATION RT-DAILY 12/25/20 06/28/23 [Advair 250-50 Diskus] Melatonin [Melatonin Dissolving 10 mg PO HS 12/25/20 06/28/23 Tablet] Lubiprostone [Amitiza] 24 mcg PO DAILY 06/28/23 06/28/23 Viloxazine HCl [Qelbree] 100 mg PO DAILY 06/28/23 06/28/23 lisinopriL [Zestril] 10 mg PO DAILY 06/28/23 06/28/23 Allergies Allergy/AdvReac Type Severity Reaction Status Date / Time amoxicillin trihydrate Allergy Anaphylaxis Verified 06/28/23 14:14 [From Augmentin] potassium clavulanate Allergy Anaphylaxis Verified 06/28/23 14:14 [From Augmentin] risperidone [From Risperdal] AdvReac AGGRESSIVE Verified 06/28/23 14:14 Review of Systems ROS Statement: Those systems with pertinent positive or pertinent negative responses have been documented in the HPI. ROS Other: All systems not noted in ROS Statement are negative. Past Medical History Past Medical History: Asthma, Thyroid Disorder Additional Past Medical History / Comment(s): hydrocephalus, past rt humerus broken(sx), History of Any Multi-Drug Resistant Organisms: None Reported Date of last positivie culture/infection: 2010 MDRO Source:: arm Past Surgical History: Hernia Repair, Orthopedic Surgery, Tonsillectomy Additional Past Surgical History / Comment(s): shunt for hydrocephalus and 3 revisions,previously charted pt had exploratory-lap for necrotizing fasciitis in abdomen at age 2 days old.pt not sure what was done., rt humerus sx- rio /screws, harrison inguinal hernia repair as infant Past Anesthesia/Blood Transfusion Reactions: No Reported Reaction Past Psychological History: ADD/ADHD, Bipolar, Depression Smoking Status: Former smoker Past Alcohol Use History: None Reported Past Drug Use History: Marijuana - Past Family History Father History Unknown: Yes Mother History Unknown: Yes Family Medical History: No Reported History General Exam - General Exam Comments Initial Comments: GENERAL: The patient is well nourished and well hydrated. VITAL SIGNS: Heart rate, blood pressure, respiratory rate reviewed as recorded in nurse's notes. EYES: Pupils are round and reactive. Extraocular movements are intact. No conjunctival / lid redness or swelling. ENT: No external evidence of injury, swelling, or ecchymosis. Airway is patent. Throat is clear. NECK: Nontender. No swelling or evidence of injury. No subcutaneous emphysema. Trachea is midline. No thyroid mass. HEART: Regular rate and rhythm. Good peripheral pulses. LUNGS/CHEST: Breath sounds clear and equal bilaterally. No rales, rhonchi, or wheezes. No ecchymosis, subcutaneous emphysema, or tenderness. ABDOMEN: Abdomen soft without tenderness. No palpable masses or organomegaly. No peritoneal signs. No abdominal wall swelling or ecchymosis. EXTREMITIES: No extremity tenderness. Normal muscle tone and function. No thoracolumbar tenderness. NEUROLOGIC: Sensation is grossly intact. Cranial nerve exam reveals face is symmetrical, tongue is midline, speech is clear. SKIN: No abrasions or ecchymosis is noted. No induration or masses noted. PSYCHIATRIC: Alert and oriented. Appropriate behavior, pleasant. Limitations: no limitations Course Vital Signs 06/28/23 13:09 Temperature 98.7 F Pulse Rate 101 H Respiratory 20 Rate Blood Pressure 158/92 O2 Sat by Pulse 99 Oximetry Medical Decision Making - Medical Decision Making The patient was seen and examined. All diagnostics were reviewed. Patient had multiple laboratory done which was all essentially within normal limits. Drug screen also was negative. There does not appear to be any medical reason causing his current symptomatology and therefore consultation was obtained for the psych team. The psychiatric nurse did evaluate the patient and they relate that he is at his baseline. They're familiar with him and feels though he stable for discharge home. He apparently has not been taking some of his gastrointestinal medications and they've to instruct him to start taking these medications. They relate that he has close follow-up with his psychiatrist and counselor. Close follow-up is recommended. Return parameters are discussed. Was pt. sent in by a medical professional or institution (, PA, OLIVE KNOCKER, urgent care, hospital, or long-term...) When possible be specific @ -[No] Did you speak to anyone other than the patient for history (EMS, parent, family, police, friend...)? What history was obtained from this source @ -[No] Did you review nursing and triage notes (agree or disagree)? Why? @ -[I reviewed and agree with nursing and triage notes] Were old charts reviewed (outside hosp., previous admission, EMS record, old EKG, old radiological studies, urgent care reports/EKG's, long-term records)? Report findings @ -Old records were reviewed to obtain additional past medical history. Differential Diagnosis (chest pain, altered mental status, abdominal pain women, abdominal pain men, vaginal bleeding, weakness, fever, dyspnea, syncope, headache, dizziness, GI bleed, back pain, seizure, CVA, palpatations, mental health, musculoskeletal)? @ -Conversion disorder, anxiety, bipolar disorder, autism EKG interpreted by me (3pts min.). @ -None X-rays interpreted by me (1pt min.). @ -[None done] CT interpreted by me (1pt min.). @ -[None done] U/S interpreted by me (1pt. min.). @ -[None done] What testing was considered but not performed or refused? (CT, X-rays, U/S, labs)? Why? @ -[None] What meds were considered but not given or refused? Why? @ -[None] Did you discuss the management of the patient with other professionals (professionals i.e. , PA, OLIVE KNOCKER, lab, RT, psych nurse, social science instructor, business continuity global director, teacher, medical corps officer, showcase maker)? Give summary @ -Narendra is discussed with the psychiatric nurse. Was smoking cessation discussed for >3mins.? @ -[No] Was critical care preformed (if so, how long)? @ -[No] Were there social determinants of health that impacted care today? How? (Homelessness, low income, unemployed, alcoholism, drug addiction, transportation, low edu. Level, literacy, decrease access to med. care, group home, rehab)? @ -Social determinants impacting care include that of chronic psychiatric problems and autism. Was there de-escalation of care discussed even if they declined (Discuss DNR or withdrawal of care, Hospice)? DNR status @ -[No] What co-morbidities impacted this encounter? (DM, HTN, Smoking, COPD, CAD, Cancer, CVA, ARF, Chemo, Hep., AIDS, mental health diagnosis, sleep apnea, morbid obesity)? @ -Extensive cardiac history. Was patient admitted / discharged? Hospital course, mention meds given and route, prescriptions, significant lab abnormalities, going to OR and other pertinent info. @ -Patient was discharged. Undiagnosed new problem with uncertain prognosis? @ -[No] Drug Therapy requiring intensive monitoring for toxicity (Heparin, Nitro, Insulin, Cardizem)? @ -[No] Were any procedures done? @ -[No] Diagnosis/symptom? @ -Anxiety, conversion disorder Acute, or Chronic, or Acute on Chronic? @ -Chronic Uncomplicated (without systemic symptoms) or Complicated (systemic symptoms)? @ -Uncomplicated Side effects of treatment? @ -[No] Exacerbation, Progression, or Severe Exacerbation? @ -Exacerbation Poses a threat to life or bodily function? How? (Chest pain, [place], [place], pneumonia, PE, COPD, DKA, ARF, appy, cholecystitis, CVA, Diverticulitis, Homicidal, Suicidal, threat to staff... and all critical care pts) @ -[No] - Lab Data Result diagrams: 06/28/23 13:43 06/28/23 14:20 Lab Results 06/28/23 06/28/23 06/28/23 Range/Units 13:43 13:43 13:43 WBC 8.7 (3.8-10.6) k/uL RBC 5.61 (4.30-5.90) m/uL Hgb 15.5 (13.0-17.5) gm/dL Hct 46.9 (39.0-53.0) % MCV 83.7 (80.0-100.0) fL MCH 27.6 (25.0-35.0) pg MCHC 33.0 (31.0-37.0) g/dL RDW 14.0 (11.5-15.5) % Plt Count 225 (150-450) k/uL MPV 7.6 Neutrophils % 71 % Lymphocytes % 17 % Monocytes % 5 % Eosinophils % 4 % Basophils % 0 % Neutrophils # 6.1 (1.3-7.7) k/uL Lymphocytes # 1.5 (1.0-4.8) k/uL Monocytes # 0.5 (0-1.0) k/uL Eosinophils # 0.3 (0-0.7) k/uL Basophils # 0.0 (0-0.2) k/uL Sodium (137-145) mmol/L Potassium (3.5-5.1) mmol/L Chloride (98-107) mmol/L Carbon Dioxide (22-30) mmol/L Anion Gap mmol/L BUN (9-20) mg/dL Creatinine (0.66-1.25) mg/dL Est GFR (CKD-EPI)AfAm (>60 ml/min/1.73 sqM) Est GFR (CKD-EPI)NonAf (>60 ml/min/1.73 sqM) Glucose (74-99) mg/dL Calcium (8.4-10.2) mg/dL Phosphorus (2.5-4.5) mg/dL Magnesium (1.6-2.3) mg/dL Total Bilirubin (0.2-1.3) mg/dL AST (17-59) U/L ALT (4-49) U/L Alkaline Phosphatase (38-126) U/L Total Protein (6.3-8.2) g/dL Albumin (3.5-5.0) g/dL Urine Color Colorless Urine Appearance Clear (Clear) Urine pH 7.0 (5.0-8.0) Ur Specific [place] 1.013 (1.001-1.035) Urine Protein Negative (Negative) Urine Glucose (UA) Negative (Negative) Urine Ketones Negative (Negative) Urine Blood Negative (Negative) Urine Nitrite Negative (Negative) Urine Bilirubin Negative (Negative) Urine Urobilinogen <2.0 (<2.0) mg/dL Ur Leukocyte Esterase Negative (Negative) Salicylates mg/dL Urine Opiates Screen Not Detected (NotDetected) Ur Oxycodone Screen Not Detected (NotDetected) Urine Methadone Screen Not Detected (NotDetected) Ur Propoxyphene Screen Not Detected (NotDetected) Acetaminophen ug/mL Ur Barbiturates Screen Not Detected (NotDetected) U Tricyclic Antidepress Not Detected (NotDetected) Ur Phencyclidine Scrn Not Detected (NotDetected) Ur Amphetamines Screen Not Detected (NotDetected) U Methamphetamines Scrn Not Detected (NotDetected) U Benzodiazepines Scrn Not Detected (NotDetected) Urine Cocaine Screen Not Detected (NotDetected) U Marijuana (THC) Screen Not Detected (NotDetected) Coronavirus (PCR) Not Detected (Not Detectd) 06/28/23 Range/Units 14:20 WBC (3.8-10.6) k/uL RBC (4.30-5.90) m/uL Hgb (13.0-17.5) gm/dL Hct (39.0-53.0) % MCV (80.0-100.0) fL MCH (25.0-35.0) pg MCHC (31.0-37.0) g/dL RDW (11.5-15.5) % Plt Count (150-450) k/uL MPV Neutrophils % % Lymphocytes % % Monocytes % % Eosinophils % % Basophils % % Neutrophils # (1.3-7.7) k/uL Lymphocytes # (1.0-4.8) k/uL Monocytes # (0-1.0) k/uL Eosinophils # (0-0.7) k/uL Basophils # (0-0.2) k/uL Sodium 139 (137-145) mmol/L Potassium 4.0 (3.5-5.1) mmol/L Chloride 100 (98-107) mmol/L Carbon Dioxide 27 (22-30) mmol/L Anion Gap 12 mmol/L BUN 14 (9-20) mg/dL Creatinine 0.68 (0.66-1.25) mg/dL Est GFR (CKD-EPI)AfAm >90 (>60 ml/min/1.73 sqM) Est GFR (CKD-EPI)NonAf >90 (>60 ml/min/1.73 sqM) Glucose 84 (74-99) mg/dL Calcium 9.8 (8.4-10.2) mg/dL Phosphorus 3.2 (2.5-4.5) mg/dL Magnesium 2.0 (1.6-2.3) mg/dL Total Bilirubin 0.5 (0.2-1.3) mg/dL AST 35 (17-59) U/L ALT 49 (4-49) U/L Alkaline Phosphatase 197 H (38-126) U/L Total Protein 7.5 (6.3-8.2) g/dL Albumin 4.8 (3.5-5.0) g/dL Urine Color Urine Appearance (Clear) Urine pH (5.0-8.0) Ur Specific [place] (1.001-1.035) Urine Protein (Negative) Urine Glucose (UA) (Negative) Urine Ketones (Negative) Urine Blood (Negative) Urine Nitrite (Negative) Urine Bilirubin (Negative) Urine Urobilinogen (<2.0) mg/dL Ur Leukocyte Esterase (Negative) Salicylates <1.0 mg/dL Urine Opiates Screen (NotDetected) Ur Oxycodone Screen (NotDetected) Urine Methadone Screen (NotDetected) Ur Propoxyphene Screen (NotDetected) Acetaminophen <10.0 ug/mL Ur Barbiturates Screen (NotDetected) U Tricyclic Antidepress (NotDetected) Ur Phencyclidine Scrn (NotDetected) Ur Amphetamines Screen (NotDetected) U Methamphetamines Scrn (NotDetected) U Benzodiazepines Scrn (NotDetected) Urine Cocaine Screen (NotDetected) U Marijuana (THC) Screen (NotDetected) Coronavirus (PCR) (Not Detectd) Disposition Clinical Impression: Acute anxiety, Bipolar disorder, Conversion disorder, Autism spectrum disorder Disposition: HOME SELF-CARE Condition: Good Instructions (If sedation given, give patient instructions): Anxiety (ED) Is patient prescribed a controlled substance at d/c from ED?: No Referrals: Juan F Staley DO [Primary Care Provider] - 1-2 days Time of Disposition: 18:10
[2023-06-28 14:04] LABS: Basophils % (A) 0 %; Eosinophils # (A) 0.3 k/uL (0-0.7); Eosinophils % (A) 4 %; HCT 46.9 % (39.0-53.0); HGB 15.5 gm/dL (13.0-17.5); Lymphocytes # (A) 1.5 k/uL (1.0-4.8); Lymphocytes % (A) 17 %; MCH 27.6 pg (25.0-35.0); MCV 83.7 fL (80.0-100.0); Mean Platelet Volume 7.6; Monocytes # (A) 0.5 k/uL (0-1.0); Monocytes % (A) 5 %; Neutrophils # (A) 6.1 k/uL (1.3-7.7); Neutrophils % (A) 71 %; Platelet Count 225 k/uL (150-450); RBC 5.61 m/uL (4.30-5.90); WBC 8.7 k/uL (3.8-10.6)
[2023-06-28 15:09] LABS: ALT 49 U/L (4-49); AST 35 U/L (17-59); Acetaminophen <10.0 ug/mL; African American GFR (CKD) >90 (>60 ml/min/1.73 sqM); Albumin 4.8 g/dL (3.5-5.0); Alkaline Phosphatase 197 U/L (38-126); Anion Gap 12 mmol/L; Blood Urea Nitrogen 14 mg/dL (9-20); Calcium 9.8 mg/dL (8.4-10.2); Carbon Dioxide 27 mmol/L (22-30); Chloride 100 mmol/L (98-107); Glucose 84 mg/dL (74-99); Non-African American GFR(CKD) >90 (>60 ml/min/1.73 sqM); Phosphorus 3.2 mg/dL (2.5-4.5); Salicylate <1.0 mg/dL; Sodium 139 mmol/L (137-145); Total Bilirubin 0.5 mg/dL (0.2-1.3); Total Protein 7.5 g/dL (6.3-8.2)
[2023-06-28 15:27] LABS: Appearance,Urine Clear (Clear); Bilirubin,Urine Negative (Negative); Blood,Urine Negative (Negative); Color,Urine Colorless; Glucose,Urine (UA) Negative (Negative); Ketones,Urine Negative (Negative); Leukocyte Esterase,Urine Negative (Negative); Nitrite,Urine Negative (Negative); Protein,Urine Negative (Negative); Specific Gravity,Urine 1.013 (1.001-1.035); Urobilinogen,Urine <2.0 mg/dL (<2.0)
[2023-06-28 15:39] LABS: Amphetamine Screen,Urine Not Detected (NotDetected); Barbiturate Screen,Urine Not Detected (NotDetected); Benzodiazepines Screen,Urine Not Detected (NotDetected); Cocaine Screen,Urine Not Detected (NotDetected); Methadone Screen, Urine Not Detected (NotDetected); Opiate Screen,Urine Not Detected (NotDetected); Oxycodone Screen, Urine Not Detected (NotDetected); Phencyclidine Screen,Urine Not Detected (NotDetected); Tricyclic Antidepressant,Urine Not Detected (NotDetected); Urn Cannabinoid Scrn Not Detected (NotDetected)
[2023-06-28 18:44] VITALS: BP 157/90; PULSE 107; RESP 22
== END 2023-06-28 18:49 | disposition home or self-care (01) ==
LOC: EC 12:59
DX: F41.9 Anxiety disorder, unspecified (principal); F31.9 Bipolar disorder, unspecified; F44.9 Dissociative and conversion disorder, unspecified; F84.0 Autistic disorder; J45.909 Unspecified asthma, uncomplicated; E07.9 Disorder of thyroid, unspecified; Z20.822 Contact with and (suspected) exposure to COVID-19; Z79.890 Hormone replacement therapy; Z79.51 Long term (current) use of inhaled steroids; Z79.899 Other long term (current) drug therapy; Z87.891 Personal history of nicotine dependence; Z88.0 Allergy status to penicillin; Z88.8 Allergy status to other drugs, medicaments and biological substances
CPT/HCPCS: 36415; 80053; 80143; 80179; 80306; 81003; 82075; 83735; 84100; 85025; 87635; 99285

== ENCOUNTER 2024-06-11 21:25 | Inpatient (IN) | payer MEDICAID, OTHER ==
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
[2024-06-12] MEDS: ZIPRASIDONE 20 MG VIAL IM STA (02:35)
[2024-06-12] MEDS: LORazepam 2 MG/ML INJ IM STA (03:08)
[2024-06-12] MEDS ORDERED: DICYCLOMINE 10 MG CAP PO PRN (09:51)
[2024-06-12] MEDS ORDERED: haloperidoL 5 MG TAB PO PRN (09:53)
[2024-06-12] MEDS ORDERED: LORazepam 1 MG TAB PO PRN (09:53)
[2024-06-12] MEDS ORDERED: MAGNESIUM HYDROXIDE 2,400 MG/30 ML CUP PO PRN (09:53)
[2024-06-12] MEDS ORDERED: OLANZapine 10 MG VIAL IM PRN (09:53)
[2024-06-12] MEDS ORDERED: ACETAMINOPHEN TAB 325 MG TAB PO PRN (09:53)
[2024-06-12] MEDS ORDERED: HALOPERIDOL LACTATE 5 MG/ML 1 ML VIAL IM PRN (10:01)
[2024-06-12] MEDS: lisinopriL 10 MG TAB PO SCH (11:21)
[2024-06-12] MEDS: VENLAFAXINE HCL ER 150 MG CAP PO SCH (11:21)
[2024-06-12] MEDS: LEVOTHYROXINE 112 MCG TAB PO SCH (11:22)
[2024-06-12] MEDS: LURASIDONE 60 MG TAB PO SCH (18:05)
[2024-06-12] MEDS: busPIRone HCl 5 MG TAB PO SCH (22:07)
[2024-06-12] MEDS: MELATONIN 5 MG TABLET PO SCH (22:07)
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
[2024-06-13] MEDS: traZODone HCL 50 MG TAB PO PRN (02:19)
[2024-06-13] MEDS: LORazepam 1 MG TAB PO PRN (02:19)
[2024-06-13 07:10] LABS: Basophils % (A) 1 %; Eosinophils # (A) 0.7 k/uL (0-0.7); Eosinophils % (A) 10 %; HCT 44.7 % (39.0-53.0); Hypochromasia Slight; Lymphocytes % (A) 26 %; MCH 26.6 pg (25.0-35.0); MCHC 31.4 g/dL (31.0-37.0); MCV 84.6 fL (80.0-100.0); Mean Platelet Volume 7.5; Monocytes # (A) 0.4 k/uL (0-1.0); Monocytes % (A) 5 %; Neutrophils # (A) 4.4 k/uL (1.3-7.7); Neutrophils % (A) 57 %; Platelet Count 214 k/uL (150-450); RBC 5.28 m/uL (4.30-5.90); RDW 14.5 % (11.5-15.5); WBC 7.7 k/uL (3.8-10.6)
[2024-06-13 07:27] LABS: ALT 29 U/L (4-49); African American GFR (CKD) >90 (>60 ml/min/1.73 sqM); Albumin 4.1 g/dL (3.5-5.0); Anion Gap 9 mmol/L; Blood Urea Nitrogen 8 mg/dL (9-20); Carbon Dioxide 27 mmol/L (22-30); Chloride 105 mmol/L (98-107); Glucose 97 mg/dL (74-99); Non-African American GFR(CKD) >90 (>60 ml/min/1.73 sqM); Sodium 141 mmol/L (137-145); Total Bilirubin 0.7 mg/dL (0.2-1.3); Total Protein 6.8 g/dL (6.3-8.2)
[2024-06-13 07:28] LABS: AST 29 U/L (17-59); Alkaline Phosphatase 133 U/L (38-126)
[2024-06-13] MEDS: NICOTINE 14MG/24HR PATCH TRANSDERM SCH (10:19)
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
[2024-06-13] MEDS: NYSTATIN 100,000 UNIT/ML SUSP 500,000 UNIT/5 ML CUP PO SCH (17:09)
[2024-06-13] MEDS ORDERED: OLANZapine 10 MG VIAL IM PRN (17:46)
[2024-06-13] MEDS: OLANZapine 10 MG TAB PO PRN (18:20)
[2024-06-13 22:01] LABS: Chol/HDL Ratio 3.59 Ratio; LDL Cholesterol,Calculated 103.9 mg/dL (0.0-131.0)
[2024-06-13] MEDS: traZODone HCL 100 MG TAB PO SCH (22:19)
[2024-06-13] MEDS: busPIRone HCl 5 MG TAB PO SCH (22:19)
[2024-06-13] MEDS: PALIPERIDONE 3 MG TAB.ER.24 PO SCH (22:19)
[2024-06-13] MEDS: ALBUTEROL INHALER 60 PUFF/8 GM INHALER (MHU) INHALATION PRN (22:35)
[2024-06-13] MEDS: SYMBICORT 80-4.5 MCG INHALER INHALATION SCH (23:03)
[2024-06-13 23:18] VITALS: RESP 18
--- NOTE | 2024-06-14 11:40 | P.PN ---
Progress Note - Text Progress Note Date: 06/14/24 Interval History: Patient was seen in his room responding to internal stimuli and was directable and agreeable to speak with clinical writer in the office. He states he feels "fantastic" today. When asked who he was talking to in his room, he states not speaking to anyone and appears to be minimizing his symptoms. He expressed no concerns and states he slept a few hours overnight. Patient received as needed medications yesterday due to responding to internal stimuli but when questioned about this t ariela he states he wishes having fun on the unit. AIMs negative today and patient denied any EPS symptoms. He denied any depression. At this time patient denies any suicidal or homicidal ideations, intent or plan. Patient denies any paranoia or delusions. Patient denies any side effects from the medications and has been compliant with meds. Mental Status Exam: General Appearance: Patient appears to be stated age is alert, directable, and cooperative. Patient has short hair and is overweight Behavior: Patient is calmly seated without any agitated behavior. Speech: Patient's speech is fluent and nonpressured. Mood/Affect: Mood is "fantastic", affect is congruent and constricted. Suicidality/Homicidality: Patient denies having any suicidal or homicidal ideation intent or plan. Perceptions: Patient appeared internally preoccupied at times Though content/process: There is evidence of disorganization in thought process and paranoia Memory and concentration: AOX3, grossly intact for the purposes of this session Judgment and insight: Improving mildly Assessment Bipolar 1 disorder, current episode mixed with psychotic features Autism spectrum disorder Anxiety, unspecified History of ADHD Plan: -Patient continues to meet criteria for inpatient psychiatric admission for symptom stabilization and safety. Patient has not signed adult voluntary form and medication consent and was placed in patient's chart. -Medications: Increase Invega to 6 mg at bedtime for psychosis, continue Effexor XR 150 mg daily for depression, BuSpar 15 mg twice daily for anxiety, melatonin 10 mg at bedtime for sleep, trazodone 100 mg at bedtime for sleep -When necessary Ativan and Haldol for agitation/aggression. -Labs: Reviewed, EKG ordered today -SW on board for discharge planning. Encouraged the patient to participate in milieu. Patient currently on a deferral that expires on 11/18/2024. Demand for hearing was filed by patient's outpatient team given his nonadherence
[2024-06-14] MEDS: MAG HYDROX/AL HYDROX/SIMETH 355 ML BOTTLE PO PRN (20:17)
[2024-06-14] MEDS: PALIPERIDONE 6 MG TAB.ER.24 PO SCH (21:25)
--- NOTE | 2024-06-15 20:00 | P.PN ---
Progress Note - Text Progress Note Date: 06/15/24 Interval history: Patient was seen wandering the hallways laughing to himself and was directable and agreeable to speak with teletypewriter operator. He states he has been laughing at a leyla in his head that he saw on the internet. He has been working on using his DBT skills. He reports good sleep and appetite. At this time patient denies any suicidal or homicidal ideations intent or plan. Denies any auditory or visual hallucinations, but appears to be attending to internal stimuli. Patient denies any side effects from the medications and has been compliant with meds. Mental status exam: General Appearance: Patient appears to be stated age is alert, directable, and cooperative. Behavior: [No agitated behavior. Patient with inappropriate laughter, laughing to himself about a leyal he is thinking of. Speech: Patient's speech is fluent and nonpressured. Mood/Affect: Mood is happy/elevated, affect is congruent and constricted. Suicidality/Homicidality: Patient denies having any suicidal or homicidal ideation intent or plan. Perceptions: Patient denies any auditory or visual hallucinations, but appears to be attending to internal stimuli. Though content/process: There is no evidence of any delusional thought content and thought process is linear with concern for some thought blocking. Memory and concentration: AOX3, grossly intact for the purposes of this session Judgment and insight: Improving mildly Assessment/Plan: Continue with current diagnosis. Patient continues to meet criteria for inpatient psychiatric admission for symptom stabilization and safety. Increase Invega from 6 mg QHS to 9 mg QHS starting tonight for psychosis. Monitor for medication compliance and for any psychotropic medication side effects. Will continue to monitor ongoing response to treatment. Encouraged participation in milieu.
[2024-06-15] MEDS: PALIPERIDONE 3 MG TAB.ER.24 PO SCH (21:53)
--- NOTE | 2024-06-16 21:52 | P.PN ---
Progress Note - Text Progress Note Date: 06/16/24 Interval history: Patient was directable and agreeable to speak with leader writer. He appears to be attending to internal stimuli and smiling to himself. He reports good sleep and appetite. At this time patient denies any suicidal or homicidal ideations intent or plan. Denies any auditory or visual hallucinations, but appears to be attending to internal stimuli. Patient denies any side effects from the medications and has been compliant with meds. He appears happy, fair hygiene, barefoot. Mental status exam: General Appearance: Patient appears to be stated age is alert, directable, and cooperative. Behavior: No agitated behavior. Patient with smiling to himself. Happy but appears to be attending to internal stimuli. Speech: Patient's speech is fluent and non-pressured. Mood/Affect: Mood is happy/elevated, affect is congruent and constricted. Suicidality/Homicidality: Patient denies having any suicidal or homicidal ideation intent or plan. Perceptions: Patient denies any auditory or visual hallucinations, but appears to be attending to internal stimuli. Though content/process: There is no evidence of any delusional thought content and thought process is generally linear. Memory and concentration: AOX3, grossly intact for the purposes of this session Judgment and insight: Improving mildly Assessment/Plan: Continue with current diagnosis. Patient continues to meet criteria for inpatient psychiatric admission for symptom stabilization and safety. Increase Invega from 9 mg QHS to 6 mg BID starting tomorrow morning for psychosis. Monitor for medication compliance and for any psychotropic medication side effects. Will continue to monitor ongoing response to treatment. Encouraged participation in milieu.
[2024-06-17] MEDS: PALIPERIDONE 6 MG TAB.ER.24 PO SCH (09:53)
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
[2024-06-17] MEDS: PALIPERIDONE IM 234 MG/1.5 ML SYG IM ONE (15:25)
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
[2024-06-20] MEDS: PALIPERIDONE IM 156 MG/ML SYG IM ONE (14:22)
[2024-06-21 06:32] VITALS: BP 142/97; PULSE 83; TEMP 97.6
--- NOTE | 2024-06-21 11:42 | P.PN ---
Progress Note - Text Progress Note Date: 06/21/24 Interval History: Patient was seen wandering the hallways and was directable and agreeable to quin pepper with feature writer in the office. Patient was on board for discharge back to apartment however received word during team meetings that patient may not be able to return there and was refusing to sign a release to confirm that he is able to return or not. Upon subsequent interview, patient was agreeable to sign a release however the housing commission is closed today and on Monday and would not reopen until Monday. Patient [facility] is requesting a halfway placement for patient if he is unable to return to his apartment however patient is adamant about not going to a halfway as he wishes to maintain his independence. Patient is agreeable with delaying discharge until next week when we are able to confirm with the housing commission that he is able to return to his apartment or if there is a crisis bed open for patient in the interim. Patient otherwise received his FREEMAN yesterday and is denying any adverse effects. Aims was negative today. He denied any fatigued today and reports sleeping and eating okay. Patient reports feeling anxious regarding his housing situation however notably he is able to maintain his calmness and utilize healthy coping skills. At this time patient denies any suicidal or homicidal ideations, intent or plan. Patient denies any auditory, visual hallucinations and denies any paranoia or delusions. Patient denies any side effects from the medications and has been compliant with meds. Mental Status Exam: General Appearance: Patient appears to be stated age is alert, directable, and cooperative. Patient is overweight and has short hair Behavior: Patient is calmly seated without any agitated behavior. Speech: Patient's speech is fluent and nonpressured. Mood/Affect: Mood is improving mildly, affect is congruent and bright and reactive however anxious at times. Suicidality/Homicidality: Patient denies having any suicidal or homicidal ideation intent or plan. Perceptions: Patient denies any visual hallucinations and denies any auditory h allucinations Though content/process: There is no evidence of any delusional thought content and thought process is linear and goal-directed. Memory and concentration: AOX3, grossly intact for the purposes of this session Judgment and insight: Improving mildly Assessment Bipolar 1 disorder, current episode mixed with psychotic features Autism spectrum disorder Anxiety, unspecified History of ADHD Plan: -Patient continues to meet criteria for inpatient psychiatric admission for symptom stabilization and safety. Patient has not signed adult voluntary form and medication consent and was placed in patient's chart. -Medications: Invega Sustenna 234 mg IM, next dose due on 07/18/2024. Continue Effexor XR 150 mg daily for depression, BuSpar 15 mg twice daily for anxiety, melatonin 10 mg at bedtime for sleep, trazodone 100 mg at bedtime for sleep -When necessary Ativan and Haldol for agitation/aggression. -Labs: Reviewed -NRT -nicotine patch -SW on board for discharge planning. Encouraged the patient to participate in milieu. Patient currently on a deferral from previous hospitalization. Anticipate discharge sometime next week either to mobile crisis unit or back to his apartment. [facility] is recommending halfway placement
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
== END 2024-06-21 13:01 | disposition home or self-care (01) | DRG 753 ==
LOC: EC 21:25 → 3MHU 06-12 09:33
PROVIDERS: ADMIT Psychiatry & Neurology Psychiatry; ATTEND Psychiatry & Neurology Psychiatry
DX: F31.64 Bipolar disorder, current episode mixed, severe, with psychotic features (principal); E03.9 Hypothyroidism, unspecified; F23 Brief psychotic disorder; F41.9 Anxiety disorder, unspecified; F60.3 Borderline personality disorder; F84.5 Asperger's syndrome; I10 Essential (primary) hypertension; J45.909 Unspecified asthma, uncomplicated; Z72.0 Tobacco use; Z79.890 Hormone replacement therapy; Z79.899 Other long term (current) drug therapy; Z91.51 Personal history of suicidal behavior; Z98.2 Presence of cerebrospinal fluid drainage device; Z11.52 Encounter for screening for COVID-19
CPT/HCPCS: 80053; 80061; 82075; 83036; 84439; 84443; 85025; 87636; 93005; 94660; 96372; 99285

== ENCOUNTER 2024-07-25 11:29 | Emergency (ER) | payer OTHER ==
[2024-07-25 11:35] VITALS: TEMP 97.3
--- NOTE | 2024-07-25 12:21 | ED ---
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 He does have history of bowel blockage or bowel backing up but no postsurgery for that. Again he is feeling confused with nausea decreased appetite and less amounts of bowel movements MD Complaint: abdominal pain -: days(s) Location: diffuse, periumbilical Radiation: epigastric Migration to: periumbilical Severity: moderate Severity scale (1-10): 7 Quality: stabbing, aching Consistency: intermittent Improves With: nothing Worsens With: nothing Associated Symptoms: nausea Treatments Prior to Arrival: other (0) - Related Data Home Medications Medication Instructions Recorded Confirmed Venlafaxine HCl [Effexor XR] 150 mg PO DAILY 09/27/19 06/12/24 Previous Rx's Medication Instructions Recorded Albuterol Inhaler [Ventolin Hfa 1 - 2 puff INHALATION Q6H PRN #1 06/21/24 Inhaler] each Albuterol Inhaler [Ventolin Hfa 1 puff INHALATION RT-QID PRN each 06/21/24 Inhaler] Dicyclomine [Bentyl] 10 mg PO TID PRN 30 Days #90 cap 06/21/24 Dicyclomine [Bentyl] 10 mg PO TID PRN 30 Days #90 06/21/24 capsule Levothyroxine Sodium [Synthroid] 112 mcg PO 0630 30 Days #30 tab 06/21/24 Levothyroxine Sodium [Synthroid] 112 mcg PO DAILY 30 Days #30 tab 06/21/24 Melatonin 10 mg PO HS 30 Days #60 tab 06/21/24 Melatonin 10 mg PO HS 30 Days #60 tab 06/21/24 Paliperidone IM [Invega Sustenna] 234 mg IM QMONTHLY #1 each 06/21/24 Venlafaxine HCl ER [Effexor XR] 150 mg PO DAILY 30 Days #30 cap 06/21/24 Venlafaxine HCl ER [Effexor XR] 150 mg PO DAILY 30 Days #30 cap 06/21/24 busPIRone HCL 15 mg PO BID 30 Days #60 tab 06/21/24 busPIRone HCl [Buspar] 15 mg PO TID tab 06/21/24 busPIRone HCl [Buspar] 15 mg PO TID 30 Days #270 tab 06/21/24 lisinopriL [Zestril] 10 mg PO DAILY 30 Days #30 tab 06/21/24 lisinopriL [Zestril] 10 mg PO DAILY 30 Days #30 tab 06/21/24 traZODone HCL [Desyrel] 100 mg PO HS 30 Days #30 tab 06/21/24 traZODone HCL [Desyrel] 100 mg PO HS 30 Days #30 tab 06/21/24 Dicyclomine [Bentyl] 20 mg PO QID #30 tablet 07/25/24 Allergies Allergy/AdvReac Type Severity Reaction Status Date / Time amoxicillin trihydrate Allergy Anaphylaxis Verified 07/25/24 11:35 [From Augmentin] potassium clavulanate Allergy Anaphylaxis Verified 07/25/24 11:35 [From Augmentin] haloperidol [From Haldol] AdvReac Severe Aggressive Verified 07/25/24 11:35 behavior risperidone [From Risperdal] AdvReac AGGRESSIVE Verified 07/25/24 11:35 Review of Systems ROS Statement: Those systems with pertinent positive or pertinent negative responses have been documented in the HPI. ROS Other: All systems not noted in ROS Statement are negative. Past Medical History Past Medical History: Asthma, Thyroid Disorder Additional Past Medical History / Comment(s): hydrocephalus, past rt humerus broken(sx), borderline personality disorder, psychosis sep, december, may 2024 History of Any Multi-Drug Resistant Organisms: None Reported Date of last positivie culture/infection: 2010 MDRO Source:: arm Past Surgical History: Hernia Repair, Orthopedic Surgery, Tonsillectomy Additional Past Surgical History / Comment(s): shunt for hydrocephalus and 3 rev isions,previously charted pt had exploratory-lap for necrotizing fasciitis in abdomen at age 2 days old.pt not sure what was done., rt humerus sx- rio /screws, harrison inguinal hernia repair as infant Past Anesthesia/Blood Transfusion Reactions: No Reported Reaction Past Psychological History: ADD/ADHD, Bipolar, Depression Smoking Status: Former smoker Past Alcohol Use History: None Reported Past Drug Use History: Marijuana - Past Family History Father History Unknown: Yes Mother History Unknown: Yes Family Medical History: No Reported History General Exam Limitations: no limitations General appearance: alert, in no apparent distress, obese Head exam: Present: atraumatic, normocephalic, normal inspection Eye exam: Present: normal appearance, PERRL, EOMI. Absent: scleral icterus, conjunctival injection, periorbital swelling ENT exam: Present: normal exam, mucous membranes moist Neck exam: Present: normal inspection. Absent: tenderness, meningismus, lymphadenopathy Respiratory exam: Present: normal lung sounds bilaterally. Absent: respiratory distress, wheezes, rales, rhonchi, stridor Cardiovascular Exam: Present: regular rate, normal rhythm, normal heart sounds. Absent: systolic murmur, diastolic murmur, rubs, gallop, clicks GI/Abdominal exam: Present: soft, normal bowel sounds. Absent: distended, tend erness, guarding, rebound, rigid Extremities exam: Present: normal inspection, full ROM, normal capillary refill. Absent: tenderness, pedal edema, joint swelling, calf tenderness Back exam: Present: normal inspection Neurological exam: Present: alert, oriented X3, CN II-XII intact Psychiatric exam: Present: normal affect, normal mood Skin exam: Present: warm, dry, intact, normal color. Absent: rash Course Vital Signs 07/25/24 11:32 Temperature 97.3 F L Pulse Rate 78 Respiratory 18 Rate Blood Pressure 154/92 O2 Sat by Pulse 98 Oximetry - Reevaluation(s) Reevaluation #1: 07/25/24 13:22 Medical records reviewed Reevaluation #2: 07/25/24 13:22 Patient symptoms improved Reevaluation #3: 07/25/24 15:56 Patient informed of results questions answered Reevaluation #4: Was pt. sent in by a medical professional or institution (, PA, LAN SPECIALIST, urgent care, hospital, or skilled nursing...) When possible be specific @ -no Did you speak to anyone other than the patient for history (EMS, parent, family, police, friend...)? What history was obtained from this source @ -no Did you review nursing and triage notes (agree or disagree)? Why? @ -agree Are old charts reviewed (outside hosp., previous admission, EMS record, old EKG, old radiological studies, urgent care reports/EKG's, skilled nursing records)? Report findings @ -yes Differential Diagnosis (chest pain, altered mental status, abdominal pain women, abdominal pain men, vaginal bleeding, weakness, fever, dyspnea, syncope, he adache, dizziness, GI bleed, back pain, seizure, CVA, palpatations, mental health, musculoskeletal)? @ -prior EKG interpreted by me (3pts min.). @ -yes X-rays interpreted by me (1pt min.). @ -yes negative for acute disease CT interpreted by me (1pt min.). @ -no U/S interpreted by me (1pt. min.). @ -no What testing was considered but not performed or refused? (CT, X-rays, U/S, labs)? Why? @ -none What meds were considered but not given or refused? Why? @ -none Did you discuss the management of the patient with other professionals (professionals i.e. , PA, LAN SPECIALIST, lab, RT, psych nurse, social services assistant, airport traffic controller, teacher, military source operations officer, case finishing machine adjuster)? Give summary @ -no Was smoking cessation discussed for >3mins.? @ -no Was critical care preformed (if so, how long)? @ -no Were there social determinants of health that impacted care today? How? (Homelessness, low income, unemployed, alcoholism, drug addiction, transportation, low edu. Level, literacy, decrease access to med. care, intermediate, rehab)? @ -none Was there de-escalation of care discussed even if they declined (Discuss DNR or withdrawal of care, Hospice)? DNR status @ -no What co-morbidities impacted this encounter? (DM, HTN, Smoking, COPD, CAD, Cancer, CVA, ARF, Chemo, Hep., AIDS, mental health diagnosis, sleep apnea, m orbid obesity)? @ -none Was patient admitted / discharged? Hospital course, mention meds given and route, prescriptions, significant lab abnormalities, going to OR and other pertinent info. @ - Undiagnosed new problem with uncertain prognosis? @ -no Drug Therapy requiring intensive monitoring for toxicity (Heparin, Nitro, Insulin, Cardizem)? @ -no Were any procedures done? @ -no Diagnosis/symptom? @ - Acute, or Chronic, or Acute on Chronic? @ -Acute Uncomplicated (without systemic symptoms) or Complicated (systemic symptoms)? @ -Complicated Side effects of treatment? @ -no Exacerbation, Progression, or Severe Exacerbation? @ -exacerbation Poses a threat to life or bodily function? How? (Chest pain, [place], NH, pneumonia, PE, COPD, DKA, ARF, appy, cholecystitis, CVA, Diverticulitis, Homicidal, Suicidal, threat to staff... and all critical care pts) @ -yes Reevaluation #5: Differential Abdominal Pain Men: Appendicitis, cholecystitis, diverticulosis, ischemic bowel, pancreatitis, hepatitis, UTI, gastroenteritis, AAA, incarcerated hernia, bowel obstruction, constipation, inflammatory bowel, hepatitis, peptic ulcer disease, splenic infarction, perforated viscus, testicular torsion, this is not meant to be an all-inclusive list Medical Decision Making - Medical Decision Making 29 male with nonspecific abdominal pain no acute cause found here in the ER patient feels well and can be discharged home - Lab Data Result diagrams: 07/25/24 12:50 07/25/24 12:50 Lab Results 07/25/24 07/25/24 07/25/24 Range/Units 12:50 12:50 12:50 WBC 7.2 (3.8-10.6) k/uL RBC 5.64 (4.30-5.90) m/uL Hgb 14.8 (13.0-17.5) gm/dL Hct 46.9 (39.0-53.0) % MCV 83.2 (80.0-100.0) fL MCH 26.2 (25.0-35.0) pg MCHC 31.5 (31.0-37.0) g/dL RDW 14.1 (11.5-15.5) % Plt Count 199 (150-450) k/uL MPV 7.6 Neutrophils % 68 % Lymphocytes % 18 % Monocytes % 5 % Eosinophils % 7 % Basophils % 0 % Neutrophils # 4.9 (1.3-7.7) k/uL Lymphocytes # 1.3 (1.0-4.8) k/uL Monocytes # 0.3 (0-1.0) k/uL Eosinophils # 0.5 (0-0.7) k/uL Basophils # 0.0 (0-0.2) k/uL Sodium 137 (137-145) mmol/L Potassium 4.0 (3.5-5.1) mmol/L Chloride 102 (98-107) mmol/L Carbon Dioxide 30 (22-30) mmol/L Anion Gap 5 mmol/L BUN 15 (9-20) mg/dL Creatinine 0.85 (0.66-1.25) mg/dL Est GFR (CKD-EPI)AfAm >90 (>60 ml/min/1.73 sqM) Est GFR (CKD-EPI)NonAf >90 (>60 ml/min/1.73 sqM) Glucose 90 (74-99) mg/dL Plasma Lactic Acid Tino 1.2 (0.7-2.0) mmol/L Calcium 10.0 (8.4-10.2) mg/dL Total Bilirubin 0.5 (0.2-1.3) mg/dL AST 26 (17-59) U/L ALT 25 (4-49) U/L Alkaline Phosphatase 162 H (38-126) U/L Ammonia <9 (<30) umol/L Total Protein 7.2 (6.3-8.2) g/dL Albumin 4.6 (3.5-5.0) g/dL Amylase 66 (30-110) U/L Lipase 485 H (23-300) U/L Urine Color Urine Appearance (Clear) Urine pH (5.0-8.0) Ur Specific [place] (1.001-1.035) Urine Protein (Negative) Urine Glucose (UA) (Negative) Urine Ketones (Negative) Urine Blood (Negative) Urine Nitrite (Negative) Urine Bilirubin (Negative) Urine Urobilinogen (<2.0) mg/dL Ur Leukocyte Esterase (Negative) Urine RBC (0-5) /hpf Urine WBC (0-5) /hpf Urine Mucus (None) /hpf Urine Yeast (Budding) (None) /hpf Urine Opiates Screen (NotDetected) Ur Oxycodone Screen (NotDetected) Urine Methadone Screen (NotDetected) Ur Barbiturates Screen (NotDetected) U Tricyclic Antidepress (NotDetected) Ur Phencyclidine Scrn (NotDetected) Ur Amphetamines Screen (NotDetected) U Methamphetamines Scrn (NotDetected) U Benzodiazepines Scrn (NotDetected) Urine Cocaine Screen (NotDetected) U Marijuana (THC) Screen (NotDetected) Serum Alcohol <10 mg/dL Influenza Type A (PCR) (Not Detectd) Influenza Type B (PCR) (Not Detectd) RSV (PCR) (Not Detectd) SARS-CoV-2 (PCR) (Not Detectd) 07/25/24 07/25/24 Range/Units 12:50 12:50 WBC (3.8-10.6) k/uL RBC (4.30-5.90) m/uL Hgb (13.0-17.5) gm/dL Hct (39.0-53.0) % MCV (80.0-100.0) fL MCH (25.0-35.0) pg MCHC (31.0-37.0) g/dL RDW (11.5-15.5) % Plt Count (150-450) k/uL MPV Neutrophils % % Lymphocytes % % Monocytes % % Eosinophils % % Basophils % % Neutrophils # (1.3-7.7) k/uL Lymphocytes # (1.0-4.8) k/uL Monocytes # (0-1.0) k/uL Eosinophils # (0-0.7) k/uL Basophils # (0-0.2) k/uL Sodium (137-145) mmol/L Potassium (3.5-5.1) mmol/L Chloride (98-107) mmol/L Carbon Dioxide (22-30) mmol/L Anion Gap mmol/L BUN (9-20) mg/dL Creatinine (0.66-1.25) mg/dL Est GFR (CKD-EPI)AfAm (>60 ml/min/1.73 sqM) Est GFR (CKD-EPI)NonAf (>60 ml/min/1.73 sqM) Glucose (74-99) mg/dL Plasma Lactic Acid Tino (0.7-2.0) mmol/L Calcium (8.4-10.2) mg/dL Total Bilirubin (0.2-1.3) mg/dL AST (17-59) U/L ALT (4-49) U/L Alkaline Phosphatase (38-126) U/L Ammonia (<30) umol/L Total Protein (6.3-8.2) g/dL Albumin (3.5-5.0) g/dL Amylase (30-110) U/L Lipase (23-300) U/L Urine Color Colorless Urine Appearance Cloudy (Clear) Urine pH 7.5 (5.0-8.0) Ur Specific [place] 1.014 (1.001-1.035) Urine Protein Negative (Negative) Urine Glucose (UA) Negative (Negative) Urine Ketones Negative (Negative) Urine Blood Negative (Negative) Urine Nitrite Negative (Negative) Urine Bilirubin Negative (Negative) Urine Urobilinogen <2.0 (<2.0) mg/dL Ur Leukocyte Esterase Negative (Negative) Urine RBC <1 (0-5) /hpf Urine WBC 2 (0-5) /hpf Urine Mucus Rare H (None) /hpf Urine Yeast (Budding) Occasional H (None) /hpf Urine Opiates Screen Not Detected (NotDetected) Ur Oxycodone Screen Not Detected (NotDetected) Urine Methadone Screen Not Detected (NotDetected) Ur Barbiturates Screen Not Detected (NotDetected) U Tricyclic Antidepress Not Detected (NotDetected) Ur Phencyclidine Scrn Not Detected (NotDetected) Ur Amphetamines Screen Not Detected (NotDetected) U Methamphetamines Scrn Not Detected (NotDetected) U Benzodiazepines Scrn Not Detected (NotDetected) Urine Cocaine Screen Not Detected (NotDetected) U Marijuana (THC) Screen Not Detected (NotDetected) Serum Alcohol mg/dL Influenza Type A (PCR) Not Detected (Not Detectd) Influenza Type B (PCR) Not Detected (Not Detectd) RSV (PCR) Not Detected (Not Detectd) SARS-CoV-2 (PCR) Not Detected (Not Detectd) - EKG Data -: EKG Interpreted by Me (EKG is sinus 70 MA 147 QRS 102 QTc 403) - Radiology Data Radiology results: report reviewed (CT abdomen pelvis is negative for acute disease), image reviewed Disposition Clinical Impression: Abdominal pain Disposition: HOME SELF-CARE Condition: Good Instructions (If sedation given, give patient instructions): Abdominal Pain (ED) Prescriptions: Dicyclomine [Bentyl] 20 mg PO QID #30 tablet Is patient prescribed a controlled substance at d/c from ED?: No Referrals: Juan F Staley DO [Primary Care Provider] - 1-2 days Time of Disposition: 15:10
[2024-07-25] MEDS: SODIUM CHLORIDE 0.9% 1,000 ML IV STA (12:51)
[2024-07-25] MEDS: SODIUM CHLORIDE 0.9% 500 ML 500 ML IV STA (12:52)
[2024-07-25] MEDS: ONDANSETRON 4 MG/2 ML VIAL IVP STA (12:54)
[2024-07-25] MEDS: PANTOPRAZOLE 40 MG/10 ML VIAL IVP STA (12:55)
[2024-07-25] MEDS: MORPHINE SULFATE 4 MG/ML SYRINGE IVP STA (12:55)
[2024-07-25] MEDS: KETOROLAC 15 MG/ML 1 ML VIAL IVP STA (12:55)
[2024-07-25 13:10] LABS: Basophils % (A) 0 %; Eosinophils # (A) 0.5 k/uL (0-0.7); Eosinophils % (A) 7 %; HCT 46.9 % (39.0-53.0); HGB 14.8 gm/dL (13.0-17.5); Lymphocytes # (A) 1.3 k/uL (1.0-4.8); Lymphocytes % (A) 18 %; MCH 26.2 pg (25.0-35.0); MCHC 31.5 g/dL (31.0-37.0); MCV 83.2 fL (80.0-100.0); Mean Platelet Volume 7.6; Monocytes # (A) 0.3 k/uL (0-1.0); Monocytes % (A) 5 %; Neutrophils # (A) 4.9 k/uL (1.3-7.7); Neutrophils % (A) 68 %; Platelet Count 199 k/uL (150-450); RBC 5.64 m/uL (4.30-5.90); RDW 14.1 % (11.5-15.5); WBC 7.2 k/uL (3.8-10.6)
[2024-07-25 13:19] LABS: Lactic Acid, Venous 1.2 mmol/L (0.7-2.0)
[2024-07-25 13:23] LABS: ALT 25 U/L (4-49); AST 26 U/L (17-59); African American GFR (CKD) >90 (>60 ml/min/1.73 sqM); Albumin 4.6 g/dL (3.5-5.0); Alcohol <10 mg/dL; Alkaline Phosphatase 162 U/L (38-126); Amylase 66 U/L (30-110); Anion Gap 5 mmol/L; Blood Urea Nitrogen 15 mg/dL (9-20); Carbon Dioxide 30 mmol/L (22-30); Chloride 102 mmol/L (98-107); Glucose 90 mg/dL (74-99); Lipase 485 U/L (23-300); Non-African American GFR(CKD) >90 (>60 ml/min/1.73 sqM); Sodium 137 mmol/L (137-145); Total Bilirubin 0.5 mg/dL (0.2-1.3); Total Protein 7.2 g/dL (6.3-8.2)
[2024-07-25 13:28] LABS: Appearance,Urine Cloudy (Clear); Bilirubin,Urine Negative (Negative); Blood,Urine Negative (Negative); Budding Yeast,Urine Occasional /hpf; Color,Urine Colorless; Glucose,Urine (UA) Negative (Negative); Ketones,Urine Negative (Negative); Leukocyte Esterase,Urine Negative (Negative); Mucus,Urine Rare /hpf; Nitrite,Urine Negative (Negative); PH, Urine 7.5 (5.0-8.0); Protein,Urine Negative (Negative); RBC,Urine <1 /hpf (0-5); Specific Gravity,Urine 1.014 (1.001-1.035); Urobilinogen,Urine <2.0 mg/dL (<2.0); WBC,Urine 2 /hpf (0-5)
[2024-07-25 13:38] LABS: Amphetamine Screen,Urine Not Detected (NotDetected); Barbiturate Screen,Urine Not Detected (NotDetected); Benzodiazepines Screen,Urine Not Detected (NotDetected); Cocaine Screen,Urine Not Detected (NotDetected); Methadone Screen, Urine Not Detected (NotDetected); Opiate Screen,Urine Not Detected (NotDetected); Oxycodone Screen, Urine Not Detected (NotDetected); Phencyclidine Screen,Urine Not Detected (NotDetected); Tricyclic Antidepressant,Urine Not Detected (NotDetected); Urn Cannabinoid Scrn Not Detected (NotDetected)
--- NOTE | 2024-07-25 14:58 | CT ---
EXAMINATION TYPE: CT abdomen pelvis w con CT DLP: 3140.4 mGycm, Automated exposure control for dose reduction was used. DATE OF EXAM: 07/25/2024 2:50 PM COMPARISON: CT abdomen pelvis 04/13/2020 CLINICAL INDICATION:Male, 29 years old with history of pain; generalized abdominal pain TECHNIQUE: Standard CT of the abdomen and pelvis following the administration of 100 cc of Isovue 3 00 IV contrast material. Coronal and sagittal reformats were performed. FINDINGS: LOWER CHEST: Unremarkable ABDOMEN LIVER: Unremarkable GALLBLADDER AND BILE DUCTS: Unremarkable. PANCREAS: Unremarkable. SPLEEN: Unremarkable. ADRENAL GLANDS: Unremarkable. KIDNEYS AND URETERS: No evidence of hydronephrosis or renal calculus. The kidneys enhance symmetrical ly. Contrast is demonstrated within both collecting systems on the delayed phase. PELVIS BLADDER: Incompletely distended but grossly unremarkable. REPRODUCTIVE: Unremarkable. ABDOMEN & PELVIS STOMACH AND BOWEL: Stomach and duodenum are unremarkable. No focal bowel wall thickening or stranding inflammatory changes. The appendix is not definitively identified however there is no significant in flammatory changes within the right lower quadrant. No evidence of bowel obstruction. PERITONEUM: No evidence of pneumoperitoneum or free fluid. VASCULATURE: No evidence of aortic aneurysm. MUSCULOSKELETAL: No acute osseous abnormalities LYMPH NODES: No evidence for lymphadenopathy. SOFT TISSUE/ABDOMINAL WALL: Right anterior abdominal wall. The peak shunt catheter identified which c ourses into the peritoneum and terminates within the anterior mid abdomen. No surrounding fluid colle ction at its distal tip. Fat filled left inguinal hernia. IMPRESSION: No CT evidence for acute abdominal/pelvic process. [facility], , 07/25/2024 2:56 PM
[2024-07-25 16:02] VITALS: BP 148/93; PULSE 71; RESP 20
== END 2024-07-25 16:02 | disposition home or self-care (01) ==
LOC: EC 11:29
DX: R10.13 Epigastric pain (principal); Z88.0 Allergy status to penicillin; Z88.1 Allergy status to other antibiotic agents; Z88.8 Allergy status to other drugs, medicaments and biological substances; Z87.891 Personal history of nicotine dependence
CPT/HCPCS: 36415; 80053; 82140; 82150; 83605; 83690; 85025; 81001; 80306; 87636; 74177; 99284; 96374; 96375 ×3; 96361 ×3; G0480; J2405; J1885; Q9967; J2470; 80320

== ENCOUNTER 2024-08-23 16:30 | Inpatient (IN) | payer MEDICAID, OTHER ==
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
[2024-08-23 18:01] LABS: Amphetamine Screen,Urine Not Detected (NotDetected); Barbiturate Screen,Urine Not Detected (NotDetected); Benzodiazepines Screen,Urine Not Detected (NotDetected); Cocaine Screen,Urine Not Detected (NotDetected); Methadone Screen, Urine Not Detected (NotDetected); Opiate Screen,Urine Not Detected (NotDetected); Oxycodone Screen, Urine Not Detected (NotDetected); Phencyclidine Screen,Urine Not Detected (NotDetected); Tricyclic Antidepressant,Urine Not Detected (NotDetected); Urn Cannabinoid Scrn Not Detected (NotDetected)
[2024-08-23 19:53] LABS: Acetaminophen <10.0 ug/mL; Salicylate <1.0 mg/dL
[2024-08-23] MEDS: DIPH,PERTUS(ACELL)TETVAC-LF 0.5 ML VIAL IM ONE (20:39)
[2024-08-23] MEDS ORDERED: ACETAMINOPHEN TAB 325 MG TAB PO PRN (23:32)
[2024-08-23] MEDS ORDERED: IBUPROFEN 600 MG TAB PO PRN (23:32)
[2024-08-23] MEDS ORDERED: MAGNESIUM HYDROXIDE 2,400 MG/30 ML CUP PO PRN (23:32)
[2024-08-23] MEDS ORDERED: MAG HYDROX/AL HYDROX/SIMETH 355 ML BOTTLE PO PRN (23:32)
[2024-08-23] MEDS ORDERED: OLANZapine 10 MG VIAL IM PRN (23:34)
[2024-08-23] MEDS ORDERED: hydrOXYzine HCL 50 MG/ML 1 ML VIAL IM PRN (23:34)
[2024-08-24] MEDS: hydrOXYzine HCL 25 MG TAB PO PRN (11:24)
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
[2024-08-24] MEDS: VENLAFAXINE HCL ER 37.5 MG CAP PO SCH (13:27)
[2024-08-24] MEDS: OLANZapine 5 MG TAB PO PRN (14:17)
[2024-08-24] MEDS ORDERED: ZINC OXIDE PASTE (Z-GUARD) 1 APPLIC TOPICAL PRN (14:38)
[2024-08-24] MEDS: lisinopriL 10 MG TAB PO SCH (15:36)
--- NOTE | 2024-08-24 20:16 | P.CONS ---
History of Present Illness - Reason for Consult Consult date: 08/24/24 - History of Present Illness This is a 29-year-old male with history of asthma and thyroid disorder, borderline personality disorder, Asperger syndrome, social anxiety disorder, ADD/ADHD/bipolar/depression. Patient comes into the hospital with suicidal ideations that have been ongoing for the last 1 month had a recent attempted overdose with melatonin but reports did not contact EMS at that time. Patient had inflicted rojo upon himself to his neck, upper extremities and back of knees by placing a rag under hot water and placing it on those locations. He also reports cutting his left arm yesterday. Patient reports having a new apartment and landlord has been aggressive and yelling at him and he has concerns with becoming homeless. Due to the worsening suicidal ideations patient notified [facility] who notified police. Patient was brought in and admitted to the mental health unit. Had just been discharged back on 06/21/25. REVIEW OF SYSTEMS: CONSTITUTIONAL: No fever, no malaise, no fatigue. HEENT: No recent visual problems or hearing problems. Denied any sore throat. CARDIOVASCULAR: No chest pain, orthopnea, PND, no palpitations, no syncope. PULMONARY: No shortness of breath, no cough, no hemoptysis. GASTROINTESTINAL: No diarrhea, no nausea, no vomiting, no abdominal pain. NEUROLOGICAL: No headaches, no weakness, no numbness. HEMATOLOGICAL: Denies any bleeding or petechiae. GENITOURINARY: Denies any burning micturition, frequency, or urgency. MUSCULOSKELETAL/RHEUMATOLOGICAL: Denies any joint pain, swelling, or any muscle pain. ENDOCRINE: Denies any polyuria or polydipsia. The rest of the 14-point review of systems is negative. PHYSICAL EXAMINATION: GENERAL: The patient is alert and oriented x3, not in any acute distress. Well developed, well nourished. HEENT: Pupils are round and equally reacting to light. EOMI. No scleral icterus. No conjunctival pallor. Normocephalic, atraumatic. No pharyngeal erythema. No thyromegaly. CARDIOVASCULAR: S1 and S2 present. No murmurs, rubs, or gallops. PULMONARY: Chest is clear to auscultation, no wheezing or crackles. ABDOMEN: Soft, nontender, nondistended, normoactive bowel sounds. No palpable organomegaly. MUSCULOSKELETAL: No joint swelling or deformity. EXTREMITIES: No cyanosis, clubbing, or pedal edema. NEUROLOGICAL: Gross neurological examination did not reveal any focal deficits. SKIN: No rashes. red blistered areas on abdomen neck right thigh back of knees. Assessment and plan Self inflicted second degree rojo Suicidal ideations Depression Bipolar 1 mixed disorder History of autism spectrum disorder History of borderline personality disorder Anxiety disorder History of hydrocephalus with shunt and 3 revisions History of asthma History of thyroid disorder Hypertension GI prophylaxis Full code Plan Zinc barrier paste can be applied twice daily to the affected burn areas monitor for increased swelling, redness, or temps. Patient has been resumed on home medications as appropriate Synthroid has been resumed, lisinopril has been resumed Inhalers have been resumed All other medications per psychiatry Thank you kindly for this consultation we will follow along as needed The impression and plan of care has been dictated by Christine Chandler Nurse Practitioner as directed. Dr. Dana MD I have performed a history and physical examination and medical decision making of this patient, discussed the same with the dictator, and agree with the dictators assessment and plan as written, documented as a scribe. Based on total visit time, I have performed more than 50% of this visit. Past Medical History Past Medical History: Asthma, Thyroid Disorder Additional Past Medical History / Comment(s): hydrocephalus, past rt humerus broken(sx), borderline personality disorder, psychosis sep, december, may 2024 History of Any Multi-Drug Resistant Organisms: None Reported Year Discovered:: 2010 MDRO Source:: arm Past Surgical History: Hernia Repair, Orthopedic Surgery, Tonsillectomy Additional Past Surgical History / Comment(s): shunt for hydrocephalus and 3 revisions,previously charted pt had exploratory-lap for necrotizing fasciitis in abdomen at age 2 days old.pt not sure what was done., rt humerus sx- rio /screws, harrison inguinal hernia repair as infant Past Anesthesia/Blood Transfusion Reactions: No Reported Reaction Past Psychological History: ADD/ADHD, Bipolar, Depression Additional Psychological History / Comment(s): asperger's syndrome, social anxiety disorder, borderline personality disorder Smoking Status: Never smoker Past Alcohol Use History: None Reported Past Drug Use History: Marijuana - Past Family History Father History Unknown: Yes Mother History Unknown: Yes Family Medical History: No Reported History Medications and Allergies Home Medications Medication Instructions Recorded Confirmed Type Levothyroxine Sodium [Synthroid] 112 mcg PO DAILY 30 Days #30 tab 06/21/24 08/23/24 Rx Venlafaxine HCl ER [Effexor XR] 150 mg PO DAILY 30 Days #30 cap 06/21/24 08/23/24 Rx lisinopriL [Zestril] 10 mg PO DAILY 30 Days #30 tab 06/21/24 08/23/24 Rx traZODone HCL [Desyrel] 100 mg PO HS 30 Days #30 tab 06/21/24 08/23/24 Rx Albuterol Inhaler [Ventolin Hfa 2 puff INHALATION RT-Q6H PRN 08/23/24 08/23/24 History Inhaler] Dicyclomine [Bentyl] 10 mg PO TID 08/23/24 08/23/24 History Fluticasone Propion/Salmeterol 1 puff INHALATION RT-BID 08/23/24 08/23/24 History [Wixela 250-50 Inhub] Omeprazole 40 mg PO DAILY 08/23/24 08/23/24 History busPIRone HCl [Buspar] 15 mg PO BID 08/23/24 08/23/24 History polyethylene glycoL 3350 [Miralax] 17 gm PO DAILY 08/23/24 08/23/24 History Allergies Allergy/AdvReac Type Severity Reaction Status Date / Time amoxicillin trihydrate Allergy Anaphylaxis Verified 08/23/24 21:00 [From Augmentin] potassium clavulanate Allergy Anaphylaxis Verified 08/23/24 21:00 [From Augmentin] haloperidol [From Haldol] AdvReac Severe Aggressive Verified 08/23/24 21:00 behavior risperidone [From Risperdal] AdvReac AGGRESSIVE Verified 08/23/24 21:00 Physical Exam Vitals: Vital Signs Temp Pulse Pulse Resp BP BP Pulse Ox 08/24/24 09:49 97.7 F 103 H 18 147/93 95 08/24/24 01:38 97.7 F 93 18 158/88 98 08/24/24 01:18 97.7 F 93 18 158/88 98 08/24/24 00:22 98.9 F 81 18 158/84 96 08/23/24 16:39 98.7 F 90 20 159/100 96 Intake and Output 0108/24/24 08/24/24 22:59 06:59 14:59 Other: Weight 127.006 kg 129 kg Assessment and Plan Time with Patient: Less than 30
[2024-08-24] MEDS: traZODone HCL 50 MG TAB PO SCH (21:23)
[2024-08-24] MEDS: PALIPERIDONE 3 MG TAB.ER.24 PO SCH (21:23)
[2024-08-24] MEDS: busPIRone HCl 5 MG TAB PO SCH (21:23)
[2024-08-24] MEDS: SYMBICORT 80-4.5 MCG INHALER INHALATION SCH (21:42)
[2024-08-25] MEDS: LEVOTHYROXINE 112 MCG TAB PO SCH (06:59)
[2024-08-25] MEDS: PANTOPRAZOLE 40 MG TABLET PO SCH (08:32)
[2024-08-25 09:02] LABS: Appearance,Urine Clear (Clear); Bilirubin,Urine Negative (Negative); Blood,Urine Negative (Negative); Color,Urine Yellow; Glucose,Urine (UA) Negative (Negative); Ketones,Urine Negative (Negative); Leukocyte Esterase,Urine Negative (Negative); Nitrite,Urine Negative (Negative); PH, Urine 6.5 (5.0-8.0); Protein,Urine Negative (Negative); Specific Gravity,Urine 1.022 (1.001-1.035); Urobilinogen,Urine <2.0 mg/dL (<2.0)
[2024-08-25 12:42] LABS: Urine Alcohol Negative (Negative)
[2024-08-25 12:43] LABS: Urine Barbiturate Negative (Negative); Urine Cocaine Negative (Negative); Urine Methadone Negative (Negative); Urine Opiates Negative (Negative); Urine Phencyclidine Negative (Negative)
--- NOTE | 2024-08-25 13:13 | P.PN ---
Progress Note - Text Progress Note Date: 08/25/24 Dictation was produced using [employer] dictation software. Please excuse any grammatical, word or spelling errors. Interval history: Patient was seen in the hallway and was directable and agreeable to speak with the commercial loan underwriter in his room for psychiatric follow-up. The pt states that he is feeling a little bit better today, reported that his mood is "good." He reported that depression and anxiety are at the low to moderate side, reported that mainly both related to to his placement following this hospitalization and reported that he would like to speak with the psychiatric social worker so he can find out about his options, reported that his landlord is the main reason for his hospitalization and his feelings. He denied any current suicidal, self-harm or homicidal thoughts or behavior, denied any auditory or visual hallucination. Claims that he slept well overnight and reports that he has good appetite. He was started on his home medication yesterday however on a smaller dose, he denied any current side effects and reported that he is tolerating the medication well. Mental status exam: General Appearance: Patient appears to be stated age is alert, directable, and attempts to cooperate. Patient appears to have poor hygiene and grooming. He has redness over his neck and few scratches over his forearm. Behavior: Patient is laying in bed without any agitated behavior. He was emotional and anxious at times. Speech: Patient's speech is fluent and nonpressured. Mood/Affect: Patient reports their mood is " good", affect is flat, congruent and constricted. Suicidality/Homicidality: Patient denies having any homicidal ideation intent or plan. Denies any suicidal ideations intent or plan, however patient is guarded, conservative and he had recent suicidal thoughts and suicide attempt prior to this hospitalization Perceptions: Patient denies any visual hallucinations and denies any auditory hallucinations Though content/process: There is no evidence of any delusional thought content and thought process is linear and goal-directed. Memory and concentration: AOX3, grossly intact for the purposes of this session. Can spell "WORLD" backwards Judgment and insight: poor IMPRESSIONS: Bipolar I disorder, current episode depressed History of autism spectrum disorder Anxiety disorder, unspecified History of borderline personality disorder Assessment/Plan: Continue with current diagnosis. Patient continues to meet criteria for inpatient psychiatric admission for symptom stabilization and safety. Patient will be maintained on current psychotropic medication regimen, patient was restarted on his home medication yesterday however at a smaller dose since he was not compliant with medication, we will continue with Invega 3 mg p.o. at bedtime, Effexor XR 37.5 mg p.o. daily, BuSpar 5 mg p.o. twice daily, and trazodone 50 mg at bedtime, may consider increasing the dose over the next few days pending the patient progress and toleration. Monitor for medication compliance and for any psychotropic medication side effects. Will continue to monitor ongoing response to treatment. Encourage patient to participate in groups to work on coping skills. grey roll worker to check on legal status since patient has deferred till 11/18/2024 and his outpatient team asked for demand for hearing last visit. Patient was seen by the medical team.
--- NOTE | 2024-08-26 12:51 | P.PN ---
Progress Note - Text Progress Note Date: 08/26/24 Interval History: Patient was seen today for psychiatric follow-up. Patient was very particular about his medications, he was explaining that he was feeling very hopeless dealing with his landlord. States that he was feeling suicidal, was having racing thoughts. He did endorse having history of bipolar disorder. Claims that he does go to [facility], he did speak about being on a court order. He has fairly poor insight poor judgment. Was somewhat argumentative mainly about his medications, not irritable today with copy writer. Claims that he still feeling depressed anxious, claims that his sleep is fair appetite is fair. Denying any auditory or visual donations. Denying any suicidal homicidal ideations intent or plan. MENTAL STATUS EXAM: General Appearance: Patient appears to be stated age is alert, directable, and attempts to cooperate. Patient appears to have poor hygiene and grooming. Shuffled appearance. Overweight Behavior: Patient is seated at the side of his bed without any agitated behavior. Speech: Patient's speech is fluent and nonpressured. Early concrete, monotone Mood/Affect: Patient reports their mood is depressed and endorsing anxiety, affect is flat, congruent and constricted. Suicidality/Homicidality: Patient denies having any homicidal ideation intent or plan. Denies any suicidal ideations intent or plan Perceptions: Patient denies any visual hallucinations and denies any auditory hallucinations Though content/process: There is no evidence of any delusional thought content and thought process is linear and goal-directed. Evasive at times, guarded focused on his medications Memory and concentration: AOX3, grossly intact for the purposes of this session Judgment and insight: Chronically poor/limited IMPRESSIONS: Schizoaffective disorder,depressed type autism spectrum disorder Anxiety disorder, unspecified borderline personality disorder PLAN: -Patient is admitted under involuntary status to [facility] for stabilization of psychiatric symptoms and safety. Patient has not signed adult voluntary form. However he signed medication consent and is placed in patient's chart. currently on an AISSATOU expiring on 11/18/2024 -Medications : d/c Invega po due to reported intolerance, replace with Prolixin 2.5 mg bid for psychosis/mood stabilization with a plan to transition to FREEMAN prior to discharge. Effexor XR 37.5 mg p.o. daily BuSpar 5 mg p.o. twice daily trazodone 50 mg p.o. at bedtime -Zyprexa, and hydroxyzine PRN for agitation/aggression -NRT -does not needed as patient does not smoke -SW on board for discharge planning. Encourage patient to participate in groups to work on coping skills. currently on an AISSATOU expires on 11/18/2024. Will continu e to work on discharge planning likely back home once patient is psychiatrically stable
--- NOTE | 2024-08-27 10:08 | P.PN ---
Progress Note - Text Progress Note Date: 08/27/24 Interval History: Patient was seen today for psychiatric follow-up. He claims that he showered earlier on today. Claims that he is eating well. He was somewhat concrete today however did state that he feels he is doing a bit better with the medications. Is not reporting any depression or anxiety today. States that he did go to some groups earlier however is fairly vague about what he is learning. Continues to have fairly superficial insight into his condition. Claims that he slept fairly throughout the night. Denying any auditory or visual donations. Denying any suicidal homicidal ideations intent or plan. MENTAL STATUS EXAM: General Appearance: Patient appears to be stated age is alert, directable, and attempts to cooperate. Patient appears to have improving hygiene and grooming. Overweight Behavior: Patient is seated without any agitated behavior. Speech: Patient's speech is fluent and nonpressured. concrete, monotone, improving mildly Mood/Affect: Patient reports their mood is depressed and endorsing anxiety, affect is flat, congruent and constricted. Suicidality/Homicidality: Patient denies having any homicidal ideation intent or plan. Denies any suicidal ideations intent or plan Perceptions: Patient denies any visual hallucinations and denies any auditory hallucinations Though content/process: There is no evidence of any delusional thought content and thought process is linear and goal-directed. guarded focused on his medications Memory and concentration: AOX3, grossly intact for the purposes of this session Judgment and insight: Chronically poor/limited, improving mildly IMPRESSIONS: Schizoaffective disorder,depressed type autism spectrum disorder Anxiety disorder, unspecified borderline personality disorder PLAN: -Patient is admitted under involuntary status to [facility] for stabilization of psychiatric symptoms and safety. Patient has not signed adult voluntary form. However he signed medication consent and is placed in patient's chart. currently on an AISSATOU expiring on 11/18/2024 -Medications : Increase Prolixin 3 mg bid for psychosis/mood stabilization with a plan to transition to FREEMAN prior to discharge likely if patient is tolerating medication well Effexor XR 37.5 mg p.o. daily BuSpar 5 mg p.o. twice daily trazodone 50 mg p.o. at bedtime -Zyprexa, and hydroxyzine PRN for agitation/aggression -NRT -does not needed as patient does not smoke -SW on board for discharge planning. Encourage patient to participate in groups to work on coping skills. currently on an AISSATOU expires on 11/18/2024. Will continue to work on discharge planning likely back home once patient is psychiatrically stable. Possible discharge end of this week or early next week.
[2024-08-28] MEDS: ALBUTEROL HFA INHALER INHALATION PRN (09:09)
--- NOTE | 2024-08-28 11:40 | P.PN ---
Progress Note - Text Progress Note Date: 08/28/24 Interval History: Patient was seen today for psychiatric follow-up. He is seen to be more He cl aims that he showvisible on the unit. Claims that he has been doing a bit better. He continues to be fairly concrete with his answers. States that he is taking his medications not reporting any side effects at this time. We spoke about transitioning onto a long-acting injection which she is agreeable to. Denying any depression at this time. States that he was a bit hesitant to go to a detention however is showing more optimism about it. Claims that he is eating well. Continues to have fairly superficial insight into his condition. Claims that he slept fairly throughout the night. Denying any auditory or visual donations. Denying any suicidal homicidal ideations intent or plan. MENTAL STATUS EXAM: General Appearance: Patient appears to be stated age is alert, directable, and attempts to cooperate. Patient appears to have improving hygiene and grooming. Overweight Behavior: Patient is seated without any agitated behavior. More cooperative today Speech: Patient's speech is fluent and nonpressured. concrete, monotone, improving mildly Mood/Affect: Patient reports their mood is improving, affect is flat, congruent and constricted. Suicidality/Homicidality: Patient denies having any homicidal ideation intent or plan. Denies any suicidal ideations intent or plan Perceptions: Patient denies any visual hallucinations and denies any auditory hallucinations Though content/process: There is no evidence of any delusional thought content and thought process is linear and goal-directed. Fairly concrete Memory and concentration: AOX3, grossly intact for the purposes of this session Judgment and insight: Chronically poor/limited, improving mildly IMPRESSIONS: Schizoaffective disorder,depressed type autism spectrum disorder Anxiety disorder, unspecified borderline personality disorder PLAN: -Patient is admitted under involuntary status to [facility] for stabilization of psychiatric symptoms and safety. Patient has not signed adult voluntary form. However he signed medication consent and is placed in patient's chart. currently on an AISSATOU expiring on 11/18/2024 -Medications : Prolixin PO 3 mg bid for psychosis/mood stabilization with a plan to transition to FREEMAN tomorrow if patient is tolerating medication well Effexor XR 37.5 mg p.o. daily BuSpar 5 mg p.o. twice daily trazodone 50 mg p.o. at bedtime -Zyprexa, and hydroxyzine PRN for agitation/aggression -NRT -does not needed as patient does not smoke -SW on board for discharge planning. Encourage patient to participate in groups to work on coping skills. currently on an AISSATOU expires on 11/18/2024. Will continue to work on discharge planning with [facility], awaiting detention consult. Possible discharge end of this early next week once patient is transitioned onto FREEMAN and gets into a detention.
--- NOTE | 2024-08-29 10:26 | P.PN ---
Progress Note - Text Progress Note Date: 08/29/24 Interval History: Patient was seen today for psychiatric follow-up. Patient claims that he is d oing fair today however is complaining of feeling "tired" with the Prolixin. He is not reporting any other side effects such as muscle spasms or tremors. He spoke about other medication options that would be able to transition onto long- acting injection and patient was comfortable with continuing on with a lower dose of Prolixin. He is seen to be more He claims that he showvisible on the unit. He continues to be fairly concrete with his answers. No significant behavioral changes or agitation. We spoke about transitioning onto a long- acting injection which she is agreeable to. Denying any depression at this time. Claims that he is eating well slept well last night. Continues to have fairly superficial insight into his condition. Denying any auditory or visual donations. Denying any suicidal homicidal ideations intent or plan. MENTAL STATUS EXAM: General Appearance: Patient appears to be stated age is alert, directable, and attempts to cooperate. Patient appears to have improving hygiene and grooming. Overweight Behavior: Patient is seated without any agitated behavior. More cooperative today Speech: Patient's speech is fluent and nonpressured. concrete, improving mildly Mood/Affect: Patient reports their mood is improving, affect is flat, congruent and constricted. Suicidality/Homicidality: Patient denies having any homicidal ideation intent or plan. Denies any suicidal ideations intent or plan Perceptions: Patient denies any visual hallucinations and denies any auditory hallucinations Though content/process: There is no evidence of any delusional thought content and thought process is linear and goal-directed. Fairly concrete Memory and concentration: AOX3, grossly intact for the purposes of this session Judgment and insight: Chronically poor/limited, improving mildly IMPRESSIONS: Schizoaffective disorder,depressed type autism spectrum disorder Anxiety disorder, unspecified borderline personality disorder PLAN: -Patient is admitted under involuntary status to [facility]HU for stabilization of psychiatric symptoms and safety. Patient has not signed adult voluntary form. However he signed medication consent and is placed in patient's chart. currently on an AISSATOU expiring on 11/18/2024 -Medications : decrease/change Prolixin PO to 1 mg daily + 3 qhs for psychosis/mood stabilization with a plan to transition to FREEMAN tomorrow if patient is tolerating medication well. would suggest giving a dose of Prolixin D 12.5 mg IM q2-3weeks starting tomorrow and taper off PO prolixin dose. Effexor XR 37.5 mg p.o. daily BuSpar 5 mg p.o. twice daily decrease trazodone 25 mg p.o. at bedtime -Zyprexa, and hydroxyzine PRN for agitation/aggression -NRT -does not needed as patient does not smoke -SW on board for discharge planning. Encourage patient to participate in groups to work on coping skills. currently on an AISSATOU expires on 11/18/2024. Will continue to work on discharge planning with [facility], awaiting intermediate consult. Possible discharge early next week once patient is transitioned onto FREEMAN and gets into a intermediate.
[2024-08-29] MEDS: traZODone HCL 50 MG TAB PO SCH (21:16)
--- NOTE | 2024-08-30 14:33 | P.PN ---
Progress Note - Text Progress Note Date: 08/30/24 Interval History: Patient was seen today via telehealth in cross-coverage for Dr. Carlson. Patient claims he is feeling "pretty good" and affect is mood congruent. He is compliant with medications and denies medication side effects. He reports good sleep last night, appetite is good. He denies AH, VH. He denies paranoid delusions. He continues to be fairly concrete with his answers. No significant behavioral changes or agitation. He is denying any suicidal homicidal ideation, intent or plan. We discussed transitioning onto the Prolixin injection today in place of the oral Prolixin and he expressed agreement. MENTAL STATUS EXAM: General Appearance: Patient appears to be stated age, obese, dressed in hospital gown. Behavior: Patient is seated without any agitated behavior. Attempt to cooperate, polite. Speech: Patient's speech is fluent and non-pressured. Mood/Affect: Patient reports their mood is "pretty good", affect is somewhat blunted, mood-congruent and constricted. Suicidality/Homicidality: Patient denies having any homicidal ideation intent or plan. Denies any suicidal ideation, intent or plan Perceptions: Patient denies any visual hallucinations and denies any auditory hallucinations Though content/process: There is no evidence of any delusional thought content and thought process appears to be concrete. Memory and concentration: AOX3, grossly intact for the purposes of this session Judgment and insight: Chronically poor/limited, improving mildly IMPRESSIONS: Schizoaffective disorder,depressed type Autism spectrum disorder Anxiety disorder, unspecified Borderline personality disorder PLAN: -Patient is admitted under involuntary status to [facility] for stabilization of psychiatric symptoms and safety. Patient has not signed adult voluntary form. However he signed medication consent and is placed in patient's chart. Currently on a deferral expiring on 11/18/2024. He has a temporary public guardian. -Medications : Transition to Prolixin Decanoate 12.5 mg IM q2 weeks for psychosis. First dose ordered for today. Discontinue Prolixin oral Prolixin since he will be starting the decanoate today. Continue Effexor XR 37.5 mg p.o. daily Continue Buspar 5 mg p.o. twice daily Continue Trazodone 25 mg p.o. at bedtime -Zyprexa, and hydroxyzine PRN for agitation/aggression -NRT - does not needed as patient does not smoke -SW on board for discharge planning. Encourage patient to participate in groups to work on coping skills. -He is currently on a deferral which expires on 11/18/2024. Treatment team will continue to work on discharge planning with [facility]; awaiting [facility]p consult. Possible discharge early next week once patient is transitioned onto [facility] and [facility] placement is found.
[2024-08-30] MEDS: fluPHENAZine DECANOATE 25 MG/ML 5ML MDV IM SCH (14:39)
--- NOTE | 2024-08-31 09:24 | P.PN ---
Subjective Progress Note Date: 08/31/24 Patient was seen today he was getting exercise in the halls and came readily to talk to me. Patient claims he is feeling "pretty good" and affect is mood congruent. He is compliant with medications and denies medication side effects.he had the first Prolixin shot last night and is tolerating it well. He reports good sleep last night, appetite is good. He denies AH, VH. He denies paranoid delusions. He continues to be fairly concrete with his answers. No significant behavioral changes or agitation. He is denying any suicidal homicidal ideation, intent or plan. MENTAL STATUS EXAM: patient good eye contact reasonable response times minimal self-care but his hair was clean and is cooperative General Appearance: Patient appears to be stated age, obese, dressed in hospital gown. Behavior: Patient is seated without any agitated behavior. Attempt to cooperate, polite. Speech: Patient's speech is fluent and non-pressured. Mood/Affect: Patient reports their mood is "pretty good", affect is somewhat blunted, mood-congruent and constricted. Suicidality/Homicidality: Patient denies having any homicidal ideation intent or plan. Denies any suicidal ideation, intent or plan Perceptions: Patient denies any visual hallucinations and denies any auditory hallucinations Though content/process: There is no evidence of any delusional thought content and thought process appears to be concrete. Memory and concentration: AOX3, grossly intact for the purposes of this session Judgment and insight: Chronically poor/limited, improving mildly IMPRESSIONS: seems to be improving Schizoaffective disorder,depressed type Autism spectrum disorder Anxiety disorder, unspecified Borderline personality disorder PLAN: -Patient is admitted under involuntary status to [facility] for stabilization of psychiatric symptoms and safety. Patient has not signed adult voluntary form. However he signed medication consent and is placed in patient's chart. Currently on a deferral expiring on 11/18/2024. He has a temporary public guardian. -Medications : Transition to Prolixin Decanoate 12.5 mg IM q2 weeks for psychosis. First dose ordered for today. Discontinue Prolixin oral Prolixin since he will be starting the decanoate today. Continue Effexor XR 37.5 mg p.o. daily Continue Buspar 5 mg p.o. twice daily Continue Trazodone 25 mg p.o. at bedtime -Zyprexa, and hydroxyzine PRN for agitation/aggression -NRT - does not needed as patient does not smoke -SW on board for discharge planning. Encourage patient to participate in groups to work on coping skills. -He is currently on a deferral which expires on 11/18/2024. Treatment team will continue to work on discharge planning with [facility]; awaiting alf consult. Possible discharge early next week once patient is transitioned onto [facility] and alf placement is found. Objective - Vital Signs Vital signs: Vital Signs Temp 97.2 F L 08/30/24 07:14 Pulse 91 08/30/24 07:14 Resp 16 08/29/24 09:08 BP 122/87 08/30/24 07:14 Pulse Ox 93 L 08/30/24 07:14 FiO2
--- NOTE | 2024-09-01 14:24 | P.PN ---
Subjective Progress Note Date: 09/01/24 Principal diagnosis: schizoaffective disorder Patient was seen today he was getting exercise in the halls and came readily to talk to me. Patient claims he is feeling "pretty good" and affect is mood congruent. He is compliant with medications and denies medication side effects.he had the first Prolixin shot night before last and is tolerating it well. He reports good sleep last night, appetite is good. He denies AH, VH. He denies paranoid delusions. He continues to be fairly concrete with his answers. No significant behavioral changes or agitation. He is denying any suicidal homicidal ideation, intent or plan. He wanted to talk about holistic treatment including tools he has picked up in DBT training. He still feels that he needs to medications but, " might get by on less if he lives healthy." MENTAL STATUS EXAM: patient good eye contact reasonable response times minimal self-care but his hair was clean and is cooperative General Appearance: Patient appears to be stated age, obese, dressed in hospital gown. Behavior: Patient is seated without any agitated behavior. Attempt to cooperate, polite. Speech: Patient's speech is fluent and non-pressured. Mood/Affect: Patient reports their mood is "pretty good", affect is somewhat blunted, mood-congruent and constricted. Suicidality/Homicidality: Patient denies having any homicidal ideation intent or plan. Denies any suicidal ideation, intent or plan Perceptions: Patient denies any visual hallucinations and denies any auditory hallucinations Though content/process: There is no evidence of any delusional thought content and thought process appears to be concrete. Memory and concentration: AOX3, grossly intact for the purposes of this session Judgment and insight: Chronically poor/limited, improving mildly IMPRESSIONS: seems to be improving Schizoaffective disorder,depressed type Autism spectrum disorder Anxiety disorder, unspecified Borderline personality disorder PLAN: -Patient is admitted under involuntary status to [facility] for stabilization of psychiatric symptoms and safety. Patient has not signed adult voluntary form. However he signed medication consent and is placed in patient's chart. Currently on a deferral expiring on 11/18/2024. He has a temporary public guardian. -Medications : Transition to Prolixin Decanoate 12.5 mg IM q2 weeks for psychosis. First dose ordered for today. Discontinue Prolixin oral Prolixin since he will be starting the decanoate today. Continue Effexor XR 37.5 mg p.o. daily Continue Buspar 5 mg p.o. twice daily Continue Trazodone 25 mg p.o. at bedtime -Zyprexa, and hydroxyzine PRN for agitation/aggression -NRT - does not needed as patient does not smoke -SW on board for discharge planning. Encourage patient to participate in groups to work on coping skills. -He is currently on a deferral which expires on 11/18/2024. Treatment team will continue to work on discharge planning with [facility]; awaiting [facility] consult. Possible discharge early next week once patient is transitioned onto [facility] and [facility] placement is found. Objective - Vital Signs Vital signs: Vital Signs Temp 97.2 F L 08/30/24 07:14 Pulse 103 H 09/01/24 09:00 Resp 16 08/29/24 09:08 BP 118/84 09/01/24 09:00 Pulse Ox 93 L 08/30/24 07:14 FiO2
[2024-09-02 08:46] VITALS: RESP 18; TEMP 98.2
[2024-09-02] MEDS: VENLAFAXINE HCL ER 37.5 MG CAP PO STA (12:16)
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
[2024-09-03] MEDS: VENLAFAXINE HCL ER 75 MG CAP PO SCH (08:42)
[2024-09-03 08:44] VITALS: BP 126/84; PULSE 108
[2024-09-03 10:23] VITALS: BMI 46.8
--- NOTE | 2024-09-03 11:53 | P.PN ---
Progress Note - Text Progress Note Date: 09/03/24 Interval History: Patient was seen today for psychiatric follow-up. He was in the lounge talking with another patient interacting well. Patient claims he is feeling "good" today and did not have any overnight complaints. affect is mood congruent. He is compliant with medications and denies medication side effects. He claims that he he received his first dose of Prolixin decanoate on 08/30/24 and is tolerating it well so far. He states that his appetite is good. He was asking about potential discharge. He continues to be fairly concrete with his answers. No significant behavioral changes or agitation. He is denying any suicidal or homicidal ideations intent or plan.He denies AH, VH. He denies paranoid delusions. MENTAL STATUS EXAM: General Appearance: Patient appears to be stated age, obese, dressed in [facility] gown. Behavior: Patient is seated without any agitated behavior. Attempts to cooperate, polite. Speech: Patient's speech is fluent and non-pressured. Fairly concrete Mood/Affect: Patient reports their mood is "good", affect is euthymic Suicidality/Homicidality: Patient denies having any homicidal ideation, intent or plan. Perceptions: Patient denies any visual hallucinations and denies any auditory hallucinations Though content/process: There is no evidence of any delusional thought content and thought process appears to be linear. Fairly concrete, more future oriented Memory and concentration: AOX3, grossly intact for the purposes of this session Judgment and insight: Chronically poor/limited, improving mildly IMPRESSIONS: Schizoaffective disorder, depressed type Autism spectrum disorder Anxiety disorder, unspecified Borderline personality disorder PLAN: -Patient is admitted under involuntary status to [facility] for stabilization of psychiatric symptoms and safety. Patient has not signed adult voluntary form. However he signed medication consent and is placed in patient's chart. Currently on a deferral expiring on 11/18/2024. He has a temporary public guardian. -Medications : Prolixin Decanoate 12.5 mg IM q2 weeks for psychosis. First dose given 08/30/24, next dose given 09/13/24. Effexor XR 75 mg p.o. daily in the morning for depression/anxiety Continue Buspar 5 mg p.o. twice daily for anxiety. Continue Trazodone 25 mg p.o. at bedtime for sleep. Continue Hydroxyzine 50 mg Q4H PRN for anxiety. -Zyprexa, and hydroxyzine PRN for agitation/aggression -NRT - does not needed as patient does not smoke -SW on board for discharge planning. Encourage patient to participate in groups to work on coping skills. -He is currently on a deferral which expires on 11/18/2024. Treatment team will continue to work on discharge planning with [facility]; patient is psychiatrically stable at this point, currently awaiting long term consult/placement or crisis bed.
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
== END 2024-09-03 07:00 | disposition home or self-care (01) | DRG 761 ==
LOC: EC 16:30 → 3MHU 23:29
PROVIDERS: ADMIT Psychiatry & Neurology Psychiatry; ATTEND Psychiatry & Neurology Psychiatry
DX: F25.1 Schizoaffective disorder, depressive type (principal); F31.60 Bipolar disorder, current episode mixed, unspecified; F41.9 Anxiety disorder, unspecified; F60.3 Borderline personality disorder; F84.5 Asperger's syndrome; G91.9 Hydrocephalus, unspecified; F90.9 Attention-deficit hyperactivity disorder, unspecified type; E66.9 Obesity, unspecified; E07.9 Disorder of thyroid, unspecified; I10 Essential (primary) hypertension; J45.909 Unspecified asthma, uncomplicated; S51.812A Laceration without foreign body of left forearm, initial encounter; T24.292A Burn of second degree of multiple sites of left lower limb, except ankle and foot, initial encounter; T24.291A Burn of second degree of multiple sites of right lower limb, except ankle and foot, initial encounter; T20.27XA Burn of second degree of neck, initial encounter; F19.10 Other psychoactive substance abuse, uncomplicated; T22.20XA Burn of second degree of shoulder and upper limb, except wrist and hand, unspecified site, initial encounter; X77.2XXA Intentional self-harm by other hot fluids, initial encounter; Z68.42 Body mass index [BMI] 45.0-49.9, adult; Z79.890 Hormone replacement therapy; Z79.899 Other long term (current) drug therapy; Z87.891 Personal history of nicotine dependence; Z91.148 Patient's other noncompliance with medication regimen for other reason; Z91.199 Patient's noncompliance with other medical treatment and regimen due to unspecified reason; Z91.51 Personal history of suicidal behavior; Z71.51 Drug abuse counseling and surveillance of drug abuser; Z98.2 Presence of cerebrospinal fluid drainage device; Z11.52 Encounter for screening for COVID-19; Z71.3 Dietary counseling and surveillance; Z28.21 Immunization not carried out because of patient refusal; Z88.0 Allergy status to penicillin; Z88.8 Allergy status to other drugs, medicaments and biological substances
CPT/HCPCS: 36415; 80143; 80179; 80306; 81003; 82075; 87635; 99285

== ENCOUNTER 2025-03-12 07:25 | Emergency (ER) | payer OTHER ==
--- NOTE | 2025-03-12 07:57 | ED ---
General Adult HPI - General Chief complaint: Abdominal Pain Stated complaint: L side abd pain/ND Time Seen by Provider: 03/12/25 07:32 Source: patient, RN notes reviewed Mode of arrival: ambulatory Limitations: no limitations - History of Present Illness Initial comments: 29-year-old male presenting to the emergency department with complaints of abdominal pain and diarrhea that started yesterday evening. He states that he has cramping diffusely in his abdomen and has had 3-4 bouts of diarrhea. He states that it feels similar as when he has eaten something in the past that does not agree with his stomach. He denies bloody stools, dark or sticky sto ols, urinary complaints, nausea, vomiting, fevers, chills. No previous surgeries of the abdomen. Denies recent antibiotic use or travel. - Related Data Previous Rx's Medication Instructions Recorded Acetaminophen Tab [Tylenol] 650 mg PO Q4HR PRN tab 09/03/24 Albuterol Inhaler [Ventolin Hfa 2 puff INHALATION RT-Q6H PRN #1 09/03/24 Inhaler] each Fluticasone Propion/Salmeterol 1 puff INHALATION RT-BID 30 Days 09/03/24 [Wixela 250-50 Inhub] #1 each Ibuprofen [Motrin] 600 mg PO Q6HR PRN tab 09/03/24 Levothyroxine Sodium [Synthroid] 112 mcg PO DAILY 30 Days #30 tab 09/03/24 Pantoprazole [Protonix] 40 mg PO AC-BRKFST 30 Days #30 tab 09/03/24 Venlafaxine HCl ER [Effexor XR] 75 mg PO DAILY 30 Days #30 cap 09/03/24 busPIRone HCl [Buspar] 5 mg PO BID 30 Days #60 tab 09/03/24 fluPHENAZine decanoate [Prolixin 12.5 mg IM [id number] #1 ml 09/03/24 Decanoate] hydrOXYzine HCL [Atarax] 50 mg PO DAILY PRN 30 Days #60 tab 09/03/24 lisinopriL [Zestril] 10 mg PO DAILY 30 Days #30 tab 09/03/24 traZODone HCL [Desyrel] 25 mg PO HS 30 Days #15 tab 09/03/24 Allergies Allergy/AdvReac Type Severity Reaction Status Date / Time amoxicillin trihydrate Allergy Anaphylaxis Verified 03/12/25 07:29 [From Augmentin] potassium clavulanate Allergy Anaphylaxis Verified 03/12/25 07:29 [From Augmentin] haloperidol [From Haldol] AdvReac Severe Aggressive Verified 03/12/25 07:29 behavior risperidone [From Risperdal] AdvReac AGGRESSIVE Verified 03/12/25 07:29 Review of Systems ROS Statement: Those systems with pertinent positive or pertinent negative responses have been documented in the HPI. ROS Other: All systems not noted in ROS Statement are negative. Past Medical History Past Medical History: Asthma, Thyroid Disorder Additional Past Medical History / Comment(s): hydrocephalus, past rt humerus broken(sx), borderline personality disorder, psychosis sep, december, may 2024 History of Any Multi-Drug Resistant Organisms: None Reported Date of last positivie culture/infection: 2010 MDRO Source:: arm Past Surgical History: Hernia Repair, Orthopedic Surgery, Tonsillectomy Additional Past Surgical History / Comment(s): shunt for hydrocephalus and 3 revisions,previously charted pt had exploratory-lap for necrotizing fasciitis in abdomen at age 2 days old.pt not sure what was done., rt humerus sx- rio /screws, harrison inguinal hernia repair as Past Anesthesia/Blood Transfusion Reactions: No Reported Reaction Past Psychological History: ADD/ADHD, Bipolar, Depression Smoking Status: Never smoker Past Alcohol Use History: None Reported Past Drug Use History: Marijuana - Past Family History Father History Unknown: Yes Mother History Unknown: Yes Family Medical History: No Reported History General Exam Limitations: no limitations Neck exam: Present: normal inspection. Absent: tenderness, meningismus, lymphadenopathy Respiratory exam: Present: normal lung sounds bilaterally. Absent: respiratory distress, wheezes, rales, rhonchi, stridor Cardiovascular Exam: Present: regular rate, normal rhythm, normal heart sounds. Absent: systolic murmur, diastolic murmur, rubs, gallop, clicks GI/Abdominal exam: Present: soft, normal bowel sounds. Absent: distended, tenderness, guarding, rebound, rigid Extremities exam: Present: normal inspection, full ROM, normal capillary refill. Absent: tenderness, pedal edema, joint swelling, calf tenderness Back exam: Present: normal inspection Course Vital Signs 03/12/25 03/12/25 03/12/25 07:27 08:53 09:01 Temperature 97.7 F 98.2 F Pulse Rate 125 H 109 H Respiratory 20 18 Rate Blood Pressure 124/88 137/81 O2 Sat by Pulse 94 L 94 L Oximetry Medical Decision Making - Medical Decision Making Was pt. sent in by a medical professional or institution (, [facility], MACHINE HELPER, urgent care, hospital, or senior care...) When possible be specific @ -No Did you speak to anyone other than the patient for history (EMS, parent, family, police, friend...)? What history was obtained from this source @ -No Did you review nursing and triage notes (agree or disagree)? Why? @ -I reviewed and agree with nursing and triage notes Were old charts reviewed (outside hosp., previous admission, EMS record, old EKG, old radiological studies, urgent care reports/EKG's, senior care records)? Report findings @ -No old charts were reviewed Differential Diagnosis (chest pain, altered mental status, abdominal pain women, abdominal pain men, vaginal bleeding, weakness, fever, dyspnea, syncope, headache, dizziness, GI bleed, back pain, seizure, CVA, palpatations, mental health, musculoskeletal)? @ -Differential Abdominal Pain Men: Appendicitis, cholecystitis, diverticulosis, ischemic bowel, pancreatitis, hepatitis, UTI, gastroenteritis, AAA, incarcerated hernia, bowel obstruction, constipation, inflammatory bowel, hepatitis, peptic ulcer disease, splenic infarction, perforated viscus, testicular torsion, this is not meant to be an all-inclusive list EKG interpreted by me (3pts min.). @ -Completed at 803 sinus tachycardia with ventricular rate of 123, AR interval 112, QRS 100, QT 3 6, QTc 379. X-rays interpreted by me (1pt min.). @ -None done CT interpreted by me (1pt min.). @ -None done U/S interpreted by me (1pt. min.). @ -None done What testing was considered but not performed or refused? (CT, X-rays, U/S, labs)? Why? @ -None What meds were considered but not given or refused? Why? @ -None Did you discuss the management of the patient with other professionals (professionals i.e. JOVITA [place], MACHINE HELPER, lab, RT, psych nurse, social science analyst, civil project engineer, teacher, [place] police officer, assistant case manager)? Give summary @ -No Was smoking cessation discussed for >3mins.? @ -No Was critical care preformed (if so, how long)? @ -No Were there social determinants of health that impacted care today? How? (Homelessness, low income, unemployed, alcoholism, drug addiction, transportation, low edu. Level, literacy, decrease access to med. care, skilled nursing, rehab)? @ -No Was there de-escalation of care discussed even if they declined (Discuss DNR or withdrawal of care, Hospice)? DNR status @ -No What co-morbidities impacted this encounter? (DM, HTN, Smoking, COPD, CAD, Cancer, CVA, ARF, Chemo, Hep., AIDS, mental health diagnosis, sleep apnea, morbid obesity)? @ -None Was patient admitted / discharged? Hospital course, mention meds given and route, prescriptions, significant lab abnormalities, going to OR and other pertinent info. @ -discharge. 29-year-old male presenting with complaints of diarrhea and abdominal pain. Patient is tachycardic on arrival with heart rate of 125. EKG is in sinus tachycardia. provided with 1L fluid bolus. Patient's abdominal examination is unremarkable. He is provided with Toradol. Laboratory testing including CBC, CMP, urinalysis is unremarkable. On reevaluation patient states that he is feeling well. Symptoms likely secondary to gastroenteritis. Recommend follow clear liquid diet over the next 24 hours and after slowly reintroducing foods along the brat diet. Case discussed with my attending Dr. Dexter Undiagnosed new problem with uncertain prognosis? @ -No Drug Therapy requiring intensive monitoring for toxicity (Heparin, Nitro, Insulin, Cardizem)? @ -No Were any procedures done? @ -No Diagnosis/symptom? @ -gastroenteritis Acute, or Chronic, or Acute on Chronic? @ -acute Uncomplicated (without systemic symptoms) or Complicated (systemic symptoms)? @ -uncomplicated Side effects of treatment? @ -No Exacerbation, Progression, or Severe Exacerbation? @ -No Poses a threat to life or bodily function? How? (Chest pain, USA, CA, pneumonia, PE, COPD, DKA, ARF, appy, cholecystitis, CVA, Diverticulitis, Homicidal, Suicidal, threat to staff... and all critical care pts) @ -No - Lab Data Result diagrams: 03/12/25 08:07 03/12/25 08:07 Lab Results 03/12/25 03/12/25 03/12/25 Range/Units 08:07 08:07 08:07 WBC 7.08 (4.50-10.00) 10*3/uL RBC 5.49 (4.40-5.60) 10*6/uL Hgb 15.3 (13.0-17.0) g/dL Hct 45.9 (39.6-50.0) % MCV 83.6 (80.0-97.0) fL MCH 27.9 (27.0-32.0) pg MCHC 33.3 (32.0-37.0) g/dL Plt Count 251 (140-440) 10*3/uL MPV 9.9 (9.5-12.2) fL Immature Gran % (Auto) 0.4 % Neutrophils % 72.1 % Lymphocytes % 17.8 % Monocytes % 7.5 % Eosinophils % 2.1 % Basophils % 0.1 % Immature Gran # 0.03 (0.00-0.04) 10*3/uL Neutrophils # 5.10 (1.80-7.70) 10*3/uL Lymphocytes # 1.26 (0.90-5.00) 10*3/uL Monocytes # 0.53 (0.20-1.00) 10*3/uL Eosinophils # 0.15 (0.04-0.35) 10*3/uL Basophils # 0.01 (0.00-0.10) 10*3/uL Sodium 136 L (137-145) mmol/L Potassium 4.1 (3.5-5.1) mmol/L Chloride 101 (98-107) mmol/L Carbon Dioxide 23 (22-30) mmol/L Anion Gap 12 mmol/L BUN 20 (9-20) mg/dL Creatinine 0.82 (0.66-1.25) mg/dL Est GFR (CKD-EPI)AfAm >90 (>60 ml/min/1.73 sqM) Est GFR (CKD-EPI)NonAf >90 (>60 ml/min/1.73 sqM) Glucose 138 H (74-99) mg/dL Calcium 9.5 (8.4-10.2) mg/dL Total Bilirubin 0.6 (0.2-1.3) mg/dL AST 23 (17-59) U/L ALT 29 (4-49) U/L Alkaline Phosphatase 180 H (38-126) U/L Total Protein 7.2 (6.3-8.2) g/dL Albumin 4.6 (3.5-5.0) g/dL Amylase 53 (30-110) U/L Lipase 95 (23-300) U/L Urine Color Yellow Urine Appearance Clear (Clear) Urine pH 6.0 (5.0-8.0) Ur Specific [place] 1.027 (1.001-1.035) Urine Protein Negative (Negative) Urine Glucose (UA) Negative (Negative) Urine Ketones Negative (Negative) Urine Blood Negative (Negative) Urine Nitrite Negative (Negative) Urine Bilirubin Negative (Negative) Urine Urobilinogen <2.0 (<2.0) mg/dL Ur Leukocyte Esterase Negative (Negative) Disposition Clinical Impression: Gastroenteritis Disposition: HOME SELF-CARE Condition: Good Instructions (If sedation given, give patient instructions): Gastroenteritis (ED) Additional Instructions: Please return to the Emergency Department if symptoms worsen or any other concerns. I recommend that you follow a clear liquid diet over the next 24 hours and in the next 36 hours followed the brat diet which includes but is not limited to bananas, rice, applesauce, toast. Is patient prescribed a controlled substance at d/c from ED?: No Referrals: Juan F Staley DO [Primary Care Provider] - 1-2 days Time of Disposition: 08:54
[2025-03-12] MEDS: SODIUM CHLORIDE 0.9% 1,000 ML IV ONE (08:10)
[2025-03-12] MEDS: KETOROLAC 15 MG/ML 1 ML VIAL IVP STA (08:10)
[2025-03-12 08:12] LABS: Basophils # (A) 0.01 10*3/uL (0.00-0.10); Basophils % (A) 0.1 %; Eosinophils # (A) 0.15 10*3/uL (0.04-0.35); Eosinophils % (A) 2.1 %; HCT 45.9 % (39.6-50.0); HGB 15.3 g/dL (13.0-17.0); Lymphocytes # (A) 1.26 10*3/uL (0.90-5.00); Lymphocytes % (A) 17.8 %; MCH 27.9 pg (27.0-32.0); MCHC 33.3 g/dL (32.0-37.0); MCV 83.6 fL (80.0-97.0); Monocytes # (A) 0.53 10*3/uL (0.20-1.00); Monocytes % (A) 7.5 %; Neutrophils # (A) 5.10 10*3/uL (1.80-7.70); Neutrophils % (A) 72.1 %; Platelet Count 251 10*3/uL (140-440); RBC 5.49 10*6/uL (4.40-5.60); RDW 13.4 % (11.5-14.5); WBC 7.08 10*3/uL (4.50-10.00)
[2025-03-12 08:14] LABS: Bilirubin,Urine Negative (Negative); Blood,Urine Negative (Negative); Color,Urine Yellow; Glucose,Urine (UA) Negative (Negative); Ketones,Urine Negative (Negative); Leukocyte Esterase,Urine Negative (Negative); Nitrite,Urine Negative (Negative); PH, Urine 6.0 (5.0-8.0); Protein,Urine Negative (Negative); Specific Gravity,Urine 1.027 (1.001-1.035); Urobilinogen,Urine <2.0 mg/dL (<2.0)
[2025-03-12 08:34] LABS: ALT 29 U/L (4-49); AST 23 U/L (17-59); African American GFR (CKD) >90 (>60 ml/min/1.73 sqM); Albumin 4.6 g/dL (3.5-5.0); Alkaline Phosphatase 180 U/L (38-126); Amylase 53 U/L (30-110); Anion Gap 12 mmol/L; Blood Urea Nitrogen 20 mg/dL (9-20); Calcium 9.5 mg/dL (8.4-10.2); Carbon Dioxide 23 mmol/L (22-30); Chloride 101 mmol/L (98-107); Glucose 138 mg/dL (74-99); Lipase 95 U/L (23-300); Non-African American GFR(CKD) >90 (>60 ml/min/1.73 sqM); Potassium 4.1 mmol/L (3.5-5.1); Sodium 136 mmol/L (137-145); Total Protein 7.2 g/dL (6.3-8.2)
[2025-03-12 08:53] VITALS: BP 137/81; PULSE 109; RESP 18
[2025-03-12 09:02] VITALS: TEMP 98.2
== END 2025-03-12 09:02 | disposition home or self-care (01) ==
LOC: EC 07:25
CPT/HCPCS: 36415; 80053; 81003; 82150; 83690; 85025; 93005; 96361; 96374; 99284